=== PATIENT | male | born 1940 | race Caucasian/White ===

== ENCOUNTER 2017-04-07 06:16 | Day surgery (SDC) | payer MEDICARE, MEDICAID ==
[2017-04-07] MEDS ORDERED: Dexamethasone 4 MG/ML SDV IV ONE (06:17)
[2017-04-07] MEDS ORDERED: Midazolam 1 MG/ML 2 ML SDV IV ONE (06:17)
[2017-04-07] MEDS ORDERED: Dilation Soln 1 EA EACH EYELF ONE (06:30)
[2017-04-07] MEDS ORDERED: Sodium Chloride 0.9% 10 ML Syringe FLUSH PRN (06:30)
[2017-04-07] MEDS ORDERED: Timolol Maleate 0.5% Ophth Soln 5 ML Bottle EYELF ONE (06:30)
[2017-04-07] MEDS ORDERED: Moxifloxacin 0.5% Ophth Soln 3 ML Bottle EYELF ONE (06:30)
[2017-04-07] MEDS ORDERED: Proparacaine 0.5% Ophth Soln 15 ML Bottle EYELF SCH (06:30)
[2017-04-07] MEDS ORDERED: Phenylephrine 10% Ophth Soln 5 ML Bot EYELF ONE (06:30)
[2017-04-07] MEDS ORDERED: Povidone-Iodine 5% Sterile Ophth Soln 30 ML Bottle EYELF ONE ×2 (06:30→08:14)
[2017-04-07] MEDS ORDERED: Midazolam 1 MG/ML 2 ML SDV ONE (07:21)
[2017-04-07] MEDS ORDERED: Dexamethasone 4 MG/ML SDV ONE (07:22)
[2017-04-07] MEDS ORDERED: Balanced Salt Solution Plus Ophth Irrig 500 ML Bottle ONE (08:00)
[2017-04-07] MEDS ORDERED: Lidocaine 1% 30 ML SDV ONE (08:13)
[2017-04-07] MEDS ORDERED: Diclofenac Sodium 0.1% Ophth Soln 5 ML Bottle EYELF ONE (08:14)
[2017-04-07] MEDS ORDERED: Apraclonidine 0.5% Ophth Soln 5 ML Bot EYELF ONE (08:15)
[2017-04-07] MEDS ORDERED: Tetracaine HCl/PF 0.5% 4 ML Bottle EYELF ONE (08:15)
[2017-04-07] MEDS ORDERED: Dexamethasone/Neomycin/Polymyxin B Ophth Oint 3.5 GM Tube EYELF ONE (08:16)
[2017-04-07] MEDS ORDERED: Vancomycin 500 MG SDV EYELF ONE (08:16)
[2017-04-07] MEDS ORDERED: Balanced Salt Solution Ophth Irrig 500 ML Bottle IOCULAR ONE (08:16)
[2017-04-07] MEDS ORDERED: Chondroitin Sulfate/Hyaluronate Sodium Ophth Inj 0.75 ML Syringe EYELF ONE (08:16)
--- NOTE | 2017-04-07 09:15 | OR ---
DATE: 04/07/2017 PREOPERATIVE DIAGNOSIS: Cataract, left eye. POSTOPERATIVE DIAGNOSIS: Cataract, left eye. PROCEDURE: Extracapsular cataract extraction with intraocular lens implant, left eye. ANESTHESIA: Topical/local MAC. COMPLICATIONS: None. INDICATION: Mr. Coombs was seen in the clinic. He is unhappy with his vision. He has difficulty reading and difficulty seeing television. Examination revealed visually significant cataract. I explained options. I offered cataract surgery, and I explained risks including but not limited to, infection, retinal detachment, loss of vision, need for additional surgery, and risks associated with anesthesia. We discussed implant options. He requested a monofocal implant. He understands that he may need glasses following surgery. OPERATIVE DESCRIPTION: After informed consent was obtained and the risks, benefits, and alternatives were explained, the patient was brought to the operative suite and topical anesthesia was administered. The patient was then prepped and draped in the sterile fashion and attention was placed on the left eye. A sterile lid speculum was placed into the left eye to allow operative exposure. A full-thickness paracentesis was made in the temporal portion of the operative eye. Preservative-free lidocaine 0.1 mL was injected into the anterior chamber followed by viscoelastic. A full-thickness corneal incision was then made into the anterior chamber. A bent needle cystotome was used to create a small hernán in the anterior capsule. The capsulorrhexis forceps was then used to create a 360-degree curvilinear capsulorrhexis. The nucleus was then removed using a phacoemulsification handpiece and the remaining cortical material was then removed with irrigation and aspiration handpiece. Following removal of the cortical material, the capsular bag was then inspected and noted to be free of any holes or tears. Viscoelastic was then injected into the capsular bag and the intraocular lens was inserted into the capsular bag. No complications occurred. The viscoelastic material was then removed from both the anterior and posterior chambers and from behind the IOL. The lens and capsular bag were then reinspected. The IOL was well centered and the capsular bag intact. The wound and paracentesis sites were inspected and hydrated with balanced saline solution. Both were found to be self-sealing. The intraocular pressure was assessed digitally and found to be within normal range. A good red reflex was noted at the completion of the procedure. No complications occurred during the operation. At the completion of the procedure, Maxitrol, Voltaren, and Iopidine drops were placed into the operative eye. A sterile eye shield was placed over the operative eye and the patient was transported to the postoperative recovery area having tolerated the procedure well. Postoperative instructions were given along with a postoperative appointment. The patient was advised to call with any questions or concerns. [facility] /[id number]
[2017-04-07 10:01] VITALS: BP 136/81
== END 2017-04-07 09:15 | disposition home or self-care (01) ==
LOC: DL.SDS 06:16
PROVIDERS: ATTEND Ophthalmology
DX: H26.9 Unspecified cataract (principal); I25.10 Atherosclerotic heart disease of native coronary artery without angina pectoris; J44.9 Chronic obstructive pulmonary disease, unspecified; E78.5 Hyperlipidemia, unspecified; Z98.890 Other specified postprocedural states; Z88.0 Allergy status to penicillin; Z88.8 Allergy status to other drugs, medicaments and biological substances; Z87.891 Personal history of nicotine dependence; Z79.01 Long term (current) use of anticoagulants
CPT/HCPCS: 66984; A9270; C1780; J1100; J2250; J3370; J7050; 00142

== ENCOUNTER 2017-05-05 06:35 | Day surgery (SDC) | payer MEDICARE, MEDICAID ==
[~2017-05-05 06:35] MED LIST: Cataract Ophth Solution EYERT ONE; Moxifloxacin 0.5% Ophth Soln 3 ML Bottle EYERT ONE; Ondansetron 4 MG/2 ML SDV IVPUSH PRN; Phenylephrine 10% Ophth Soln 5 ML Bot EYERT ONE; Povidone-Iodine 5% Sterile Ophth Soln 30 ML Bottle EYERT ONE; Proparacaine 0.5% Ophth Soln 15 ML Bottle EYERT ONE; Sodium Chloride 0.9% 10 ML Syringe FLUSH PRN; Timolol Maleate 0.5% Ophth Soln 5 ML Bottle EYERT ONE
[2017-05-05] MEDS ORDERED: Midazolam 1 MG/ML 2 ML SDV IV ONE (06:36)
[2017-05-05] MEDS ORDERED: Dexamethasone 4 MG/ML SDV IV ONE (06:36)
[2017-05-05] MEDS ORDERED: Dexamethasone 4 MG/ML SDV ONE (07:29)
[2017-05-05] MEDS ORDERED: Midazolam 1 MG/ML 2 ML SDV ONE (07:29)
--- NOTE | 2017-05-05 07:36 | PCM.SN ---
- Free Text/Narrative Note: 05/05/17 1584 preop patients history and physical reviewed along with allergies and medications no history of complications with past anesthesia heart history of cad hypertension lungs history of copd o2 dependent asa 3 mallampati 2 npo 8 hrs plan topical with iv sedation this along with risks goals alternatives explained to patient and accepted
[2017-05-05] MEDS ORDERED: Lidocaine 1% 30 ML SDV ONE (08:00)
[2017-05-05] MEDS ORDERED: Povidone-Iodine 5% Sterile Ophth Soln 30 ML Bottle EYERT ONE (08:00)
[2017-05-05] MEDS ORDERED: Tetracaine HCl/PF 0.5% 4 ML Bottle EYERT ONE (08:00)
[2017-05-05] MEDS ORDERED: Dexamethasone/Neomycin/Polymyxin B Ophth Oint 3.5 GM Tube EYERT ONE (08:01)
[2017-05-05] MEDS ORDERED: Apraclonidine 0.5% Ophth Soln 5 ML Bot EYERT ONE (08:01)
[2017-05-05] MEDS ORDERED: Vancomycin 500 MG SDV EYERT ONE (08:01)
[2017-05-05] MEDS ORDERED: Diclofenac Sodium 0.1% Ophth Soln 5 ML Bottle EYERT ONE (08:01)
[2017-05-05] MEDS ORDERED: Balanced Salt Solution Ophth Irrig 500 ML Bottle IOCULAR ONE (08:01)
[2017-05-05] MEDS ORDERED: Chondroitin Sulfate/Hyaluronate Sodium Ophth Inj 0.75 ML Syringe EYERT ONE (08:02)
--- NOTE | 2017-05-05 08:29 | PCM.SN ---
- Free Text/Narrative Note: 05/05/17 4196 postop patient recovered well from iv sedation no apparent complications with anesthesia
--- NOTE | 2017-05-05 08:54 | OR ---
DATE: 05/05/2017 PREOPERATIVE DIAGNOSIS: Cataract, right eye. POSTOPERATIVE DIAGNOSIS: Cataract, right eye. PROCEDURE: Extracapsular cataract extraction with intraocular lens implant, right eye. ANESTHESIA: Topical/local MAC. COMPLICATIONS: None. INDICATION: Mr. Coombs was seen in the clinic with complaints of blurred vision. His examination revealed visually significant cataract. I explained options; I offered cataract surgery; and I explained risks preoperatively including the potential for infection, retinal detachment, loss of vision, need for additional surgery, and risks associated with anesthesia amongst others. We discussed implant options. He requested a monofocal implant. OPERATIVE DESCRIPTION: After informed consent was obtained and the risks, benefits, and alternatives were explained, the patient was brought to the operative suite and topical anesthesia was administered. The patient was then prepped and draped in the sterile fashion and attention was placed on the right eye. A sterile lid speculum was placed into the right eye to allow operative exposure. A full-thickness paracentesis was made in the temporal portion of the operative eye. Preservative-free lidocaine 0.1 mL was injected into the anterior chamber followed by viscoelastic. A full-thickness corneal incision was then made into the anterior chamber. A bent needle cystotome was used to create a small hernán in the anterior capsule. The capsulorrhexis forceps was then used to create a 360-degree curvilinear capsulorrhexis. The nucleus was then removed using a phacoemulsification handpiece and the remaining cortical material was then removed with irrigation and aspiration handpiece. Following removal of the cortical material, the capsular bag was then inspected and noted to be free of any holes or tears. Viscoelastic was then injected into the capsular bag and the intraocular lens was inserted into the capsular bag. The viscoelastic material was then removed from both the anterior and posterior chambers and from behind the IOL. The lens and capsular bag were then reinspected. The IOL was well centered and the capsular bag intact. The wound and paracentesis sites were inspected and hydrated with balanced saline solution. Both were found to be self-sealing. The intraocular pressure was assessed digitally and found to be within normal range. A good red reflex was noted at the completion of the procedure. No complications occurred during the operation. At the completion of the procedure, Maxitrol, Voltaren, and Iopidine drops were placed into the operative eye. A sterile eye shield was placed over the operative eye and the patient was transported to the postoperative recovery area having tolerated the procedure well. Postoperative instructions were given along with a postoperative appointment. The patient was advised to call with any questions or concerns. [facility] /[id number]
[2017-05-05 13:53] VITALS: BP 119/63
== END 2017-05-05 09:17 | disposition home or self-care (01) ==
LOC: DL.SDS 06:35
PROVIDERS: ATTEND Ophthalmology
DX: H26.9 Unspecified cataract (principal); J44.9 Chronic obstructive pulmonary disease, unspecified; I25.10 Atherosclerotic heart disease of native coronary artery without angina pectoris; E78.5 Hyperlipidemia, unspecified; Z88.0 Allergy status to penicillin; Z98.890 Other specified postprocedural states; Z87.891 Personal history of nicotine dependence; Z79.899 Other long term (current) drug therapy; Z79.01 Long term (current) use of anticoagulants; Z88.8 Allergy status to other drugs, medicaments and biological substances
CPT/HCPCS: 00142; 66984; A9270; J3370; J7050; C1780; J1100; J2250

== ENCOUNTER 2019-06-21 11:34 | Inpatient (IN) | payer OTHER, MEDICARE, MEDICAID ==
--- NOTE | 2019-06-21 13:06 | PCM.HP ---
H&P History of Present Illness - General Date of Service: 06/21/19 Admit Problem/Dx: sob Source of Information: Patient, Provider - History of Present Illness Initial Comments - Free Text/Narative: 78-year-old gentleman with a history of coronary artery disease, COPD, home oxygen use, dyslipidemia, rheumatoid arthritis. The patient was seen by rheumatology about a week ago and received IV steroids. The patient has been experiencing increasing shortness of breath. He had to use more nebulizers, increase his oxygen to 3 L per nasal cannula continuously. There is mild to moderate associated cough with it. Developed pain in the right chest with coughing. Minimal sputum production. The patient went to the local clinic. Was noted to have significant shortness of breath. He was given Solu-Medrol 125 mg and Rocephin. Chest x-ray was done, laboratory studies showed leukocytosis, Recommendation was for hospital treatment. - Related Data Allergies/Adverse Reactions: Allergies Allergy/AdvReac Type Severity Reaction Status Date / Time Penicillins Allergy Unknown SWELLING Verified 06/21/19 12:04 OF LEGS/FEET codeine Allergy nightmares Verified 06/21/19 12:04 hydrocodone Allergy bad dreams Verified 06/21/19 12:04 isosorbide Allergy Other Verified 06/21/19 12:04 Home Medications: Home Meds Acetaminophen [Acetaminophen Extra Strength] 500 mg PO Q8H PRN 12/16/15 [History ] Albuterol Sulfate [Proventil Hfa] 2 puff INH TID PRN 12/16/15 [History] Albuterol [Proventil Neb Soln] 1 vial INH Q6H PRN 12/16/15 [History] Budesonide/Formoterol [Symbicort 160-4.5 MCG] 2 puff INH BID 12/16/15 [History] Cyclobenzaprine [Flexeril] 10 mg PO TID PRN 12/16/15 [History] Doxazosin [Cardura] 4 mg PO BEDTIME 12/16/15 [History] Ezetimibe [Zetia] 5 mg PO DAILY 12/16/15 [History] Metoprolol Succinate [Toprol XL] 100 mg PO BEDTIME 12/16/15 [History] Nitroglycerin [Nitroglycerin Patch 0.2 MG/Hr] 1 patch TRDERM DAILY 05/02/16 [ History] Nitroglycerin [Nitrostat] 1 tab SL Q5M PRN 12/16/15 [History] Tiotropium [Spiriva HandiHaler] 1 puff INH BEDTIME 12/16/15 [History] Warfarin [Coumadin] 2 mg PO .TRSASU 12/16/15 [History] atorvaSTATin [Lipitor] 20 mg PO BEDTIME 12/16/15 [History] riTUXimab [Rituxan] 1 infusion IV .[id number] 12/16/15 [History] traMADol [Ultram] 100 mg PO TID PRN 12/16/15 [History] Gabapentin 300 mg PO TID PRN 04/07/17 [History] amLODIPine [Norvasc] 10 mg PO DAILY 04/07/17 [History] Esomeprazole [NexIUM] 40 mg PO DAILY 05/04/17 [History] Fluticasone Propionate [Flonase] 1 spray NASBOTH DAILY PRN 05/04/17 [History] Warfarin [Coumadin] 4 mg PO .MWF 06/17/18 [History] predniSONE [Prednisone] 2.5 mg PO DAILY #3 tablet 06/22/18 [Rx] predniSONE [Prednisone] 5 mg PO DAILY #3 tablet 06/22/18 [Rx] predniSONE [Prednisone] 20 mg PO DAILY #3 tablet 06/22/18 [Rx] Past Medical History HEENT History: Reports: Cataract, Hard of Hearing, Impaired Vision Other HEENT History: WEARS CORRECTIVE LENSES; UPPER AND LOWER DENTURE PLATE; BILAT HEARING AIDES Cardiovascular History: Reports: Blood Clots/VTE/DVT, CAD, Heart Murmur, High Cholesterol, Hypertension, Other (See Below) Other Cardiovascular History: THROMBOPHLEBITIS Respiratory History: Reports: Bronchitis, Recurrent, COPD, PE, Pneumonia, Recurrent, Sleep Apnea Gastrointestinal History: Reports: Chronic Constipation, Diverticulosis Genitourinary History: Reports: Prostate Disorder, Retention, Urinary, UTI, Recurrent Musculoskeletal History: Reports: Arthritis, RA, Other (See Below) Other Musculoskeletal History: SCIATICA. RHEUMATOID ARTHRITIS Neurological History: Reports: None Psychiatric History: Reports: Anxiety, Depression Endocrine/Metabolic History: Reports: Hypothyroidism Hematologic History: Reports: Blood Transfusion(s) Immunologic History: Reports: None Oncologic (Cancer) History: Reports: None Dermatologic History: Reports: Eczema Other Dermatologic History: laceration right lateral hand. - Infectious Disease History Infectious Disease History: Reports: Chicken Pox - Past Surgical History Head Surgeries/Procedures: Reports: None HEENT Surgical History: Reports: Cataract Surgery, Oral Surgery, Tonsillectomy, Other (See Below) Other HEENT Surgeries/Procedures: ADENOIDECTOMY Cardiovascular Surgical History: Reports: Coronary Artery Stent Respiratory Surgical History: Reports: Thoracotomy, Other (See Below) Other Respiratory Surgeries/Procedures: PLEURAL BIOPSY GI Surgical History: Reports: Cholecystectomy, Colonoscopy, EGD, Hernia, Inguinal Male Surgical History: Reports: None Endocrine Surgical History: Reports: None Neurological Surgical History: Reports: None Musculoskeletal Surgical History: Reports: Knee Replacement, Other (See Below) Other Musculoskeletal Surgeries/Procedures:: RESECTION OF OLECRANAL BURSA Oncologic Surgical History: Reports: None Social & Family History - Family History Family Medical History: Noncontributory - Tobacco Use Smoking Status *Q: Former Smoker Used Tobacco, but Quit: Yes Month/Year Tobacco Last Used: 1988 - Caffeine Use Caffeine Use: Reports: Coffee, Soda Caffeine Use Comment: 12-14 oz daily - Recreational Drug Use Recreational Drug Use: No - Living Situation & Occupation Living situation: Reports: , with Spouse Occupation: Retired H&P Review of Systems - Review of Systems: Review Of Systems: See Below General: Reports: Chills. Denies: Fever Pulmonary: Reports: Shortness of Breath, Wheezing, Pleuritic Chest Pain, Cough. Denies: Sputum, Hemoptysis Cardiovascular: Reports: Chest Pain. Denies: Edema (Right sided with cough) Gastrointestinal: Denies: Abdominal Pain Genitourinary: Denies: Dysuria Psychiatric: Denies: Confusion Neurological: Denies: Dizziness Exam - Exam Exam: See Below - Vital Signs Vital Signs: Last Vital Signs Temp 37.1 C 06/21/19 12:00 Pulse 95 06/21/19 12:00 Resp 20 06/21/19 12:00 BP 130/56 L 06/21/19 12:00 Pulse Ox 97 06/21/19 12:00 Weight: 71.74 kg - Exam General: Alert, Oriented Neck: Supple Lungs: Normal Respiratory Effort, Decreased Breath Sounds, Wheezing (Mild bilateral) Cardiovascular: Regular Rate, Regular Rhythm GI/Abdominal Exam: Normal Bowel Sounds, Soft, Non-Tender Extremities: No Pedal Edema Skin: Warm, Dry, Intact Neuro Extensive - Mental Status: Alert, Oriented x3 Psychiatric: Alert, Normal Affect, Normal Mood - Patient Data Lab Results Last 24 hrs: Laboratory studies from [facility] were reviewed White blood cell count 26.7, hemoglobin 14.7, platelet count 186 BUN 21, sodium 138, potassium 4.9, creatinine 1.9 Baseline creatinine around 1.4-1.8 DATE OF STUDY: 06/21/2019 10:11 AM STUDY: XR CHEST PA AND LATERAL HISTORY: COPD with decrease BS's and wheezing COMPARISONS: 12/31/2015 FINDINGS.No change in heart size and pulmonary vascularity. Linear strands of atelectasis or fibrosis in both lung bases are similar. Subtle nodular opacity projected over the lower LEFT hemithorax may represent a pulmonary nodule or nipple shadow. Follow-up PA radiograph with nipple markers or chest CT recommended. Probable nipple shadow on the RIGHT. Hyperinflation of both lungs. Surgical clips, RIGHT upper quadrant. No pneumothorax or pleural effusion. - Problem List (1) Acute exacerbation of chronic obstructive pulmonary disease (COPD) SNOMED Code(s): 821551336 ICD Code: J44.1 - CHRONIC OBSTRUCTIVE PULMONARY DISEASE W (ACUTE) EXACERBATION Status: Acute Current Visit: No Problem List Initiated/Reviewed/Updated: Yes Orders Last 24hrs: Active Orders 24 hr Category Date Time Status CULTURE BLOOD [BC] Stat Lab 06/21/19 12:37 Ordered CULTURE BLOOD [BC] Stat Lab 06/21/19 12:37 Ordered CULTURE SPUTUM + SMEAR [RM] Routine Lab 06/21/19 12:37 Ordered CULTURE URINE [RM] Routine Lab 06/21/19 12:38 Ordered LACTIC ACID [CHEM] Routine Lab 06/21/19 12:37 Ordered PROCALCITONIN [REF] Routine Lab 06/21/19 12:38 Ordered UA W/MICROSCOPIC [URIN] Routine Lab 06/21/19 12:38 Ordered Blood Culture x2 Reflex Set [OM.PC] Stat Oth 06/21/19 12:37 Ordered Assessment/Plan Comment:: Presented with increasing shortness of breath, cough, Noted to have significant wheezing. Leukocytosis. Acute COPD exacerbation Treat with Pulmicort, scheduled DuoNeb Use as needed duoneb nebulizers Acute on chronic hypoxemic respiratory failure has been using oxygen in the past but requiring higher levels The patient is requiring continuous oxygen now We'll supplement as needed Acute bronchitis, no apparent pneumonia We will obtain blood culture, sputum culture Obtain procalcitonin Treat empirically with Rocephin and azithromycin Hypertension Treat with Norvasc Dyslipidemia Treat with Lipitor RA received IV steroid - leukocytosis might relate to that 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
[2019-06-21] MEDS ORDERED: Cyclobenzaprine 10 MG Tab PO PRN (13:12)
[2019-06-21] MEDS ORDERED: Gabapentin 300 MG Cap PO PRN (13:12)
[2019-06-21] MEDS ORDERED: Albuterol/Ipratropium 3.0-0.5 MG/3 ML Neb Soln NEB PRN (13:31)
[2019-06-21] MEDS ORDERED: Temazepam 15 MG Cap PO PRN (13:54)
[2019-06-21] MEDS ORDERED: Ondansetron 4 MG Tab.DIS PO PRN (13:54)
[2019-06-21] MEDS ORDERED: Acetaminophen 325 MG Tab PO PRN (13:54)
[2019-06-21] MEDS: Sodium Chloride 0.9% 10 ML Syringe FLUSH PRN ×3 (14:23→21:24)
[2019-06-21] MEDS: methylPREDNISolone Sodium Succinate 40 MG/1 ML SDV IVPUSH SCH ×2 (14:23→21:19)
[2019-06-21] MEDS: Azithromycin 500 MG in Sodium Chloride 0.9% 250 ML IV SCH (15:01)
[2019-06-21] MEDS: cefTRIAXone 1 GM in Sodium Chloride 0.9% 50 ML IV SCH (16:06)
[2019-06-21] MEDS ORDERED: Warfarin 2 MG Tab PO ONE (16:15)
[2019-06-21] MEDS: traMADol 50 MG Tab PO PRN (16:46)
[2019-06-21] MEDS: Albuterol/Ipratropium 3.0-0.5 MG/3 ML Neb Soln NEB SCH (17:53)
[2019-06-21] MEDS: Budesonide 0.5 MG/2 ML Neb Susp NEB SCH (17:55)
[2019-06-21] MEDS: Metoprolol Succinate 50 MG Tab.ER PO SCH (21:06)
[2019-06-21] MEDS: Doxazosin 2 MG Tab PO SCH (21:07)
[2019-06-21] MEDS: atorvaSTATin 20 MG Tab PO SCH (21:07)
[2019-06-21] MEDS: Gabapentin 300 MG Cap PO SCH (21:08)
[2019-06-21] MEDS: Heparin Sodium 5,000 Units/ML Vial SUBCUT SCH (21:30)
[2019-06-22] MEDS: Albuterol/Ipratropium 3.0-0.5 MG/3 ML Neb Soln NEB SCH ×4 (01:21→18:09)
[2019-06-22] MEDS: Sodium Chloride 0.9% 10 ML Syringe FLUSH PRN ×3 (06:33→22:15)
[2019-06-22] MEDS: methylPREDNISolone Sodium Succinate 40 MG/1 ML SDV IVPUSH SCH ×3 (06:34→22:15)
[2019-06-22] MEDS: Heparin Sodium 5,000 Units/ML Vial SUBCUT SCH ×2 (06:38→14:21)
[2019-06-22 07:05] LABS: ANION GAP 13.7
[2019-06-22] MEDS: Budesonide 0.5 MG/2 ML Neb Susp NEB SCH ×2 (07:50→18:09)
[2019-06-22] MEDS: amLODIPine 5 MG Tab PO SCH (08:43)
[2019-06-22] MEDS: Ezetimibe 10 MG Tab PO SCH (08:43)
[2019-06-22] MEDS: Gabapentin 300 MG Cap PO SCH ×3 (08:44→21:18)
[2019-06-22] MEDS ORDERED: Nitroglycerin 0.2 MG/HR Transdermal Patch TRDERM SCH (09:00)
--- NOTE | 2019-06-22 10:40 | PCM.PN ---
- General Info Date of Service: 06/22/19 Admission Dx/Problem (Free Text): Shortness of breath Subjective Update: He is feeling well. Stable on 3 L nasal cannula oxygen. Shortness of breath is [id number], improved since admission. No associated chest pain. No sputum. No urinary burning. No abdominal pain. - Review of Systems General: Reports: Weakness. Denies: Fever Pulmonary: Reports: Shortness of Breath Cardiovascular: Denies: Chest Pain Gastrointestinal: Denies: Abdominal Pain Genitourinary: Denies: Dysuria Neurological: Denies: Confusion - Patient Data Vitals - Most Recent: Last Vital Signs Temp 36.4 C 06/22/19 08:00 Pulse 80 06/22/19 07:51 Resp 18 06/22/19 08:00 BP 137/64 06/22/19 08:43 Pulse Ox 99 06/22/19 08:00 Weight - Most Recent: 71.74 kg I&O - Last 24 Hours: Intake & Output 06/21/19 06/22/19 06/22/19 22:59 06:59 14:59 Intake Total 500 455 200 Output Total 400 Balance 500 55 200 Lab Results Last 24 Hours: Laboratory Results - last 24 hr 06/21/19 06/21/19 06/21/19 Range/Units 12:53 12:53 12:53 WBC (5.0-10.0) 10^3/uL RBC (4.6-6.2) 10^6/uL Hgb (14.0-18.0) g/dL Hct (40.0-54.0) % MCV (80-100) fL MCH (27.0-34.0) pg MCHC (33.0-35.0) g/dL Plt Count (150-450) 10^3/uL Neut % (Auto) (42.2-75.2) % Lymph % (Auto) (20.5-50.1) % [place] % (Auto) (2-8) % Eos % (Auto) (1.0-3.0) % Baso % (Auto) (0.0-1.0) % PT 17.7 H D (9.0-12.0) SEC INR 1.8 H (0.9-1.2) Sodium (135-145) mmol/L Potassium (3.6-5.0) mmol/L Chloride (101-111) mmol/L Carbon Dioxide (21.0-31.0) mmol/L Anion Gap BUN (7-18) mg/dL Creatinine (0.6-1.3) mg/dL Est Cr Clr Drug Dosing mL/min Estimated GFR (MDRD) Glucose (74-105) mg/dL Lactic Acid 2.3 H (0.5-2.2) mmol/L Calcium (8.4-10.2) mg/dl Procalcitonin 0.29 H (<0.10) ng/mL Urine Color (YELLOW) Urine Appearance (CLEAR) Urine pH (5.0-9.0) Ur Specific [place] (1.005-1.030) Urine Protein (NEGATIVE) Urine Glucose (UA) (NEGATIVE) Urine Ketones (NEGATIVE) Urine Occult Blood (NEGATIVE) Urine Nitrite (NEGATIVE) Urine Bilirubin (NEGATIVE) Urine Urobilinogen (0.2-1.0) mg/dL Ur Leukocyte Esterase (NEGATIVE) Urine RBC /HPF Urine WBC (0-5/HPF) /HPF Ur Epithelial Cells (NOT SEEN) /HPF Amorphous Sediment (NOT SEEN) /HPF Urine Bacteria (0-FEW/HPF) /HPF Urine Mucus (NOT SEEN) /LPF 06/21/19 06/21/19 06/22/19 Range/Units 13:30 16:50 06:25 WBC 26.8 H* (5.0-10.0) 10^3/uL RBC 4.58 L (4.6-6.2) 10^6/uL Hgb 13.3 L (14.0-18.0) g/dL Hct 40.6 (40.0-54.0) % MCV 88.6 D (80-100) fL MCH 29.0 (27.0-34.0) pg MCHC 32.8 L (33.0-35.0) g/dL Plt Count 174 (150-450) 10^3/uL Neut % (Auto) 91.1 H (42.2-75.2) % Lymph % (Auto) 4.7 L (20.5-50.1) % [place] % (Auto) 4.1 (2-8) % Eos % (Auto) 0.0 L (1.0-3.0) % Baso % (Auto) 0.1 (0.0-1.0) % PT (9.0-12.0) SEC INR (0.9-1.2) Sodium (135-145) mmol/L Potassium (3.6-5.0) mmol/L Chloride (101-111) mmol/L Carbon Dioxide (21.0-31.0) mmol/L Anion Gap BUN (7-18) mg/dL Creatinine (0.6-1.3) mg/dL Est Cr Clr Drug Dosing mL/min Estimated GFR (MDRD) Glucose (74-105) mg/dL Lactic Acid 3.1 H (0.5-2.2) mmol/L Calcium (8.4-10.2) mg/dl Procalcitonin (<0.10) ng/mL Urine Color Dark yellow (YELLOW) Urine Appearance Slightly cloudy (CLEAR) Urine pH 5.5 (5.0-9.0) Ur Specific [place] 1.025 (1.005-1.030) Urine Protein 100 H (NEGATIVE) Urine Glucose (UA) Negative (NEGATIVE) Urine Ketones 15 H (NEGATIVE) Urine Occult Blood Small H (NEGATIVE) Urine Nitrite Positive H (NEGATIVE) Urine Bilirubin Negative (NEGATIVE) Urine Urobilinogen 0.2 (0.2-1.0) mg/dL Ur Leukocyte Esterase Small H (NEGATIVE) Urine RBC 5-10 H /HPF Urine WBC 75-100 H (0-5/HPF) /HPF Ur Epithelial Cells Rare (NOT SEEN) /HPF Amorphous Sediment Few (NOT SEEN) /HPF Urine Bacteria Few (0-FEW/HPF) /HPF Urine Mucus Rare (NOT SEEN) /LPF 06/22/19 06/22/19 06/22/19 Range/Units 06:25 06:25 06:25 WBC (5.0-10.0) 10^3/uL RBC (4.6-6.2) 10^6/uL Hgb (14.0-18.0) g/dL Hct (40.0-54.0) % MCV (80-100) fL MCH (27.0-34.0) pg MCHC (33.0-35.0) g/dL Plt Count (150-450) 10^3/uL Neut % (Auto) (42.2-75.2) % Lymph % (Auto) (20.5-50.1) % [place] % (Auto) (2-8) % Eos % (Auto) (1.0-3.0) % Baso % (Auto) (0.0-1.0) % PT 21.4 H (9.0-12.0) SEC INR 2.2 H (0.9-1.2) Sodium 139 (135-145) mmol/L Potassium 4.7 (3.6-5.0) mmol/L Chloride 106 (101-111) mmol/L Carbon Dioxide 24.0 (21.0-31.0) mmol/L Anion Gap 13.7 BUN 32 H (7-18) mg/dL Creatinine 1.4 H (0.6-1.3) mg/dL Est Cr Clr Drug Dosing 44.84 mL/min Estimated GFR (MDRD) 49 Glucose 188 H (74-105) mg/dL Lactic Acid 1.9 (0.5-2.2) mmol/L Calcium 8.5 (8.4-10.2) mg/dl Procalcitonin (<0.10) ng/mL Urine Color (YELLOW) Urine Appearance (CLEAR) Urine pH (5.0-9.0) Ur Specific [place] (1.005-1.030) Urine Protein (NEGATIVE) Urine Glucose (UA) (NEGATIVE) Urine Ketones (NEGATIVE) Urine Occult Blood (NEGATIVE) Urine Nitrite (NEGATIVE) Urine Bilirubin (NEGATIVE) Urine Urobilinogen (0.2-1.0) mg/dL Ur Leukocyte Esterase (NEGATIVE) Urine RBC /HPF Urine WBC (0-5/HPF) /HPF Ur Epithelial Cells (NOT SEEN) /HPF Amorphous Sediment (NOT SEEN) /HPF Urine Bacteria (0-FEW/HPF) /HPF Urine Mucus (NOT SEEN) /LPF [facility] Results Last 24 Hours: Microbiology 06/21/19 13:30 Urine Culture - Preliminary Urine, Clean Catch Med Orders - Current: Current Medications Acetaminophen (Tylenol) 650 mg PO Q4H PRN PRN Reason: Pain (Mild 1-3)/fever Albuterol/Ipratropium (Duoneb 3.0-0.5 Mg/3 Ml) 3 ml NEB Q6HRRT [facility] Last Admin: 06/22/19 07:51 Dose: 3 ml Albuterol/Ipratropium (Duoneb 3.0-0.5 Mg/3 Ml) 3 ml NEB Q2H PRN PRN Reason: sob Amlodipine Besylate (Norvasc) 10 mg PO DAILY [facility] Last Admin: 06/22/19 08:43 Dose: 10 mg Atorvastatin Calcium (Lipitor) 20 mg PO BEDTIME [facility] Last Admin: 06/21/19 21:07 Dose: 20 mg Budesonide (Pulmicort) 0.5 mg NEB BIDRT [facility] Last Admin: 06/22/19 07:50 Dose: 0.5 mg Cyclobenzaprine HCl (Flexeril) 10 mg PO TID PRN PRN Reason: Pain Doxazosin Mesylate (Cardura) 4 mg PO BEDTIME [facility] Last Admin: 06/21/19 21:07 Dose: 4 mg Ezetimibe (Zetia) 5 mg PO DAILY [facility] Last Admin: 06/22/19 08:43 Dose: 5 mg Gabapentin (Neurontin) 300 mg PO TID [facility] Last Admin: 06/22/19 08:44 Dose: 300 mg Heparin Sodium (Porcine) (Heparin Sodium) 5,000 units SUBCUT Q8HR [facility] Last Admin: 06/22/19 06:38 Dose: 5,000 units Azithromycin 500 mg/ Sodium (Chloride) 250 mls @ 250 mls/hr IV Q24H [facility] Last Infusion: 06/21/19 16:14 Dose: Infused Ceftriaxone Sodium 1 gm/ (Sodium Chloride) 50 mls @ 50 mls/hr IV Q24H [facility] Last Admin: 06/21/19 16:06 Dose: 50 mls/hr Methylprednisolone Sodium Succinate (Solu-Medrol) 40 mg IVPUSH Q8HR [facility] Last Admin: 06/22/19 06:34 Dose: 40 mg Metoprolol Succinate (Toprol Xl) 100 mg PO BEDTIME [facility] Last Admin: 06/21/19 21:06 Dose: 100 mg Ondansetron HCl (Zofran Odt) 4 mg PO Q4H PRN PRN Reason: nausea, able to take PO Sodium Chloride (Saline Flush) 10 ml FLUSH ASDIRECTED PRN PRN Reason: Keep Vein Open Last Admin: 06/22/19 06:38 Dose: 10 ml Temazepam (Restoril) 15 mg PO BEDTIME PRN PRN Reason: Sleep Tramadol HCl (Ultram) 100 mg PO Q6H PRN PRN Reason: Pain Last Admin: 06/21/19 16:46 Dose: 100 mg Warfarin Sodium (Pharmacy To Dose - Warfarin) 1 dose .XX ASDIRECTED [facility] Warfarin Sodium (Coumadin) 2 mg PO ONETIME ONE Stop: 06/22/19 14:01 Discontinued Medications Gabapentin (Neurontin) 300 mg PO TID PRN PRN Reason: Pain Nitroglycerin (Nitro-Dur 0.2 Mg/Hr) mg TRDERM DAILY [facility] Warfarin Sodium (Coumadin) 4 mg PO ONETIME ONE Stop: 06/21/19 16:16 Last Admin: 06/21/19 16:13 Dose: 4 mg - Exam Quality Assessment: Supplemental Oxygen General: Alert, Oriented Neck: Supple Lungs: Decreased Breath Sounds. No: Wheezing Cardiovascular: Regular Rate, Regular Rhythm GI/Abdominal Exam: Normal Bowel Sounds, Soft, Non-Tender Extremities: No Pedal Edema Skin: Warm, Dry Neurological: No New Focal Deficit Psy/Mental Status: Alert, Normal Affect, Normal Mood - Problem List & Annotations (1) Acute exacerbation of chronic obstructive pulmonary disease (COPD) SNOMED Code(s): 494793094 Code(s): J44.1 - CHRONIC OBSTRUCTIVE PULMONARY DISEASE W (ACUTE) EXACERBATION Status: Acute Current Visit: No - Problem List Review Problem List Initiated/Reviewed/Updated: Yes - My Orders Last 24 Hours: My Active Orders 06/21/19 12:37 CULTURE SPUTUM + SMEAR [RM] Routine Blood Culture x2 Reflex Set [OM.PC] Stat 06/21/19 12:53 CULTURE BLOOD [BC] Stat 06/21/19 12:57 CULTURE BLOOD [BC] Stat 06/21/19 13:12 Cyclobenzaprine [Flexeril] 10 mg PO TID PRN traMADol [Ultram] 100 mg PO Q6H PRN 06/21/19 13:30 CULTURE URINE [RM] Routine 06/21/19 13:31 Albuterol/Ipratropium [DuoNeb 3.0-0.5 MG/3 ML] 3 ml NEB Q2H PRN 06/21/19 13:33 RT Aerosol Therapy [RC] ASDIRECTED 06/21/19 13:45 Pharmacy to Dose - Warfarin 1 dose .XX ASDIRECTED 06/21/19 13:54 Patient Status [ADT] Routine Oxygen Therapy [RC] PRN Up With Assistance [RC] ASDIRECTED VTE/DVT Education [RC] PER UNIT ROUTINE Vital Signs [RC] Q4HR Acetaminophen [Tylenol] 650 mg PO Q4H PRN Ondansetron [Zofran ODT] 4 mg PO Q4H PRN Sodium Chloride 0.9% [Saline Flush] 10 ml FLUSH ASDIRECTED PRN Temazepam [Restoril] 15 mg PO BEDTIME PRN Saline Lock Insert [OM.PC] Routine Resuscitation Status Routine 06/21/19 13:55 Antiembolic Hose [OM.PC] Per Unit Routine 06/21/19 13:57 Antiembolic Devices [RC] PER UNIT ROUTINE 06/21/19 14:15 methylPREDNISolone Sod Succ [Solu-MEDROL] 40 mg IVPUSH Q8HR 06/21/19 15:00 Azithromycin [Zithromax] 500 mg Sodium Chloride 0.9% [Normal Saline] 250 ml IV Q24H 06/21/19 16:00 cefTRIAXone [Rocephin] 1 gm Sodium Chloride 0.9% [Normal Saline] 50 ml IV Q24H 06/21/19 18:00 Albuterol/Ipratropium [DuoNeb 3.0-0.5 MG/3 ML] 3 ml NEB Q6HRRT Budesonide [Pulmicort] 0.5 mg NEB BIDRT 06/21/19 21:00 Doxazosin [Cardura] 4 mg PO BEDTIME Gabapentin [Neurontin] 300 mg PO TID Metoprolol Succinate [Toprol XL] 100 mg PO BEDTIME atorvaSTATin [Lipitor] 20 mg PO BEDTIME 06/21/19 22:00 Heparin Sodium 5,000 units SUBCUT Q8HR 06/21/19 Dinner Regular Diet [DIET] 06/22/19 09:00 Ezetimibe [Zetia] 5 mg PO DAILY amLODIPine [Norvasc] 10 mg PO DAILY 06/22/19 14:00 Warfarin [Coumadin] 2 mg PO ONETIME ONE 06/23/19 15:10 INR,PT,PROTHROMBIN TIME [COAG] DAILY 06/24/19 15:10 INR,PT,PROTHROMBIN TIME [COAG] DAILY 06/25/19 15:10 INR,PT,PROTHROMBIN TIME [COAG] DAILY 06/26/19 15:10 INR,PT,PROTHROMBIN TIME [COAG] DAILY 06/27/19 15:10 INR,PT,PROTHROMBIN TIME [COAG] DAILY - Plan Plan:: Presented with increasing shortness of breath, cough, Noted to have significant wheezing. Leukocytosis. Acute COPD exacerbation Treat with Pulmicort, scheduled DuoNeb Use as needed duoneb nebulizers Acute on chronic hypoxemic respiratory failure has been using oxygen in the past but requiring higher levels The patient is requiring continuous oxygen now We'll supplement as needed Acute bronchitis, no apparent pneumonia blood culture: pending sputum culture: pending procalcitonin: relatively low Treat empirically with Rocephin and azithromycin Urinary tract infection Abnormal UA Urine culture Preliminary result is Staphylococcus continue ceftriaxone Follow culture Leukocytosis [facility] The patient's prior white blood cell count was 14 an 11.6 in March, 14.8 in August, 10.4 in July 2018 will send peripheral smear This leukocytosis is out of proportion to prior steroids and presumed infection will likely need hepatology follow-up Hypertension Treat with Norvasc Dyslipidemia Treat with Lipitor RA received IV steroid - leukocytosis might relate to that, at least in part 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
[2019-06-22] MEDS: traMADol 50 MG Tab PO PRN ×2 (11:50→22:54)
[2019-06-22] MEDS: Carbamide Peroxide 6.5% Otic Soln 15 ML Bottle EARBOTH SCH ×2 (13:25→21:20)
[2019-06-22] MEDS ORDERED: Warfarin 2 MG Tab PO ONE (14:00)
[2019-06-22] MEDS: Azithromycin 500 MG in Sodium Chloride 0.9% 250 ML IV SCH (14:23)
[2019-06-22] MEDS: cefTRIAXone 1 GM in Sodium Chloride 0.9% 50 ML IV SCH (16:38)
[2019-06-22] MEDS: Doxazosin 2 MG Tab PO SCH (21:18)
[2019-06-22] MEDS: Metoprolol Succinate 50 MG Tab.ER PO SCH (21:18)
[2019-06-22] MEDS: atorvaSTATin 20 MG Tab PO SCH (21:19)
[2019-06-23] MEDS: Albuterol/Ipratropium 3.0-0.5 MG/3 ML Neb Soln NEB SCH ×2 (00:14→07:12)
[2019-06-23] MEDS: methylPREDNISolone Sodium Succinate 40 MG/1 ML SDV IVPUSH SCH (06:05)
[2019-06-23] MEDS: Sodium Chloride 0.9% 10 ML Syringe FLUSH PRN (06:05)
[2019-06-23] MEDS: Ezetimibe 10 MG Tab PO SCH (08:46)
[2019-06-23] MEDS: Gabapentin 300 MG Cap PO SCH (08:46)
[2019-06-23] MEDS: amLODIPine 5 MG Tab PO SCH (08:46)
[2019-06-23] MEDS: Carbamide Peroxide 6.5% Otic Soln 15 ML Bottle EARBOTH SCH (08:48)
[2019-06-23 11:28] VITALS: BP 130/65; PULSE 78
--- NOTE | 2019-06-23 11:37 | PCM.DCSUM1 ---
Discharge Summary - Hospital Course Free Text/Narrative:: Presented with increasing shortness of breath, cough, Noted to have significant wheezing. Leukocytosis. Acute COPD exacerbation Treated with Pulmicort, scheduled DuoNeb improved cont home nebs Acute on chronic hypoxemic respiratory failure has been using oxygen in the past but initially he was requiring higher levels improved return to 2 l/min [place] oxygen use would benefit from portable oxygen Acute bronchitis, no apparent pneumonia blood culture: pending sputum culture: pending procalcitonin: relatively low Treated empirically with Rocephin and azithromycin Urinary tract infection Abnormal UA with MRSA sens to cipro treat with levofloxacin Leukocytosis Obtained records from the [facility] The patient's prior white blood cell count was 14 an 11.6 in March, 14.8 in August, 10.4 in July 2018 peripheral smear: pendng This leukocytosis is out of proportion to prior steroids and presumed infection but improving might relate to UTI consider hematology follow-up Hypertension Treat with Norvasc Dyslipidemia Treat with Lipitor RA received IV steroid - leukocytosis might relate to that, at least in part 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 Diagnosis: Stroke: No - Discharge Data Discharge Date: 06/23/19 Discharge Disposition: Home, Self-Care 01 Condition: Good - Referral to Home Health Primary Care Physician: Cecil Alvares MD - Discharge Diagnosis/Problem(s) (1) Acute exacerbation of chronic obstructive pulmonary disease (COPD) SNOMED Code(s): 024603314 ICD Code: J44.1 - CHRONIC OBSTRUCTIVE PULMONARY DISEASE W (ACUTE) EXACERBATION Status: Acute Current Visit: No - Patient Instructions Diet: Heart Healthy Diet Activity: As Tolerated - Discharge Plan *PRESCRIPTION DRUG MONITORING PROGRAM REVIEWED*: Not Applicable *COPY OF PRESCRIPTION DRUG MONITORING REPORT IN PATIENT SUYAPA: Not Applicable Prescriptions/Med Rec: Levofloxacin 750 mg PO DAILY #5 tablet predniSONE [Prednisone] 10 mg PO DAILY #18 tablet Home Medications: Home Meds Acetaminophen [Acetaminophen Extra Strength] 500 mg PO Q8H PRN 12/16/15 [History ] Albuterol Sulfate [Proventil Hfa] 2 puff INH TID PRN 12/16/15 [History] Albuterol [Proventil Neb Soln] 1 vial INH Q6H PRN 12/16/15 [History] Budesonide/Formoterol [Symbicort 160-4.5 MCG] 2 puff INH BID 12/16/15 [History] Cyclobenzaprine [Flexeril] 10 mg PO TID PRN 12/16/15 [History] Doxazosin [Cardura] 4 mg PO BEDTIME 12/16/15 [History] Ezetimibe [Zetia] 5 mg PO DAILY 12/16/15 [History] Metoprolol Succinate [Toprol XL] 100 mg PO BEDTIME 12/16/15 [History] Nitroglycerin [Nitrostat] 1 tab SL Q5M PRN 12/16/15 [History] Tiotropium [Spiriva HandiHaler] 1 puff INH BEDTIME 12/16/15 [History] Warfarin [Coumadin] 2 mg PO .TRSASU 12/16/15 [History] atorvaSTATin [Lipitor] 20 mg PO BEDTIME 12/16/15 [History] riTUXimab [Rituxan] 1 infusion IV .[id number] 12/16/15 [History] traMADol [Ultram] 100 mg PO TID PRN 12/16/15 [History] Gabapentin 300 mg PO TID 04/07/17 [History] amLODIPine [Norvasc] 10 mg PO DAILY 04/07/17 [History] Esomeprazole [NexIUM] 40 mg PO DAILY 05/04/17 [History] Fluticasone Propionate [Flonase] 1 spray NASBOTH DAILY PRN 05/04/17 [History] Warfarin [Coumadin] 4 mg PO .MWF 06/17/18 [History] Levofloxacin 750 mg PO DAILY #5 tablet 06/23/19 [Rx] predniSONE [Prednisone] 10 mg PO DAILY #18 tablet 06/23/19 [Rx] Oxygen Therapy Mode: Nasal Cannula - Discharge Summary/Plan Comment DC Time >30 min.: No - General Info Date of Service: 06/23/19 Subjective Update: He is feeling well. Stable on 2 L nasal cannula oxygen. Shortness of breath is mild, improved since admission. No associated chest pain. No sputum. No urinary burning. No abdominal pain. Functional Status: Reports: Pain Controlled, Tolerating Diet, Ambulating - Review of Systems General: Denies: Fever, Weakness Pulmonary: Reports: Shortness of Breath (improved) Cardiovascular: Denies: Chest Pain Gastrointestinal: Denies: Abdominal Pain Neurological: Denies: Confusion - Patient Data Vitals - Most Recent: Last Vital Signs Temp 36.6 C 06/23/19 11:27 Pulse 78 06/23/19 11:27 Resp 22 H 06/23/19 11:27 BP 130/65 06/23/19 11:27 Pulse Ox 97 06/23/19 11:27 Weight - Most Recent: 71.74 kg I&O - Last 24 hours: Intake & Output 06/22/19 06/23/19 06/23/19 22:59 06:59 14:59 Intake Total 460 Output Total 200 300 Balance 260 -300 Lab Results - Last 24 hrs: Laboratory Results - last 24 hr 06/23/19 06/23/19 06/23/19 Range/Units 06:30 06:30 07:50 WBC 22.0 H (5.0-10.0) 10^3/uL RBC 4.28 L (4.6-6.2) 10^6/uL Hgb 12.7 L (14.0-18.0) g/dL Hct 38.6 L (40.0-54.0) % MCV 90.2 (80-100) fL MCH 29.7 (27.0-34.0) pg MCHC 32.9 L (33.0-35.0) g/dL Plt Count 192 (150-450) 10^3/uL Neut % (Auto) 91.2 H (42.2-75.2) % Lymph % (Auto) 4.8 L (20.5-50.1) % [place] % (Auto) 3.8 (2-8) % Eos % (Auto) 0.0 L (1.0-3.0) % Baso % (Auto) 0.2 (0.0-1.0) % PT 29.9 H D (9.0-12.0) SEC INR 3.1 H (0.9-1.2) Sodium 141 (135-145) mmol/L Potassium 5.0 (3.6-5.0) mmol/L Chloride 106 (101-111) mmol/L Carbon Dioxide 23.0 (21.0-31.0) mmol/L Anion Gap 17.0 BUN 37 H (7-18) mg/dL Creatinine 1.5 H (0.6-1.3) mg/dL Est Cr Clr Drug Dosing 41.85 mL/min Estimated GFR (MDRD) 45 Glucose 195 H (74-105) mg/dL Calcium 8.8 (8.4-10.2) mg/dl RUDDY Results - Last 24 hrs: Microbiology 06/21/19 13:30 Urine Culture - Final Urine, Clean Catch (Mrsa) Staphylococcus Aureus 06/21/19 12:57 Aerobic Blood Culture - Preliminary Blood - Venous NO GROWTH AFTER 1 DAY Anaerobic Blood Culture - Preliminary NO GROWTH AFTER 1 DAY 06/21/19 12:53 Aerobic Blood Culture - Preliminary Blood - Venous - Lab Draw NO GROWTH AFTER 1 DAY Anaerobic Blood Culture - Preliminary NO GROWTH AFTER 1 DAY Med Orders - Current: Current Medications Acetaminophen (Tylenol) 650 mg PO Q4H PRN PRN Reason: Pain (Mild 1-3)/fever Albuterol/Ipratropium (Duoneb 3.0-0.5 Mg/3 Ml) 3 ml NEB Q6HRRT [facility] Last Admin: 06/23/19 07:12 Dose: 3 ml Albuterol/Ipratropium (Duoneb 3.0-0.5 Mg/3 Ml) 3 ml NEB Q2H PRN PRN Reason: sob Amlodipine Besylate (Norvasc) 10 mg PO DAILY [facility] Last Admin: 06/23/19 08:46 Dose: 10 mg Atorvastatin Calcium (Lipitor) 20 mg PO BEDTIME [facility] Last Admin: 06/22/19 21:19 Dose: 20 mg Budesonide (Pulmicort) 0.5 mg NEB BIDRT [facility] Last Admin: 06/22/19 18:09 Dose: 0.5 mg Carbamide Perox/Anhydrous Glycerin (Debrox 6.5% Otic Soln) 1 ml EARBOTH BID [facility] Last Admin: 06/23/19 08:48 Dose: 1 drop Cyclobenzaprine HCl (Flexeril) 10 mg PO TID PRN PRN Reason: Pain Doxazosin Mesylate (Cardura) 4 mg PO BEDTIME [facility] Last Admin: 06/22/19 21:18 Dose: 4 mg Ezetimibe (Zetia) 5 mg PO DAILY [facility] Last Admin: 06/23/19 08:46 Dose: 5 mg Gabapentin (Neurontin) 300 mg PO TID [facility] Last Admin: 06/23/19 08:46 Dose: 300 mg Azithromycin 500 mg/ Sodium (Chloride) 250 mls @ 250 mls/hr IV Q24H [facility] Last Admin: 06/22/19 14:23 Dose: 250 mls/hr Ceftriaxone Sodium 1 gm/ (Sodium Chloride) 50 mls @ 50 mls/hr IV Q24H [facility] Last Admin: 06/22/19 16:38 Dose: 50 mls/hr Methylprednisolone Sodium Succinate (Solu-Medrol) 40 mg IVPUSH Q8HR [facility] Last Admin: 06/23/19 06:05 Dose: 40 mg Metoprolol Succinate (Toprol Xl) 100 mg PO BEDTIME [facility] Last Admin: 06/22/19 21:18 Dose: 100 mg Ondansetron HCl (Zofran Odt) 4 mg PO Q4H PRN PRN Reason: nausea, able to take PO Sodium Chloride (Saline Flush) 10 ml FLUSH ASDIRECTED PRN PRN Reason: Keep Vein Open Last Admin: 06/23/19 06:05 Dose: 10 ml Temazepam (Restoril) 15 mg PO BEDTIME PRN PRN Reason: Sleep Tramadol HCl (Ultram) 100 mg PO Q6H PRN PRN Reason: Pain Last Admin: 06/22/19 22:54 Dose: 100 mg Warfarin Sodium (Pharmacy To Dose - Warfarin) 1 dose .XX ASDIRECTED [facility] Warfarin Sodium (Coumadin) 2 mg PO ONETIME ONE Stop: 06/23/19 14:01 Discontinued Medications Gabapentin (Neurontin) 300 mg PO TID PRN PRN Reason: Pain Heparin Sodium (Porcine) (Heparin Sodium) 5,000 units SUBCUT Q8HR [facility] Last Admin: 06/22/19 14:21 Dose: 5,000 units Nitroglycerin (Nitro-Dur 0.2 Mg/Hr) mg TRDERM DAILY [facility] Warfarin Sodium (Coumadin) 4 mg PO ONETIME ONE Stop: 06/21/19 16:16 Last Admin: 06/21/19 16:13 Dose: 4 mg Warfarin Sodium (Coumadin) 2 mg PO ONETIME ONE Stop: 06/22/19 14:01 Last Admin: 06/22/19 13:25 Dose: 2 mg - Exam Quality Assessment: Reports: Supplemental Oxygen General: Reports: Alert Neck: Reports: Supple Lungs: Reports: Normal Respiratory Effort, Decreased Breath Sounds GI/Abdominal Exam: Normal Bowel Sounds, Soft, Non-Tender Extremities: No Pedal Edema Skin: Reports: Warm, Dry
[2019-06-23] MEDS ORDERED: Warfarin 2 MG Tab PO ONE (14:00)
== END 2019-06-23 12:55 | disposition home or self-care (01) | DRG 189 ==
LOC: UNDOADMIN 11:34 → DL.MS 11:34
PROVIDERS: ADMIT Internal Medicine; ATTEND Internal Medicine
DX: J96.21 Acute and chronic respiratory failure with hypoxia (principal); J44.1 Chronic obstructive pulmonary disease with (acute) exacerbation; N39.0 Urinary tract infection, site not specified; J44.0 Chronic obstructive pulmonary disease with (acute) lower respiratory infection; J20.9 Acute bronchitis, unspecified; B95.62 Methicillin resistant Staphylococcus aureus infection as the cause of diseases classified elsewhere; I10 Essential (primary) hypertension; E78.5 Hyperlipidemia, unspecified; M06.9 Rheumatoid arthritis, unspecified; I25.10 Atherosclerotic heart disease of native coronary artery without angina pectoris; H54.7 Unspecified visual loss; E78.00 Pure hypercholesterolemia, unspecified; G47.30 Sleep apnea, unspecified; K59.09 Other constipation; F41.9 Anxiety disorder, unspecified; F32.9 Major depressive disorder, single episode, unspecified; E03.9 Hypothyroidism, unspecified; Z79.899 Other long term (current) drug therapy; Z79.01 Long term (current) use of anticoagulants; Z99.81 Dependence on supplemental oxygen; Z88.0 Allergy status to penicillin; Z88.5 Allergy status to narcotic agent; Z88.8 Allergy status to other drugs, medicaments and biological substances; Z79.52 Long term (current) use of systemic steroids; Z86.718 Personal history of other venous thrombosis and embolism; Z87.01 Personal history of pneumonia (recurrent); Z87.440 Personal history of urinary (tract) infections; Z98.49 Cataract extraction status, unspecified eye; Z90.49 Acquired absence of other specified parts of digestive tract; Z87.891 Personal history of nicotine dependence
CPT/HCPCS: 36415; 80048; 81001; 83605; 84145; 85025; 85610; 87040; 87086; 87088; 87186; 94640; A9270-GY; J0456; J0696; J1644; J2920; J7050; J7620-GY

== ENCOUNTER 2020-04-25 11:15 | Inpatient (IN) | payer OTHER, MEDICARE, MEDICAID ==
[2020-04-25] MEDS ORDERED: methylPREDNISolone Sodium Succinate 125 MG/2 ML SDV IVPUSH ONE (11:16)
[2020-04-25] MEDS ORDERED: Albuterol/Ipratropium 3.0-0.5 MG/3 ML Neb Soln NEB ONE ×2 (11:16→13:26)
--- NOTE | 2020-04-25 11:16 | EDM.PDOC ---
"ED HPI GENERAL MEDICAL PROBLEM - General Chief Complaint: Respiratory Problem Stated Complaint: [facility] Time Seen by Provider: 04/25/20 11:15 Source of Information: Reports: Patient, EMS, Old Records, RN History Limitations: Reports: No Limitations - History of Present Illness INITIAL COMMENTS - FREE TEXT/NARRATIVE: Pt arrives to ER from home by ambulance with c/o progressively worsening shortness of breath, wheezing, chest pain, and generalized weakness over the past 3 days. Last week he felt well enough to mow the lawn, but doing so really wiped him out. The last few days he hasn't left his room, hasn't eaten much, and has no appetite. He used an Albuterol nebulizer this morning and it seemed to make his breathing worse. He has Hx of COPD and CAD. Denies fall or injury. He is unsure if he has had any fevers. Paramedics report pt's temperature was 99.9F. Pt denies any exposure to COVID. Pt uses continuous supplement oxygen at 3L/min but increased to 4L today. Pt was treated from clinic with Prednisone starting last week. Onset: Gradual Duration: Day(s): (3), Constant, Getting Worse Location: Reports: Chest, Generalized Quality: Reports: Ache, Burning Severity: Moderate Improves with: Reports: None Worsens with: Reports: Breathing (and Cough) Associated Symptoms: Reports: No Other Symptoms Treatments COMMUNICATIONS TECH: Reports: Breathing Treatments, Oxygen Chest Pain Score (Numeric/FACES): 6 - Related Data Allergies Allergy/AdvReac Type Severity Reaction Status Date / Time Penicillins Allergy Unknown SWELLING Verified 04/25/20 11:28 OF LEGS/FEET codeine Allergy nightmares Verified 04/25/20 11:28 hydrocodone Allergy bad dreams Verified 04/25/20 11:28 isosorbide Allergy Other Verified 04/25/20 11:28 Home Meds: Home Meds Acetaminophen [Acetaminophen Extra Strength] 500 mg PO Q8H PRN 12/16/15 [History] Albuterol Sulfate [Proventil Hfa] 2 puff INH TID PRN 12/16/15 [History] Albuterol [Proventil Neb Soln] 1 vial INH Q6H PRN 12/16/15 [History] Budesonide/Formoterol [Symbicort 160-4.5 MCG] 2 puff INH BID 12/16/15 [History] Cyclobenzaprine [Flexeril] 10 mg PO TID PRN 12/16/15 [History] Doxazosin [Cardura] 4 mg PO BEDTIME 12/16/15 [History] Ezetimibe [Zetia] 5 mg PO DAILY 12/16/15 [History] Metoprolol Succinate [Toprol XL] 100 mg PO BEDTIME 12/16/15 [History] Nitroglycerin [Nitrostat] 1 tab SL Q5M PRN 12/16/15 [History] Tiotropium [Spiriva HandiHaler] 1 puff INH BEDTIME 12/16/15 [History] Warfarin [Coumadin] 2 mg PO .[id number] 12/16/15 [History] atorvaSTATin [Lipitor] 20 mg PO BEDTIME 12/16/15 [History] riTUXimab [Rituxan] 1 infusion IV .[id number] 12/16/15 [History] traMADol [Ultram] 100 mg PO TID PRN 12/16/15 [History] Gabapentin 300 mg PO TID 04/07/17 [History] amLODIPine [Norvasc] 10 mg PO DAILY 04/07/17 [History] Esomeprazole [NexIUM] 40 mg PO DAILY 05/04/17 [History] Fluticasone Propionate [Flonase] 1 spray NASBOTH DAILY PRN 05/04/17 [History] Warfarin [Coumadin] 3 mg PO .MOFR 06/17/18 [History] Levofloxacin 750 mg PO DAILY #5 tablet 06/23/19 [Rx] predniSONE [Prednisone] 10 mg PO DAILY #18 tablet 06/23/19 [Rx] Past Medical History HEENT History: Reports: Cataract, Hard of Hearing, Impaired Vision Other HEENT History: WEARS CORRECTIVE LENSES; UPPER AND LOWER DENTURE PLATE; BILAT HEARING AIDES Cardiovascular History: Reports: Blood Clots/VTE/DVT, CAD, Heart Murmur, High Cholesterol, Hypertension, Other (See Below) Other Cardiovascular History: THROMBOPHLEBITIS Respiratory History: Reports: Bronchitis, Recurrent, COPD, PE, Pneumonia, Rec urrent, Sleep Apnea Gastrointestinal History: Reports: Chronic Constipation, Diverticulosis Genitourinary History: Reports: Prostate Disorder, Retention, Urinary, UTI, Recurrent Musculoskeletal History: Reports: Arthritis, RA, Other (See Below) Other Musculoskeletal History: SCIATICA. RHEUMATOID ARTHRITIS Neurological History: Reports: None Psychiatric History: Reports: Anxiety, Depression Endocrine/Metabolic History: Reports: Hypothyroidism Hematologic History: Reports: Blood Transfusion(s) Immunologic History: Reports: None Oncologic (Cancer) History: Reports: None Dermatologic History: Reports: Eczema Other Dermatologic History: laceration right lateral hand. - Infectious Disease History Infectious Disease History: Reports: Chicken Pox - Past Surgical History Head Surgeries/Procedures: Reports: None HEENT Surgical History: Reports: Cataract Surgery, Oral Surgery, Tonsillectomy, Other (See Below) Other HEENT Surgeries/Procedures: ADENOIDECTOMY Cardiovascular Surgical History: Reports: Coronary Artery Stent Respiratory Surgical History: Reports: Thoracotomy, Other (See Below) Other Respiratory Surgeries/Procedures: PLEURAL BIOPSY GI Surgical History: Reports: Cholecystectomy, Colonoscopy, EGD, Hernia, Inguinal Male Surgical History: Reports: None Endocrine Surgical History: Reports: None Neurological Surgical History: Reports: None Musculoskeletal Surgical History: Reports: Knee Replacement, Other (See Below) Other Musculoskeletal Surgeries/Procedures:: RESECTION OF OLECRANAL BURSA Oncologic Surgical History: Reports: None Social & Family History - Family History Family Medical History: Noncontributory - Tobacco Use Smoking Status *Q: Former Smoker Years of Tobacco use: 30 - Caffeine Use Caffeine Use: Reports: Coffee, Soda Caffeine Use Comment: 12-14 oz daily - Alcohol Use Alcohol Use History: No - Recreational Drug Use Recreational Drug Use: No - Living Situation & Occupation Living situation: Reports: , with Spouse Occupation: Retired ED ROS GENERAL - Review of Systems Review Of Systems: Comprehensive ROS is negative, except as noted in HPI. ED EXAM, GENERAL - Physical Exam Exam: See Below Exam Limited By: No Limitations General Appearance: Alert, No Apparent Distress, Thin, Other (Chronically ill but non-toxic appearing) Eye Exam: Bilateral Eye: Normal Inspection Nose: Normal Inspection Throat/Mouth: Normal Lips, Normal Voice, No Airway Compromise, Other (Dry oral mucosa) Head: Atraumatic, Normocephalic, Sinus Tenderness Respiratory/Chest: No Respiratory Distress, No Accessory Muscle Use, Chest Non- Tender, Decreased Breath Sounds, Crackles, Wheezing, Other (Tight breath sounds). No: Rales, Rhonchi, Stridor, Splinting Cardiovascular: Regular Rate, Rhythm, No Edema, Tachycardia GI/Abdominal: Normal Bowel Sounds, Soft, Non-Tender Extremities: Non-Tender, No Pedal Edema Neurological: Alert, Oriented, No Motor/Sensory Deficits, Other (Generalized weakness) Psychiatric: Normal Mood Skin Exam: Warm, Dry, Normal Color EKG INTERPRETATION EKG Date: 04/25/20 Time: 11:34 Rhythm: Other (Sinus Tach) Rate (Beats/Min): 100 [place]: Normal P-Wave: Present QRS: Normal ST-T: Normal QT: Normal Comparison: NA - No Prior EKG Course - Vital Signs Last Recorded V/S: Last Vital Signs Temp 99.3 F 04/25/20 11:18 Pulse 89 04/25/20 13:26 Resp 22 H 04/25/20 11:18 BP 143/82 H 04/25/20 11:18 Pulse Ox 98 04/25/20 13:26 - Orders/Labs/Meds Orders: Active Orders 24 hr Category Date Time Status EKG 12 Lead [EKG Documentation Completion] [RC] STAT Care 04/25/20 11:16 Active Peripheral IV Care [RC] . DIRECTED Care 04/25/20 11:17 Active RT Aerosol Therapy [RC] ASDIRECTED Care 04/25/20 11:17 Active RT Aerosol Therapy [RC] ASDIRECTED Care 04/25/20 13:26 Active CULTURE BLOOD [BC] Stat Lab 04/25/20 11:29 Received CULTURE BLOOD [BC] Stat Lab 04/25/20 12:01 Received CULTURE URINE [] Stat Lab 04/25/20 12:21 Received Sodium Chloride 0.9% [Normal Saline] 500 ml Med 04/25/20 12:30 Active IV .BOLUS Sodium Chloride 0.9% [Saline Flush] Med 04/25/20 11:16 Active 10 ml FLUSH ASDIRECTED PRN Blood Culture x2 Reflex Set [OM.PC] Stat Oth 04/25/20 11:16 Ordered Peripheral IV Insertion Adult [OM.PC] Stat Oth 04/25/20 11:16 Ordered Medication Orders Sodium Chloride (Normal Saline) 500 mls @ 500 mls/hr IV .BOLUS DUY Last Admin: 04/25/20 12:25 Dose: 500 mls/hr Documented by: [email or web address] Sodium Chloride (Saline Flush) 10 ml FLUSH ASDIRECTED PRN PRN Reason: Keep Vein Open Last Admin: 04/25/20 11:47 Dose: 10 ml Documented by: [email or web address] Admin: 04/25/20 11:45 Dose: 10 ml Documented by: [id number] Labs: Laboratory Tests 04/25/20 04/25/20 04/25/20 Range/Units 11:29 11:29 11:29 WBC 21.6 H (5.0-10.0) 10^3/uL RBC 5.76 (4.6-6.2) 10^6/uL Hgb 16.5 D (14.0-18.0) g/dL Hct 51.0 (40.0-54.0) % MCV 88.5 (80-100) fL MCH 28.6 (27.0-34.0) pg MCHC 32.4 L (33.0-35.0) g/dL Plt Count 204 (150-450) 10^3/uL Neut % (Auto) 76.4 H (42.2-75.2) % Lymph % (Auto) 11.4 L (20.5-50.1) % [place] % (Auto) 10.7 H (2-8) % Eos % (Auto) 1.2 (1.0-3.0) % Baso % (Auto) 0.3 (0.0-1.0) % Add Manual Diff Yes Neutrophils % (Manual) 81 H (42-75) % Lymphocytes % (Manual) 10 L (20-50) % Monocytes % (Manual) 8 (2-8) % Eosinophils % (Manual) 1 (1-3) % PT 45.8 H D (9.0-12.0) SEC INR 4.9 H (0.9-1.2) APTT 45.1 H (22.0-34.0) SEC ABG pH (7.35-7.45) ABG pCO2 (35-45) mmHg ABG pO2 (70-100) mmHg ABG HCO3 (22-26) mmol/L ABG O2 Saturation (95-100) % ABG Base Excess ((-2)-(+3)) mmol/L [place]aly Test O2 Delivery Device Oxygen Flow Rate Sodium 139 (136-145) mmol/L Potassium 5.4 H (3.5-5.1) mmol/L Chloride 103 (98-107) mmol/L Carbon Dioxide 24 (21-32) mmol/L Anion Gap 17.4 H (7-13) mEq/L BUN 34 H (7-18) mg/dL Creatinine 1.88 H (0.70-1.30) mg/dL Est Cr Clr Drug Dosing 31.75 mL/min Estimated GFR (MDRD) 35 BUN/Creatinine Ratio 18.1 (No establ ref range) Glucose 132 H (74-99) mg/dL Lactic Acid (0.4-2.0) mmol/L Calcium 9.3 (8.5-10.1) mg/dL Total Bilirubin 1.4 H (0.2-1.0) mg/dL AST 17 (15-37) U/L ALT 27 (16-63) U/L Alkaline Phosphatase 133 H (46-116) U/L Troponin I < 0.017 (0.000-0.056) ng/mL B-Natriuretic Peptide 60 (0-100) pg/ml Total Protein 7.3 (6.4-8.2) g/dL Albumin 3.2 L (3.4-5.0) g/dL Globulin 4.1 Albumin/Globulin Ratio 0.78 Urine Color (YELLOW) Urine Appearance (CLEAR) Urine pH (5.0-9.0) Ur Specific [place] (1.005-1.030) Urine Protein (NEGATIVE) Urine Glucose (UA) (NEGATIVE) Urine Ketones (NEGATIVE) Urine Occult Blood (NEGATIVE) Urine Nitrite (NEGATIVE) Urine Bilirubin (NEGATIVE) Urine Urobilinogen (0.2-1.0) mg/dL Ur Leukocyte Esterase (NEGATIVE) Urine RBC /HPF Urine WBC (0-5/HPF) /HPF Ur Epithelial Cells (NOT SEEN) /HPF Amorphous Sediment (NOT SEEN) /HPF Urine Bacteria (0-FEW/HPF) /HPF Urine Mucus (NOT SEEN) /LPF Urine Trichomonas (NOT SEEN) /HPF Urine Yeast (NOT SEEN) /HPF 04/25/20 04/25/20 04/25/20 Range/Units 11:29 11:33 12:21 WBC (5.0-10.0) 10^3/uL RBC (4.6-6.2) 10^6/uL Hgb (14.0-18.0) g/dL Hct (40.0-54.0) % MCV (80-100) fL MCH (27.0-34.0) pg MCHC (33.0-35.0) g/dL Plt Count (150-450) 10^3/uL Neut % (Auto) (42.2-75.2) % Lymph % (Auto) (20.5-50.1) % [place] % (Auto) (2-8) % Eos % (Auto) (1.0-3.0) % Baso % (Auto) (0.0-1.0) % Add Manual Diff Neutrophils % (Manual) (42-75) % Lymphocytes % (Manual) (20-50) % Monocytes % (Manual) (2-8) % Eosinophils % (Manual) (1-3) % PT (9.0-12.0) SEC INR (0.9-1.2) APTT (22.0-34.0) SEC ABG pH 7.41 (7.35-7.45) ABG pCO2 28 L (35-45) mmHg ABG pO2 50 L (70-100) mmHg ABG HCO3 17.1 L (22-26) mmol/L ABG O2 Saturation 85 L (95-100) % ABG Base Excess -6 L ((-2)-(+3)) mmol/L [place] Test Rb O2 Delivery Device Nasal cannula Oxygen Flow Rate 3 Sodium (136-145) mmol/L Potassium (3.5-5.1) mmol/L Chloride (98-107) mmol/L Carbon Dioxide (21-32) mmol/L Anion Gap (7-13) mEq/L BUN (7-18) mg/dL Creatinine (0.70-1.30) mg/dL Est Cr Clr Drug Dosing mL/min Estimated GFR (MDRD) BUN/Creatinine Ratio (No establ ref range) Glucose (74-99) mg/dL Lactic Acid 2.6 H* (0.4-2.0) mmol/L Calcium (8.5-10.1) mg/dL Total Bilirubin (0.2-1.0) mg/dL AST (15-37) U/L ALT (16-63) U/L Alkaline Phosphatase (46-116) U/L Troponin I (0.000-0.056) ng/mL B-Natriuretic Peptide (0-100) pg/ml Total Protein (6.4-8.2) g/dL Albumin (3.4-5.0) g/dL Globulin Albumin/Globulin Ratio Urine Color Dark yellow (YELLOW) Urine Appearance Slightly cloudy (CLEAR) Urine pH 5.5 (5.0-9.0) Ur Specific [place] 1.025 (1.005-1.030) Urine Protein 100 H (NEGATIVE) Urine Glucose (UA) Negative (NEGATIVE) Urine Ketones 15 H (NEGATIVE) Urine Occult Blood Moderate H (NEGATIVE) Urine Nitrite Positive H (NEGATIVE) Urine Bilirubin Negative (NEGATIVE) Urine Urobilinogen 0.2 (0.2-1.0) mg/dL Ur Leukocyte Esterase Small H (NEGATIVE) Urine RBC 0-5 /HPF Urine WBC 75-100 H (0-5/HPF) /HPF Ur Epithelial Cells Rare (NOT SEEN) /HPF Amorphous Sediment Not seen (NOT SEEN) /HPF Urine Bacteria Many H (0-FEW/HPF) /HPF Urine Mucus Not seen (NOT SEEN) /LPF Urine Trichomonas Not seen (NOT SEEN) /HPF Urine Yeast Not seen (NOT SEEN) /HPF Meds: Medications Generic Name Dose Route Start Last Admin Trade Name Frejean PRN Reason Stop Dose Admin Sodium Chloride 500 mls @ 500 mls/hr 04/25/20 12:30 04/25/20 12:25 Normal Saline IV 500 mls/hr .BOLUS DUY Administration Sodium Chloride 10 ml 04/25/20 11:16 04/25/20 11:47 Saline Flush FLUSH 10 ml ASDIRECTED PRN Administration Keep Vein Open Discontinued Medications Generic Name Dose Route Start Last Admin Trade Name Sanjuanita PRN Reason Stop Dose Admin Albuterol/Ipratropium 3 ml 04/25/20 11:16 04/25/20 11:32 Duoneb 3.0-0.5 Mg/3 Ml NEB 04/25/20 11:17 3 ml ONETIME ONE Administration Albuterol/Ipratropium 3 ml 04/25/20 13:26 04/25/20 13:30 Duoneb 3.0-0.5 Mg/3 Ml NEB 04/25/20 13:27 3 ml ONETIME ONE Administration Levofloxacin/Dextrose 500 mg/ 100 mls @ 100 mls/hr 04/25/20 12:18 04/25/20 12:35 Premix IV 04/25/20 13:17 100 mls/hr ONETIME ONE Administration Methylprednisolone Sodium Succinate 125 mg 04/25/20 11:16 04/25/20 11:43 Solu-Medrol IVPUSH 04/25/20 11:17 125 mg ONETIME ONE Administration - Radiology Interpretation Free [facility]Narrative:: [facility] Report Call: [phone] assistance Online chat: [email or web address] Name: CANDIDA YANEZ Age: 79Years M Date: 04/25/2020 SSN: -- : [id number] Study: CR CHEST 1V FRONTAL Requesting Physician: CARMELA MEDINA Images: 1 Addl Studies: Provided Clinical History: shortness of breath, tachycardia, Hx COPD Contrast: Contrast Medium: Contrast Amount: Contrast Method: Page 1 of 2 PROCEDURE INFORMATION: Exam: XR Chest, 1 View Exam date and time: 04/25/2020 11:45 AM Age: 79 years old Clinical indication: Shortness of breath; Additional info: Shortness of breath, tachycardia, HX copd TECHNIQUE: Imaging protocol: XR of the chest Views: 1 view. COMPARISON: CT Chest wo Cont 08/02/2019 1:48 PM FINDINGS: Lungs: Hyperinflated lung [place] which raises the possibility of COPD. Minimal ground-glass airspace disease at the lower lung mcke[place]. Pleural space: Unremarkable. No pleural effusion. No pneumothorax. Heart/Mediastinum: Unremarkable. No cardiomegaly. Diaphragm: There is an elevated right hemidiaphragm present on the current examination. Bones/joints: Superior migration of the humeral heads bilaterally consistent with bilateral rotator cuff atrophy. IMPRESSION: Minimal ground-glass airspace disease at the lower lung mcke[place]. Followup radiographs recommended after appropriate therapy. Thank you for allowing us to participate in the care of your patient. Dictated and Authenticated by: Sujit Clayton MD CANDIDA YANEZ | Final Radiology Report CONFIDENTIALITY STATEMENT This report is intended only for use by the referring physician, and only in accordance with law. If you received this in error, call [phone]. Page 2 of 2 04/25/2020 12:07 PM Central Time ([place] & [place]) Departure - Departure Time of Disposition: 14:02 (admitted to Dr. Rizzo) Disposition: Admitted As Inpatient 67 Condition: Fair Clinical Impression: Acute exacerbation of chronic obstructive pulmonary disease (COPD) Pneumonia Qualifiers: Pneumonia type: due to unspecified organism Laterality: unspecified laterality Lung location: unspecified part of lung Qualified Code(s): J18.9 - Pneumonia, unspecified organism UTI (urinary tract infection) Qualifiers: Urinary tract infection type: site unspecified Hematuria presence: without hematuria Qualified Code(s): N39.0 - Urinary tract infection, site not specified - Discharge Information *PRESCRIPTION DRUG MONITORING PROGRAM REVIEWED*: Not Applicable *COPY OF PRESCRIPTION DRUG MONITORING REPORT IN PATIENT SUYAPA: Not Applicable Forms: ED Department Discharge Sepsis Event Note (ED) - Focused Exam Vital Signs: Vital Signs Temp Pulse Resp BP Pulse Ox Pulse Ox 04/25/20 13:26 89 98 04/25/20 11:41 100 04/25/20 11:18 99.3 F 100 22 H 143/82 H 96 - My Orders Last 24 Hours: My Active Orders 04/25/20 11:16 EKG 12 Lead [EKG Documentation Completion] [RC] STAT Sodium Chloride 0.9% [Saline Flush] 10 ml FLUSH ASDIRECTED PRN Blood Culture x2 Reflex Set [OM.PC] Stat Peripheral IV Insertion Adult [OM.PC] Stat 04/25/20 11:17 Peripheral IV Care [RC] . DIRECTED RT Aerosol Therapy [RC] ASDIRECTED 04/25/20 11:29 CULTURE BLOOD [BC] Stat 04/25/20 12:01 CULTURE BLOOD [BC] Stat 04/25/20 12:21 CULTURE URINE [RM] Stat 04/25/20 12:30 Sodium Chloride 0.9% [Normal Saline] 500 ml IV .BOLUS 04/25/20 13:26 RT Aerosol Therapy [RC] ASDIRECTED - Assessment/Plan Last 24 Hours: My Active Orders 04/25/20 11:16 EKG 12 Lead [EKG Documentation Completion] [RC] STAT Sodium Chloride 0.9% [Saline Flush] 10 ml FLUSH ASDIRECTED PRN Blood Culture x2 Reflex Set [OM.PC] Stat Peripheral IV Insertion Adult [OM.PC] Stat 04/25/20 11:17 Peripheral IV Care [RC] . DIRECTED RT Aerosol Therapy [RC] ASDIRECTED 04/25/20 11:29 CULTURE BLOOD [BC] Stat 04/25/20 12:01 CULTURE BLOOD [BC] Stat 04/25/20 12:21 CULTURE URINE [RM] Stat 04/25/20 12:30 Sodium Chloride 0.9% [Normal Saline] 500 ml IV .BOLUS 04/25/20 13:26 RT Aerosol Therapy [RC] ASDIRECTED"
[2020-04-25] MEDS: Sodium Chloride 0.9% 10 ML Syringe FLUSH PRN ×2 (11:45→11:47)
[2020-04-25 11:56] LABS: BASE EXCESS ARTERIAL -6 mmol/L ((-2)-(+3)); BICARBONATE,ARTERIAL 17.1 mmol/L (22-26); O2 DELIVERY DEVICE NASAL CANNULA; O2 SATURATION ARTERIAL 85 % (95-100); PCO2 ARTERIAL 28 mmHg (35-45)
[2020-04-25 11:58] LABS: ANION GAP 17.4 mEq/L (7-13); CHLORIDE,CL 103 mmol/L (98-107); SODIUM,NA 139 mmol/L (136-145)
[2020-04-25 11:59] LABS: ALLEN TEST RB; O2 FLOW RATE 3; PO2 ARTERIAL 50 mmHg (70-100)
--- NOTE | 2020-04-25 12:07 | CR ---
PROCEDURE INFORMATION: Exam: XR Chest, 1 View Exam date and time: 04/25/2020 11:45 AM Age: 79 years old Clinical indication: Shortness of breath; Additional info: Shortness of breath, tachycardia, HX copd TECHNIQUE: Imaging protocol: XR of the chest Views: 1 view. COMPARISON: CT Chest wo Cont 08/02/2019 1:48 PM FINDINGS: Lungs: Hyperinflated lung [place] which raises the possibility of COPD. Minimal ground-glass airspace disease at the lower lung mcke[place]. Pleural space: Unremarkable. No pleural effusion. No pneumothorax. Heart/Mediastinum: Unremarkable. No cardiomegaly. Diaphragm: There is an elevated right hemidiaphragm present on the current examination. Bones/joints: Superior migration of the humeral heads bilaterally consistent with bilateral rotator cuff atrophy. IMPRESSION: Minimal ground-glass airspace disease at the lower lung mcke[place]. Followup radiographs recommended after appropriate therapy.
[2020-04-25] MEDS ORDERED: Levofloxacin/Dextrose 5%-Water 500 MG in Premix Bag 1 BAG IV ONE (12:18)
[2020-04-25 12:30] LABS: PTT,PARTIAL THROMBOPLSTIN TIME 45.1 SEC (22.0-34.0)
[2020-04-25] MEDS ORDERED: Sodium Chloride 0.9% 500 ML IV SCH (12:30)
[2020-04-25] MEDS ORDERED: Albuterol 0.083% 2.5 MG/3 ML Neb Soln NEB PRN (14:00)
--- NOTE | 2020-04-25 14:28 | PCM.HP ---
H&P History of Present Illness - General Date of Service: 04/25/20 Admit Problem/Dx: Admission Diagnosis/Problem Admission Diagnosis/Problem COPD, Severe chronic obstructive pulmonary disease Source of Information: Patient History Limitations: Reports: No Limitations - History of Present Illness Initial Comments - Free Text/Narative: The patient is a 79-year-old man with medical history of COPD, hypertension, dyslipidemia, chronic anticoagulation, benign prostatic hypertrophy. The patient presented to the emergency room with complaint of shortness of breath which has been going on for about 1 week. It was mild initially but has gradually worsened over time. It is present at rest but worse with activity. Exercise tolerance has been limited. He has associated cough which is sometimes productive. Has associated generalized body malaise and weakness. Does experience chest discomfort which he describes as tightness. No fever chills or rigors. Patient has been treated as outpatient with steroids and oral antibiotics levofloxacin. Those have not been helpful. Chest Pain Score (Numeric/FACES): 6 - Related Data Allergies/Adverse Reactions: Allergies Allergy/AdvReac Type Severity Reaction Status Date / Time Penicillins Allergy Unknown SWELLING Verified 04/25/20 11:28 OF LEGS/FEET codeine Allergy nightmares Verified 04/25/20 11:28 hydrocodone Allergy bad dreams Verified 04/25/20 11:28 isosorbide Allergy Other Verified 04/25/20 11:28 Home Medications: Home Meds Acetaminophen [Acetaminophen Extra Strength] 500 mg PO Q8H PRN 12/16/15 [History] Albuterol Sulfate [Proventil Hfa] 2 puff INH TID PRN 12/16/15 [History] Albuterol [Proventil Neb Soln] 1 vial INH Q6H PRN 12/16/15 [History] Budesonide/Formoterol [Symbicort 160-4.5 MCG] 2 puff INH BID 12/16/15 [History] Cyclobenzaprine [Flexeril] 10 mg PO TID PRN 12/16/15 [History] Doxazosin [Cardura] 4 mg PO BEDTIME 12/16/15 [History] Ezetimibe [Zetia] 5 mg PO DAILY 12/16/15 [History] Metoprolol Succinate [Toprol XL] 100 mg PO BEDTIME 12/16/15 [History] Nitroglycerin [Nitrostat] 1 tab SL Q5M PRN 12/16/15 [History] Tiotropium [Spiriva HandiHaler] 1 puff INH BEDTIME 12/16/15 [History] Warfarin [Coumadin] 2 mg PO .[id number] 12/16/15 [History] atorvaSTATin [Lipitor] 20 mg PO BEDTIME 12/16/15 [History] riTUXimab [Rituxan] 1 infusion IV .O1HAVIS 12/16/15 [History] traMADol [Ultram] 100 mg PO TID PRN 12/16/15 [History] Gabapentin 300 mg PO TID 04/07/17 [History] amLODIPine [Norvasc] 10 mg PO DAILY 04/07/17 [History] Esomeprazole [NexIUM] 40 mg PO DAILY 05/04/17 [History] Fluticasone Propionate [Flonase] 1 spray NASBOTH DAILY PRN 05/04/17 [History] Warfarin [Coumadin] 3 mg PO .MOFR 06/17/18 [History] Levofloxacin 750 mg PO DAILY #5 tablet 06/23/19 [Rx] predniSONE [Prednisone] 10 mg PO DAILY #18 tablet 06/23/19 [Rx] Past Medical History HEENT History: Reports: Cataract, Hard of Hearing, Impaired Vision Other HEENT History: WEARS CORRECTIVE LENSES; UPPER AND LOWER DENTURE PLATE; BILAT HEARING AIDES Cardiovascular History: Reports: Blood Clots/VTE/DVT, CAD, Heart Murmur, High Cholesterol, Hypertension, Other (See Below) Other Cardiovascular History: THROMBOPHLEBITIS Respiratory History: Reports: Bronchitis, Recurrent, COPD, PE, Pneumonia, Recurrent, Sleep Apnea Gastrointestinal History: Reports: Chronic Constipation, Diverticulosis Genitourinary History: Reports: Prostate Disorder, Retention, Urinary, UTI, Recurrent Musculoskeletal History: Reports: Arthritis, RA, Other (See Below) Other Musculoskeletal History: SCIATICA. RHEUMATOID ARTHRITIS Neurological History: Reports: None Psychiatric History: Reports: Anxiety, Depression Endocrine/Metabolic History: Reports: Hypothyroidism Hematologic History: Reports: Blood Transfusion(s) Immunologic History: Reports: None Oncologic (Cancer) History: Reports: None Dermatologic History: Reports: Eczema Other Dermatologic History: laceration right lateral hand. - Infectious Disease History Infectious Disease History: Reports: Chicken Pox - Past Surgical History Head Surgeries/Procedures: Reports: None HEENT Surgical History: Reports: Cataract Surgery, Oral Surgery, Tonsillectomy, Other (See Below) Other HEENT Surgeries/Procedures: ADENOIDECTOMY Cardiovascular Surgical History: Reports: Coronary Artery Stent Respiratory Surgical History: Reports: Thoracotomy, Other (See Below) Other Respiratory Surgeries/Procedures: PLEURAL BIOPSY GI Surgical History: Reports: Cholecystectomy, Colonoscopy, EGD, Hernia, Ing uinal Male Surgical History: Reports: None Endocrine Surgical History: Reports: None Neurological Surgical History: Reports: None Musculoskeletal Surgical History: Reports: Knee Replacement, Other (See Below) Other Musculoskeletal Surgeries/Procedures:: RESECTION OF OLECRANAL BURSA Oncologic Surgical History: Reports: None Social & Family History - Family History Family Medical History: Noncontributory - Tobacco Use Smoking Status *Q: Former Smoker Years of Tobacco use: 30 Packs/Tins Daily: 2 Used Tobacco, but Quit: Yes Month/Year Tobacco Last Used: august Hand Smoke Exposure: No - Caffeine Use Caffeine Use: Reports: Coffee, Soda Caffeine Use Comment: 12-14 oz daily - Recreational Drug Use Recreational Drug Use: No - Living Situation & Occupation Living situation: Reports: , with Spouse Occupation: Retired H&P Review of Systems - Review of Systems: Review Of Systems: See Below General: Reports: Weakness HEENT: Reports: No Symptoms Pulmonary: Reports: Shortness of Breath, Wheezing Cardiovascular: Reports: Chest Pain Gastrointestinal: Reports: No Symptoms Musculoskeletal: Reports: No Symptoms Skin: Reports: No Symptoms Psychiatric: Reports: No Symptoms Neurological: Reports: No Symptoms Exam - Exam Exam: See Below - Vital Signs Vital Signs: Last Vital Signs Temp 37.4 C 04/25/20 11:18 Pulse 89 04/25/20 13:26 Resp 22 H 04/25/20 11:18 BP 143/82 H 04/25/20 11:18 Pulse Ox 98 04/25/20 13:26 Weight: 69.309 kg - Exam Quality Assessment: Supplemental Oxygen General: Alert, Oriented Neck: Supple Lungs: Decreased Breath Sounds, Rhonchi Cardiovascular: Regular Rate, Regular Rhythm GI/Abdominal Exam: Normal Bowel Sounds, Soft, Non-Tender, No Organomegaly, No Distention, No Abnormal Bruit, No Mass, Pelvis Stable Extremities: Normal Inspection, Normal Range of Motion, Non-Tender, No Pedal Edema, Normal Capillary Refill Skin: Warm, Dry, Intact Psychiatric: Alert, Normal Affect, Normal Mood - Patient Data Lab Results Last 24 hrs: Laboratory Results - last 24 hr 04/25/20 04/25/20 04/25/20 Range/Units 11:29 11:29 11:29 WBC 21.6 H (5.0-10.0) 10^3/uL RBC 5.76 (4.6-6.2) 10^6/uL Hgb 16.5 D (14.0-18.0) g/dL Hct 51.0 (40.0-54.0) % MCV 88.5 (80-100) fL MCH 28.6 (27.0-34.0) pg MCHC 32.4 L (33.0-35.0) g/dL Plt Count 204 (150-450) 10^3/uL Neut % (Auto) 76.4 H (42.2-75.2) % Lymph % (Auto) 11.4 L (20.5-50.1) % [place] % (Auto) 10.7 H (2-8) % Eos % (Auto) 1.2 (1.0-3.0) % Baso % (Auto) 0.3 (0.0-1.0) % Add Manual Diff Yes Neutrophils % (Manual) 81 H (42-75) % Lymphocytes % (Manual) 10 L (20-50) % Monocytes % (Manual) 8 (2-8) % Eosinophils % (Manual) 1 (1-3) % PT 45.8 H D (9.0-12.0) SEC INR 4.9 H (0.9-1.2) APTT 45.1 H (22.0-34.0) SEC ABG pH (7.35-7.45) ABG pCO2 (35-45) mmHg ABG pO2 (70-100) mmHg ABG HCO3 (22-26) mmol/L ABG O2 Saturation (95-100) % ABG Base Excess ((-2)-(+3)) mmol/L Neftaly Test O2 Delivery Device Oxygen Flow Rate Sodium 139 (136-145) mmol/L Potassium 5.4 H (3.5-5.1) mmol/L Chloride 103 (98-107) mmol/L Carbon Dioxide 24 (21-32) mmol/L Anion Gap 17.4 H (7-13) mEq/L BUN 34 H (7-18) mg/dL Creatinine 1.88 H (0.70-1.30) mg/dL Est Cr Clr Drug Dosing 31.75 mL/min Estimated GFR (MDRD) 35 BUN/Creatinine Ratio 18.1 (No establ ref range) Glucose 132 H (74-99) mg/dL Lactic Acid (0.4-2.0) mmol/L Calcium 9.3 (8.5-10.1) mg/dL Total Bilirubin 1.4 H (0.2-1.0) mg/dL AST 17 (15-37) U/L ALT 27 (16-63) U/L Alkaline Phosphatase 133 H (46-116) U/L Troponin I < 0.017 (0.000-0.056) ng/mL B-Natriuretic Peptide 60 (0-100) pg/ml Total Protein 7.3 (6.4-8.2) g/dL Albumin 3.2 L (3.4-5.0) g/dL Globulin 4.1 Albumin/Globulin Ratio 0.78 Urine Color (YELLOW) Urine Appearance (CLEAR) Urine pH (5.0-9.0) Ur Specific [place] (1.005-1.030) Urine Protein (NEGATIVE) Urine Glucose (UA) (NEGATIVE) Urine Ketones (NEGATIVE) Urine Occult Blood (NEGATIVE) Urine Nitrite (NEGATIVE) Urine Bilirubin (NEGATIVE) Urine Urobilinogen (0.2-1.0) mg/dL Ur Leukocyte Esterase (NEGATIVE) Urine RBC /HPF Urine WBC (0-5/HPF) /HPF Ur Epithelial Cells (NOT SEEN) /HPF Amorphous Sediment (NOT SEEN) /HPF Urine Bacteria (0-FEW/HPF) /HPF Urine Mucus (NOT SEEN) /LPF Urine Trichomonas (NOT SEEN) /HPF Urine Yeast (NOT SEEN) /HPF 04/25/20 04/25/20 04/25/20 Range/Units 11:29 11:33 12:21 WBC (5.0-10.0) 10^3/uL RBC (4.6-6.2) 10^6/uL Hgb (14.0-18.0) g/dL Hct (40.0-54.0) % MCV (80-100) fL MCH (27.0-34.0) pg MCHC (33.0-35.0) g/dL Plt Count (150-450) 10^3/uL Neut % (Auto) (42.2-75.2) % Lymph % (Auto) (20.5-50.1) % [place] % (Auto) (2-8) % Eos % (Auto) (1.0-3.0) % Baso % (Auto) (0.0-1.0) % Add Manual Diff Neutrophils % (Manual) (42-75) % Lymphocytes % (Manual) (20-50) % Monocytes % (Manual) (2-8) % Eosinophils % (Manual) (1-3) % PT (9.0-12.0) SEC INR (0.9-1.2) APTT (22.0-34.0) SEC ABG pH 7.41 (7.35-7.45) ABG pCO2 28 L (35-45) mmHg ABG pO2 50 L (70-100) mmHg ABG HCO3 17.1 L (22-26) mmol/L ABG O2 Saturation 85 L (95-100) % ABG Base Excess -6 L ((-2)-(+3)) mmol/L [place]aly Test Rb O2 Delivery Device Nasal cannula Oxygen Flow Rate 3 Sodium (136-145) mmol/L Potassium (3.5-5.1) mmol/L Chloride (98-107) mmol/L Carbon Dioxide (21-32) mmol/L Anion Gap (7-13) mEq/L BUN (7-18) mg/dL Creatinine (0.70-1.30) mg/dL Est Cr Clr Drug Dosing mL/min Estimated GFR (MDRD) BUN/Creatinine Ratio (No establ ref range) Glucose (74-99) mg/dL Lactic Acid 2.6 H* (0.4-2.0) mmol/L Calcium (8.5-10.1) mg/dL Total Bilirubin (0.2-1.0) mg/dL AST (15-37) U/L ALT (16-63) U/L Alkaline Phosphatase (46-116) U/L Troponin I (0.000-0.056) ng/mL B-Natriuretic Peptide (0-100) pg/ml Total Protein (6.4-8.2) g/dL Albumin (3.4-5.0) g/dL Globulin Albumin/Globulin Ratio Urine Color Dark yellow (YELLOW) Urine Appearance Slightly cloudy (CLEAR) Urine pH 5.5 (5.0-9.0) Ur Specific [place] 1.025 (1.005-1.030) Urine Protein 100 H (NEGATIVE) Urine Glucose (UA) Negative (NEGATIVE) Urine Ketones 15 H (NEGATIVE) Urine Occult Blood Moderate H (NEGATIVE) Urine Nitrite Positive H (NEGATIVE) Urine Bilirubin Negative (NEGATIVE) Urine Urobilinogen 0.2 (0.2-1.0) mg/dL Ur Leukocyte Esterase Small H (NEGATIVE) Urine RBC 0-5 /HPF Urine WBC 75-100 H (0-5/HPF) /HPF Ur Epithelial Cells Rare (NOT SEEN) /HPF Amorphous Sediment Not seen (NOT SEEN) /HPF Urine Bacteria Many H (0-FEW/HPF) /HPF Urine Mucus Not seen (NOT SEEN) /LPF Urine Trichomonas Not seen (NOT SEEN) /HPF Urine Yeast Not seen (NOT SEEN) /HPF Result Diagrams: 04/25/20 11:29 04/25/20 11:29 Problem List Initiated/Reviewed/Updated: Yes Orders Last 24hrs: Active Orders 24 hr Category Date Time Status Admission Diagnosis [ADT] Routine ADT 04/25/20 14:12 Ordered Admission Status [Patient Status] [ADT] Routine ADT 04/25/20 14:12 Active Patient Status [ADT] Routine ADT 04/25/20 14:11 Ordered EKG 12 Lead [EKG Documentation Completion] [RC] STAT Care 04/25/20 11:16 Active Intake and Output [RC] QSHIFT Care 04/25/20 14:12 Ordered Oxygen Therapy [RC] PRN Care 04/25/20 14:11 Ordered Peripheral IV Care [RC] . DIRECTED Care 04/25/20 11:17 Active RT Aerosol Therapy [RC] ASDIRECTED Care 04/25/20 11:17 Active RT Aerosol Therapy [RC] ASDIRECTED Care 04/25/20 13:26 Active RT Aerosol Therapy [RC] ASDIRECTED Care 04/25/20 14:14 Ordered Up ad Zuly [RC] ASDIRECTED Care 04/25/20 14:11 Ordered VTE/DVT Education [RC] PER UNIT ROUTINE Care 04/25/20 14:11 Ordered Vital Signs [RC] Q4H Care 04/25/20 14:11 Ordered Regular Diet [DIET] Diet 04/25/20 Lunch Ordered CULTURE BLOOD [BC] Stat Lab 04/25/20 11:29 Received CULTURE BLOOD [BC] Stat Lab 04/25/20 12:01 Received CULTURE SPUTUM + SMEAR [RM] Stat Lab 04/25/20 14:11 Ordered CULTURE SPUTUM + SMEAR [RM] Stat Lab 04/25/20 14:20 Ordered CULTURE URINE [RM] Stat Lab 04/25/20 12:21 Received CULTURE URINE [RM] Stat Lab 04/25/20 14:20 Ordered LACTIC ACID [CHEM] Q4H Lab 04/25/20 16:00 Ordered LACTIC ACID [CHEM] Q4H Lab 04/25/20 20:00 Ordered TROPONIN I [CHEM] Q6H Lab 04/25/20 14:11 Ordered TROPONIN I [CHEM] Q6H Lab 04/25/20 20:11 Ordered Albuterol [Proventil Neb Soln] Med 04/25/20 14:11 Ordered 2.5 mg NEB Q2H PRN Albuterol/Ipratropium [DuoNeb 3.0-0.5 MG/3 ML] Med 04/25/20 14:15 Ordered 3 ml NEB Q4H Ondansetron [Zofran] Med 04/25/20 14:11 Ordered 4 mg IVPUSH Q6H PRN Sodium Chloride 0.9% @ 50 MLS/HR(1000ml) Med 04/25/20 14:30 Ordered Sodium Chloride 0.9% [Normal Saline] 1,000 ml IV ASDIRECTED Sodium Chloride 0.9% [Normal Saline] 500 ml Med 04/25/20 12:30 Active IV .BOLUS Sodium Chloride 0.9% [Saline Flush] Med 04/25/20 11:16 Active 10 ml FLUSH ASDIRECTED PRN methylPREDNISolone Sod Succ [Solu-MEDROL] Med 04/25/20 14:30 Ordered 40 mg IVPUSH Q8H Blood Culture x2 Reflex Set [OM.PC] Stat Oth 04/25/20 11:16 Ordered Peripheral IV Insertion Adult [OM.PC] Stat Oth 04/25/20 11:16 Ordered Resuscitation Status Routine Resus Stat 04/25/20 14:11 Ordered Medication Orders Albuterol (Proventil Neb Soln) 2.5 mg NEB Q2H PRN PRN Reason: shortness of breath/wheezing Albuterol/Ipratropium (Duoneb 3.0-0.5 Mg/3 Ml) 3 ml NEB Q4H DUY Sodium Chloride (Normal Saline) 500 mls @ 500 mls/hr IV .BOLUS DUY Last Admin: 04/25/20 12:25 Dose: 500 mls/hr Documented by: ERICROX Sodium Chloride (Normal Saline) 1,000 mls @ 50 mls/hr IV ASDIRECTED DUY Methylprednisolone Sodium Succinate (Solu-Medrol) 40 mg IVPUSH Q8H DUY Ondansetron HCl (Zofran) 4 mg IVPUSH Q6H PRN PRN Reason: Nausea/Vomiting Sodium Chloride (Saline Flush) 10 ml FLUSH ASDIRECTED PRN PRN Reason: Keep Vein Open Last Admin: 04/25/20 11:47 Dose: 10 ml Documented by: Admin: 04/25/20 11:45 Dose: 10 ml Documented by: KARINA Assessment/Plan Comment:: #. Acute on chronic hypoxemic respiratory failure #. Acute exacerbation of COPD #. Possible pneumonia versus bronchitis #. Acute kidney injury Serum creatinine is elevated up to 1.8 #. Hypokalemia Serum potassium is elevated up to 5.4 #. Chronic anticoagulation INR is supratherapeutic at 4.9 #. Chest pain Likely due to COPD exacerbation #. Possible sepsis Patient has elevated white cell count, elevated lactic acid. No fever #. Possible urinary tract infection Urinalysis is suggestive However patient does not have symptoms #. Hypertension Intermittently elevated Plan: Admit patient to medical floor Send sputum for Gram stain and cultures Urine cultures Blood cultures Empiric antibiotics with intravenous ceftriaxone and sent intravenous azithromycin Patient has been treated with levofloxacin as outpatient. We'll use a different antibiotics Check lactic acid level Obtain repeat basic metabolic panel because of hyperkalemia Start patient on intravenous fluid with normal saline going at 50 mL an hour Obtain repeat basic metabolic panel Obtain repeat complete blood count Obtain repeat PT/INR
[2020-04-25] MEDS ORDERED: cefTRIAXone 1 GM in Sodium Chloride 0.9% 50 ML IV SCH (15:00)
[2020-04-25] MEDS: Sodium Chloride 0.9% 1,000 ML IV SCH (15:51)
[2020-04-25] MEDS: Azithromycin 500 MG in Sodium Chloride 0.9% 250 ML IV SCH (15:51)
[2020-04-25] MEDS: Albuterol/Ipratropium 3.0-0.5 MG/3 ML Neb Soln NEB SCH ×2 (17:56→22:55)
[2020-04-25] MEDS ORDERED: Albuterol 0.021% 0.63 MG/3 ML Neb Soln INH PRN (19:59)
[2020-04-25] MEDS ORDERED: Albuterol 6.7 GM Inhaler INH PRN (19:59)
[2020-04-25 20:49] LABS: ANION GAP 14.7 mEq/L (7-13)
[2020-04-25] MEDS: Acetaminophen 325 MG Tab PO SCH (21:16)
[2020-04-25] MEDS: Gabapentin 300 MG Cap PO SCH (21:16)
[2020-04-25] MEDS: traMADol 50 MG Tab PO PRN (21:18)
[2020-04-25] MEDS: methylPREDNISolone Sodium Succinate 40 MG/1 ML SDV IVPUSH SCH (22:55)
[2020-04-26] MEDS: Albuterol/Ipratropium 3.0-0.5 MG/3 ML Neb Soln NEB SCH ×6 (02:12→22:41)
[2020-04-26] MEDS: methylPREDNISolone Sodium Succinate 40 MG/1 ML SDV IVPUSH SCH ×3 (05:31→22:41)
[2020-04-26] MEDS ORDERED: Omeprazole 20 MG Cap.CR PO SCH (06:00)
[2020-04-26 06:37] LABS: ANION GAP 15.9 mEq/L (7-13)
[2020-04-26] MEDS: Acetaminophen 325 MG Tab PO SCH ×3 (08:17→22:39)
[2020-04-26] MEDS: Gabapentin 300 MG Cap PO SCH ×3 (08:17→22:39)
[2020-04-26] MEDS: atorvaSTATin 20 MG Tab PO SCH (08:18)
[2020-04-26] MEDS: amLODIPine 5 MG Tab PO SCH (08:18)
[2020-04-26] MEDS: Metoprolol Succinate 50 MG Tab.ER PO SCH (08:19)
[2020-04-26] MEDS: Ezetimibe 10 MG Tab PO SCH (08:24)
[2020-04-26] MEDS: Tiotropium Inhaler 18 MCG Inhalation Powder Cap Kit of 5 INH SCH (08:26)
[2020-04-26] MEDS: Formoterol/Mometasone 200-5 MCG 8.8 GM Inhaler IH SCH ×2 (08:32→18:07)
[2020-04-26] MEDS ORDERED: Warfarin 2 MG Tab PO SCH (09:00)
--- NOTE | 2020-04-26 09:21 | PCM.PN ---
- General Info Date of Service: 04/26/20 Subjective Update: Today the patient offers no new complaint Indicates that he is feeling better. Still has some shortness of breath but has improved compared to yesterday Still needing supplemental oxygen. - Review of Systems General: Reports: Weakness HEENT: Reports: No Symptoms Pulmonary: Reports: Shortness of Breath, Cough Cardiovascular: Reports: No Symptoms Gastrointestinal: Reports: No Symptoms Musculoskeletal: Reports: No Symptoms Skin: Reports: No Symptoms - Patient Data Vitals - Most Recent: Last Vital Signs Temp 36.8 C 04/26/20 07:51 Pulse 93 04/26/20 08:19 Resp 18 04/26/20 07:51 BP 130/69 04/26/20 08:19 Pulse Ox 97 04/26/20 07:51 Weight - Most Recent: 67.188 kg I&O - Last 24 Hours: Intake & Output 04/25/20 04/26/20 04/26/20 22:59 06:59 14:59 Intake Total 350 Balance 350 Lab Results Last 24 Hours: Laboratory Results - last 24 hr 04/25/20 04/25/20 04/25/20 Range/Units 11:29 11:29 11:29 WBC 21.6 H (5.0-10.0) 10^3/uL RBC 5.76 (4.6-6.2) 10^6/uL Hgb 16.5 D (14.0-18.0) g/dL Hct 51.0 (40.0-54.0) % MCV 88.5 (80-100) fL MCH 28.6 (27.0-34.0) pg MCHC 32.4 L (33.0-35.0) g/dL Plt Count 204 (150-450) 10^3/uL Neut % (Auto) 76.4 H (42.2-75.2) % Lymph % (Auto) 11.4 L (20.5-50.1) % [place] % (Auto) 10.7 H (2-8) % Eos % (Auto) 1.2 (1.0-3.0) % Baso % (Auto) 0.3 (0.0-1.0) % Add Manual Diff Yes Neutrophils % (Manual) 81 H (42-75) % Lymphocytes % (Manual) 10 L (20-50) % Monocytes % (Manual) 8 (2-8) % Eosinophils % (Manual) 1 (1-3) % PT 45.8 H D (9.0-12.0) SEC INR 4.9 H (0.9-1.2) APTT 45.1 H (22.0-34.0) SEC ABG pH (7.35-7.45) ABG pCO2 (35-45) mmHg ABG pO2 (70-100) mmHg ABG HCO3 (22-26) mmol/L ABG O2 Saturation (95-100) % ABG Base Excess ((-2)-(+3)) mmol/L Neftaly Test O2 Delivery Device Oxygen Flow Rate Sodium 139 (136-145) mmol/L Potassium 5.4 H (3.5-5.1) mmol/L Chloride 103 (98-107) mmol/L Carbon Dioxide 24 (21-32) mmol/L Anion Gap 17.4 H (7-13) mEq/L BUN 34 H (7-18) mg/dL Creatinine 1.88 H (0.70-1.30) mg/dL Est Cr Clr Drug Dosing 31.75 mL/min Estimated GFR (MDRD) 35 BUN/Creatinine Ratio 18.1 (No establ ref range) Glucose 132 H (74-99) mg/dL Lactic Acid (0.4-2.0) mmol/L Calcium 9.3 (8.5-10.1) mg/dL Total Bilirubin 1.4 H (0.2-1.0) mg/dL AST 17 (15-37) U/L ALT 27 (16-63) U/L Alkaline Phosphatase 133 H (46-116) U/L Troponin I < 0.017 (0.000-0.056) ng/mL B-Natriuretic Peptide 60 (0-100) pg/ml Total Protein 7.3 (6.4-8.2) g/dL Albumin 3.2 L (3.4-5.0) g/dL Globulin 4.1 Albumin/Globulin Ratio 0.78 Urine Color (YELLOW) Urine Appearance (CLEAR) Urine pH (5.0-9.0) Ur Specific [place] (1.005-1.030) Urine Protein (NEGATIVE) Urine Glucose (UA) (NEGATIVE) Urine Ketones (NEGATIVE) Urine Occult Blood (NEGATIVE) Urine Nitrite (NEGATIVE) Urine Bilirubin (NEGATIVE) Urine Urobilinogen (0.2-1.0) mg/dL Ur Leukocyte Esterase (NEGATIVE) Urine RBC /HPF Urine WBC (0-5/HPF) /HPF Ur Epithelial Cells (NOT SEEN) /HPF Amorphous Sediment (NOT SEEN) /HPF Urine Bacteria (0-FEW/HPF) /HPF Urine Mucus (NOT SEEN) /LPF Urine Trichomonas (NOT SEEN) /HPF Urine Yeast (NOT SEEN) /HPF 04/25/20 04/25/20 04/25/20 Range/Units 11:29 11:33 12:21 WBC (5.0-10.0) 10^3/uL RBC (4.6-6.2) 10^6/uL Hgb (14.0-18.0) g/dL Hct (40.0-54.0) % MCV (80-100) fL MCH (27.0-34.0) pg MCHC (33.0-35.0) g/dL Plt Count (150-450) 10^3/uL Neut % (Auto) (42.2-75.2) % Lymph % (Auto) (20.5-50.1) % [place] % (Auto) (2-8) % Eos % (Auto) (1.0-3.0) % Baso % (Auto) (0.0-1.0) % Add Manual Diff Neutrophils % (Manual) (42-75) % Lymphocytes % (Manual) (20-50) % Monocytes % (Manual) (2-8) % Eosinophils % (Manual) (1-3) % PT (9.0-12.0) SEC INR (0.9-1.2) APTT (22.0-34.0) SEC ABG pH 7.41 (7.35-7.45) ABG pCO2 28 L (35-45) mmHg ABG pO2 50 L (70-100) mmHg ABG HCO3 17.1 L (22-26) mmol/L ABG O2 Saturation 85 L (95-100) % ABG Base Excess -6 L ((-2)-(+3)) mmol/L Neftaly Test Rb O2 Delivery Device Nasal cannula Oxygen Flow Rate 3 Sodium (136-145) mmol/L Potassium (3.5-5.1) mmol/L Chloride (98-107) mmol/L Carbon Dioxide (21-32) mmol/L Anion Gap (7-13) mEq/L BUN (7-18) mg/dL Creatinine (0.70-1.30) mg/dL Est Cr Clr Drug Dosing mL/min Estimated GFR (MDRD) BUN/Creatinine Ratio (No establ ref range) Glucose (74-99) mg/dL Lactic Acid 2.6 H* (0.4-2.0) mmol/L Calcium (8.5-10.1) mg/dL Total Bilirubin (0.2-1.0) mg/dL AST (15-37) U/L ALT (16-63) U/L Alkaline Phosphatase (46-116) U/L Troponin I (0.000-0.056) ng/mL B-Natriuretic Peptide (0-100) pg/ml Total Protein (6.4-8.2) g/dL Albumin (3.4-5.0) g/dL Globulin Albumin/Globulin Ratio Urine Color Dark yellow (YELLOW) Urine Appearance Slightly cloudy (CLEAR) Urine pH 5.5 (5.0-9.0) Ur Specific [place] 1.025 (1.005-1.030) Urine Protein 100 H (NEGATIVE) Urine Glucose (UA) Negative (NEGATIVE) Urine Ketones 15 H (NEGATIVE) Urine Occult Blood Moderate H (NEGATIVE) Urine Nitrite Positive H (NEGATIVE) Urine Bilirubin Negative (NEGATIVE) Urine Urobilinogen 0.2 (0.2-1.0) mg/dL Ur Leukocyte Esterase Small H (NEGATIVE) Urine RBC 0-5 /HPF Urine WBC 75-100 H (0-5/HPF) /HPF Ur Epithelial Cells Rare (NOT SEEN) /HPF Amorphous Sediment Not seen (NOT SEEN) /HPF Urine Bacteria Many H (0-FEW/HPF) /HPF Urine Mucus Not seen (NOT SEEN) /LPF Urine Trichomonas Not seen (NOT SEEN) /HPF Urine Yeast Not seen (NOT SEEN) /HPF 04/25/20 04/25/20 04/25/20 Range/Units 14:31 16:05 20:26 WBC (5.0-10.0) 10^3/uL RBC (4.6-6.2) 10^6/uL Hgb (14.0-18.0) g/dL Hct (40.0-54.0) % MCV (80-100) fL MCH (27.0-34.0) pg MCHC (33.0-35.0) g/dL Plt Count (150-450) 10^3/uL Neut % (Auto) (42.2-75.2) % Lymph % (Auto) (20.5-50.1) % [place] % (Auto) (2-8) % Eos % (Auto) (1.0-3.0) % Baso % (Auto) (0.0-1.0) % Add Manual Diff Neutrophils % (Manual) (42-75) % Lymphocytes % (Manual) (20-50) % Monocytes % (Manual) (2-8) % Eosinophils % (Manual) (1-3) % PT (9.0-12.0) SEC INR (0.9-1.2) APTT (22.0-34.0) SEC ABG pH (7.35-7.45) ABG pCO2 (35-45) mmHg ABG pO2 (70-100) mmHg ABG HCO3 (22-26) mmol/L ABG O2 Saturation (95-100) % ABG Base Excess ((-2)-(+3)) mmol/L Ne[place]aly Test O2 Delivery Device Oxygen Flow Rate Sodium (136-145) mmol/L Potassium (3.5-5.1) mmol/L Chloride (98-107) mmol/L Carbon Dioxide (21-32) mmol/L Anion Gap (7-13) mEq/L BUN (7-18) mg/dL Creatinine (0.70-1.30) mg/dL Est Cr Clr Drug Dosing mL/min Estimated GFR (MDRD) BUN/Creatinine Ratio (No establ ref range) Glucose (74-99) mg/dL Lactic Acid 3.1 H* (0.4-2.0) mmol/L Calcium (8.5-10.1) mg/dL Total Bilirubin (0.2-1.0) mg/dL AST (15-37) U/L ALT (16-63) U/L Alkaline Phosphatase (46-116) U/L Troponin I < 0.017 < 0.017 (0.000-0.056) ng/mL B-Natriuretic Peptide (0-100) pg/ml Total Protein (6.4-8.2) g/dL Albumin (3.4-5.0) g/dL Globulin Albumin/Globulin Ratio Urine Color (YELLOW) Urine Appearance (CLEAR) Urine pH (5.0-9.0) Ur Specific [place] (1.005-1.030) Urine Protein (NEGATIVE) Urine Glucose (UA) (NEGATIVE) Urine Ketones (NEGATIVE) Urine Occult Blood (NEGATIVE) Urine Nitrite (NEGATIVE) Urine Bilirubin (NEGATIVE) Urine Urobilinogen (0.2-1.0) mg/dL Ur Leukocyte Esterase (NEGATIVE) Urine RBC /HPF Urine WBC (0-5/HPF) /HPF Ur Epithelial Cells (NOT SEEN) /HPF Amorphous Sediment (NOT SEEN) /HPF Urine Bacteria (0-FEW/HPF) /HPF Urine Mucus (NOT SEEN) /LPF Urine Trichomonas (NOT SEEN) /HPF Urine Yeast (NOT SEEN) /HPF 04/25/20 04/25/20 04/25/20 Range/Units 20:26 20:26 20:26 WBC (5.0-10.0) 10^3/uL RBC (4.6-6.2) 10^6/uL Hgb (14.0-18.0) g/dL Hct (40.0-54.0) % MCV (80-100) fL MCH (27.0-34.0) pg MCHC (33.0-35.0) g/dL Plt Count (150-450) 10^3/uL Neut % (Auto) (42.2-75.2) % Lymph % (Auto) (20.5-50.1) % [place] % (Auto) (2-8) % Eos % (Auto) (1.0-3.0) % Baso % (Auto) (0.0-1.0) % Add Manual Diff Neutrophils % (Manual) (42-75) % Lymphocytes % (Manual) (20-50) % Monocytes % (Manual) (2-8) % Eosinophils % (Manual) (1-3) % PT 47.0 H (9.0-12.0) SEC INR 5.0 H (0.9-1.2) APTT (22.0-34.0) SEC ABG pH (7.35-7.45) ABG pCO2 (35-45) mmHg ABG pO2 (70-100) mmHg ABG HCO3 (22-26) mmol/L ABG O2 Saturation (95-100) % ABG Base Excess ((-2)-(+3)) mmol/L Ne[place]aly Test O2 Delivery Device Oxygen Flow Rate Sodium 135 L (136-145) mmol/L Potassium 4.7 (3.5-5.1) mmol/L Chloride 104 (98-107) mmol/L Carbon Dioxide 21 (21-32) mmol/L Anion Gap 14.7 H (7-13) mEq/L BUN 39 H (7-18) mg/dL Creatinine 1.74 H (0.70-1.30) mg/dL Est Cr Clr Drug Dosing 33.25 mL/min Estimated GFR (MDRD) 38 BUN/Creatinine Ratio (No establ ref range) Glucose 272 H (74-99) mg/dL Lactic Acid 2.1 H* (0.4-2.0) mmol/L Calcium 8.3 L (8.5-10.1) mg/dL Total Bilirubin (0.2-1.0) mg/dL AST (15-37) U/L ALT (16-63) U/L Alkaline Phosphatase (46-116) U/L Troponin I (0.000-0.056) ng/mL B-Natriuretic Peptide (0-100) pg/ml Total Protein (6.4-8.2) g/dL Albumin (3.4-5.0) g/dL Globulin Albumin/Globulin Ratio Urine Color (YELLOW) Urine Appearance (CLEAR) Urine pH (5.0-9.0) Ur Specific [place] (1.005-1.030) Urine Protein (NEGATIVE) Urine Glucose (UA) (NEGATIVE) Urine Ketones (NEGATIVE) Urine Occult Blood (NEGATIVE) Urine Nitrite (NEGATIVE) Urine Bilirubin (NEGATIVE) Urine Urobilinogen (0.2-1.0) mg/dL Ur Leukocyte Esterase (NEGATIVE) Urine RBC /HPF Urine WBC (0-5/HPF) /HPF Ur Epithelial Cells (NOT SEEN) /HPF Amorphous Sediment (NOT SEEN) /HPF Urine Bacteria (0-FEW/HPF) /HPF Urine Mucus (NOT SEEN) /LPF Urine Trichomonas (NOT SEEN) /HPF Urine Yeast (NOT SEEN) /HPF 04/26/20 04/26/20 04/26/20 Range/Units 06:00 06:00 06:00 WBC 16.0 H (5.0-10.0) 10^3/uL RBC 5.03 (4.6-6.2) 10^6/uL Hgb 14.4 D (14.0-18.0) g/dL Hct 44.2 (40.0-54.0) % MCV 87.9 (80-100) fL MCH 28.6 (27.0-34.0) pg MCHC 32.6 L (33.0-35.0) g/dL Plt Count 207 (150-450) 10^3/uL Neut % (Auto) (42.2-75.2) % Lymph % (Auto) (20.5-50.1) % [place] % (Auto) (2-8) % Eos % (Auto) (1.0-3.0) % Baso % (Auto) (0.0-1.0) % Add Manual Diff Neutrophils % (Manual) (42-75) % Lymphocytes % (Manual) (20-50) % Monocytes % (Manual) (2-8) % Eosinophils % (Manual) (1-3) % PT (9.0-12.0) SEC INR (0.9-1.2) APTT (22.0-34.0) SEC ABG pH (7.35-7.45) ABG pCO2 (35-45) mmHg ABG pO2 (70-100) mmHg ABG HCO3 (22-26) mmol/L ABG O2 Saturation (95-100) % ABG Base Excess ((-2)-(+3)) mmol/L [place]aly Test O2 Delivery Device Oxygen Flow Rate Sodium 136 (136-145) mmol/L Potassium 4.9 (3.5-5.1) mmol/L Chloride 103 (98-107) mmol/L Carbon Dioxide 22 (21-32) mmol/L Anion Gap 15.9 H (7-13) mEq/L BUN 39 H (7-18) mg/dL Creatinine 1.84 H (0.70-1.30) mg/dL Est Cr Clr Drug Dosing 31.44 mL/min Estimated GFR (MDRD) 36 BUN/Creatinine Ratio (No establ ref range) Glucose 243 H (74-99) mg/dL Lactic Acid 2.5 H* (0.4-2.0) mmol/L Calcium 8.4 L (8.5-10.1) mg/dL Total Bilirubin (0.2-1.0) mg/dL AST (15-37) U/L ALT (16-63) U/L Alkaline Phosphatase (46-116) U/L Troponin I (0.000-0.056) ng/mL B-Natriuretic Peptide (0-100) pg/ml Total Protein (6.4-8.2) g/dL Albumin (3.4-5.0) g/dL Globulin Albumin/Globulin Ratio Urine Color (YELLOW) Urine Appearance (CLEAR) Urine pH (5.0-9.0) Ur Specific [place] (1.005-1.030) Urine Protein (NEGATIVE) Urine Glucose (UA) (NEGATIVE) Urine Ketones (NEGATIVE) Urine Occult Blood (NEGATIVE) Urine Nitrite (NEGATIVE) Urine Bilirubin (NEGATIVE) Urine Urobilinogen (0.2-1.0) mg/dL Ur Leukocyte Esterase (NEGATIVE) Urine RBC /HPF Urine WBC (0-5/HPF) /HPF Ur Epithelial Cells (NOT SEEN) /HPF Amorphous Sediment (NOT SEEN) /HPF Urine Bacteria (0-FEW/HPF) /HPF Urine Mucus (NOT SEEN) /LPF Urine Trichomonas (NOT SEEN) /HPF Urine Yeast (NOT SEEN) /HPF 04/26/20 Range/Units 06:00 WBC (5.0-10.0) 10^3/uL RBC (4.6-6.2) 10^6/uL Hgb (14.0-18.0) g/dL Hct (40.0-54.0) % MCV (80-100) fL MCH (27.0-34.0) pg MCHC (33.0-35.0) g/dL Plt Count (150-450) 10^3/uL Neut % (Auto) (42.2-75.2) % Lymph % (Auto) (20.5-50.1) % [place] % (Auto) (2-8) % Eos % (Auto) (1.0-3.0) % Baso % (Auto) (0.0-1.0) % Add Manual Diff Neutrophils % (Manual) (42-75) % Lymphocytes % (Manual) (20-50) % Monocytes % (Manual) (2-8) % Eosinophils % (Manual) (1-3) % PT 35.7 H (9.0-12.0) SEC INR 3.8 H (0.9-1.2) APTT (22.0-34.0) SEC ABG pH (7.35-7.45) ABG pCO2 (35-45) mmHg ABG pO2 (70-100) mmHg ABG HCO3 (22-26) mmol/L ABG O2 Saturation (95-100) % ABG Base Excess ((-2)-(+3)) mmol/L Ne[place]aly Test O2 Delivery Device Oxygen Flow Rate Sodium (136-145) mmol/L Potassium (3.5-5.1) mmol/L Chloride (98-107) mmol/L Carbon Dioxide (21-32) mmol/L Anion Gap (7-13) mEq/L BUN (7-18) mg/dL Creatinine (0.70-1.30) mg/dL Est Cr Clr Drug Dosing mL/min Estimated GFR (MDRD) BUN/Creatinine Ratio (No establ ref range) Glucose (74-99) mg/dL Lactic Acid (0.4-2.0) mmol/L Calcium (8.5-10.1) mg/dL Total Bilirubin (0.2-1.0) mg/dL AST (15-37) U/L ALT (16-63) U/L Alkaline Phosphatase (46-116) U/L Troponin I (0.000-0.056) ng/mL B-Natriuretic Peptide (0-100) pg/ml Total Protein (6.4-8.2) g/dL Albumin (3.4-5.0) g/dL Globulin Albumin/Globulin Ratio Urine Color (YELLOW) Urine Appearance (CLEAR) Urine pH (5.0-9.0) Ur Specific [place] (1.005-1.030) Urine Protein (NEGATIVE) Urine Glucose (UA) (NEGATIVE) Urine Ketones (NEGATIVE) Urine Occult Blood (NEGATIVE) Urine Nitrite (NEGATIVE) Urine Bilirubin (NEGATIVE) Urine Urobilinogen (0.2-1.0) mg/dL Ur Leukocyte Esterase (NEGATIVE) Urine RBC /HPF Urine WBC (0-5/HPF) /HPF Ur Epithelial Cells (NOT SEEN) /HPF Amorphous Sediment (NOT SEEN) /HPF Urine Bacteria (0-FEW/HPF) /HPF Urine Mucus (NOT SEEN) /LPF Urine Trichomonas (NOT SEEN) /HPF Urine Yeast (NOT SEEN) /HPF Med Orders - Current: Current Medications Acetaminophen (Tylenol) 650 mg PO TID [facility] Last Admin: 04/26/20 08:17 Dose: 650 mg Documented by: Albuterol (Proventil Neb Soln) 2.5 mg NEB Q2HR PRN PRN Reason: shortness of breath/wheezing Albuterol (Proventil Neb Soln) 0.63 mg INH Q6H PRN PRN Reason: Shortness of Breath Albuterol (Proventil Hfa) 0 gm INH Q6HR PRN PRN Reason: Shortness of Breath Albuterol/Ipratropium (Duoneb 3.0-0.5 Mg/3 Ml) 3 ml NEB Q4HR [facility] Last Admin: 04/26/20 05:37 Dose: 3 ml Documented by: Amlodipine Besylate (Norvasc) 10 mg PO DAILY [facility] Last Admin: 04/26/20 08:18 Dose: 10 mg Documented by: Atorvastatin Calcium (Lipitor) 20 mg PO DAILY [facility] Last Admin: 04/26/20 08:18 Dose: 20 mg Documented by: Cyclobenzaprine HCl (Flexeril) 10 mg PO TID PRN PRN Reason: Spasms Doxazosin Mesylate (Cardura) 4 mg PO ACDINNER [facility] Ezetimibe (Zetia) 10 mg PO DAILY [facility] Last Admin: 04/26/20 08:24 Dose: 10 mg Documented by: Gabapentin (Neurontin) 300 mg PO TID [facility] Last Admin: 04/26/20 08:17 Dose: 300 mg Documented by: Sodium Chloride (Normal Saline) 500 mls @ 500 mls/hr IV .BOLUS [facility] Last Admin: 04/25/20 12:25 Dose: 500 mls/hr Documented by: Sodium Chloride (Normal Saline) 1,000 mls @ 50 mls/hr IV ASDIRECTED [facility] Last Admin: 04/25/20 15:51 Dose: 50 mls/hr Documented by: Ceftriaxone Sodium 1 gm/ (Sodium Chloride) 50 mls @ 100 mls/hr IV Q24H [facility] Last Infusion: 04/25/20 17:41 Dose: Infused Documented by: Azithromycin 500 mg/ Sodium (Chloride) 250 mls @ 250 mls/hr IV Q24H [facility] Last Infusion: 04/25/20 17:41 Dose: Infused Documented by: Magnesium Oxide (Magnesium Oxide) 250 mg PO BID [facility] Last Admin: 04/26/20 08:18 Dose: 250 mg Documented by: Methylprednisolone Sodium Succinate (Solu-Medrol) 40 mg IVPUSH Q8HR [facility] Last Admin: 04/26/20 05:31 Dose: 40 mg Documented by: Metoprolol Succinate (Toprol Xl) 100 mg PO DAILY [facility] Last Admin: 04/26/20 08:19 Dose: 100 mg Documented by: Mometasone Furoate/Formoterol Fumar (Dulera 200-5 Mcg) 2 puff IH BIDRT [facility] Last Admin: 04/26/20 08:32 Dose: 2 puff Documented by: Non-Formulary Medication (Esomeprazole [Nexium]) 40 mg PO DAILY [facility] Omeprazole (Omeprazole) 40 mg PO ACBREAKFAST [facility] Last Admin: 04/26/20 05:35 Dose: 40 mg Documented by: Ondansetron HCl (Zofran) 4 mg IVPUSH Q6HR PRN PRN Reason: Nausea/Vomiting Ropinirole HCl (Requip) 0.5 mg PO BEDTIME [facility] Sodium Chloride (Saline Flush) 10 ml FLUSH ASDIRECTED PRN PRN Reason: Keep Vein Open Last Admin: 04/25/20 11:47 Dose: 10 ml Documented by: Tiotropium [place] (Spiriva Handihaler) 18 mcg INH DAILY [facility] Last Admin: 04/26/20 08:26 Dose: 1 cap Documented by: Tramadol HCl (Ultram) 50 mg PO TID PRN PRN Reason: Pain Last Admin: 04/25/20 21:18 Dose: 50 mg Documented by: Warfarin Sodium (Pharmacy To Dose - Warfarin) 1 dose .XX ASDIRECTED [facility] Discontinued Medications Albuterol/Ipratropium (Duoneb 3.0-0.5 Mg/3 Ml) 3 ml NEB ONETIME ONE Stop: 04/25/20 11:17 Last Admin: 04/25/20 11:32 Dose: 3 ml Documented by: Albuterol/Ipratropium (Duoneb 3.0-0.5 Mg/3 Ml) 3 ml NEB ONETIME ONE Stop: 04/25/20 13:27 Last Admin: 04/25/20 13:30 Dose: 3 ml Documented by: Levofloxacin/Dextrose 500 mg/ (Premix) 100 mls @ 100 mls/hr IV ONETIME ONE Stop: 04/25/20 13:17 Last Admin: 04/25/20 12:35 Dose: 100 mls/hr Documented by: Methylprednisolone Sodium Succinate (Solu-Medrol) 125 mg IVPUSH ONETIME ONE Stop: 04/25/20 11:17 Last Admin: 04/25/20 11:43 Dose: 125 mg Documented by: Warfarin Sodium (Coumadin) 2 mg PO DAILY [facility] - Exam Quality Assessment: Supplemental Oxygen General: Alert, Oriented, Cooperative Neck: Supple Lungs: Decreased Breath Sounds, Rales Cardiovascular: Regular Rate, Regular Rhythm GI/Abdominal Exam: Normal Bowel Sounds, Soft, Non-Tender, No Organomegaly, No Distention, No Abnormal Bruit, No Mass, Pelvis Stable Extremities: Normal Inspection, Normal Range of Motion, Non-Tender, No Pedal Edema, Normal Capillary Refill Sepsis Event Note - Evaluation Sepsis Screening Result: No Definite Risk - Focused Exam Vital Signs: Vital Signs Temp Pulse Pulse Resp BP BP BP 04/26/20 08:19 93 130/69 04/26/20 08:18 130/69 04/26/20 07:51 36.8 C 93 18 130/69 04/26/20 05:37 80 04/26/20 04:16 36.4 C 86 20 158/80 H 04/26/20 02:12 87 04/26/20 00:12 36.4 C 105 H 20 121/68 04/25/20 22:55 86 Pulse Ox Pulse Ox 04/26/20 08:19 04/26/20 08:18 04/26/20 07:51 97 04/26/20 05:37 95 04/26/20 04:16 95 04/26/20 02:12 96 04/26/20 00:12 97 04/25/20 22:55 96 - Problem List Review Problem List Initiated/Reviewed/Updated: Yes - My Orders Last 24 Hours: My Active Orders 04/25/20 Lunch Regular Diet [DIET] 04/25/20 14:00 Albuterol [Proventil Neb Soln] 2.5 mg NEB Q2HR PRN Ondansetron [Zofran] 4 mg IVPUSH Q6HR PRN 04/25/20 14:11 Patient Status [ADT] Routine Oxygen Therapy [RC] .PRN Up ad Zuly [RC] ASDIRECTED VTE/DVT Education [RC] PER UNIT ROUTINE Vital Signs [RC] 00,04,08,12,,20 CULTURE SPUTUM + SMEAR [RM] Stat Resuscitation Status Routine 04/25/20 14:12 Intake and Output [RC] QSHIFT 04/25/20 15:00 Sodium Chloride 0.9% [Normal Saline] 1,000 ml IV ASDIRECTED cefTRIAXone [Rocephin] 1 gm Sodium Chloride 0.9% [Normal Saline] 50 ml IV Q24H 04/25/20 16:00 Azithromycin [Zithromax] 500 mg Sodium Chloride 0.9% [Normal Saline (AdvBag)] 250 ml IV Q24H 04/25/20 18:00 Albuterol/Ipratropium [DuoNeb 3.0-0.5 MG/3 ML] 3 ml NEB Q4HR 04/25/20 19:59 Albuterol [Proventil HFA] 0 gm INH Q6HR PRN Albuterol [Proventil Neb Soln] 0.63 mg INH Q6H PRN Cyclobenzaprine [Flexeril] 10 mg PO TID PRN traMADol [Ultram] 50 mg PO TID PRN 04/25/20 20:02 RT Aerosol Therapy [RC] ASDIRECTED RT Post Treatment Assessment [RC] Click to Edit RT Pre-Treatment Assessment [RC] Click to Edit 04/25/20 21:00 Acetaminophen [TylenoL] 650 mg PO TID Gabapentin [Neurontin] 300 mg PO TID 04/25/20 22:00 methylPREDNISolone Sod Succ [Solu-MEDROL] 40 mg IVPUSH Q8HR 04/26/20 06:00 Omeprazole 40 mg PO ACBREAKFAST 04/26/20 07:00 Mometasone/Formoterol [Dulera 200-5 MCG] 2 puff IH BIDRT 04/26/20 08:30 Pharmacy to Dose - Warfarin 1 dose .XX ASDIRECTED 04/26/20 09:00 Esomeprazole [NexIUM] 40 mg PO DAILY Ezetimibe [Zetia] 10 mg PO DAILY Magnesium Oxide 250 mg PO BID Metoprolol Succinate [Toprol XL] 100 mg PO DAILY Tiotropium [Spiriva HandiHaler] 18 mcg INH DAILY amLODIPine [Norvasc] 10 mg PO DAILY atorvaSTATin [Lipitor] 20 mg PO DAILY 04/26/20 17:00 Doxazosin [Cardura] 4 mg PO ACDINNER 04/26/20 21:00 rOPINIRole [Requip] 0.5 mg PO BEDTIME - Plan Plan:: #. Acute on chronic hypoxemic respiratory failure #. Acute exacerbation of COPD #. Possible pneumonia versus bronchitis #. Acute kidney injury Serum creatinine is 1.7 #. Hypokalemia Serum potassium waselevated up to 5.4 #. Chronic anticoagulation INR continues to be supratherapeutic #. Chest pain Likely due to COPD exacerbation #. Possible sepsis Patient has elevated white cell count, elevated lactic acid. No fever #. Possible urinary tract infection Urinalysis is suggestive However patient does not have symptoms #. Hypertension Intermittently elevated Plan: Patient continues to have some shortness of breath Recheck lactic acid level. I am not very concerned about it. I suspect that it is mostly from broncho-dilators Continue intravenous ceftriaxone Continue intravenous azithromycin Continue supplemental oxygen. Obtain repeat basic metabolic panel Obtain repeat complete blood count
[2020-04-26] MEDS: Sodium Chloride 0.9% 1,000 ML IV SCH (12:42)
[2020-04-26] MEDS: Ondansetron 4 MG/2 ML SDV IVPUSH PRN (12:45)
[2020-04-26] MEDS: Azithromycin 500 MG in Sodium Chloride 0.9% 250 ML IV SCH (16:17)
[2020-04-26] MEDS: cefTRIAXone 1 GM in Sodium Chloride 0.9% 50 ML IV SCH (16:17)
[2020-04-26] MEDS: Doxazosin 2 MG Tab PO SCH (18:07)
[2020-04-26] MEDS: Cyclobenzaprine 10 MG Tab PO PRN (22:38)
[2020-04-26] MEDS: rOPINIRole 0.25 MG Tab PO SCH (22:39)
[2020-04-27] MEDS: Albuterol/Ipratropium 3.0-0.5 MG/3 ML Neb Soln NEB SCH ×6 (02:53→22:48)
[2020-04-27] MEDS: methylPREDNISolone Sodium Succinate 40 MG/1 ML SDV IVPUSH SCH ×3 (06:09→21:57)
[2020-04-27 06:47] LABS: ANION GAP 15.7 mEq/L (7-13)
[2020-04-27] MEDS: Gabapentin 300 MG Cap PO SCH ×3 (08:23→21:46)
[2020-04-27] MEDS: Formoterol/Mometasone 200-5 MCG 8.8 GM Inhaler IH SCH ×2 (08:23→18:07)
[2020-04-27] MEDS: amLODIPine 5 MG Tab PO SCH (08:24)
[2020-04-27] MEDS: Omeprazole 20 MG Cap.CR PO SCH (08:24)
[2020-04-27] MEDS: atorvaSTATin 20 MG Tab PO SCH (08:24)
[2020-04-27] MEDS: Acetaminophen 325 MG Tab PO SCH ×3 (08:24→21:47)
[2020-04-27] MEDS: Ezetimibe 10 MG Tab PO SCH (08:25)
[2020-04-27] MEDS: Metoprolol Succinate 50 MG Tab.ER PO SCH (08:25)
[2020-04-27] MEDS: Tiotropium Inhaler 18 MCG Inhalation Powder Cap Kit of 5 INH SCH (08:26)
--- NOTE | 2020-04-27 10:11 | PCM.PN ---
- General Info Date of Service: 04/27/20 Subjective Update: No new complaint today Patient continues to have shortness of breath Coughs occasionally. No fever documented. White cell count has gone back up to 22,000. I was informed that the patient has positive blood culture with coagulase positive bacteria in cocci in clusters. - Review of Systems General: Reports: Malaise Pulmonary: Reports: Shortness of Breath, Cough Cardiovascular: Reports: No Symptoms Gastrointestinal: Reports: No Symptoms Musculoskeletal: Reports: No Symptoms Skin: Reports: No Symptoms - Patient Data Vitals - Most Recent: Last Vital Signs Temp 36.6 C 04/27/20 08:14 Pulse 86 04/27/20 08:25 Resp 20 04/27/20 08:14 BP 115/51 L 04/27/20 08:25 Pulse Ox 97 04/27/20 08:14 Weight - Most Recent: 70.477 kg I&O - Last 24 Hours: Intake & Output 04/26/20 04/27/20 04/27/20 22:59 06:59 14:59 Intake Total 250 550 Output Total 350 Balance 250 550 -350 Lab Results Last 24 Hours: Laboratory Results - last 24 hr 04/27/20 04/27/20 04/27/20 Range/Units 06:00 06:00 06:00 WBC 22.1 H (5.0-10.0) 10^3/uL RBC 4.23 L (4.6-6.2) 10^6/uL Hgb 12.1 L D (14.0-18.0) g/dL Hct 37.4 L (40.0-54.0) % MCV 88.4 (80-100) fL MCH 28.6 (27.0-34.0) pg MCHC 32.4 L (33.0-35.0) g/dL Plt Count 211 (150-450) 10^3/uL PT 21.6 H D (9.0-12.0) SEC INR 2.3 H (0.9-1.2) Sodium 140 (136-145) mmol/L Potassium 4.7 (3.5-5.1) mmol/L Chloride 108 H (98-107) mmol/L Carbon Dioxide 21 (21-32) mmol/L Anion Gap 15.7 H (7-13) mEq/L BUN 38 H (7-18) mg/dL Creatinine 1.52 H (0.70-1.30) mg/dL Est Cr Clr Drug Dosing 39.93 mL/min Estimated GFR (MDRD) 45 Glucose 217 H (74-99) mg/dL Calcium 7.8 L (8.5-10.1) mg/dL Aman Results Last 24 Hours: Microbiology 04/25/20 12:01 Aerobic Blood Culture - Preliminary Blood - Venous - Lab Draw NO GROWTH AFTER 1 DAY Anaerobic Blood Culture - Preliminary 04/25/20 12:21 Urine Culture - Preliminary Urine, Voided 04/25/20 11:29 Aerobic Blood Culture - Preliminary Blood - Venous NO GROWTH AFTER 1 DAY Anaerobic Blood Culture - Preliminary NO GROWTH AFTER 1 DAY Med Orders - Current: Current Medications Acetaminophen (Tylenol) 650 mg PO TID [facility] Last Admin: 04/27/20 08:24 Dose: 650 mg Documented by: Albuterol (Proventil Neb Soln) 2.5 mg NEB Q2HR PRN PRN Reason: shortness of breath/wheezing Albuterol (Proventil Hfa) 0 gm INH Q6HR PRN PRN Reason: Shortness of Breath Albuterol/Ipratropium (Duoneb 3.0-0.5 Mg/3 Ml) 3 ml NEB Q4HRRT [facility] Last Admin: 04/27/20 06:59 Dose: 3 ml Documented by: Amlodipine Besylate (Norvasc) 10 mg PO DAILY [facility] Last Admin: 04/27/20 08:24 Dose: 10 mg Documented by: Atorvastatin Calcium (Lipitor) 20 mg PO DAILY [facility] Last Admin: 04/27/20 08:24 Dose: 20 mg Documented by: Cyclobenzaprine HCl (Flexeril) 10 mg PO TID PRN PRN Reason: Spasms Last Admin: 04/26/20 22:38 Dose: 10 mg Documented by: Doxazosin Mesylate (Cardura) 4 mg PO ACDINNER [facility] Last Admin: 04/26/20 18:07 Dose: 4 mg Documented by: Ezetimibe (Zetia) 10 mg PO DAILY [facility] Last Admin: 04/27/20 08:25 Dose: 10 mg Documented by: Gabapentin (Neurontin) 300 mg PO TID [facility] Last Admin: 04/27/20 08:23 Dose: 300 mg Documented by: Sodium Chloride (Normal Saline) 500 mls @ 500 mls/hr IV .BOLUS [facility] Last Admin: 04/25/20 12:25 Dose: 500 mls/hr Documented by: Sodium Chloride (Normal Saline) 1,000 mls @ 50 mls/hr IV ASDIRECTED [facility] Last Infusion: 04/26/20 18:12 Dose: 50 mls/hr Documented by: Azithromycin 500 mg/ Sodium (Chloride) 250 mls @ 250 mls/hr IV Q24H [facility] Last Infusion: 04/26/20 18:12 Dose: Infused Documented by: Vancomycin HCl 1 gm/ Sodium (Chloride) 250 mls @ 166.667 mls/hr IV Q24H [facility] Last Admin: 04/26/20 14:16 Dose: 166.667 mls/hr Documented by: Ceftriaxone Sodium 1 gm/ (Sodium Chloride) 50 mls @ 100 mls/hr IV Q24H [facility] Last Infusion: 04/26/20 18:12 Dose: Infused Documented by: Magnesium Oxide (Magnesium Oxide) 250 mg PO BID [facility] Last Admin: 04/27/20 08:24 Dose: 250 mg Documented by: Methylprednisolone Sodium Succinate (Solu-Medrol) 20 mg IVPUSH Q8HR [facility] Metoprolol Succinate (Toprol Xl) 100 mg PO DAILY [facility] Last Admin: 04/27/20 08:25 Dose: 100 mg Documented by: Mometasone Furoate/Formoterol Fumar (Dulera 200-5 Mcg) 2 puff IH BIDRT [facility] Last Admin: 04/27/20 08:23 Dose: 2 puff Documented by: Omeprazole (Omeprazole) 20 mg PO DAILY [facility] Last Admin: 04/27/20 08:24 Dose: 20 mg Documented by: Ondansetron HCl (Zofran) 4 mg IVPUSH Q6HR PRN PRN Reason: Nausea/Vomiting Last Admin: 04/26/20 12:45 Dose: 4 mg Documented by: Ropinirole HCl (Requip) 0.5 mg PO BEDTIME [facility] Last Admin: 04/26/20 22:39 Dose: 0.5 mg Documented by: Sodium Chloride (Saline Flush) 10 ml FLUSH ASDIRECTED PRN PRN Reason: Keep Vein Open Last Admin: 04/25/20 11:47 Dose: 10 ml Documented by: Tiotropium [place] (Spiriva Handihaler) 18 mcg INH DAILY [facility] Last Admin: 04/27/20 08:26 Dose: 1 cap Documented by: Tramadol HCl (Ultram) 50 mg PO TID PRN PRN Reason: Pain Last Admin: 04/25/20 21:18 Dose: 50 mg Documented by: Vancomycin HCl (Pharmacy To Dose - Vancomycin) 0 dose .XX ASDIRECTED [facility] Warfarin Sodium (Pharmacy To Dose - Warfarin) 1 dose .XX ASDIRECTED [facility] Warfarin Sodium (Coumadin) 2 mg PO ONETIME ONE Stop: 04/27/20 14:01 Discontinued Medications Albuterol (Proventil Neb Soln) 0.63 mg INH Q6H PRN PRN Reason: Shortness of Breath Albuterol/Ipratropium (Duoneb 3.0-0.5 Mg/3 Ml) 3 ml NEB ONETIME ONE Stop: 04/25/20 11:17 Last Admin: 04/25/20 11:32 Dose: 3 ml Documented by: Albuterol/Ipratropium (Duoneb 3.0-0.5 Mg/3 Ml) 3 ml NEB ONETIME ONE Stop: 04/25/20 13:27 Last Admin: 04/25/20 13:30 Dose: 3 ml Documented by: Albuterol/Ipratropium (Duoneb 3.0-0.5 Mg/3 Ml) 3 ml NEB Q4HR [facility] Last Admin: 04/26/20 10:14 Dose: 3 ml Documented by: Levofloxacin/Dextrose 500 mg/ (Premix) 100 mls @ 100 mls/hr IV ONETIME ONE Stop: 04/25/20 13:17 Last Admin: 04/25/20 12:35 Dose: 100 mls/hr Documented by: Ceftriaxone Sodium 1 gm/ (Sodium Chloride) 50 mls @ 100 mls/hr IV Q24H [facility] Last Infusion: 04/25/20 17:41 Dose: Infused Documented by: Methylprednisolone Sodium Succinate (Solu-Medrol) 125 mg IVPUSH ONETIME ONE Stop: 04/25/20 11:17 Last Admin: 04/25/20 11:43 Dose: 125 mg Documented by: Methylprednisolone Sodium Succinate (Solu-Medrol) 40 mg IVPUSH Q8HR [facility] Last Admin: 04/27/20 06:09 Dose: 40 mg Documented by: No Warfarin (Today ) 0 each PO ONETIME ONE Stop: 04/26/20 14:01 Last Admin: 04/26/20 13:08 Dose: Not Given Documented by: Omeprazole (Omeprazole) 40 mg PO ACBREAKFAST [facility] Last Admin: 04/26/20 05:35 Dose: 40 mg Documented by: Warfarin Sodium (Coumadin) 2 mg PO DAILY [facility] - Exam Quality Assessment: Supplemental Oxygen General: Alert, Oriented, Cooperative HEENT: Pupils Equal, Pupils Reactive, EOMI, Mucous Membr. Moist/[place] Lungs: Decreased Breath Sounds Cardiovascular: Regular Rate, Regular Rhythm GI/Abdominal Exam: Normal Bowel Sounds, Soft, Non-Tender, No Organomegaly, No Distention, No Abnormal Bruit, No Mass, Pelvis Stable Extremities: Normal Inspection, Normal Range of Motion, Non-Tender, No Pedal Edema, Normal Capillary Refill Sepsis Event Note - Evaluation Sepsis Screening Result: No Definite Risk - Focused Exam Vital Signs: Vital Signs Temp Pulse Pulse Resp BP BP Pulse Ox 04/27/20 08:25 86 115/51 L 04/27/20 08:24 115/51 L 04/27/20 08:14 36.6 C 80 20 115/51 L 97 04/27/20 07:00 88 04/27/20 02:56 04/26/20 23:00 Pulse Ox 04/27/20 08:25 04/27/20 08:24 04/27/20 08:14 04/27/20 07:00 96 04/27/20 02:56 95 04/26/20 23:00 97 - Problem List Review Problem List Initiated/Reviewed/Updated: Yes - My Orders Last 24 Hours: My Active Orders 04/26/20 13:45 Pharmacy to Dose - Vancomycin 0 dose .XX ASDIRECTED 04/26/20 14:00 Vancomycin 1 gm Sodium Chloride 0.9% [Normal Saline] 250 ml IV Q24H 04/26/20 15:00 Albuterol/Ipratropium [DuoNeb 3.0-0.5 MG/3 ML] 3 ml NEB Q4HRRT 04/26/20 15:30 cefTRIAXone [Rocephin] 1 gm Sodium Chloride 0.9% [Normal Saline] 50 ml IV Q24H 04/26/20 17:00 Doxazosin [Cardura] 4 mg PO ACDINNER 04/26/20 21:00 rOPINIRole [Requip] 0.5 mg PO BEDTIME 04/27/20 09:00 Omeprazole 20 mg PO DAILY 04/27/20 09:16 Chest Abdomen Pelvis wo Cont [CT] Routine 04/27/20 09:17 LACTIC ACID [CHEM] Routine 04/27/20 14:00 Warfarin [Coumadin] 2 mg PO ONETIME ONE methylPREDNISolone Sod Succ [Solu-MEDROL] 20 mg IVPUSH Q8HR 04/28/20 06:00 INR,PT,PROTHROMBIN TIME [COAG] DAILY 04/29/20 06:00 INR,PT,PROTHROMBIN TIME [COAG] DAILY 04/30/20 06:00 INR,PT,PROTHROMBIN TIME [COAG] DAILY 04/30/20 13:30 VANCOMYCIN TROUGH [CHEM] Timed 05/01/20 06:00 INR,PT,PROTHROMBIN TIME [COAG] DAILY 05/02/20 06:00 INR,PT,PROTHROMBIN TIME [COAG] DAILY 05/03/20 06:00 INR,PT,PROTHROMBIN TIME [COAG] DAILY - Plan Plan:: #. Acute on chronic hypoxemic respiratory failure #. Acute exacerbation of COPD #. Possible pneumonia versus bronchitis #. Acute kidney injury Serum creatinine is 1.7 #. Hypokalemia Serum potassium was elevated up to 5.4 #. Chronic anticoagulation INR continues to be supratherapeutic #. Chest pain Likely due to COPD exacerbation #. Possible sepsis Patient has elevated white cell count, elevated lactic acid. No fever Blood culture is said to be growing gram-positive cocci in chains and clusters, coagulase positive #. Possible urinary tract infection Urine culture is also going gram-positive cocci in chains and clusters, coagulase positive #. Hypertension Intermittently elevated Plan: Recheck lactic acid level obtain repeat complete blood count Obtain repeat blood cultures Obtain CT scan of chest abdomen and pelvis Repeat basic metabolic panel
--- NOTE | 2020-04-27 11:09 | CT ---
PROCEDURE INFORMATION: Exam: CT Chest Without Contrast Exam date and time: 04/27/2020 10:12 AM Age: 79 years old Clinical indication: Other: Sepsis TECHNIQUE: Imaging protocol: Computed tomography of the chest without contrast. Radiation optimization: All CT scans at this facility use at least one of these dose optimization techniques: automated exposure control; mA and/or kV adjustment per patient size (includes targeted exams where dose is matched to clinical indication); or iterative reconstruction. COMPARISON: CT Abdomen Pelvis wo Cont 12/11/2015 2:51 PM FINDINGS: Lungs: There is bilateral pulmonary emphysema. There is a 2 cm right basilar bleb. Stable fibrocalcific changes lingular segment. Pleural space: . There is mild bibasilar pleural scarring. There is elevation and blunting of the right costophrenic angle. No pleural effusions. No pneumothorax. Heart: There is no cardiomegaly. There are coronary artery calcifications. Pulmonary arteries: The pulmonary vasculature is symmetrical. Aorta: There is atherosclerotic calcification of the thoracic aorta without evidence of aneurysm. Lymph nodes: There is no adenopathy. Bones/joints: There is mild scoliosis and degenerative disease of thoracic spine. There are no acute fractures. Soft tissues: Unremarkable. IMPRESSION: 1. No acute findings. 2. Pulmonary emphysema. 3. Pleural scarring bilateral bilateral lung bases PROCEDURE INFORMATION: Exam: CT Abdomen And Pelvis Without Contrast Exam date and time: 04/27/2020 10:12 AM Age: 79 years old Clinical indication: Other: Sepsis TECHNIQUE: Imaging protocol: Computed tomography of the abdomen and pelvis without contrast. Radiation optimization: All CT scans at this facility use at least one of these dose optimization techniques: automated exposure control; mA and/or kV adjustment per patient size (includes targeted exams where dose is matched to clinical indication); or iterative reconstruction. COMPARISON: CT Abdomen Pelvis wo Cont 12/11/2015 2:51 PM FINDINGS: Liver: The liver is normal. Gallbladder and bile ducts: There has been a cholecystectomy. Pancreas: The pancreas is normal. Spleen: There are multiple round splenic hypodensities that have developed since the comparison exam with the largest measuring 3.[address] numbers range from 2-13.5 Hounsfield units. Adrenals: The adrenal glands are normal. Kidneys and ureters: The kidneys demonstrate the stable mild renal atrophy. Stomach and bowel: The stomach is normal. There is no evidence of intestinal perforation or obstruction. Appendix: No evidence of appendicitis. Intraperitoneal space: Unremarkable. No free air. No significant fluid collection. Vasculature: There is aortoiliac atherosclerotic calcification. There is mild fusiform enlargement of the distal abdominal aorta with a transverse measurement of 2.9 cm. There is diffuse dilatation of bilateral common iliac arteries. right common iliac artery measures 1.9 cm. Left common iliac artery measures 2.0 cm. iliac arteries. Lymph nodes: No enlarged lymph nodes. Bladder: The bladder is moderately distended without any bladder wall thickening. There are no visualized filling defects. Reproductive: The prostate and seminal vesicles are normal. Bones/joints: There dextroscoliosis of the thoracolumbar spine with multilevel lumbar disc space narrowing and marginal spondylosis. There is multilevel facet arthropathy predominating within the lumbar spine. There are no acute fractures. Soft tissues: Unremarkable. IMPRESSION: 1. No acute intra-abdominal abnormality. 2. Moderate bladder distension. Correlate for neurogenic bladder or difficulty urinating. 3. Splenic well-demarcated hypo there densities have developed in comparison to the prior exam. There is no splenomegaly. Differential includes multiple benign splenic masses. Routine scheduled MRI abdomen recommended for further characterization. 4. 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 5. Chronic changes which include cholecystectomy, thoracolumbar degenerative disease and scoliosis, mild bilateral renal atrophy.
[2020-04-27] MEDS: Sodium Chloride 0.9% 1,000 ML IV SCH (13:17)
[2020-04-27] MEDS ORDERED: Warfarin 2 MG Tab PO ONE (14:00)
[2020-04-27] MEDS: cefTRIAXone 1 GM in Sodium Chloride 0.9% 50 ML IV SCH (16:03)
[2020-04-27] MEDS: Doxazosin 2 MG Tab PO SCH (17:00)
[2020-04-27] MEDS: Azithromycin 500 MG in Sodium Chloride 0.9% 250 ML IV SCH (17:01)
[2020-04-27] MEDS: Ondansetron 4 MG/2 ML SDV IVPUSH PRN (17:30)
[2020-04-27] MEDS: rOPINIRole 0.25 MG Tab PO SCH (21:47)
[2020-04-27] MEDS: Cyclobenzaprine 10 MG Tab PO PRN (22:06)
[2020-04-28] MEDS: Albuterol/Ipratropium 3.0-0.5 MG/3 ML Neb Soln NEB SCH ×7 (03:07→23:40)
[2020-04-28] MEDS: methylPREDNISolone Sodium Succinate 40 MG/1 ML SDV IVPUSH SCH (05:54)
[2020-04-28] MEDS: Formoterol/Mometasone 200-5 MCG 8.8 GM Inhaler IH SCH ×2 (09:08→17:54)
[2020-04-28] MEDS: Tiotropium Inhaler 18 MCG Inhalation Powder Cap Kit of 5 INH SCH (09:08)
[2020-04-28] MEDS: Metoprolol Succinate 50 MG Tab.ER PO SCH (09:09)
[2020-04-28] MEDS: amLODIPine 5 MG Tab PO SCH (09:10)
[2020-04-28] MEDS: Omeprazole 20 MG Cap.CR PO SCH (09:10)
[2020-04-28] MEDS: atorvaSTATin 20 MG Tab PO SCH (09:12)
[2020-04-28] MEDS: Ezetimibe 10 MG Tab PO SCH (09:12)
[2020-04-28] MEDS: Acetaminophen 325 MG Tab PO SCH ×3 (09:12→21:07)
[2020-04-28] MEDS: Gabapentin 300 MG Cap PO SCH ×3 (09:13→21:06)
--- NOTE | 2020-04-28 10:04 | PCM.PN ---
- General Info Date of Service: 04/28/20 Subjective Update: Today the patient has no new complaints. Has generalized weakness Still has some shortness of breath but it has improved a lot No fever documented. - Review of Systems General: Reports: Weakness Pulmonary: Reports: Shortness of Breath, Cough Cardiovascular: Reports: No Symptoms Gastrointestinal: Reports: No Symptoms Musculoskeletal: Reports: No Symptoms Neurological: Reports: No Symptoms - Patient Data Vitals - Most Recent: Last Vital Signs Temp 37.2 C 04/28/20 08:00 Pulse 79 04/28/20 09:09 Resp 22 H 04/28/20 08:00 BP 130/65 04/28/20 09:10 Pulse Ox 98 04/28/20 08:00 Weight - Most Recent: 73.21 kg I&O - Last 24 Hours: Intake & Output 04/27/20 04/28/20 04/28/20 22:59 06:59 14:59 Intake Total 735 708 Output Total 500 600 425 Balance 235 108 -425 Lab Results Last 24 Hours: Laboratory Results - last 24 hr 04/27/20 04/28/20 Range/Units 10:06 06:30 PT 23.1 H (9.0-12.0) SEC INR 2.5 H (0.9-1.2) Lactic Acid 3.2 H* (0.4-2.0) mmol/L Aman Results Last 24 Hours: Microbiology 04/25/20 12:21 Urine Culture - Final Urine, Voided (Mrsa) Staphylococcus Aureus 04/25/20 12:01 Aerobic Blood Culture - Final Blood - Venous - Lab Draw (Mrsa) Staphylococcus Aureus Anaerobic Blood Culture - Preliminary 04/25/20 11:29 Aerobic Blood Culture - Preliminary Blood - Venous NO GROWTH AFTER 2 DAYS Anaerobic Blood Culture - Preliminary NO GROWTH AFTER 2 DAYS 04/27/20 10:06 Anaerobic Blood Culture - Final Blood - Venous Med Orders - Current: Current Medications Acetaminophen (Tylenol) 650 mg PO TID [facility] Last Admin: 04/28/20 09:12 Dose: 650 mg Documented by: Albuterol (Proventil Neb Soln) 2.5 mg NEB Q2HR PRN PRN Reason: shortness of breath/wheezing Albuterol (Proventil Hfa) 0 gm INH Q6HR PRN PRN Reason: Shortness of Breath Albuterol/Ipratropium (Duoneb 3.0-0.5 Mg/3 Ml) 3 ml NEB Q4HRRT [facility] Last Admin: 04/28/20 07:04 Dose: 3 ml Documented by: Amlodipine Besylate (Norvasc) 10 mg PO DAILY [facility] Last Admin: 04/28/20 09:10 Dose: 10 mg Documented by: Atorvastatin Calcium (Lipitor) 20 mg PO DAILY [facility] Last Admin: 04/28/20 09:12 Dose: 20 mg Documented by: Cyclobenzaprine HCl (Flexeril) 10 mg PO TID PRN PRN Reason: Spasms Last Admin: 04/27/20 22:06 Dose: 10 mg Documented by: Doxazosin Mesylate (Cardura) 4 mg PO ACDINNER [facility] Last Admin: 04/27/20 17:00 Dose: 4 mg Documented by: Ezetimibe (Zetia) 10 mg PO DAILY [facility] Last Admin: 04/28/20 09:12 Dose: 10 mg Documented by: Gabapentin (Neurontin) 300 mg PO TID [facility] Last Admin: 04/28/20 09:13 Dose: 300 mg Documented by: Vancomycin HCl 1 gm/ Sodium (Chloride) 250 mls @ 166.667 mls/hr IV Q24H [facility] Last Admin: 04/27/20 13:18 Dose: 166.667 mls/hr Documented by: Magnesium Oxide (Magnesium Oxide) 250 mg PO BID [facility] Last Admin: 04/28/20 09:11 Dose: 250 mg Documented by: Metoprolol Succinate (Toprol Xl) 100 mg PO DAILY [facility] Last Admin: 04/28/20 09:09 Dose: 100 mg Documented by: Mometasone Furoate/Formoterol Fumar (Dulera 200-5 Mcg) 2 puff IH BIDRT [facility] Last Admin: 04/28/20 09:08 Dose: 2 puff Documented by: Omeprazole (Omeprazole) 20 mg PO DAILY [facility] Last Admin: 04/28/20 09:10 Dose: 20 mg Documented by: Ondansetron HCl (Zofran) 4 mg IVPUSH Q6HR PRN PRN Reason: Nausea/Vomiting Last Admin: 04/27/20 17:30 Dose: 4 mg Documented by: Ropinirole HCl (Requip) 0.5 mg PO BEDTIME [facility] Last Admin: 04/27/20 21:47 Dose: 0.5 mg Documented by: Sodium Chloride (Saline Flush) 10 ml FLUSH ASDIRECTED PRN PRN Reason: Keep Vein Open Last Admin: 04/25/20 11:47 Dose: 10 ml Documented by: Tiotropium [place] (Spiriva Handihaler) 18 mcg INH DAILY [facility] Last Admin: 04/28/20 09:08 Dose: 1 cap Documented by: Tramadol HCl (Ultram) 50 mg PO TID PRN PRN Reason: Pain Last Admin: 04/25/20 21:18 Dose: 50 mg Documented by: Vancomycin HCl (Pharmacy To Dose - Vancomycin) 0 dose .XX ASDIRECTED [facility] Warfarin Sodium (Pharmacy To Dose - Warfarin) 1 dose .XX ASDIRECTED [facility] Warfarin Sodium (Coumadin) 2 mg PO ONETIME ONE Stop: 04/28/20 14:01 Discontinued Medications Albuterol (Proventil Neb Soln) 0.63 mg INH Q6H PRN PRN Reason: Shortness of Breath Albuterol/Ipratropium (Duoneb 3.0-0.5 Mg/3 Ml) 3 ml NEB ONETIME ONE Stop: 04/25/20 11:17 Last Admin: 04/25/20 11:32 Dose: 3 ml Documented by: Albuterol/Ipratropium (Duoneb 3.0-0.5 Mg/3 Ml) 3 ml NEB ONETIME ONE Stop: 04/25/20 13:27 Last Admin: 04/25/20 13:30 Dose: 3 ml Documented by: Albuterol/Ipratropium (Duoneb 3.0-0.5 Mg/3 Ml) 3 ml NEB Q4HR [facility] Last Admin: 04/26/20 10:14 Dose: 3 ml Documented by: Sodium Chloride (Normal Saline) 500 mls @ 500 mls/hr IV .BOLUS [facility] Last Admin: 04/25/20 12:25 Dose: 500 mls/hr Documented by: Levofloxacin/Dextrose 500 mg/ (Premix) 100 mls @ 100 mls/hr IV ONETIME ONE Stop: 04/25/20 13:17 Last Admin: 04/25/20 12:35 Dose: 100 mls/hr Documented by: Sodium Chloride (Normal Saline) 1,000 mls @ 50 mls/hr IV ASDIRECTED [facility] Last Admin: 04/27/20 13:17 Dose: 50 mls/hr Documented by: Ceftriaxone Sodium 1 gm/ (Sodium Chloride) 50 mls @ 100 mls/hr IV Q24H [facility] Last Infusion: 04/25/20 17:41 Dose: Infused Documented by: Azithromycin 500 mg/ Sodium (Chloride) 250 mls @ 250 mls/hr IV Q24H [facility] Last Infusion: 04/27/20 18:21 Dose: Infused Documented by: Ceftriaxone Sodium 1 gm/ (Sodium Chloride) 50 mls @ 100 mls/hr IV Q24H [facility] Last Infusion: 04/27/20 16:47 Dose: Infused Documented by: Methylprednisolone Sodium Succinate (Solu-Medrol) 125 mg IVPUSH ONETIME ONE Stop: 04/25/20 11:17 Last Admin: 04/25/20 11:43 Dose: 125 mg Documented by: Methylprednisolone Sodium Succinate (Solu-Medrol) 40 mg IVPUSH Q8HR [facility] Last Admin: 04/27/20 06:09 Dose: 40 mg Documented by: Methylprednisolone Sodium Succinate (Solu-Medrol) 20 mg IVPUSH Q8HR [facility] Last Admin: 04/28/20 05:54 Dose: 20 mg Documented by: No Warfarin (Today ) 0 each PO ONETIME ONE Stop: 04/26/20 14:01 Last Admin: 04/26/20 13:08 Dose: Not Given Documented by: Omeprazole (Omeprazole) 40 mg PO ACBREAKFAST [facility] Last Admin: 04/26/20 05:35 Dose: 40 mg Documented by: Warfarin Sodium (Coumadin) 2 mg PO DAILY [facility] Warfarin Sodium (Coumadin) 2 mg PO ONETIME ONE Stop: 04/27/20 14:01 Last Admin: 04/27/20 13:15 Dose: 2 mg Documented by: - Exam Quality Assessment: Supplemental Oxygen General: Alert, Oriented, Cooperative Neck: Supple Lungs: Decreased Breath Sounds Cardiovascular: Regular Rate, Regular Rhythm GI/Abdominal Exam: Normal Bowel Sounds, Soft, Non-Tender, No Organomegaly, No Distention, No Abnormal Bruit, No Mass, Pelvis Stable Extremities: Normal Inspection, Normal Range of Motion, Non-Tender, No Pedal Edema, Normal Capillary Refill Sepsis Event Note - Evaluation Sepsis Screening Result: No Definite Risk - Focused Exam Vital Signs: Vital Signs Temp Pulse Pulse Resp BP BP Pulse Ox 04/28/20 09:10 130/65 04/28/20 09:09 79 130/65 04/28/20 08:00 37.2 C 79 22 H 130/65 98 04/28/20 07:00 75 04/28/20 03:29 36.6 C 73 24 H 114/56 L 98 04/28/20 03:10 04/27/20 23:00 36.6 C 71 20 117/60 99 04/27/20 22:51 Pulse Ox 04/28/20 09:10 04/28/20 09:09 04/28/20 08:00 04/28/20 07:00 98 04/28/20 03:29 04/28/20 03:10 98 04/27/20 23:00 04/27/20 22:51 98 - Problem List Review Problem List Initiated/Reviewed/Updated: Yes - My Orders Last 24 Hours: My Active Orders 04/27/20 10:06 CULTURE BLOOD [BC] Stat 04/27/20 10:11 Blood Culture x2 Reflex Set [OM.PC] Stat 04/27/20 10:20 CULTURE BLOOD [BC] Stat 04/28/20 14:00 Warfarin [Coumadin] 2 mg PO ONETIME ONE 04/29/20 05:11 BASIC METABOLIC PANEL,BMP [CHEM] AM CBC W/O DIFF,HEMOGRAM [HEME] AM 04/29/20 06:00 INR,PT,PROTHROMBIN TIME [COAG] DAILY 04/29/20 09:00 predniSONE 10 mg PO DAILY 04/29/20 09:23 Echo Comp wo Cont [US] Routine 04/29/20 09:27 LACTIC ACID [CHEM] Routine 04/30/20 06:00 INR,PT,PROTHROMBIN TIME [COAG] DAILY 04/30/20 13:30 VANCOMYCIN TROUGH [CHEM] Timed 05/01/20 06:00 INR,PT,PROTHROMBIN TIME [COAG] DAILY 05/02/20 06:00 INR,PT,PROTHROMBIN TIME [COAG] DAILY 05/03/20 06:00 INR,PT,PROTHROMBIN TIME [COAG] DAILY - Plan Plan:: #. Acute on chronic hypoxemic respiratory failure #. Acute exacerbation of COPD #. Possible pneumonia versus bronchitis #. Acute kidney injury Serum creatinine is 1.5 #. Hypokalemia Serum potassium was elevated up to 5.4 Resolved #. Chronic anticoagulation INR continues to be therapeutic #. Chest pain Likely due to COPD exacerbation #. Possible sepsis Patient has elevated white cell count, elevated lactic acid. No fever Blood culture is said to be growing MRSA #. Possible urinary tract infection Urine culture is also going MRSA #. Hypertension Intermittently elevated Plan: Patient is growing MRSA in blood and urine. Patient will need to have an echocardiogram to rule out endocarditis. Intravenous vancomycin. Will require intravenous vancomycin for 2 weeks. I was informed that echocardiogram may not be available here. May have to transfer the patient to [place] for that Discontinue azithromycin Discontinue ceftriaxone
[2020-04-28] MEDS: Nystatin Susp 100,000 Unit/ML 5 ML UD Cup PO SCH ×3 (13:48→21:07)
[2020-04-28] MEDS ORDERED: Warfarin 2 MG Tab PO ONE (14:00)
[2020-04-28] MEDS: Doxazosin 2 MG Tab PO SCH (16:56)
[2020-04-28] MEDS: rOPINIRole 0.25 MG Tab PO SCH (21:06)
[2020-04-28] MEDS: Docusate Sodium 100 MG Cap PO SCH (21:06)
[2020-04-28] MEDS: Cyclobenzaprine 10 MG Tab PO PRN (21:07)
[2020-04-29] MEDS: Albuterol/Ipratropium 3.0-0.5 MG/3 ML Neb Soln NEB SCH ×8 (00:24→22:59)
[2020-04-29 06:18] LABS: ANION GAP 10.3 mEq/L (7-13)
[2020-04-29] MEDS: Acetaminophen 325 MG Tab PO SCH ×3 (08:08→20:33)
[2020-04-29] MEDS: Metoprolol Succinate 50 MG Tab.ER PO SCH (08:09)
[2020-04-29] MEDS: Docusate Sodium 100 MG Cap PO SCH ×2 (08:09→20:38)
[2020-04-29] MEDS: Ezetimibe 10 MG Tab PO SCH (08:10)
[2020-04-29] MEDS: Gabapentin 300 MG Cap PO SCH ×3 (08:10→20:36)
[2020-04-29] MEDS: atorvaSTATin 20 MG Tab PO SCH (08:11)
[2020-04-29] MEDS: amLODIPine 5 MG Tab PO SCH (08:11)
[2020-04-29] MEDS: Omeprazole 20 MG Cap.CR PO SCH (08:13)
[2020-04-29] MEDS: Nystatin Susp 100,000 Unit/ML 5 ML UD Cup PO SCH ×4 (08:13→20:37)
[2020-04-29] MEDS: Tiotropium Inhaler 18 MCG Inhalation Powder Cap Kit of 5 INH SCH (08:14)
[2020-04-29] MEDS: Formoterol/Mometasone 200-5 MCG 8.8 GM Inhaler IH SCH ×2 (08:15→17:58)
[2020-04-29] MEDS ORDERED: predniSONE 10 MG Tab PO SCH (09:00)
--- NOTE | 2020-04-29 09:51 | PCM.DCSUM1 ---
Discharge Summary - Hospital Course Free Text/Narrative:: Intermittently elevated The patient is a 79-year-old man with medical history of COPD, chronic hypoxemic respiratory failure who presented with complaint of shortness of breath. The patient was found to have positive blood culture with MRSA and urine culture t hat was positive for MRSA. Was started on intravenous vancomycin. He will be transferred to higher level of care because of need for echocardiogram. #. Acute on chronic hypoxemic respiratory failure #. Acute exacerbation of COPD #. Possible pneumonia versus bronchitis #. Acute kidney injury Serum creatinine was 1.7 #. Hypokalemia Serum potassium was elevated up to 5.4 Has been intermittently elevated #. Chronic anticoagulation INR continues to be supratherapeutic #. Chest pain Likely due to COPD exacerbation #. Possible sepsis Patient has elevated white cell count, elevated lactic acid. No fever Blood cultures positive with MRSA #. Possible urinary tract infection Urine culture is positive with MRSA. #. Hypertension Diagnosis: Stroke: No - Discharge Data Discharge Date: 04/29/20 Discharge Disposition: DC/Tfer to Acute Hospital 02 Condition: Good - Referral to Home Health Primary Care Physician: PCP None - Discharge Plan *PRESCRIPTION DRUG MONITORING PROGRAM REVIEWED*: Not Applicable *COPY OF PRESCRIPTION DRUG MONITORING REPORT IN PATIENT SUYAPA: Not Applicable Home Medications: Home Meds traMADol [Ultram] 50 mg PO TID PRN 12/16/15 [History] Acetaminophen [Tylenol] 650 mg PO TID 04/25/20 [History] Albuterol [Ventolin HFA] 2 puff INH Q6HR PRN 04/25/20 [History] Budesonide/Formoterol [Symbicort 160-4.5 MCG] 2 puff INH BID 04/25/20 [History] Cyclobenzaprine [Flexeril] 10 mg PO TID PRN 04/25/20 [History] Doxazosin [Cardura] 4 mg PO ACDINNER 04/25/20 [History] Esomeprazole [NexIUM] 40 mg PO DAILY 04/25/20 [History] Gabapentin [Neurontin] 300 mg PO TID 04/25/20 [History] Magnesium 250 mg PO BID 04/25/20 [History] Metoprolol Succinate 100 mg PO DAILY 04/25/20 [History] Tiotropium [Spiriva HandiHaler] 18 mcg INH DAILY 04/25/20 [History] Warfarin [Coumadin] 2 mg PO DAILY 04/25/20 [History] amLODIPine [Norvasc] 10 mg PO DAILY 04/25/20 [History] atorvaSTATin [Lipitor] 20 mg PO DAILY 04/25/20 [History] rOPINIRole [Requip] 0.5 mg PO BEDTIME 04/25/20 [History] Albuterol [Proventil Neb Soln] 2.5 mg NEB Q6H PRN 04/26/20 [History] Ezetimibe [Zetia] 10 mg PO DAILY 04/26/20 [History] Oxygen Therapy Mode: Nasal Cannula Patient Handouts: MRSA Infection, Self-Care, Adult, MRSA Infection, Diagnosis, Adult Referrals: PCP,None [Primary Care Provider] - - Discharge Summary/Plan Comment DC Time >30 min.: No - Review of Systems General: Reports: Fatigue, Malaise HEENT: Reports: No Symptoms Pulmonary: Reports: Shortness of Breath Cardiovascular: Reports: No Symptoms Gastrointestinal: Reports: No Symptoms Genitourinary: Reports: No Symptoms Musculoskeletal: Reports: No Symptoms Skin: Reports: No Symptoms - Patient Data Vitals - Most Recent: Last Vital Signs Temp 37.0 C 04/29/20 08:00 Pulse 81 04/29/20 08:09 Resp 20 04/29/20 08:00 BP 135/67 04/29/20 08:11 Pulse Ox 99 04/29/20 08:00 Weight - Most Recent: 73.21 kg I&O - Last 24 hours: Intake & Output 04/28/20 04/29/20 04/29/20 22:59 06:59 14:59 Intake Total 350 Output Total 475 Balance -125 Lab Results - Last 24 hrs: Laboratory Results - last 24 hr 04/29/20 04/29/20 04/29/20 Range/Units 05:44 05:44 05:44 WBC 13.1 H (5.0-10.0) 10^3/uL RBC 4.12 L (4.6-6.2) 10^6/uL Hgb 11.8 L (14.0-18.0) g/dL Hct 37.6 L (40.0-54.0) % MCV 91.3 (80-100) fL MCH 28.6 (27.0-34.0) pg MCHC 31.4 L (33.0-35.0) g/dL Plt Count 168 (150-450) 10^3/uL PT 37.0 H D (9.0-12.0) SEC INR 3.9 H (0.9-1.2) Sodium 141 (136-145) mmol/L Potassium 5.3 H (3.5-5.1) mmol/L Chloride 109 H (98-107) mmol/L Carbon Dioxide 27 (21-32) mmol/L Anion Gap 10.3 (7-13) mEq/L BUN 32 H (7-18) mg/dL Creatinine 1.46 H (0.70-1.30) mg/dL Est Cr Clr Drug Dosing 43.18 mL/min Estimated GFR (MDRD) 47 Glucose 179 H (74-99) mg/dL Lactic Acid (0.4-2.0) mmol/L Calcium 8.0 L (8.5-10.1) mg/dL 04/29/20 04/29/20 Range/Units 05:44 09:10 WBC (5.0-10.0) 10^3/uL RBC (4.6-6.2) 10^6/uL Hgb (14.0-18.0) g/dL Hct (40.0-54.0) % MCV (80-100) fL MCH (27.0-34.0) pg MCHC (33.0-35.0) g/dL Plt Count (150-450) 10^3/uL PT (9.0-12.0) SEC INR (0.9-1.2) Sodium (136-145) mmol/L Potassium 5.1 (3.5-5.1) mmol/L Chloride (98-107) mmol/L Carbon Dioxide (21-32) mmol/L Anion Gap (7-13) mEq/L BUN (7-18) mg/dL Creatinine (0.70-1.30) mg/dL Est Cr Clr Drug Dosing mL/min Estimated GFR (MDRD) Glucose (74-99) mg/dL Lactic Acid 2.0 (0.4-2.0) mmol/L Calcium (8.5-10.1) mg/dL RUDDY Results - Last 24 hrs: Microbiology 04/25/20 11:29 Aerobic Blood Culture - Preliminary Blood - Venous NO GROWTH AFTER 3 DAYS Anaerobic Blood Culture - Preliminary NO GROWTH AFTER 3 DAYS 04/27/20 10:20 Aerobic Blood Culture - Preliminary Blood - Venous - Lab Draw NO GROWTH AFTER 1 DAY Anaerobic Blood Culture - Preliminary NO GROWTH AFTER 1 DAY 04/27/20 10:06 Aerobic Blood Culture - Preliminary Blood - Venous NO GROWTH AFTER 1 DAY Anaerobic Blood Culture - Final 04/25/20 12:21 Urine Culture - Final Urine, Voided (Mrsa) Staphylococcus Aureus 04/25/20 12:01 Aerobic Blood Culture - Final Blood - Venous - Lab Draw (Mrsa) Staphylococcus Aureus Anaerobic Blood Culture - Preliminary Med Orders - Current: Current Medications Acetaminophen (Tylenol) 650 mg PO TID COUNTS INCLUDE 234 BEDS AT THE [facility] Last Admin: 04/29/20 08:08 Dose: 650 mg Documented by: Albuterol (Proventil Neb Soln) 2.5 mg NEB Q2HR PRN PRN Reason: shortness of breath/wheezing Albuterol (Proventil Hfa) 0 gm INH Q6HR PRN PRN Reason: Shortness of Breath Albuterol/Ipratropium (Duoneb 3.0-0.5 Mg/3 Ml) 3 ml NEB Q4HRRT COUNTS INCLUDE 234 BEDS AT THE [facility] Last Admin: 04/29/20 07:26 Dose: 3 ml Documented by: Amlodipine Besylate (Norvasc) 10 mg PO DAILY COUNTS INCLUDE 234 BEDS AT THE [facility] Last Admin: 04/29/20 08:11 Dose: 10 mg Documented by: Atorvastatin Calcium (Lipitor) 20 mg PO DAILY COUNTS INCLUDE 234 BEDS AT THE [facility] Last Admin: 04/29/20 08:11 Dose: 20 mg Documented by: Cyclobenzaprine HCl (Flexeril) 10 mg PO TID PRN PRN Reason: Spasms Last Admin: 04/28/20 21:07 Dose: 10 mg Documented by: Docusate Sodium (Colace) 100 mg PO BID COUNTS INCLUDE 234 BEDS AT THE [facility] Last Admin: 04/29/20 08:09 Dose: 100 mg Documented by: Doxazosin Mesylate (Cardura) 4 mg PO ACDINNER COUNTS INCLUDE 234 BEDS AT THE [facility] Last Admin: 04/28/20 16:56 Dose: 4 mg Documented by: Ezetimibe (Zetia) 10 mg PO DAILY COUNTS INCLUDE 234 BEDS AT THE [facility] Last Admin: 04/29/20 08:10 Dose: 10 mg Documented by: Gabapentin (Neurontin) 300 mg PO TID COUNTS INCLUDE 234 BEDS AT THE [facility] Last Admin: 04/29/20 08:10 Dose: 300 mg Documented by: Vancomycin HCl 1 gm/ Sodium (Chloride) 250 mls @ 166.667 mls/hr IV Q24H COUNTS INCLUDE 234 BEDS AT THE [facility] Last Admin: 04/28/20 13:47 Dose: 166.667 mls/hr Documented by: Magnesium Oxide (Magnesium Oxide) 250 mg PO BID COUNTS INCLUDE 234 BEDS AT THE [facility] Last Admin: 04/29/20 08:11 Dose: 250 mg Documented by: Metoprolol Succinate (Toprol Xl) 100 mg PO DAILY COUNTS INCLUDE 234 BEDS AT THE [facility] Last Admin: 04/29/20 08:09 Dose: 100 mg Documented by: Mometasone Furoate/Formoterol Fumar (Dulera 200-5 Mcg) 2 puff IH BIDRT COUNTS INCLUDE 234 BEDS AT THE [facility] Last Admin: 04/29/20 08:15 Dose: 2 puff Documented by: No Warfarin Today () 0 each PO ONETIME ONE Stop: 04/29/20 14:01 Nystatin (Mycostatin) 5 ml PO QID COUNTS INCLUDE 234 BEDS AT THE [facility] Last Admin: 04/29/20 08:13 Dose: 5 ml Documented by: Omeprazole (Omeprazole) 20 mg PO DAILY COUNTS INCLUDE 234 BEDS AT [facility] Last Admin: 04/29/20 08:13 Dose: 20 mg Documented by: Ondansetron HCl (Zofran) 4 mg IVPUSH Q6HR PRN PRN Reason: Nausea/Vomiting Last Admin: 04/27/20 17:30 Dose: 4 mg Documented by: Prednisone (Prednisone) 10 mg PO DAILY COUNTS INCLUDE 234 BEDS AT [facility] Last Admin: 04/29/20 08:11 Dose: 10 mg Documented by: Ropinirole HCl (Requip) 0.5 mg PO BEDTIME COUNTS INCLUDE 234 BEDS AT THE [facility] Last Admin: 04/28/20 21:06 Dose: 0.5 mg Documented by: Sodium Chloride (Saline Flush) 10 ml FLUSH ASDIRECTED PRN PRN Reason: Keep Vein Open Last Admin: 04/25/20 11:47 Dose: 10 ml Documented by: Tiotropium [place] (Spiriva Handihaler) 18 mcg INH DAILY COUNTS INCLUDE 234 BEDS AT THE [facility] Last Admin: 04/29/20 08:14 Dose: 1 cap Documented by: Tramadol HCl (Ultram) 50 mg PO TID PRN PRN Reason: Pain Last Admin: 04/25/20 21:18 Dose: 50 mg Documented by: Vancomycin HCl (Pharmacy To Dose - Vancomycin) 0 dose .XX ASDIRECTED COUNTS INCLUDE 234 BEDS AT THE [facility] Warfarin Sodium (Pharmacy To Dose - Warfarin) 1 dose .XX ASDIRECTED COUNTS INCLUDE 234 BEDS AT THE [facility] Discontinued Medications Albuterol (Proventil Neb Soln) 0.63 mg INH Q6H PRN PRN Reason: Shortness of Breath Albuterol/Ipratropium (Duoneb 3.0-0.5 Mg/3 Ml) 3 ml NEB ONETIME ONE Stop: 04/25/20 11:17 Last Admin: 04/25/20 11:32 Dose: 3 ml Documented by: Albuterol/Ipratropium (Duoneb 3.0-0.5 Mg/3 Ml) 3 ml NEB ONETIME ONE Stop: 04/25/20 13:27 Last Admin: 04/25/20 13:30 Dose: 3 ml Documented by: Albuterol/Ipratropium (Duoneb 3.0-0.5 Mg/3 Ml) 3 ml NEB Q4HR COUNTS INCLUDE 234 BEDS AT THE [facility] Last Admin: 04/26/20 10:14 Dose: 3 ml Documented by: Sodium Chloride (Normal Saline) 500 mls @ 500 mls/hr IV .BOLUS COUNTS INCLUDE 234 BEDS AT THE [facility] Last Admin: 04/25/20 12:25 Dose: 500 mls/hr Documented by: Levofloxacin/Dextrose 500 mg/ (Premix) 100 mls @ 100 mls/hr IV ONETIME ONE Stop: 04/25/20 13:17 Last Admin: 04/25/20 12:35 Dose: 100 mls/hr Documented by: Sodium Chloride (Normal Saline) 1,000 mls @ 50 mls/hr IV ASDIRECTED COUNTS INCLUDE 234 BEDS AT THE [facility] Last Infusion: 04/28/20 10:57 Dose: Infused Documented by: Ceftriaxone Sodium 1 gm/ (Sodium Chloride) 50 mls @ 100 mls/hr IV Q24H COUNTS INCLUDE 234 BEDS AT THE [facility] Last Infusion: 04/25/20 17:41 Dose: Infused Documented by: Azithromycin 500 mg/ Sodium (Chloride) 250 mls @ 250 mls/hr IV Q24H COUNTS INCLUDE 234 BEDS AT THE [facility] Last Infusion: 04/27/20 18:21 Dose: Infused Documented by: Ceftriaxone Sodium 1 gm/ (Sodium Chloride) 50 mls @ 100 mls/hr IV Q24H COUNTS INCLUDE 234 BEDS AT THE [facility] Last Infusion: 04/27/20 16:47 Dose: Infused Documented by: Methylprednisolone Sodium Succinate (Solu-Medrol) 125 mg IVPUSH ONETIME ONE Stop: 04/25/20 11:17 Last Admin: 04/25/20 11:43 Dose: 125 mg Documented by: Methylprednisolone Sodium Succinate (Solu-Medrol) 40 mg IVPUSH Q8HR COUNTS INCLUDE 234 BEDS AT [facility] Last Admin: 04/27/20 06:09 Dose: 40 mg Documented by: Methylprednisolone Sodium Succinate (Solu-Medrol) 20 mg IVPUSH Q8HR COUNTS INCLUDE 234 BEDS AT [facility] Last Admin: 04/28/20 05:54 Dose: 20 mg Documented by: No Warfarin (Today ) 0 each PO ONETIME ONE Stop: 04/26/20 14:01 Last Admin: 04/26/20 13:08 Dose: Not Given Documented by: Omeprazole (Omeprazole) 40 mg PO ACBREAKFAST COUNTS INCLUDE 234 BEDS AT THE [facility] Last Admin: 04/26/20 05:35 Dose: 40 mg Documented by: Warfarin Sodium (Coumadin) 2 mg PO DAILY COUNTS INCLUDE 234 BEDS AT THE [facility] Warfarin Sodium (Coumadin) 2 mg PO ONETIME ONE Stop: 04/27/20 14:01 Last Admin: 04/27/20 13:15 Dose: 2 mg Documented by: Warfarin Sodium (Coumadin) 2 mg PO ONETIME ONE Stop: 04/28/20 14:01 Last Admin: 04/28/20 13:48 Dose: 2 mg Documented by: - Exam Quality Assessment: Reports: Supplemental Oxygen General: Reports: Alert, Oriented HEENT: Reports: Pupils Equal, Pupils Reactive, EOMI, Mucous Membr. Moist/[place] Lungs: Reports: Decreased Breath Sounds Cardiovascular: Reports: Regular Rate, Regular Rhythm GI/Abdominal Exam: Normal Bowel Sounds, Soft, Non-Tender, No Organomegaly, No Distention, No Abnormal Bruit, No Mass, Pelvis Stable Back Exam: Reports: Normal Inspection, Full Range of Motion Skin: Reports: Warm, Dry, Intact
[2020-04-29] MEDS: traMADol 50 MG Tab PO PRN (13:48)
[2020-04-29] MEDS: Cyclobenzaprine 10 MG Tab PO PRN ×2 (13:48→20:33)
[2020-04-29] MEDS: Doxazosin 2 MG Tab PO SCH (17:57)
[2020-04-29] MEDS: rOPINIRole 0.25 MG Tab PO SCH (20:35)
[2020-04-29 23:04] VITALS: PULSE 73
[2020-04-29 23:05] VITALS: BP 107/54
== END 2020-04-30 00:30 | DRG 871 ==
LOC: DL.ED 11:15 → DL.MS 14:11
PROVIDERS: ADMIT Hospitalist; ATTEND Hospitalist
DX: A41.51 Sepsis due to Escherichia coli [E. coli] (principal); J96.21 Acute and chronic respiratory failure with hypoxia; R06.02 Shortness of breath; J18.9 Pneumonia, unspecified organism; J44.0 Chronic obstructive pulmonary disease with (acute) lower respiratory infection; N17.9 Acute kidney failure, unspecified; J44.1 Chronic obstructive pulmonary disease with (acute) exacerbation; N39.0 Urinary tract infection, site not specified; J40 Bronchitis, not specified as acute or chronic; E87.6 Hypokalemia; R07.9 Chest pain, unspecified; E78.5 Hyperlipidemia, unspecified; N40.0 Benign prostatic hyperplasia without lower urinary tract symptoms; H54.7 Unspecified visual loss; H91.90 Unspecified hearing loss, unspecified ear; H91.93 Unspecified hearing loss, bilateral; I25.10 Atherosclerotic heart disease of native coronary artery without angina pectoris; I10 Essential (primary) hypertension; E78.00 Pure hypercholesterolemia, unspecified; Z86.718 Personal history of other venous thrombosis and embolism; Z86.711 Personal history of pulmonary embolism; Z87.01 Personal history of pneumonia (recurrent); Z87.440 Personal history of urinary (tract) infections; G47.30 Sleep apnea, unspecified; K59.09 Other constipation; K57.90 Diverticulosis of intestine, part unspecified, without perforation or abscess without bleeding; M19.90 Unspecified osteoarthritis, unspecified site; Z90.89 Acquired absence of other organs; M06.9 Rheumatoid arthritis, unspecified; F32.9 Major depressive disorder, single episode, unspecified; F41.9 Anxiety disorder, unspecified; E03.9 Hypothyroidism, unspecified; L30.9 Dermatitis, unspecified; Z98.49 Cataract extraction status, unspecified eye; Z95.5 Presence of coronary angioplasty implant and graft; Z90.49 Acquired absence of other specified parts of digestive tract; Z96.659 Presence of unspecified artificial knee joint; Z98.890 Other specified postprocedural states; Z87.891 Personal history of nicotine dependence; Z88.0 Allergy status to penicillin; Z88.5 Allergy status to narcotic agent; Z88.8 Allergy status to other drugs, medicaments and biological substances; Z79.01 Long term (current) use of anticoagulants; Z79.51 Long term (current) use of inhaled steroids; Z79.52 Long term (current) use of systemic steroids; Z79.899 Other long term (current) drug therapy; Z20.828 Contact with and (suspected) exposure to other viral communicable diseases
CPT/HCPCS: 36415; 36600; 71045; 80053; 81001; 82803; 83605; 83880; 84484; 85025; 85610; 85730; 87040 ×2; 87077; 87086; 87088; 87186 ×2; 93005; 94640; 96365; 96375; 99285; J1956; J2930; J7040; 71250; 74176; 80048; 84132; 85027; 99222; 99232; 99238; 99284; A9270-GY; J0456; J0696; J2405; J2920; J3370; J7030; J7050; J7512; J7620-GY; U0002

== ENCOUNTER 2020-05-09 09:58 | Inpatient (IN) | payer MEDICARE, MEDICAID ==
[2020-05-15] MEDS ORDERED: oxyCODONE 5 MG Tab PO ONE (13:57)
[2020-05-15] MEDS ORDERED: Magnesium Hydroxide 400 MG/5 ML Susp 30 ML Cup PO PRN (14:45)
[2020-05-15] MEDS ORDERED: oxyCODONE 5 MG Tab PO PRN (14:45)
[2020-05-15] MEDS ORDERED: Ondansetron 4 MG/2 ML SDV IVPUSH PRN (14:45)
[2020-05-15] MEDS ORDERED: Bisacodyl 5 MG Tab PO PRN (14:45)
[2020-05-15] MEDS ORDERED: Polyethylene Glycol 3350 Powder 17 GM Packet PO PRN (14:45)
--- NOTE | 2020-05-15 15:09 | PCM.HP ---
H&P History of Present Illness - General Date of Service: 05/15/20 Admit Problem/Dx: Admission Diagnosis/Problem Admission Diagnosis/Problem Prosthetic joint infection Source of Information: Patient History Limitations: Reports: No Limitations - History of Present Illness Initial Comments - Free Text/Narative: Sixto Rivas a79 y.o.male with a medical history of dyslipidemia, COPD, chronic home oxygen at 2.5L/min, CAD, DVT on chronic anticoagulation, hypertension who is discharged to our swing bed to complete antibiotics for Septic left knee arthritis. 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 He had I&D of the left total knee with synovectomy on 05/03/2020. Cultures was positive for Elaine albicans. ID consulted and recommended micafungin to complete least 6 weeks followed by suppression for a long time may be for life as the hardware has not been removed. Patient was transferred to us to completed antifungal. Bedside evaluation patient was seen lying in bed. Patient was complaining of pain to the left knee when he arrived. He was given oxycodone 5 mg with improvement. He denies any other symptoms. No chest pain, shortness of breath. No fever or chills. No discharge from the left knee. Onset of Symptoms: Reports: Gradual Duration of Symptoms: Reports: Day(s): Location: Reports: Lower Extremity, Left, Other (left knee) Quality: Reports: Sharp Severity: Severe Improves with: Reports: None Worsens with: Reports: None Associated Symptoms: Reports: No Other Symptoms Left Knee Pain Score (Numeric/FACES): 8 - Related Data Allergies/Adverse Reactions: Allergies Allergy/AdvReac Type Severity Reaction Status Date / Time Penicillins Allergy Unknown SWELLING Verified 04/25/20 14:56 OF LEGS/FEET hydrocodone Allergy bad dreams Verified 04/25/20 14:56 isosorbide Allergy Other Verified 04/25/20 14:56 Home Medications: Home Meds traMADol [Ultram] 100 mg PO BID 12/16/15 [History] Albuterol [Ventolin HFA] 2 puff INH Q6HR PRN 04/25/20 [History] Budesonide/Formoterol [Symbicort 160-4.5 MCG] 2 puff INH BID 04/25/20 [History] Cyclobenzaprine [Flexeril] 10 mg PO TID PRN 04/25/20 [History] Doxazosin [Cardura] 4 mg PO DAILY 04/25/20 [History] Gabapentin [Neurontin] 300 mg PO TID 04/25/20 [History] Metoprolol Succinate 100 mg PO DAILY 04/25/20 [History] Tiotropium [Spiriva HandiHaler] 18 mcg INH DAILY 04/25/20 [History] Warfarin [Coumadin] 2 mg PO SUTUWETHSA 04/25/20 [History] amLODIPine [Norvasc] 10 mg PO DAILY 04/25/20 [History] atorvaSTATin [Lipitor] 20 mg PO DAILY 04/25/20 [History] rOPINIRole [Requip] 0.5 mg PO BEDTIME 04/25/20 [History] Albuterol [Proventil Neb Soln] 2.5 mg NEB Q6H PRN 04/26/20 [History] Ezetimibe [Zetia] 10 mg PO DAILY 04/26/20 [History] Acetaminophen [Tylenol Extra Strength] 1,000 PO Q8H 05/15/20 [History] Esomeprazole Magnesium [Nexium] 40 mg PO BIDAC 05/15/20 [History] Fluticasone Propionate [Flonase] 2 sprays NASBOTH BID PRN 05/15/20 [History] Hydrocortisone [Hydrocortisone 2.5% Crm] 1 applic TOP BID PRN 05/15/20 [History] Nitroglycerin [Nitrostat] 0.4 mg SL Q5M PRN 05/15/20 [History] Tiotropium [Spiriva HandiHaler] 18 mcg INH DAILY 05/15/20 [History] Warfarin [Coumadin] 3 mg PO MOFR 05/15/20 [History] riTUXimab [Rituxan] 375 mg IV ASDIRECTED 05/15/20 [History] Past Medical History HEENT History: Reports: Cataract, Hard of Hearing, Impaired Vision Other HEENT History: WEARS CORRECTIVE LENSES; UPPER AND LOWER DENTURE PLATE; BILAT HEARING AIDES Cardiovascular History: Reports: Blood Clots/VTE/DVT, CAD, Heart Murmur, High Cholesterol, Hypertension, Other (See Below) Other Cardiovascular History: THROMBOPHLEBITIS Respiratory History: Reports: Bronchitis, Recurrent, COPD, PE, Pneumonia, Recurrent, Sleep Apnea, SOB Gastrointestinal History: Reports: Chronic Constipation, Diverticulosis, Hemorrhoids Genitourinary History: Reports: Prostate Disorder, Retention, Urinary, UTI, Recurrent Musculoskeletal History: Reports: Arthritis, RA, Other (See Below) Other Musculoskeletal History: SCIATICA. RHEUMATOID ARTHRITIS Neurological History: Reports: None Psychiatric History: Reports: Anxiety, Depression Endocrine/Metabolic History: Reports: Hypothyroidism Insulin Pump Model and Tracer Powder Blender: [id number] Type of Insulin Used in Pump: [id number] Hematologic History: Reports: Blood Transfusion(s) Immunologic History: Reports: None Oncologic (Cancer) History: Reports: None Dermatologic History: Reports: Eczema Other Dermatologic History: laceration right lateral hand. - Infectious Disease History Infectious Disease History: Reports: Chicken Pox, Measles, Mumps - Past Surgical History Head Surgeries/Procedures: Reports: None HEENT Surgical History: Reports: Adenoidectomy, Cataract Surgery, Oral Surgery, Tonsillectomy Cardiovascular Surgical History: Reports: Coronary Artery Stent Respiratory Surgical History: Reports: Thoracotomy, Other (See Below) Other Respiratory Surgeries/Procedures: PLEURAL BIOPSY GI Surgical History: Reports: Cholecystectomy, Colonoscopy, EGD, Hernia, Inguinal Male Surgical History: Reports: None Endocrine Surgical History: Reports: None Neurological Surgical History: Reports: None Musculoskeletal Surgical History: Reports: Knee Replacement, Other (See Below) Other Musculoskeletal Surgeries/Procedures:: BILATERAL KNEE REPLACMENTS. RESECTION OF OLECRANAL BURSA Oncologic Surgical History: Reports: None Social & Family History - Family History Family Medical History: Noncontributory - Tobacco Use Smoking Status *Q: Former Smoker Used Tobacco, but Quit: Yes Month/Year Tobacco Last Used: 12 - Caffeine Use Caffeine Use: Reports: Coffee Caffeine Use Comment: 12-14 oz daily - Recreational Drug Use Recreational Drug Use: No - Living Situation & Occupation Living situation: Reports: , with Spouse Occupation: Retired H&P Review of Systems - Review of Systems: Review Of Systems: See Below General: Reports: No Symptoms HEENT: Reports: No Symptoms Pulmonary: Reports: No Symptoms Cardiovascular: Reports: No Symptoms Gastrointestinal: Reports: No Symptoms Genitourinary: Reports: No Symptoms Musculoskeletal: Reports: No Symptoms Skin: Reports: No Symptoms Psychiatric: Reports: No Symptoms Neurological: Reports: No Symptoms Hematologic/Lymphatic: Reports: No Symptoms Immunologic: Reports: No Symptoms Exam - Exam Exam: See Below - Vital Signs Vital Signs: Last Vital Signs Temp 98.3 F 05/15/20 14:10 Pulse 83 05/15/20 14:10 Resp 20 05/15/20 14:10 BP 114/52 L 05/15/20 14:10 Pulse Ox 91 L 05/15/20 14:10 Weight: 162 lb 12.8 oz - Exam General: Alert, Oriented, 4 HEENT: PERRLA, Hearing Intact, Mucosa Moist & [place], Nares Patent, Normal Nasal Septum, Posterior Pharynx Clear, Conjunctiva Clear, EOMI, EACs Clear, TMs Clear Neck: Supple, Trachea Midline, 2 Lungs: Clear to Auscultation, Normal Respiratory Effort Cardiovascular: Regular Rate, Regular Rhythm GI/Abdominal Exam: Normal Bowel Sounds, Soft, Non-Tender, No Organomegaly, No Distention, No Abnormal Bruit, No Mass, Pelvis Stable (Male) Exam: No Hernia, Normal Inspection, Normal Prostate, Circumcised Rectal (Males) Exam: Normal Exam, Normal Rectal Tone, Prostate Normal Back Exam: Normal Inspection, Full Range of Motion, NT Extremities: Normal Inspection, Normal Range of Motion, Non-Tender, No Pedal Edema, Normal Capillary Refill Skin: Warm, Dry, Intact Neurological: Cranial Nerves Intact, Reflexes Equal Bilateral Neuro Extensive - Mental Status: Alert, Oriented x3, Normal Mood/Affect, Normal Cognition Neuro Extensive - Motor, Sensory, Reflexes: CN II-XII Intact, Normal Gait, Normal Reflexes Psychiatric: Alert, Normal Affect, Normal Mood - Problem List (1) Septic arthritis of knee, left SNOMED Code(s): 749757298, 283434048 ICD Code: M00.9 - PYOGENIC ARTHRITIS, UNSPECIFIED Status: Acute Current Visit: Yes (2) History of COPD SNOMED Code(s): 455004269 ICD Code: Z87.09 - PERSONAL HISTORY OF OTHER DISEASES OF THE RESPIRATORY SYSTEM Status: Acute Current Visit: No Onset Date: 12/15/14 Problem List Initiated/Reviewed/Updated: Yes Orders Last 24hrs: Active Orders 24 hr Category Date Time Status Patient Status [ADT] Routine ADT 05/15/20 14:45 Ordered Ambulate [RC] ASDIRECTED Care 05/15/20 14:45 Ordered Ambulate [RC] PER UNIT ROUTINE Care 05/15/20 14:53 Ordered Influenza Vaccine Charge [RC] .DISCHARGE Care 05/15/20 14:05 Active Notify Provider Vital Signs [RC] ASDIRECTED Care 05/15/20 14:53 Ordered Oxygen Therapy [RC] PRN Care 05/15/20 14:45 Ordered VTE/DVT Education [RC] PER UNIT ROUTINE Care 05/15/20 14:45 Ordered Vital Signs [RC] Q4H Care 05/15/20 14:45 Ordered OT Evaluation and Treatment [CONS] Routine Cons 05/15/20 14:45 Ordered PT Evaluation and Treatment [CONS] Routine Cons 05/15/20 14:45 Ordered Heart Healthy Diet [DIET] Diet 05/15/20 Dinner Ordered Acetaminophen [TylenoL] Med 05/15/20 14:45 Ordered 650 mg PO Q4H PRN Docusate Sodium [Colace] Med 05/15/20 14:45 Ordered 100 mg PO BID PRN Heparin Sodium Med 05/15/20 21:00 Ordered 5,000 units SUBCUT Q12HR Magnesium Hydroxide [Milk of Magnesia] Med 05/15/20 14:45 Ordered 30 ml PO Q12H PRN Ondansetron [Zofran] Med 05/15/20 14:45 Ordered 4 mg IVPUSH Q6H PRN Pharmacy to Dose - InFluenza V [Pharmacy to Dose - Med 05/15/20 14:05 Once InFluenza Vaccine] 1 each IM ONETIME ONE bisacodyL [Dulcolax] Med 05/15/20 14:45 Ordered 5 mg PO DAILY PRN oxyCODONE Med 05/15/20 14:45 Ordered 5 mg PO Q8H PRN polyethylene glycoL 3350 [MiraLAX] Med 05/15/20 14:45 Ordered 17 gm PO DAILY PRN Resuscitation Status Routine Resus Stat 05/15/20 14:45 Ordered Medication Orders Influenza Virus Vaccine (Pharmacy To Dose - Influenza Vaccine) 1 each IM ONETIME ONE Stop: 05/15/20 14:06 Assessment/Plan Comment:: #Septic arthritis/left knee pain. Cultures positive for Elaine albicans. -Continue micafungin -Monitor LFTs -Oxycodone for pain control -Patient will need suppression for a long time yearly for life due to hardware not been removed. #Acute lower urinary retention -Meza in place -Follow-up with urology as outpatient. #Dysphagia due to erosive esophagitis -S/p EGD on 05/01/2020; showed grade C erosive esophagitis, upper esophageal strictures, completely obstructed Schatzki's ring -Continue PPI #Acute on chronic hypoxic respiratory failure, resolved -Continue supplemental. Patient at baseline oxygen requirement #MRSA bacteremia, source unkown -Probable MRSA UTI -Completedtreatment. #History of DVT -On chronic anticoagulation with warfarin -Continue. Pharmacy to dose #Dyslipidemia Continue statin #COPD -Chronic home oxygen Resumed home inhalers/nebs #Hypertension -Resumed home meds #Physical debility -PT/OT #Full code
[2020-05-15] MEDS ORDERED: Albuterol 6.7 GM Inhaler INH PRN (15:29)
[2020-05-15] MEDS ORDERED: Hydrocortisone 2.5% Crm 30 GM Tube TOP PRN (15:29)
[2020-05-15] MEDS ORDERED: Nitroglycerin 0.4 MG Tab.SL SL PRN (15:29)
[2020-05-15] MEDS ORDERED: Acetaminophen 500 MG Tab PO PRN (15:29)
[2020-05-15] MEDS ORDERED: Albuterol 0.083% 2.5 MG/3 ML Neb Soln NEB PRN (15:29)
[2020-05-15] MEDS ORDERED: Fluticasone Propionate Nasal Spray 16 GM Bottle NASBOTH PRN (15:29)
[2020-05-15] MEDS ORDERED: Warfarin 2 MG Tab PO SCH (15:30)
[2020-05-15] MEDS: Acetaminophen 325 MG Tab PO PRN (15:45)
[2020-05-15] MEDS: Docusate Sodium 100 MG Cap PO PRN (15:46)
[2020-05-15] MEDS: Micafungin 100 MG in Sodium Chloride 0.9% 100 ML IV SCH (16:42)
[2020-05-15] MEDS: fentaNYL 100 MCG/2 ML SDV IVPUSH PRN (17:01)
[2020-05-15] MEDS: rOPINIRole 0.25 MG Tab PO SCH (21:50)
[2020-05-15] MEDS: Gabapentin 300 MG Cap PO SCH (21:50)
[2020-05-15] MEDS: traMADol 50 MG Tab PO SCH (21:51)
[2020-05-15] MEDS: Heparin Sodium 5,000 Units/ML Vial SUBCUT SCH (21:56)
[2020-05-15] MEDS: Sodium Chloride 0.9% 10 ML Syringe FLUSH PRN (22:10)
[2020-05-16] MEDS: Sodium Chloride 0.9% 10 ML Syringe FLUSH PRN (07:38)
[2020-05-16] MEDS: Cyclobenzaprine 10 MG Tab PO PRN (07:38)
[2020-05-16] MEDS: fentaNYL 100 MCG/2 ML SDV IVPUSH PRN (07:40)
[2020-05-16] MEDS ORDERED: Tiotropium Inhaler 18 MCG Inhalation Powder Cap Kit of 5 INH SCH (09:00)
[2020-05-16] MEDS: Doxazosin 2 MG Tab PO SCH (09:39)
[2020-05-16] MEDS: Ezetimibe 10 MG Tab PO SCH (09:39)
[2020-05-16] MEDS: Metoprolol Succinate 50 MG Tab.ER PO SCH (09:39)
[2020-05-16] MEDS: atorvaSTATin 20 MG Tab PO SCH (09:40)
[2020-05-16] MEDS: traMADol 50 MG Tab PO SCH ×2 (09:40→20:34)
[2020-05-16] MEDS: amLODIPine 5 MG Tab PO SCH (09:40)
[2020-05-16] MEDS: Gabapentin 300 MG Cap PO SCH ×3 (09:40→20:32)
[2020-05-16] MEDS: Heparin Sodium 5,000 Units/ML Vial SUBCUT SCH ×2 (09:41→20:30)
[2020-05-16] MEDS: Formoterol/Mometasone 200-5 MCG 8.8 GM Inhaler IH SCH ×2 (09:57→20:35)
[2020-05-16] MEDS: Tiotropium Inhaler 18 MCG Inhalation Powder Cap Kit of 5 INH SCH (09:57)
[2020-05-16] MEDS: Docusate Sodium 100 MG Cap PO PRN (12:27)
[2020-05-16] MEDS: Acetaminophen 325 MG Tab PO PRN (13:31)
[2020-05-16] MEDS ORDERED: Warfarin 2 MG Tab PO ONE (14:00)
[2020-05-16] MEDS: Micafungin 100 MG in Sodium Chloride 0.9% 100 ML IV SCH (16:10)
[2020-05-16] MEDS ORDERED: Sodium Chloride 0.9% 1,000 ML IV SCH (16:15)
--- NOTE | 2020-05-16 16:44 | CT ---
EXAMINATION: Head wo Cont SEX: Male AGE: 79 years CLINICAL HISTORY: 79-year-old male injured in a fall. No previous CT or MRI exams of the head immediately available at this institution. Scan technique: Volume acquisition of data emergency unenhanced CT of the head and brain obtained with patient lying supine on the Siemens multi slice scanner [place], [place]. All data archived in the PACS system for storage, reformatting axial/sagittal/coronal planes and study (bone/brain windows). Interpretation: No sign of skull fracture or acute close head injury. Usual signs of senescence. 1. Uniformly thick bony calvarium. Symmetric clear pneumatization of the mastoid and paranasal sinuses. 2. No fractures bony calvarium, underlying brain contusion, or abnormal extracerebral/intracranial epidural or subdural hematoma. 3. Generalized severe but symmetric cerebral cortical atrophy particularly frontal lobes. Underlying mirror-image normal ventricular system. No sign of hydrocephalus. Physiologic pineal/choroid plexus calcifications. 4. No supratentorial or posterior fossa mass lesion. 5. Minimal microvascular ischemic change (probable tiny lacunar infarct posterior limb internal capsule deep in the right cerebral hemisphere). No evidence of other infarct or encephalomalacia. 6. No sign of acute intracerebral, intraventricular or subarachnoid bleed. 7. Cerebellum and brainstem unremarkable for age.
--- NOTE | 2020-05-16 16:51 | CR ---
EXAMINATION: Pelvis 1V or 2V SEX: Male AGE: 79 years CLINICAL HISTORY: 79-year-old male injured in Hospital fall. Interpretation: Single AP film of the lumbar spine, pelvis and hips unremarkable. 1. 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 2. Good bone mineral density for age and gender. Symmetric spacing normal-appearing SI and hip joints. 3. No sign of pelvic or either hip fracture/dislocation. 4. No arthritic degenerative changes.
[2020-05-16 17:34] LABS: ANION GAP 11.5 mEq/L (7-13)
[2020-05-16] MEDS: rOPINIRole 0.25 MG Tab PO SCH (20:31)
[2020-05-17] MEDS: Omeprazole 20 MG Cap.CR PO SCH ×2 (05:28→16:13)
[2020-05-17] MEDS: Acetaminophen 325 MG Tab PO PRN ×2 (05:29→19:45)
[2020-05-17] MEDS: Doxazosin 2 MG Tab PO SCH (09:35)
[2020-05-17] MEDS: amLODIPine 5 MG Tab PO SCH (09:35)
[2020-05-17] MEDS: Gabapentin 300 MG Cap PO SCH ×4 (09:36→19:45)
[2020-05-17] MEDS: Metoprolol Succinate 50 MG Tab.ER PO SCH (09:36)
[2020-05-17] MEDS: traMADol 50 MG Tab PO SCH ×2 (09:37→19:45)
[2020-05-17] MEDS: atorvaSTATin 20 MG Tab PO SCH (09:38)
[2020-05-17] MEDS: Heparin Sodium 5,000 Units/ML Vial SUBCUT SCH ×2 (09:38→21:39)
[2020-05-17] MEDS: Ezetimibe 10 MG Tab PO SCH (09:38)
[2020-05-17] MEDS: Formoterol/Mometasone 200-5 MCG 8.8 GM Inhaler IH SCH ×2 (09:41→21:39)
[2020-05-17] MEDS: Tiotropium Inhaler 18 MCG Inhalation Powder Cap Kit of 5 INH SCH (09:41)
[2020-05-17] MEDS: Warfarin 2 MG Tab PO ONE ×2 (14:12→14:15)
[2020-05-17] MEDS ORDERED: Non-Formulary Medication 1 Each (Warfarin 3 MG) PO SCH (15:29)
[2020-05-17] MEDS: Sodium Chloride 0.9% 10 ML Syringe FLUSH PRN (16:11)
[2020-05-17] MEDS: Micafungin 100 MG in Sodium Chloride 0.9% 100 ML IV SCH (16:12)
[2020-05-17] MEDS: rOPINIRole 0.25 MG Tab PO SCH (19:45)
[2020-05-17] MEDS ORDERED: Flumazenil 0.1 MG/ML 5 ML MDV IVPUSH PRN (20:36)
[2020-05-17] MEDS: LORazepam 2 MG/ML SDV IVPUSH PRN (20:46)
[2020-05-18] MEDS: Omeprazole 20 MG Cap.CR PO SCH ×2 (05:03→15:31)
[2020-05-18] MEDS: fentaNYL 100 MCG/2 ML SDV IVPUSH PRN ×4 (07:02→21:49)
[2020-05-18] MEDS: LORazepam 2 MG/ML SDV IVPUSH PRN ×3 (07:02→15:11)
[2020-05-18] MEDS: amLODIPine 5 MG Tab PO SCH (09:51)
[2020-05-18] MEDS: traMADol 50 MG Tab PO SCH (09:51)
[2020-05-18] MEDS: Formoterol/Mometasone 200-5 MCG 8.8 GM Inhaler IH SCH ×2 (09:51→21:16)
[2020-05-18] MEDS: Tiotropium Inhaler 18 MCG Inhalation Powder Cap Kit of 5 INH SCH (09:51)
[2020-05-18] MEDS: Doxazosin 2 MG Tab PO SCH (09:51)
[2020-05-18] MEDS: Gabapentin 300 MG Cap PO SCH ×3 (09:51→21:11)
[2020-05-18] MEDS: atorvaSTATin 20 MG Tab PO SCH (09:51)
[2020-05-18] MEDS: Metoprolol Succinate 50 MG Tab.ER PO SCH (09:51)
[2020-05-18] MEDS: Heparin Sodium 5,000 Units/ML Vial SUBCUT SCH (09:51)
[2020-05-18] MEDS: Ezetimibe 10 MG Tab PO SCH (09:52)
[2020-05-18] MEDS: Micafungin 100 MG in Sodium Chloride 0.9% 100 ML IV SCH (15:48)
[2020-05-18] MEDS: Sodium Chloride 0.9% 10 ML Syringe FLUSH PRN (15:49)
[2020-05-18] MEDS: Dextrose 5%-0.9% NaCl 1,000 ML IV SCH (17:26)
[2020-05-18 18:38] LABS: ANION GAP 17.5 mEq/L (7-13)
[2020-05-18] MEDS ORDERED: fentaNYL 100 MCG/2 ML SDV IVPUSH ONE (19:30)
[2020-05-18] MEDS ORDERED: cefTRIAXone 1 GM in Sodium Chloride 0.9% 50 ML IV SCH (19:45)
[2020-05-18] MEDS ORDERED: Haloperidol Lactate 5 MG/ML SDV IM PRN (19:47)
[2020-05-18] MEDS: cefTRIAXone 1 GM in Sodium Chloride 0.9% 50 ML IV SCH (20:40)
[2020-05-18] MEDS: Albuterol 0.083% 2.5 MG/3 ML Neb Soln NEB SCH (20:43)
[2020-05-18] MEDS ORDERED: QUEtiapine 25 MG Tab PO SCH (21:00)
[2020-05-18] MEDS: rOPINIRole 0.25 MG Tab PO SCH (21:11)
[2020-05-18] MEDS: Cyclobenzaprine 10 MG Tab PO PRN (21:12)
[2020-05-18] MEDS: Acetaminophen 325 MG Tab PO PRN (21:12)
[2020-05-18] MEDS: Sodium Polystyrene Sulfonate 15 GM/60 ML Susp 60 ML Bot PO SCH (21:16)
[2020-05-19] MEDS: Albuterol 0.083% 2.5 MG/3 ML Neb Soln NEB SCH ×4 (01:02→17:42)
[2020-05-19] MEDS: Sodium Polystyrene Sulfonate 15 GM/60 ML Susp 60 ML Bot PO SCH (04:42)
[2020-05-19] MEDS: fentaNYL 100 MCG/2 ML SDV IVPUSH PRN ×2 (04:43→09:24)
[2020-05-19] MEDS: Omeprazole 20 MG Cap.CR PO SCH ×2 (07:00→16:00)
[2020-05-19 08:12] LABS: ANION GAP 14.1 mEq/L (7-13); CHLORIDE,CL 108 mmol/L (98-107); SODIUM,NA 144 mmol/L (136-145)
[2020-05-19] MEDS: amLODIPine 5 MG Tab PO SCH (09:28)
[2020-05-19] MEDS: Gabapentin 300 MG Cap PO SCH ×3 (09:28→20:00)
[2020-05-19] MEDS: Metoprolol Succinate 50 MG Tab.ER PO SCH (09:29)
[2020-05-19] MEDS: Doxazosin 2 MG Tab PO SCH (09:30)
[2020-05-19] MEDS: Ezetimibe 10 MG Tab PO SCH (09:30)
[2020-05-19] MEDS: atorvaSTATin 20 MG Tab PO SCH (09:30)
[2020-05-19] MEDS: Formoterol/Mometasone 200-5 MCG 8.8 GM Inhaler IH SCH ×2 (09:34→20:00)
[2020-05-19] MEDS: Tiotropium Inhaler 18 MCG Inhalation Powder Cap Kit of 5 INH SCH (09:34)
[2020-05-19] MEDS: Lidocaine 5% 700 MG Patch TOP SCH (10:31)
[2020-05-19] MEDS: fentaNYL 100 MCG/2 ML SDV IVPUSH SCH ×3 (13:27→21:38)
[2020-05-19] MEDS: Acetaminophen 325 MG Tab PO PRN ×2 (13:28→20:00)
[2020-05-19] MEDS: Dextrose 5%-0.9% NaCl 1,000 ML IV SCH (13:30)
[2020-05-19] MEDS: Micafungin 100 MG in Sodium Chloride 0.9% 100 ML IV SCH (16:01)
[2020-05-19] MEDS: cefTRIAXone 1 GM in Sodium Chloride 0.9% 50 ML IV SCH (19:35)
[2020-05-19] MEDS: rOPINIRole 0.25 MG Tab PO SCH (20:00)
[2020-05-19] MEDS ORDERED: QUEtiapine 25 MG Tab PO SCH (21:00)
[2020-05-20] MEDS: Albuterol 0.083% 2.5 MG/3 ML Neb Soln NEB SCH ×3 (00:08→14:46)
[2020-05-20] MEDS: fentaNYL 100 MCG/2 ML SDV IVPUSH SCH ×4 (01:55→16:34)
[2020-05-20] MEDS: Omeprazole 20 MG Cap.CR PO SCH (05:43)
[2020-05-20] MEDS: Doxazosin 2 MG Tab PO SCH (09:42)
[2020-05-20] MEDS: atorvaSTATin 20 MG Tab PO SCH (09:42)
[2020-05-20] MEDS: Metoprolol Succinate 50 MG Tab.ER PO SCH (09:42)
[2020-05-20] MEDS: amLODIPine 5 MG Tab PO SCH (09:42)
[2020-05-20] MEDS: Gabapentin 300 MG Cap PO SCH ×2 (09:42→14:55)
[2020-05-20] MEDS: Tiotropium Inhaler 18 MCG Inhalation Powder Cap Kit of 5 INH SCH (09:43)
[2020-05-20] MEDS: Ezetimibe 10 MG Tab PO SCH (09:43)
[2020-05-20] MEDS: Lidocaine 5% 700 MG Patch TOP SCH (09:43)
[2020-05-20] MEDS: Formoterol/Mometasone 200-5 MCG 8.8 GM Inhaler IH SCH (09:43)
[2020-05-20 09:48] VITALS: BP 111/76
[2020-05-20] MEDS: Acetaminophen 325 MG Tab PO PRN (09:48)
[2020-05-20] MEDS: Dextrose 5%-0.9% NaCl 1,000 ML IV SCH (10:54)
--- NOTE | 2020-05-20 12:30 | CR ---
EXAMINATION: Chest 1V Frontal SEX: Male AGE: 79 years CLINICAL HISTORY: 79-year-old male with "pulmonary emphysema and bibasilar fibrosis" complaining of shortness of breath (SOB). Comparison CXR 25 April 2020. INTERPRETATION: 1. No new signs of heart failure, lung mass, or hilar lymphadenopathy. Normal cardiac silhouette. 2. Patchy new lingular atelectasis or infiltrate when compared to 25 April 2020 film. 3. Chronic blunting of the costophrenic sulci on the right. 4. No sign of other infiltrate, atelectasis or collapse. 5. No pneumothorax or pneumomediastinum. Midline tracheal bronchial airway unremarkable. 6. chronic severe arthritic degenerative changes glenohumeral joints both shoulders. CONCLUSION: Patchy new lingular consolidation.
[2020-05-20 12:56] VITALS: PULSE 84
--- NOTE | 2020-05-20 12:57 | PCM.DCSUM1 ---
Discharge Summary - Hospital Course Free Text/Narrative:: Sixto Coombs Sris a79 y.o.male with a medical history of dyslipidemia, COPD, chronic home oxygen at 2.5L/min, CAD, DVT on chronic anticoagulation, hypertension who is discharged to our swing bed to complete antibiotics for Septic left knee arthritis. He had prosthetic joint infection. He is s/p I&D of the left total knee with synovectomy on 05/03/2020. Cultures was positive for Elaine albicans. ID consulted and recommended micafungin to complete least 6 weeks followed by suppression for a long time may be for life as the hardware has not been removed. Patient was transferred to us to completed antifungal. His stay has been completed with increasing confusion thought to be due to UTI versus benzodiazepine and opioid medication. Over the weekend patient was more confused requiring discontinuation of Ativan and opioid medication. UA was pos itive for UTI. He has not been eating for the past few days. He was started on IV ceftriaxone. Patient was switched to inpatient status today to receive more acute care. Diagnosis: Stroke: No - Discharge Data Discharge Date: 05/20/20 Discharge Disposition: DC/Tfer to Acute Hospital 02 Condition: Good - Referral to Home Health Primary Care Physician: Dionicio Snyder MD - Discharge Diagnosis/Problem(s) (1) Septic arthritis of knee, left SNOMED Code(s): 248972702, 047319882 ICD Code: M00.9 - PYOGENIC ARTHRITIS, UNSPECIFIED Status: Acute Current Visit: Yes (2) History of COPD SNOMED Code(s): 131765302 ICD Code: Z87.09 - PERSONAL HISTORY OF OTHER DISEASES OF THE RESPIRATORY SYSTEM Status: Acute Current Visit: No Onset Date: 12/15/14 (3) Acute UTI SNOMED Code(s): 124067907 ICD Code: N39.0 - URINARY TRACT INFECTION, SITE NOT SPECIFIED Status: Acute Current Visit: Yes (4) Acute encephalopathy SNOMED Code(s): 99930791, 635694294 ICD Code: G93.40 - ENCEPHALOPATHY, UNSPECIFIED Status: Acute Current Visit: Yes - Patient Summary/Data Consults: Consultations 05/15/20 14:45 OT Evaluation and Treatment [CONS] Routine PT Evaluation and Treatment [CONS] Routine - Discharge Plan *PRESCRIPTION DRUG MONITORING PROGRAM REVIEWED*: Not Applicable *COPY OF PRESCRIPTION DRUG MONITORING REPORT IN PATIENT SUYAPA: Not Applicable Home Medications: Home Meds traMADol [Ultram] 100 mg PO BID 12/16/15 [History] Albuterol [Ventolin HFA] 2 puff INH Q6HR PRN 04/25/20 [History] Budesonide/Formoterol [Symbicort 160-4.5 MCG] 2 puff INH BID 04/25/20 [History] Cyclobenzaprine [Flexeril] 10 mg PO TID PRN 04/25/20 [History] Doxazosin [Cardura] 4 mg PO DAILY 04/25/20 [History] Gabapentin [Neurontin] 300 mg PO TID 04/25/20 [History] Metoprolol Succinate 100 mg PO DAILY 04/25/20 [History] Warfarin [Coumadin] 2 mg PO SUTUWETHSA 04/25/20 [History] amLODIPine [Norvasc] 10 mg PO DAILY 04/25/20 [History] atorvaSTATin [Lipitor] 20 mg PO DAILY 04/25/20 [History] rOPINIRole [Requip] 0.5 mg PO BEDTIME 04/25/20 [History] Albuterol [Proventil Neb Soln] 2.5 mg NEB Q6H PRN 04/26/20 [History] Ezetimibe [Zetia] 10 mg PO DAILY 04/26/20 [History] Acetaminophen [Tylenol Extra Strength] 1,000 mg PO Q8H PRN 05/15/20 [History] Esomeprazole Magnesium [Nexium] 40 mg PO BIDAC 05/15/20 [History] Fluticasone Propionate [Flonase] 2 sprays NASBOTH BID PRN 05/15/20 [History] Hydrocortisone [Hydrocortisone 2.5% Crm] 1 applic TOP BID PRN 05/15/20 [History] Nitroglycerin [Nitrostat] 0.4 mg SL Q5M PRN 05/15/20 [History] Tiotropium [Spiriva HandiHaler] 18 mcg INH DAILY 05/15/20 [History] Warfarin [Coumadin] 3 mg PO MOFR 05/15/20 [History] riTUXimab [Rituxan] 375 mg IV ASDIRECTED 05/15/20 [History] Oxygen Therapy Mode: Nasal Cannula Referrals: Dionicio Snyder MD [Primary Care Provider] - - Discharge Summary/Plan Comment DC Time >30 min.: Yes - General Info Date of Service: 05/20/20 Admission Dx/Problem (Free Text: Admission Diagnosis/Problem Admission Diagnosis/Problem Prosthetic joint infection Functional Status: Reports: Pain Controlled - Review of Systems General: Reports: No Symptoms HEENT: Reports: No Symptoms Pulmonary: Reports: No Symptoms Cardiovascular: Reports: No Symptoms Gastrointestinal: Reports: No Symptoms Genitourinary: Reports: No Symptoms Musculoskeletal: Reports: No Symptoms Skin: Reports: No Symptoms Neurological: Reports: No Symptoms Psychiatric: Reports: No Symptoms - Patient Data Vitals - Most Recent: Last Vital Signs Temp 98.2 F 05/20/20 03:20 Pulse 83 05/20/20 09:42 Resp 24 H 05/19/20 23:29 BP 111/76 05/20/20 09:42 Pulse Ox 98 05/20/20 00:11 Weight - Most Recent: 162 lb 12.8 oz I&O - Last 24 hours: Intake & Output 05/19/20 05/20/20 05/20/20 22:59 06:59 14:59 Intake Total 582 408 Output Total 850 450 Balance -268 -42 Lab Results - Last 24 hrs: Laboratory Results - last 24 hr 05/20/20 Range/Units 05:40 PT 16.6 H (9.0-12.0) SEC INR 1.8 H (0.9-1.2) RUDDY Results - Last 24 hrs: Microbiology 05/18/20 18:35 Urine Culture - Preliminary Urine, Meza Cath (Indwelling) Med Orders - Current: Current Medications Acetaminophen (Tylenol) 650 mg PO Q4H PRN PRN Reason: Pain (Mild 1-3)/fever Last Admin: 05/20/20 09:48 Dose: 650 mg Documented by: Albuterol (Proventil Hfa) 0 gm INH Q6HR PRN PRN Reason: Wheezing Albuterol (Proventil Neb Soln) 2.5 mg NEB Q6HRRT [facility] Last Admin: 05/20/20 07:31 Dose: 2.5 mg Documented by: Amlodipine Besylate (Norvasc) 10 mg PO DAILY [facility] Last Admin: 05/20/20 09:42 Dose: 10 mg Documented by: Atorvastatin Calcium (Lipitor) 20 mg PO DAILY [facility] Last Admin: 05/20/20 09:42 Dose: 20 mg Documented by: Bisacodyl (Dulcolax) 5 mg PO DAILY PRN PRN Reason: Constipation Docusate Sodium (Colace) 100 mg PO BID PRN PRN Reason: Constipation Last Admin: 05/16/20 12:27 Dose: 100 mg Documented by: Doxazosin Mesylate (Cardura) 4 mg PO DAILY [facility] Last Admin: 05/20/20 09:42 Dose: 4 mg Documented by: Ezetimibe (Zetia) 10 mg PO DAILY [facility] Last Admin: 05/20/20 09:43 Dose: 10 mg Documented by: Fentanyl (Sublimaze) 25 mcg IVPUSH Q4HR [facility] Last Admin: 05/20/20 05:47 Dose: 25 mcg Documented by: Flumazenil (Romazicon) 0.2 mg IVPUSH ASDIRECTED PRN PRN Reason: Respiratory Depression Fluticasone Propionate (Flonase) 0 gm NASBOTH BID PRN PRN Reason: allergy relief Gabapentin (Neurontin) 300 mg PO TID [facility] Last Admin: 05/20/20 09:42 Dose: 300 mg Documented by: Hydrocortisone (Hydrocortisone 2.5% Crm) 0 gm TOP BID PRN PRN Reason: itchy Micafungin Sodium 100 mg/ (Sodium Chloride) 100 mls @ 100 mls/hr IV Q24H [facility] Last Infusion: 05/19/20 17:02 Dose: Infused Documented by: Dextrose/Sodium Chloride (Dextrose 5%-Normal Saline) 1,000 mls @ 50 mls/hr IV ASDIRECTED [facility] Last Admin: 05/20/20 10:54 Dose: 50 mls/hr Documented by: Ceftriaxone Sodium 1 gm/ (Sodium Chloride) 50 mls @ 100 mls/hr IV Q24H [facility] Last Infusion: 05/19/20 21:37 Dose: Infused Documented by: Lidocaine (Lidoderm 5%) 700 mg TOP DAILY [facility] Last Admin: 05/20/20 09:43 Dose: 700 mg Documented by: Magnesium Hydroxide (Milk Of Magnesia) 30 ml PO Q12H PRN PRN Reason: Constipation Last Admin: 05/16/20 12:27 Dose: 30 ml Documented by: Metoprolol Succinate (Toprol Xl) 100 mg PO DAILY [facility] Last Admin: 05/20/20 09:42 Dose: 100 mg Documented by: Miscellaneous Information (Remove Patch) 1 ea TRDERM BEDTIME [facility] Last Admin: 05/19/20 21:36 Dose: Not Given Documented by: Mometasone Furoate/Formoterol Fumar (Dulera 200-5 Mcg) 2 puff IH BID [facility] Last Admin: 05/20/20 09:43 Dose: 2 puff Documented by: Nitroglycerin (Nitrostat) 0.4 mg SL Q5M PRN PRN Reason: Chest Pain Omeprazole (Omeprazole) 40 mg PO BIDAC [facility] Last Admin: 05/20/20 05:43 Dose: 40 mg Documented by: Ondansetron HCl (Zofran) 4 mg IVPUSH Q6H PRN PRN Reason: Nausea/Vomiting Last Admin: 05/17/20 20:30 Dose: 4 mg Documented by: Polyethylene Glycol (Miralax) 17 gm PO DAILY PRN PRN Reason: Constipation Last Admin: 05/16/20 12:27 Dose: 17 gm Documented by: Quetiapine Fumarate (Seroquel) 25 mg PO BEDTIME [facility] Last Admin: 05/19/20 20:03 Dose: 25 mg Documented by: Ropinirole HCl (Requip) 0.5 mg PO BEDTIME [facility] Last Admin: 05/19/20 20:00 Dose: 0.5 mg Documented by: Sodium Chloride (Saline Flush) 10 ml FLUSH ASDIRECTED PRN PRN Reason: IV Use Last Admin: 05/18/20 15:49 Dose: 10 ml Documented by: Tiotropium [place] (Spiriva Handihaler) 18 mcg INH DAILY [facility] Last Admin: 05/20/20 09:43 Dose: 18 mcg Documented by: Warfarin Sodium (Pharmacy To Dose - Warfarin) 1 dose .XX ASDIRECTED [facility] Warfarin Sodium (Coumadin) 3 mg PO ONETIME ONE Stop: 05/20/20 14:01 Discontinued Medications Acetaminophen (Tylenol Extra Strength) 1,000 mg PO Q8H PRN PRN Reason: Pain (moderate 4-6) Albuterol (Proventil Neb Soln) 2.5 mg NEB Q6H PRN PRN Reason: Wheezing Cyclobenzaprine HCl (Flexeril) 10 mg PO TID PRN PRN Reason: Spasms Last Admin: 05/18/20 21:12 Dose: 10 mg Documented by: Fentanyl (Sublimaze) 25 mcg IVPUSH Q4H PRN PRN Reason: Pain (severe 7-10) Last Admin: 05/18/20 15:11 Dose: 25 mcg Documented by: Fentanyl (Sublimaze) 25 mcg IVPUSH ONETIME ONE Stop: 05/18/20 19:31 Last Admin: 05/18/20 19:47 Dose: 25 mcg Documented by: Fentanyl (Sublimaze) 25 mcg IVPUSH Q2H PRN PRN Reason: Pain (severe 7-10) Last Admin: 05/19/20 09:24 Dose: 25 mcg Documented by: Haloperidol Lactate (Haldol) 5 mg IM Q8H PRN PRN Reason: Agitation Heparin Sodium (Porcine) (Heparin Sodium) 5,000 units SUBCUT Q12HR [facility] Last Admin: 05/18/20 09:51 Dose: Not Given Documented by: Sodium Chloride (Normal Saline) 1,000 mls @ 999 mls/hr IV ASDIRECTED [facility] Last Infusion: 05/16/20 18:00 Dose: Infused Documented by: Ceftriaxone Sodium 1 gm/ (Sodium Chloride) 50 mls @ 100 mls/hr IV Q24H [facility] Last Admin: 05/18/20 21:13 Dose: Not Given Documented by: Influenza Virus Vaccine (Fluad Quad [id number] Syringe) 60 mcg IM .ONCE ONE Stop: 05/15/20 15:16 Last Admin: 05/15/20 15:46 Dose: 60 mcg Documented by: Lorazepam (Ativan) 2 mg IVPUSH Q4H PRN PRN Reason: Anxiety Last Admin: 05/18/20 15:11 Dose: 2 mg Documented by: Oxycodone HCl (Oxycodone) 5 mg PO ONETIME ONE Stop: 05/15/20 13:58 Last Admin: 05/15/20 14:10 Dose: 5 mg Documented by: Oxycodone HCl (Oxycodone) 5 mg PO Q8H PRN PRN Reason: Pain Quetiapine Fumarate (Seroquel) 12.5 mg PO BEDTIME [facility] Last Admin: 05/18/20 21:11 Dose: 12.5 mg Documented by: Sodium Polystyrene Sulfonate (Kayexalate) 15 gm PO Q8H [facility] Stop: 05/19/20 04:01 Last Admin: 05/19/20 04:42 Dose: Not Given Documented by: Tramadol HCl (Ultram) 100 mg PO BID [facility] Last Admin: 05/18/20 09:51 Dose: Not Given Documented by: Warfarin Sodium (Coumadin) 2 mg PO ONETIME ONE Stop: 05/16/20 14:01 Last Admin: 05/16/20 13:31 Dose: 2 mg Documented by: Warfarin Sodium (Coumadin) 2 mg PO ONETIME ONE Stop: 05/17/20 14:01 Last Admin: 05/17/20 14:15 Dose: Not Given Documented by: Warfarin Sodium (Coumadin) 3 mg PO ONETIME ONE Stop: 05/18/20 14:01 Last Admin: 05/18/20 15:31 Dose: Not Given Documented by: Warfarin Sodium (Coumadin) 3 mg PO ONETIME ONE Stop: 05/19/20 14:01 Last Admin: 05/19/20 13:34 Dose: 3 mg Documented by: - Exam General: Reports: Alert, Other (Pleasantly confused) HEENT: Reports: Pupils Equal, Pupils Reactive, EOMI, Mucous Membr. Moist/[place] Neck: Reports: Supple Lungs: Reports: Clear to Auscultation, Normal Respiratory Effort Cardiovascular: Reports: Regular Rate, Regular Rhythm GI/Abdominal Exam: Normal Bowel Sounds, Soft, Non-Tender, No Organomegaly, No Distention, No Abnormal Bruit, No Mass, Pelvis Stable (Male) Exam: No Hernia, Normal Inspection, Normal Prostate, Circumcised Rectal (Males) Exam: Normal Exam, Normal Rectal Tone, Prostate Normal Back Exam: Reports: Normal Inspection, Full Range of Motion Extremities: Normal Inspection, Normal Range of Motion, Non-Tender, No Pedal Edema, Normal Capillary Refill Skin: Reports: Warm, Dry, Intact Wound/Incisions: Reports: Healing Well Neurological: Reports: No New Focal Deficit Psy/Mental Status: Reports: Alert, Normal Affect, Normal Mood
== END 2020-05-20 15:01 | DRG 560 ==
LOC: UNDOADMIN 05-15 13:50 → DL.MS 05-15 13:50 → UNDOADMIN 05-15 14:45
PROVIDERS: ADMIT Student in an Organized Health Care Education/Training Program; ATTEND Student in an Organized Health Care Education/Training Program
DX: T84.54XA Infection and inflammatory reaction due to internal left knee prosthesis, initial encounter (principal); M00.9 Pyogenic arthritis, unspecified; B37.89 Other sites of candidiasis; N39.0 Urinary tract infection, site not specified; G93.40 Encephalopathy, unspecified; K22.10 Ulcer of esophagus without bleeding; G93.49 Other encephalopathy; E78.5 Hyperlipidemia, unspecified; J44.9 Chronic obstructive pulmonary disease, unspecified; I25.10 Atherosclerotic heart disease of native coronary artery without angina pectoris; I10 Essential (primary) hypertension; H91.90 Unspecified hearing loss, unspecified ear; H54.7 Unspecified visual loss; K59.09 Other constipation; Z96.653 Presence of artificial knee joint, bilateral; R33.9 Retention of urine, unspecified; M06.9 Rheumatoid arthritis, unspecified; F41.9 Anxiety disorder, unspecified; F32.9 Major depressive disorder, single episode, unspecified; E03.9 Hypothyroidism, unspecified; Z86.718 Personal history of other venous thrombosis and embolism; Z98.49 Cataract extraction status, unspecified eye; Z90.89 Acquired absence of other organs; Z79.01 Long term (current) use of anticoagulants; Z86.711 Personal history of pulmonary embolism; Z99.81 Dependence on supplemental oxygen; Z87.09 Personal history of other diseases of the respiratory system; Z79.899 Other long term (current) drug therapy; Z90.49 Acquired absence of other specified parts of digestive tract; Z87.891 Personal history of nicotine dependence; Z23 Encounter for immunization
CPT/HCPCS: 36415; 36430; 70450; 71045; 72170; 80048; 81001; 82962; 83735; 84100; 85014; 85018; 85025; 85027; 85610; 86850; 86900; 86901; 86920; 86922; 87086; 87088; 87186; 90653; 94010; 94640; 99306; 99316; A9270-GY; G0008; J0696; J1644; J2060; J2248; J2405; J3010; J7030; J7042; J7050; J7613-GY; P9016

== ENCOUNTER 2020-05-20 13:12 | Inpatient (IN) | payer MEDICARE, MEDICAID ==
[2020-05-20] MEDS ORDERED: Magnesium Hydroxide 400 MG/5 ML Susp 30 ML Cup PO PRN (14:58)
[2020-05-20] MEDS ORDERED: Ondansetron 4 MG/2 ML SDV IVPUSH PRN (14:58)
[2020-05-20] MEDS ORDERED: Docusate Sodium 100 MG Cap PO PRN (14:58)
[2020-05-20] MEDS ORDERED: Bisacodyl 5 MG Tab PO PRN (14:58)
--- NOTE | 2020-05-20 15:10 | PCM.HP ---
H&P History of Present Illness - General Date of Service: 05/20/20 Admit Problem/Dx: Admission Diagnosis/Problem Admission Diagnosis/Problem Acute encephalopathy Source of Information: EMS Notes Reviewed History Limitations: Reports: Altered Mental Status - History of Present Illness Initial Comments - Free Text/Narative: Sixto Rivas a79 y.o.male with a medical history of dyslipidemia, COPD, chronic home oxygen at 2.5L/min, CAD, DVT on chronic anticoagulation, hypertension who is discharged to our swing bed to complete antibiotics for Septic left knee arthritis. He had prosthetic joint infection. He is s/p I&D of the left total knee with synovectomy on 05/03/2020. Cultures was positive for Elaine albicans. ID consulted and recommended micafungin to complete least 6 weeks followed by suppression for a long time may be for life as the hardware has not been removed. Patient was transferred to us to complete antifungal. His stay has been completed by increasing confusion thought to be due to UTI versus benzodiazepine and opioid medication. Over the weekend patient was more confused requiring discontinuation of Ativan and opioid medication. UA was positive for UTI. He has not been eating for the past few days. He was started on IV ceftriaxone and IVF. Patient was switched to acute care status today to receive more acute care. At bedside evaluation patient is awake and alert today. He is answering questions but only oriented to self. He is disoriented to place and time. He was able to eat a little bit of his breakfast today. He denies any pain at this time. He is unable to provide adequate history. Urine culture positive for gram-negative rods. Onset of Symptoms: Reports: Gradual Duration of Symptoms: Reports: Day(s): Quality: Reports: Ache Severity: Moderate Improves with: Reports: None Worsens with: Reports: None Associated Symptoms: Reports: Confusion - Related Data Allergies/Adverse Reactions: Allergies Allergy/AdvReac Type Severity Reaction Status Date / Time Penicillins Allergy Unknown SWELLING Verified 04/25/20 14:56 OF LEGS/FEET hydrocodone Allergy bad dreams Verified 04/25/20 14:56 isosorbide Allergy Other Verified 04/25/20 14:56 Home Medications: Home Meds traMADol [Ultram] 100 mg PO BID 12/16/15 [History] Albuterol [Ventolin HFA] 2 puff INH Q6HR PRN 04/25/20 [History] Budesonide/Formoterol [Symbicort 160-4.5 MCG] 2 puff INH BID 04/25/20 [History] Cyclobenzaprine [Flexeril] 10 mg PO TID PRN 04/25/20 [History] Doxazosin [Cardura] 4 mg PO DAILY 04/25/20 [History] Gabapentin [Neurontin] 300 mg PO TID 04/25/20 [History] Metoprolol Succinate 100 mg PO DAILY 04/25/20 [History] Warfarin [Coumadin] 2 mg PO SUTUWETHSA 04/25/20 [History] amLODIPine [Norvasc] 10 mg PO DAILY 04/25/20 [History] atorvaSTATin [Lipitor] 20 mg PO DAILY 04/25/20 [History] rOPINIRole [Requip] 0.5 mg PO BEDTIME 04/25/20 [History] Albuterol [Proventil Neb Soln] 2.5 mg NEB Q6H PRN 04/26/20 [History] Ezetimibe [Zetia] 10 mg PO DAILY 04/26/20 [History] Acetaminophen [Tylenol Extra Strength] 1,000 mg PO Q8H PRN 05/15/20 [History] Esomeprazole Magnesium [Nexium] 40 mg PO BIDAC 05/15/20 [History] Fluticasone Propionate [Flonase] 2 sprays NASBOTH BID PRN 05/15/20 [History] Hydrocortisone [Hydrocortisone 2.5% Crm] 1 applic TOP BID PRN 05/15/20 [History] Nitroglycerin [Nitrostat] 0.4 mg SL Q5M PRN 05/15/20 [History] Tiotropium [Spiriva HandiHaler] 18 mcg INH DAILY 05/15/20 [History] Warfarin [Coumadin] 3 mg PO MOFR 05/15/20 [History] riTUXimab [Rituxan] 375 mg IV ASDIRECTED 05/15/20 [History] Past Medical History HEENT History: Reports: Cataract, Hard of Hearing, Impaired Vision Other HEENT History: WEARS CORRECTIVE LENSES; UPPER AND LOWER DENTURE PLATE; BILAT HEARING AIDES Cardiovascular History: Reports: Blood Clots/VTE/DVT, CAD, Heart Murmur, High Cholesterol, Hypertension, Other (See Below) Other Cardiovascular History: THROMBOPHLEBITIS Respiratory History: Reports: Bronchitis, Recurrent, COPD, PE, Pneumonia, Recurrent, Sleep Apnea, SOB Gastrointestinal History: Reports: Chronic Constipation, Diverticulosis, Hemorrhoids Genitourinary History: Reports: Prostate Disorder, Retention, Urinary, UTI, Recurrent Musculoskeletal History: Reports: Arthritis, RA, Other (See Below) Other Musculoskeletal History: SCIATICA. RHEUMATOID ARTHRITIS Neurological History: Reports: None Psychiatric History: Reports: Anxiety, Depression Endocrine/Metabolic History: Reports: Hypothyroidism [employer]: [id number] Hematologic History: Reports: Blood Transfusion(s) Immunologic History: Reports: None Oncologic (Cancer) History: Reports: None Dermatologic History: Reports: Eczema Other Dermatologic History: laceration right lateral hand. - Infectious Disease History Infectious Disease History: Reports: Chicken Pox, Measles, Mumps - Past Surgical History Head Surgeries/Procedures: Reports: None HEENT Surgical History: Reports: Adenoidectomy, Cataract Surgery, Oral Surgery, Tonsillectomy Cardiovascular Surgical History: Reports: Coronary Artery Stent Respiratory Surgical History: Reports: Thoracotomy, Other (See Below) Other Respiratory Surgeries/Procedures: PLEURAL BIOPSY GI Surgical History: Reports: Cholecystectomy, Colonoscopy, EGD, Hernia, Inguinal Male Surgical History: Reports: None Endocrine Surgical History: Reports: None Neurological Surgical History: Reports: None Musculoskeletal Surgical History: Reports: Knee Replacement, Other (See Below) Other Musculoskeletal Surgeries/Procedures:: BILATERAL KNEE REPLACMENTS. RESECTION OF OLECRANAL BURSA Oncologic Surgical History: Reports: None Social & Family History - Family History Family Medical History: Noncontributory - Caffeine Use Caffeine Use: Reports: Coffee Caffeine Use Comment: 12-14 oz daily - Living Situation & Occupation Living situation: Reports: , with Spouse Occupation: Retired H&P Review of Systems - Review of Systems: Review Of Systems: Unable To Obtain Reason Not Obtained: t General: Reports: Other (Unable to obtain) HEENT: Reports: No Symptoms Pulmonary: Reports: Other (Unable to obtain) Cardiovascular: Reports: Other Gastrointestinal: Reports: Other Genitourinary: Reports: Other Musculoskeletal: Reports: Other Skin: Reports: Other Psychiatric: Reports: Other Neurological: Reports: Other Hematologic/Lymphatic: Reports: Other Exam - Exam Exam: See Below - Exam Quality Assessment: Supplemental Oxygen, DVT Prophylaxis General: Other (Patient awake and alert appears minimally lethargic. Only oriented to self. Disoriented to time and place.) HEENT: PERRLA, Hearing Intact, Mucosa Moist & [place], Nares Patent, Normal Nasal Septum, Posterior Pharynx Clear, Conjunctiva Clear, EOMI, EACs Clear, TMs Clear Neck: Supple, Trachea Midline, 2 Lungs: Clear to Auscultation, Normal Respiratory Effort Cardiovascular: Regular Rate, Regular Rhythm GI/Abdominal Exam: Normal Bowel Sounds, Soft, Non-Tender, No Organomegaly, No Distention, No Abnormal Bruit, No Mass, Pelvis Stable (Male) Exam: No Hernia, Normal Inspection, Normal Prostate, Circumcised Rectal (Males) Exam: Deferred Back Exam: Normal Inspection, Full Range of Motion, NT Extremities: Normal Inspection, Normal Range of Motion, Non-Tender, No Pedal Edema, Normal Capillary Refill, Other (Surgical wound dry and clean) Skin: Warm, Dry, Intact Neurological: Other (Confused) Neuro Extensive - Mental Status: Alert, Disorientation to Place, Disorientation to Time Neuro Extensive - Motor, Sensory, Reflexes: CN II-XII Intact, Normal Gait, Normal Reflexes Psychiatric: Alert *Q Meaningful Use (ADM) - VTE *Q VTE Anticoagulation Contraindications: Alternative TX Request PT - Problem List (1) Acute UTI SNOMED Code(s): 837611517 ICD Code: N39.0 - URINARY TRACT INFECTION, SITE NOT SPECIFIED Status: Acute Current Visit: No (2) Acute encephalopathy SNOMED Code(s): 86398621, 980763657 ICD Code: G93.40 - ENCEPHALOPATHY, UNSPECIFIED Status: Acute Current Visit: No (3) Acute exacerbation of chronic obstructive pulmonary disease (COPD) SNOMED Code(s): 290073798 ICD Code: J44.1 - CHRONIC OBSTRUCTIVE PULMONARY DISEASE W (ACUTE) EXACERBATION Status: Acute Current Visit: No (4) Anxiety SNOMED Code(s): 28931146 ICD Code: F41.9 - ANXIETY DISORDER, UNSPECIFIED Status: Acute Current Visit: No Onset Date: 12/15/14 (5) COPD exacerbation SNOMED Code(s): 026988370, 498509028 ICD Code: J44.1 - CHRONIC OBSTRUCTIVE PULMONARY DISEASE W (ACUTE) EXACERBATION Status: Acute Current Visit: No Onset Date: 12/15/14 (6) Septic arthritis of knee, left SNOMED Code(s): 757910399, 863840961 ICD Code: M00.9 - PYOGENIC ARTHRITIS, UNSPECIFIED Status: Acute Current Visit: No (7) UTI (urinary tract infection) SNOMED Code(s): 84364412 ICD Code: N39.0 - URINARY TRACT INFECTION, SITE NOT SPECIFIED Status: Acute Current Visit: No Qualifiers: Urinary tract infection type: site unspecified Hematuria presence: without hematuria Qualified Code(s): N39.0 - Urinary tract infection, site not specified Problem List Initiated/Reviewed/Updated: Yes Orders Last 24hrs: Active Orders 24 hr Category Date Time Status Patient Status [ADT] Routine ADT 05/20/20 14:59 Ordered Ambulate [RC] ASDIRECTED Care 05/20/20 14:58 Ordered Height and Weight [RC] DAILY Care 05/20/20 14:58 Ordered Intake and Output [RC] QSHIFT Care 05/20/20 15:01 Ordered Notify Provider Vital Signs [RC] ASDIRECTED Care 05/20/20 15:01 Ordered Oxygen Therapy [RC] PRN Care 05/20/20 14:59 Ordered Pulse Oximetry [RC] PRN Care 05/20/20 15:01 Ordered Urinary Catheter Assessment [RC] ASDIRECTED Care 05/20/20 14:58 Ordered VTE/DVT Education [RC] PER UNIT ROUTINE Care 05/20/20 14:59 Ordered Vital Signs [RC] Q4H Care 05/20/20 14:59 Ordered OT Evaluation and Treatment [CONS] Routine Cons 05/20/20 14:58 Ordered PT Evaluation and Treatment [CONS] Routine Cons 05/20/20 14:58 Ordered Regular Diet [DIET] Diet 05/20/20 Dinner Ordered Acetaminophen [TylenoL] Med 05/20/20 14:58 Ordered 650 mg PO Q4H PRN Docusate Sodium [Colace] Med 05/20/20 14:58 Ordered 100 mg PO BID PRN Magnesium Hydroxide [Milk of Magnesia] Med 05/20/20 14:58 Ordered 30 ml PO Q12H PRN Ondansetron [Zofran] Med 05/20/20 14:58 Ordered 4 mg IVPUSH Q6H PRN bisacodyL [Dulcolax] Med 05/20/20 14:58 Ordered 5 mg PO DAILY PRN Anticoagulation Contraindications VTE [AST] Per Unit Oth 05/20/20 14:58 Ordered Routine Resuscitation Status Routine Resus Stat 05/20/20 14:58 Ordered Assessment/Plan Comment:: #Acute encephalopathy likely due to combination of UTI and metabolic process -Appears to be improving -Continue to avoid all benzodiazepines -Use fentanyl judiciously -Seroquel 25 mg nightly #UTI -Culture positive for gram-negative rods -Continue ceftriaxone IV #Poor oral intake -Provide 100% assist in feeding -Continue Remeron -D5 in NS at 50 mL/h #Septic arthritis/left knee pain. Cultures positive for Elaine albicans. -Continue micafungin -Patient will need suppression for a long time yearly for life due to hardware not been removed. #Acute lower urinary retention -Meza in place -Follow-up with urology as outpatient. #Dysphagia due to erosive esophagitis -S/p EGD on 05/01/2020; showed grade C erosive esophagitis, upper esophageal strictures, completely obstructed Schatzki's ring -Continue PPI #Acute on chronic hypoxic respiratory failure, resolved -Continue supplemental. Patient at baseline oxygen requirement #MRSA bacteremia, source unkown -Probable MRSA UTI -Completedtreatment. #History of DVT -On chronic anticoagulation with warfarin -Continue. Pharmacy to dose #Dyslipidemia Continue statin #COPD -Chronic home oxygen Resumed home inhalers/nebs #Hypertension -Resumed home meds #Physical debility -PT/OT #DNI/DNR #Social work consult for placement
[2020-05-20] MEDS ORDERED: Hydrocortisone 2.5% Crm 30 GM Tube TOP PRN (15:17)
[2020-05-20] MEDS ORDERED: Albuterol 0.083% 2.5 MG/3 ML Neb Soln NEB PRN (15:17)
[2020-05-20] MEDS ORDERED: Albuterol 6.7 GM Inhaler INH PRN (15:17)
[2020-05-20] MEDS ORDERED: Nitroglycerin 0.4 MG Tab.SL SL PRN (15:17)
[2020-05-20] MEDS ORDERED: Acetaminophen 500 MG Tab PO PRN (15:17)
[2020-05-20] MEDS ORDERED: Fluticasone Propionate Nasal Spray 16 GM Bottle NASBOTH PRN (15:17)
[2020-05-20] MEDS ORDERED: Dextrose 5%-0.9% NaCl 1,000 ML IV SCH (15:30)
[2020-05-20] MEDS: Omeprazole 20 MG Cap.CR PO SCH (17:20)
[2020-05-20] MEDS: Micafungin 100 MG in Sodium Chloride 0.9% 100 ML IV SCH (17:48)
[2020-05-20] MEDS: Albuterol 0.083% 2.5 MG/3 ML Neb Soln INH SCH (18:40)
[2020-05-20] MEDS ORDERED: cefTRIAXone 1 GM in Sodium Chloride 0.9% 50 ML IV SCH (21:00)
[2020-05-20] MEDS: rOPINIRole 0.25 MG Tab PO SCH (21:02)
[2020-05-20] MEDS: Formoterol/Mometasone 200-5 MCG 8.8 GM Inhaler IH SCH (21:02)
[2020-05-20] MEDS: QUEtiapine 25 MG Tab PO SCH (21:02)
[2020-05-21] MEDS: Albuterol 0.083% 2.5 MG/3 ML Neb Soln INH SCH ×4 (00:19→17:24)
[2020-05-21] MEDS: Acetaminophen 325 MG Tab PO PRN ×2 (02:09→16:08)
[2020-05-21] MEDS: Omeprazole 20 MG Cap.CR PO SCH ×3 (05:39→17:15)
[2020-05-21 06:47] LABS: ANION GAP 10.6 mEq/L (7-13); CHLORIDE,CL 110 mmol/L (98-107); SODIUM,NA 143 mmol/L (136-145)
[2020-05-21] MEDS: Lidocaine 5% 700 MG Patch TOP SCH (09:07)
[2020-05-21] MEDS: atorvaSTATin 20 MG Tab PO SCH (09:11)
[2020-05-21] MEDS: Ezetimibe 10 MG Tab PO SCH (09:11)
[2020-05-21] MEDS: Doxazosin 2 MG Tab PO SCH (09:11)
[2020-05-21] MEDS: Metoprolol Succinate 50 MG Tab.ER PO SCH (09:12)
[2020-05-21] MEDS: amLODIPine 5 MG Tab PO SCH (09:12)
[2020-05-21] MEDS: Formoterol/Mometasone 200-5 MCG 8.8 GM Inhaler IH SCH ×2 (09:17→20:40)
[2020-05-21] MEDS: Tiotropium Inhaler 18 MCG Inhalation Powder Cap Kit of 5 INH SCH (09:17)
--- NOTE | 2020-05-21 11:18 | PCM.PN ---
- General Info Date of Service: 05/21/20 Admission Dx/Problem (Free Text): Sixto Coombs Sris a79 y.o.male with a medical history of dyslipidemia, COPD, chronic home oxygen at 2.5L/min, CAD, DVT on chronic anticoagulation, hypertension who is discharged to our swing bed to complete antibiotics for Sept ic left knee arthritis. He had prosthetic joint infection. He is s/p I&D of the left total knee with synovectomy on 05/03/2020. Cultures was positive for Elaine albicans. ID consulted and recommended micafungin to complete least 6 weeks followed by suppression for a long time may be for life as the hardware has not been removed. Patient was transferred to us to complete antifungal. His stay has been completed by increasing confusion thought to be due to UTI versus benzodiazepine and opioid medication. Patient was switched to acute care status today to receive more acute care. Patient was seen and examined. He is doing well today. His confusion has significantly improved. Patient is wake, alert oriented to self and time. Answering questions very well and following commands. He was able to eat breakfast this morning. There were no reported fever, chills. Patient denies pain. Functional Status: Reports: Pain Controlled - Review of Systems General: Reports: No Symptoms HEENT: Reports: No Symptoms Pulmonary: Reports: No Symptoms Cardiovascular: Reports: No Symptoms Gastrointestinal: Reports: No Symptoms Genitourinary: Reports: No Symptoms Musculoskeletal: Reports: No Symptoms Skin: Reports: No Symptoms Neurological: Reports: No Symptoms Psychiatric: Reports: No Symptoms - Patient Data Vitals - Most Recent: Last Vital Signs Temp 98.8 F 05/21/20 08:00 Pulse 76 05/21/20 09:12 Resp 20 05/21/20 08:00 BP 125/50 L 05/21/20 09:12 Pulse Ox 95 05/21/20 08:00 Weight - Most Recent: 156 lb 6.4 oz I&O - Last 24 Hours: Intake & Output 05/20/20 05/21/20 05/21/20 22:59 06:59 14:59 Intake Total 120 50 Output Total 350 700 Balance -230 -650 Lab Results Last 24 Hours: Laboratory Results - last 24 hr 05/21/20 05/21/20 05/21/20 Range/Units 05:37 05:37 05:37 WBC 7.5 (5.0-10.0) 10^3/uL RBC 3.26 L (4.6-6.2) 10^6/uL Hgb 8.6 L D (14.0-18.0) g/dL Hct 28.2 L (40.0-54.0) % MCV 86.5 (80-100) fL MCH 26.4 L (27.0-34.0) pg MCHC 30.5 L (33.0-35.0) g/dL Plt Count 315 (150-450) 10^3/uL Neut % (Auto) 58.2 (42.2-75.2) % Lymph % (Auto) 25.1 (20.5-50.1) % [place] % (Auto) 12.2 H (2-8) % Eos % (Auto) 4.4 H (1.0-3.0) % Baso % (Auto) 0.1 (0.0-1.0) % Add Manual Diff Yes Neutrophils % (Manual) 65 (42-75) % Band Neutrophils % 5 % Lymphocytes % (Manual) 22 (20-50) % Monocytes % (Manual) 6 (2-8) % Eosinophils % (Manual) 2 (1-3) % PT 29.3 H D (9.0-12.0) SEC INR 3.1 H (0.9-1.2) Sodium 143 (136-145) mmol/L Potassium 3.6 (3.5-5.1) mmol/L Chloride 110 H (98-107) mmol/L Carbon Dioxide 26 (21-32) mmol/L Anion Gap 10.6 (7-13) mEq/L BUN 12 (7-18) mg/dL Creatinine 1.05 (0.70-1.30) mg/dL Est Cr Clr Drug Dosing 58.18 mL/min Estimated GFR (MDRD) > 60 Glucose 131 H (74-99) mg/dL Calcium 7.6 L (8.5-10.1) mg/dL Med Orders - Current: Current Medications Acetaminophen (Tylenol) 650 mg PO Q4H PRN PRN Reason: Pain (Mild 1-3)/fever Last Admin: 05/21/20 02:09 Dose: 650 mg Documented by: Acetaminophen (Tylenol Extra Strength) 1,000 mg PO ASDIRECTED PRN PRN Reason: 1/2 hour prior to PT Albuterol (Proventil Neb Soln) 2.5 mg NEB Q6HRRT PRN PRN Reason: Wheezing Albuterol (Proventil Neb Soln) 2.5 mg INH Q6HRRT [facility] Last Admin: 05/21/20 07:33 Dose: 2.5 mg Documented by: Amlodipine Besylate (Norvasc) 10 mg PO DAILY [facility] Last Admin: 05/21/20 09:12 Dose: Not Given Documented by: Atorvastatin Calcium (Lipitor) 20 mg PO DAILY [facility] Last Admin: 05/21/20 09:11 Dose: 20 mg Documented by: Bisacodyl (Dulcolax) 5 mg PO DAILY PRN PRN Reason: Constipation, use last Docusate Sodium (Colace) 100 mg PO BID PRN PRN Reason: Constipation, use first Doxazosin Mesylate (Cardura) 4 mg PO DAILY [facility] Last Admin: 05/21/20 09:11 Dose: Not Given Documented by: Ezetimibe (Zetia) 10 mg PO DAILY [facility] Last Admin: 05/21/20 09:11 Dose: 10 mg Documented by: Fentanyl (Sublimaze) 25 mcg IVPUSH Q4H PRN PRN Reason: Pain (severe 7-10) Fluticasone Propionate (Flonase) 0 gm NASBOTH BID PRN PRN Reason: allergy relief Hydrocortisone (Hydrocortisone 2.5% Crm) 0 gm TOP BID PRN PRN Reason: itchiness Dextrose/Sodium Chloride (Dextrose 5%-Normal Saline) 1,000 mls @ 50 mls/hr IV ASDIRECTED [facility] Last Admin: 05/21/20 08:23 Dose: 50 mls/hr Documented by: Micafungin Sodium 100 mg/ (Sodium Chloride) 100 mls @ 100 mls/hr IV Q24H [facility] Last Admin: 05/20/20 17:48 Dose: 100 mls/hr Documented by: Ceftriaxone Sodium 1 gm/ (Sodium Chloride) 50 mls @ 100 mls/hr IV Q24H [facility] Lidocaine (Lidoderm 5%) 700 mg TOP Q24H [facility] Last Admin: 05/21/20 09:07 Dose: 700 mg Documented by: Magnesium Hydroxide (Milk Of Magnesia) 30 ml PO Q12H PRN PRN Reason: Constipation, use second Metoprolol Succinate (Toprol Xl) 100 mg PO DAILY [facility] Last Admin: 05/21/20 09:12 Dose: Not Given Documented by: Miscellaneous Information (Remove Patch) 1 ea TRDERM BEDTIME [facility] Last Admin: 05/20/20 21:22 Dose: 1 ea Documented by: Mometasone Furoate/Formoterol Fumar (Dulera 200-5 Mcg) 2 puff IH BID [facility] Last Admin: 05/21/20 09:17 Dose: 2 puff Documented by: Nitroglycerin (Nitrostat) 0.4 mg SL Q5M PRN PRN Reason: Chest Pain Omeprazole (Omeprazole) 40 mg PO BIDAC [facility] Last Admin: 05/21/20 05:39 Dose: 40 mg Documented by: Ondansetron HCl (Zofran) 4 mg IVPUSH Q6H PRN PRN Reason: Nausea/Vomiting Quetiapine Fumarate (Seroquel) 25 mg PO BEDTIME [facility] Last Admin: 05/20/20 21:02 Dose: 25 mg Documented by: Ropinirole HCl (Requip) 0.5 mg PO BEDTIME [facility] Last Admin: 05/20/20 21:02 Dose: 0.5 mg Documented by: Tiotropium [place] (Spiriva Handihaler) 18 mcg INH DAILY [facility] Last Admin: 05/21/20 09:17 Dose: 18 mcg Documented by: Warfarin Sodium (Pharmacy To Dose - Warfarin) 1 dose .XX ASDIRECTED [facility] Warfarin Sodium (Coumadin) 0.5 mg PO ONETIME ONE Stop: 05/21/20 14:01 Discontinued Medications Ceftriaxone Sodium 1 gm/ (Sodium Chloride) 50 mls @ 100 mls/hr IV Q24H [facility] Last Infusion: 05/20/20 22:30 Dose: Infused Documented by: - Exam Quality Assessment: Supplemental Oxygen, DVT Prophylaxis General: Alert, Oriented HEENT: Pupils Equal, Pupils Reactive, EOMI, Mucous Membr. Moist/Smock Neck: Supple Lungs: Clear to Auscultation, Normal Respiratory Effort Cardiovascular: Regular Rate, Regular Rhythm GI/Abdominal Exam: Normal Bowel Sounds, Soft, Non-Tender, No Organomegaly, No Distention, No Abnormal Bruit, No Mass, Pelvis Stable (Male) Exam: No Hernia, Normal Inspection, Normal Prostate, Circumcised Back Exam: Normal Inspection, Full Range of Motion Extremities: Normal Inspection, Normal Range of Motion, Non-Tender, No Pedal Edema, Normal Capillary Refill Skin: Warm, Dry, Intact Wound/Incisions: Healing Well Neurological: No New Focal Deficit Psy/Mental Status: Alert, Normal Affect, Normal Mood Sepsis Event Note - Evaluation Sepsis Screening Result: No Definite Risk - Focused Exam Vital Signs: Vital Signs Temp Pulse Pulse Resp BP BP Pulse Ox 05/21/20 09:12 76 125/50 L 05/21/20 09:11 125/50 L 05/21/20 08:00 98.8 F 76 20 125/50 L 95 05/21/20 07:35 76 05/21/20 00:19 76 05/21/20 00:15 98 F 71 24 H 119/50 L 100 Pulse Ox 05/21/20 09:12 05/21/20 09:11 05/21/20 08:00 05/21/20 07:35 96 05/21/20 00:19 05/21/20 00:15 - Problem List & Annotations (1) Acute UTI SNOMED Code(s): 442733876 Code(s): N39.0 - URINARY TRACT INFECTION, SITE NOT SPECIFIED Status: Acute Current Visit: No (2) Acute encephalopathy SNOMED Code(s): 61414765, 006548246 Code(s): G93.40 - ENCEPHALOPATHY, UNSPECIFIED Status: Acute Current Visit: No (3) Acute exacerbation of chronic obstructive pulmonary disease (COPD) SNOMED Code(s): 635619684 Code(s): J44.1 - CHRONIC OBSTRUCTIVE PULMONARY DISEASE W (ACUTE) EXACERBATION Status: Acute Current Visit: No (4) Anxiety SNOMED Code(s): 99295259 Code(s): F41.9 - ANXIETY DISORDER, UNSPECIFIED Status: Acute Current Visit: No Onset Date: 12/15/14 (5) COPD exacerbation SNOMED Code(s): 075923433, 731171355 Code(s): J44.1 - CHRONIC OBSTRUCTIVE PULMONARY DISEASE W (ACUTE) EXACERBATION Status: Acute Current Visit: No Onset Date: 12/15/14 (6) Septic arthritis of knee, left SNOMED Code(s): 840859448, 278005107 Code(s): M00.9 - PYOGENIC ARTHRITIS, UNSPECIFIED Status: Acute Current Visit: No (7) UTI (urinary tract infection) SNOMED Code(s): 03126338 Code(s): N39.0 - URINARY TRACT INFECTION, SITE NOT SPECIFIED Status: Acute Current Visit: No Qualifiers: Urinary tract infection type: site unspecified Hematuria presence: without hematuria Qualified Code(s): N39.0 - Urinary tract infection, site not specified - Problem List Review Problem List Initiated/Reviewed/Updated: Yes - My Orders Last 24 Hours: My Active Orders 05/20/20 14:58 Ambulate [RC] ASDIRECTED Height and Weight [RC] DAILY Urinary Catheter Assessment [RC] OT Evaluation and Treatment [CONS] Routine PT Evaluation and Treatment [CONS] Routine Acetaminophen [TylenoL] 650 mg PO Q4H PRN Docusate Sodium [Colace] 100 mg PO BID PRN Magnesium Hydroxide [Milk of Magnesia] 30 ml PO Q12H PRN Ondansetron [Zofran] 4 mg IVPUSH Q6H PRN bisacodyL [Dulcolax] 5 mg PO DAILY PRN Anticoagulation Contraindications VTE [AST] Per Unit Routine Resuscitation Status Routine 05/20/20 14:59 Admission Diagnosis [ADT] Routine Patient Status [ADT] Routine Oxygen Therapy [RC] PRN Vital Signs [RC] Q4H 05/20/20 15:01 Intake and Output [RC] QSHIFT Notify Provider Vital Signs [RC] ASDIRECTED Pulse Oximetry [RC] PRN 05/20/20 15:17 Albuterol [Proventil Neb Soln] 2.5 mg NEB Q6HRRT PRN Fluticasone Propionate [Flonase] 0 gm NASBOTH BID PRN Hydrocortisone [Hydrocortisone 2.5% Crm] 0 gm TOP BID PRN Nitroglycerin [Nitrostat] 0.4 mg SL Q5M PRN 05/20/20 15:19 RT Aerosol Therapy [RC] 01,07,,18 RT Post Treatment Assessment [RC] ,,,18 RT Pre-Treatment Assessment [RC] ,07,,18 05/20/20 15:20 fentaNYL [Sublimaze] 25 mcg IVPUSH Q4H PRN 05/20/20 15:30 Dextrose 5%-0.9% NaCl [Dextrose 5%-Normal Saline] 1,000 ml IV ASDIRECTED Pharmacy to Dose - Warfarin 1 dose .XX ASDIRECTED 05/20/20 16:00 Omeprazole 40 mg PO BIDAC 05/20/20 16:32 Central Line Assessment [RC] 05/20/20 16:34 Influenza Vaccine Charge [RC] .DISCHARGE 05/20/20 17:00 Micafungin [Mycamine] 100 mg Sodium Chloride 0.9% [Normal Saline] 100 ml IV Q24H 05/20/20 Dinner Regular Diet [DIET] 05/20/20 18:00 Albuterol [Proventil Neb Soln] 2.5 mg INH Q6HRRT 05/20/20 21:00 Mometasone/Formoterol [Dulera 200-5 MCG] 2 puff IH BID QUEtiapine [SEROqueL] 25 mg PO BEDTIME Remove Patch 1 ea TRDERM BEDTIME rOPINIRole [Requip] 0.5 mg PO BEDTIME 05/21/20 08:38 Acetaminophen [Tylenol Extra Strength] 1,000 mg PO ASDIRECTED PRN 05/21/20 09:00 Doxazosin [Cardura] 4 mg PO DAILY Ezetimibe [Zetia] 10 mg PO DAILY Lidocaine 5% [Lidoderm 5%] 700 mg TOP Q24H Metoprolol Succinate [Toprol XL] 100 mg PO DAILY Tiotropium [Spiriva HandiHaler] 18 mcg INH DAILY amLODIPine [Norvasc] 10 mg PO DAILY atorvaSTATin [Lipitor] 20 mg PO DAILY 05/21/20 14:00 Warfarin [Coumadin] 0.5 mg PO ONETIME ONE 05/21/20 21:00 cefTRIAXone [Rocephin] 1 gm Sodium Chloride 0.9% [Normal Saline] 50 ml IV Q24H 05/22/20 06:00 INR,PT,PROTHROMBIN TIME [COAG] DAILY 05/23/20 06:00 INR,PT,PROTHROMBIN TIME [COAG] DAILY 05/24/20 06:00 INR,PT,PROTHROMBIN TIME [COAG] DAILY 05/25/20 06:00 INR,PT,PROTHROMBIN TIME [COAG] DAILY 05/26/20 06:00 INR,PT,PROTHROMBIN TIME [COAG] DAILY 05/27/20 06:00 INR,PT,PROTHROMBIN TIME [COAG] DAILY - Plan Plan:: #Acute encephalopathy likely due to combination of UTI and metabolic process -Significantly improved today -Continue to avoid all benzodiazepines -Use fentanyl judiciously -Seroquel 25 mg nightly #UTI -Culture positive for gram-negative rods -Continue ceftriaxone IV #Poor oral intake -Improving. Patient was able to eat breakfast today. -Provide 100% assist in feeding -Continue Remeron -D5 in NS at 50 mL/h #Septic arthritis/left knee pain. Cultures positive for Elaine albicans. -Continue micafungin -Patient will need suppression for a long time yearly for life due to hardware not been removed. #Acute lower urinary retention -Meza in place -Follow-up with urology as outpatient. #Dysphagia due to erosive esophagitis -S/p EGD on 05/01/2020; showed grade C erosive esophagitis, upper esophageal strictures, completely obstructed Schatzki's ring -Continue PPI #Acute on chronic hypoxic respiratory failure, resolved -Continue supplemental. Patient at baseline oxygen requirement #MRSA bacteremia, source unkown -Probable MRSA UTI -Completedtreatment. #History of DVT -On chronic anticoagulation with warfarin -Continue. Pharmacy to dose #Dyslipidemia Continue statin #COPD -Chronic home oxygen Resumed home inhalers/nebs #Hypertension -Resumed home meds #Physical debility -PT/OT #DNI/DNR #Social work consult for placement
[2020-05-21] MEDS: Acetaminophen 500 MG Tab PO PRN (12:44)
[2020-05-21] MEDS: fentaNYL 100 MCG/2 ML SDV IVPUSH PRN ×2 (14:42→22:13)
[2020-05-21] MEDS: Micafungin 100 MG in Sodium Chloride 0.9% 100 ML IV SCH (17:16)
[2020-05-21] MEDS: oxyCODONE 5 MG Tab PO PRN (18:21)
[2020-05-21] MEDS: QUEtiapine 25 MG Tab PO SCH (20:43)
[2020-05-21] MEDS: rOPINIRole 0.25 MG Tab PO SCH (20:43)
[2020-05-21] MEDS: cefTRIAXone 1 GM in Sodium Chloride 0.9% 50 ML IV SCH (20:47)
[2020-05-22] MEDS: oxyCODONE 5 MG Tab PO PRN ×4 (00:11→23:04)
[2020-05-22] MEDS: Albuterol 0.083% 2.5 MG/3 ML Neb Soln INH SCH ×4 (01:34→17:59)
[2020-05-22] MEDS: Omeprazole 20 MG Cap.CR PO SCH ×2 (05:45→16:27)
[2020-05-22] MEDS: Doxazosin 2 MG Tab PO SCH (08:38)
[2020-05-22] MEDS: amLODIPine 5 MG Tab PO SCH (08:38)
[2020-05-22] MEDS: Metoprolol Succinate 50 MG Tab.ER PO SCH (08:39)
[2020-05-22] MEDS: Ezetimibe 10 MG Tab PO SCH (08:39)
[2020-05-22] MEDS: atorvaSTATin 20 MG Tab PO SCH (08:39)
[2020-05-22] MEDS: Acetaminophen 500 MG Tab PO PRN (08:40)
[2020-05-22] MEDS: Lidocaine 5% 700 MG Patch TOP SCH (08:47)
[2020-05-22] MEDS: Formoterol/Mometasone 200-5 MCG 8.8 GM Inhaler IH SCH ×2 (08:49→20:52)
[2020-05-22] MEDS: Tiotropium Inhaler 18 MCG Inhalation Powder Cap Kit of 5 INH SCH (08:49)
[2020-05-22 10:13] LABS: ANION GAP 13.2 mEq/L (7-13); CHLORIDE,CL 110 mmol/L (98-107); SODIUM,NA 144 mmol/L (136-145)
[2020-05-22] MEDS: Acetaminophen 325 MG Tab PO PRN (14:53)
--- NOTE | 2020-05-22 15:46 | PCM.PN ---
- General Info Date of Service: 05/22/20 Admission Dx/Problem (Free Text): Sixto Coombs Sris a79 y.o.male with a medical history of dyslipidemia, COPD, chronic home oxygen at 2.5L/min, CAD, DVT on chronic anticoagulation, hypertension who is discharged to our swing bed to complete antibiotics for Sept ic left knee arthritis. He had prosthetic joint infection. He is s/p I&D of the left total knee with synovectomy on 05/03/2020. Cultures was positive for Elaine albicans. ID consulted and recommended micafungin to complete least 6 weeks followed by suppression for a long time may be for life as the hardware has not been removed. Patient was transferred to us to complete antifungal. His stay has been completed by increasing confusion thought to be due to UTI versus benzodiazepine and opioid medication. Patient was switched to acute care status today to receive more acute care. Patient was seen and examined. Remains encephalopathic. Has fevers this morning. Temp 101.9. Pull PICC line overnight. Denies chest pain, shortness of breath, n/v/d/c, dysuria, or any acute symptoms. - Patient Data Vitals - Most Recent: Last Vital Signs Temp 99.3 F 05/22/20 12:00 Pulse 74 05/22/20 13:57 Resp 18 05/22/20 12:00 BP 96/52 L 05/22/20 12:00 Pulse Ox 98 05/22/20 15:00 Weight - Most Recent: 156 lb 6.4 oz I&O - Last 24 Hours: Intake & Output 05/22/20 05/22/20 05/22/20 06:59 14:59 22:59 Intake Total 510 300 Output Total 950 Balance 510 -650 Lab Results Last 24 Hours: Laboratory Results - last 24 hr 05/22/20 05/22/20 05/22/20 Range/Units 06:34 06:34 06:34 WBC 9.5 (5.0-10.0) 10^3/uL RBC 3.40 L (4.6-6.2) 10^6/uL Hgb 9.1 L (14.0-18.0) g/dL Hct 29.4 L (40.0-54.0) % MCV 86.5 (80-100) fL MCH 26.8 L (27.0-34.0) pg MCHC 31.0 L (33.0-35.0) g/dL Plt Count 386 (150-450) 10^3/uL Neut % (Auto) 50.4 (42.2-75.2) % Lymph % (Auto) 31.7 (20.5-50.1) % [place] % (Auto) 12.1 H (2-8) % Eos % (Auto) 5.5 H (1.0-3.0) % Baso % (Auto) 0.3 (0.0-1.0) % ESR 61 H (0-15) mm/hr PT 40.4 H D (9.0-12.0) SEC INR 4.3 H (0.9-1.2) Sodium 144 (136-145) mmol/L Potassium 4.2 (3.5-5.1) mmol/L Chloride 110 H (98-107) mmol/L Carbon Dioxide 25 (21-32) mmol/L Anion Gap 13.2 H (7-13) mEq/L BUN 12 (7-18) mg/dL Creatinine 1.14 (0.70-1.30) mg/dL Est Cr Clr Drug Dosing 53.59 mL/min Estimated GFR (MDRD) > 60 BUN/Creatinine Ratio 10.5 (No establ ref range) Glucose 122 H (74-99) mg/dL Calcium 7.7 L (8.5-10.1) mg/dL Total Bilirubin 0.5 (0.2-1.0) mg/dL AST 48 H (15-37) U/L ALT 40 (16-63) U/L Alkaline Phosphatase 180 H (46-116) U/L C-Reactive Protein 17.6 H (0.0-0.9) mg/dL Total Protein 4.3 L (6.4-8.2) g/dL Albumin 1.2 L (3.4-5.0) g/dL Globulin 3.1 Albumin/Globulin Ratio 0.39 Med Orders - Current: Current Medications Acetaminophen (Tylenol) 650 mg PO Q4H PRN PRN Reason: Pain (Mild 1-3)/fever Last Admin: 05/22/20 14:53 Dose: 650 mg Documented by: Acetaminophen (Tylenol Extra Strength) 1,000 mg PO ASDIRECTED PRN PRN Reason: 1/2 hour prior to PT Last Admin: 05/22/20 08:40 Dose: 1,000 mg Documented by: Albuterol (Proventil Neb Soln) 2.5 mg NEB Q6HRRT PRN PRN Reason: Wheezing Albuterol (Proventil Neb Soln) 2.5 mg INH Q6HRRT [facility] Last Admin: 05/22/20 13:57 Dose: 2.5 mg Documented by: Amlodipine Besylate (Norvasc) 10 mg PO DAILY [facility] Last Admin: 05/22/20 08:38 Dose: 10 mg Documented by: Atorvastatin Calcium (Lipitor) 20 mg PO DAILY [facility] Last Admin: 05/22/20 08:39 Dose: 20 mg Documented by: Bisacodyl (Dulcolax) 5 mg PO DAILY PRN PRN Reason: Constipation, use last Docusate Sodium (Colace) 100 mg PO BID PRN PRN Reason: Constipation, use first Doxazosin Mesylate (Cardura) 4 mg PO DAILY [facility] Last Admin: 05/22/20 08:38 Dose: 4 mg Documented by: Ezetimibe (Zetia) 10 mg PO DAILY [facility] Last Admin: 05/22/20 08:39 Dose: 10 mg Documented by: Fentanyl (Sublimaze) 25 mcg IVPUSH Q4H PRN PRN Reason: Pain (severe 7-10) Last Admin: 05/21/20 22:13 Dose: 25 mcg Documented by: Fluticasone Propionate (Flonase) 0 gm NASBOTH BID PRN PRN Reason: allergy relief Hydrocortisone (Hydrocortisone 2.5% Crm) 0 gm TOP BID PRN PRN Reason: itchiness Dextrose/Sodium Chloride (Dextrose 5%-Normal Saline) 1,000 mls @ 50 mls/hr IV ASDIRECTED [facility] Last Admin: 05/21/20 08:23 Dose: 50 mls/hr Documented by: Micafungin Sodium 100 mg/ (Sodium Chloride) 100 mls @ 100 mls/hr IV Q24H [facility] Last Admin: 05/21/20 17:16 Dose: 100 mls/hr Documented by: Ceftriaxone Sodium 1 gm/ (Sodium Chloride) 50 mls @ 100 mls/hr IV Q24H [facility] Last Infusion: 05/21/20 21:25 Dose: Infused Documented by: Lidocaine (Lidoderm 5%) 700 mg TOP Q24H [facility] Last Admin: 05/22/20 08:47 Dose: 700 mg Documented by: Magnesium Hydroxide (Milk Of Magnesia) 30 ml PO Q12H PRN PRN Reason: Constipation, use second Metoprolol Succinate (Toprol Xl) 100 mg PO DAILY [facility] Last Admin: 05/22/20 08:39 Dose: 100 mg Documented by: Mirtazapine (Remeron) 15 mg PO BEDTIME [facility] Miscellaneous Information (Remove Patch) 1 ea TRDERM BEDTIME [facility] Last Admin: 05/21/20 20:42 Dose: Not Given Documented by: Mometasone Furoate/Formoterol Fumar (Dulera 200-5 Mcg) 2 puff IH BID [facility] Last Admin: 05/22/20 08:49 Dose: 2 puff Documented by: Nitroglycerin (Nitrostat) 0.4 mg SL Q5M PRN PRN Reason: Chest Pain Omeprazole (Omeprazole) 40 mg PO BIDAC [facility] Last Admin: 05/22/20 05:45 Dose: 40 mg Documented by: Ondansetron HCl (Zofran) 4 mg IVPUSH Q6H PRN PRN Reason: Nausea/Vomiting Oxycodone HCl (Oxycodone) 5 mg PO Q6H PRN PRN Reason: Pain (moderate 4-6) Last Admin: 05/22/20 11:12 Dose: 5 mg Documented by: Quetiapine Fumarate (Seroquel) 25 mg PO BEDTIME [facility] Last Admin: 05/21/20 20:43 Dose: 25 mg Documented by: Ropinirole HCl (Requip) 0.5 mg PO BEDTIME [facility] Last Admin: 05/21/20 20:43 Dose: 0.5 mg Documented by: Tiotropium [place] (Spiriva Handihaler) 18 mcg INH DAILY [facility] Last Admin: 05/22/20 08:49 Dose: 18 mcg Documented by: Warfarin Sodium (Pharmacy To Dose - Warfarin) 1 dose .XX ASDIRECTED [facility] Discontinued Medications Ceftriaxone Sodium 1 gm/ (Sodium Chloride) 50 mls @ 100 mls/hr IV Q24H [facility] Last Infusion: 05/20/20 22:30 Dose: Infused Documented by: No Warfarin Today () 0 each PO ONETIME ONE Stop: 05/22/20 14:01 Last Admin: 05/22/20 13:54 Dose: Not Given Documented by: Warfarin Sodium (Coumadin) 0.5 mg PO ONETIME ONE Stop: 05/21/20 14:01 Last Admin: 05/21/20 14:40 Dose: 0.5 mg Documented by: - Exam General: Alert, Oriented (x2. States he is in [place]. Does not recall pulling out PICC line. ), Cooperative, No Acute Distress HEENT: Pupils Equal, Pupils Reactive Neck: Supple Lungs: Clear to Auscultation, Normal Respiratory Effort Cardiovascular: Regular Rate, Regular Rhythm GI/Abdominal Exam: Normal Bowel Sounds, Soft, Non-Tender Extremities: Non-Tender, Other (Surgical site is c/d/i. ) Skin: Warm, Dry, Intact Wound/Incisions: Healing Well Neurological: No New Focal Deficit Psy/Mental Status: Alert, Normal Affect, Normal Mood Sepsis Event Note - Evaluation Sepsis Screening Result: No Definite Risk - Focused Exam Vital Signs: Vital Signs Temp Temp Pulse Pulse Resp BP BP 05/22/20 15:00 05/22/20 13:57 74 05/22/20 12:00 99.3 F 84 18 96/52 L 05/22/20 10:45 100.0 F 05/22/20 09:10 100.0 F 05/22/20 09:00 101.9 F H 05/22/20 08:40 100.9 F H 05/22/20 08:39 93 110/54 L 05/22/20 08:38 110/54 L 05/22/20 08:00 100.9 F H 93 20 110/54 L 05/22/20 07:22 95 Pulse Ox 05/22/20 15:00 98 05/22/20 13:57 05/22/20 12:00 99 05/22/20 10:45 05/22/20 09:10 05/22/20 09:00 05/22/20 08:40 05/22/20 08:39 05/22/20 08:38 05/22/20 08:00 98 05/22/20 07:22 - Problem List & Annotations (1) Acute encephalopathy SNOMED Code(s): 55494772, 599100845 Code(s): G93.40 - ENCEPHALOPATHY, UNSPECIFIED Status: Acute Current Visit: Yes (2) Acute UTI SNOMED Code(s): 201424844 Code(s): N39.0 - URINARY TRACT INFECTION, SITE NOT SPECIFIED Status: Acute Current Visit: No (3) Acute encephalopathy SNOMED Code(s): 68403877, 961879570 Code(s): G93.40 - ENCEPHALOPATHY, UNSPECIFIED Status: Acute Current Visit: No (4) Ear bleeding SNOMED Code(s): 585235744, 517383352 Code(s): H92.20 - OTORRHAGIA, UNSPECIFIED EAR Status: Acute Current Visit: No (5) Septic arthritis of knee, left SNOMED Code(s): 525624401, 991284846 Code(s): M00.9 - PYOGENIC ARTHRITIS, UNSPECIFIED Status: Acute Current Visit: No - Problem List Review Problem List Initiated/Reviewed/Updated: Yes - My Orders Last 24 Hours: My Active Orders 05/22/20 08:24 PAULETTE Hose [Antiembolic Hose] [OM.PC] Routine 05/22/20 08:25 Antiembolic Devices [RC] 05/22/20 21:00 Mirtazapine [Remeron] 15 mg PO BEDTIME - Plan Plan:: #Probable sepsis: Patient with fevers overnight in patient with history of MRSA bacteremia, UTI, and elaine septic arthritis. - Obtain 2 sets of blood cultures. - Start vancomycin. - Monitor frequently; may need to transfer to higher level of care; pending bed availability. #Acute encephalopathy likely due to combination of UTI and metabolic process -Significantly improved today -Continue to avoid all benzodiazepines -Use fentanyl judiciously -Seroquel 25 mg nightly #UTI -Culture positive for gram-negative rods -Continue ceftriaxone IV #Poor oral intake -Improving. Patient was able to eat breakfast today. -Provide 100% assist in feeding -Continue Remeron -D5 in NS at 50 mL/h #Septic arthritis/left knee pain. Cultures positive for Elaine albicans. -Continue micafungin -Patient will need suppression for a long time yearly for life due to hardware not been removed. #Acute lower urinary retention -Meza in place -Follow-up with urology as outpatient. #Dysphagia due to erosive esophagitis -S/p EGD on 05/01/2020; showed grade C erosive esophagitis, upper esophageal strictures, completely obstructed Schatzki's ring -Continue PPI #Acute on chronic hypoxic respiratory failure, resolved -Continue supplemental. Patient at baseline oxygen requirement #MRSA bacteremia, source unkown -Probable MRSA UTI -Completedtreatment. #History of DVT -On chronic anticoagulation with warfarin -Continue. Pharmacy to dose #Dyslipidemia Continue statin #COPD -Chronic home oxygen Resumed home inhalers/nebs #Hypertension -Resumed home meds #Physical debility -PT/OT #DNI/DNR #Social work consult for placement
[2020-05-22] MEDS: Micafungin 100 MG in Sodium Chloride 0.9% 100 ML IV SCH (18:15)
[2020-05-22] MEDS ORDERED: Vancomycin 750 MG SDV ONE (19:36)
[2020-05-22] MEDS: traMADol 50 MG Tab PO PRN (20:43)
[2020-05-22] MEDS: rOPINIRole 0.25 MG Tab PO SCH (20:43)
[2020-05-22] MEDS: QUEtiapine 25 MG Tab PO SCH (20:43)
[2020-05-22] MEDS ORDERED: Mirtazapine 15 MG Tab PO SCH (21:00)
[2020-05-22] MEDS: cefTRIAXone 1 GM in Sodium Chloride 0.9% 50 ML IV SCH (21:21)
[2020-05-23] MEDS: Albuterol 0.083% 2.5 MG/3 ML Neb Soln INH SCH ×2 (02:20→07:14)
[2020-05-23] MEDS: Acetaminophen 325 MG Tab PO PRN (04:57)
[2020-05-23] MEDS: Omeprazole 20 MG Cap.CR PO SCH (05:04)
[2020-05-23] MEDS: traMADol 50 MG Tab PO PRN (05:04)
[2020-05-23] MEDS: oxyCODONE 5 MG Tab PO PRN (07:45)
[2020-05-23 08:07] LABS: ANION GAP 12.8 mEq/L (7-13); CHLORIDE,CL 110 mmol/L (98-107); SODIUM,NA 144 mmol/L (136-145)
[2020-05-23] MEDS: atorvaSTATin 20 MG Tab PO SCH (09:02)
[2020-05-23] MEDS: Ezetimibe 10 MG Tab PO SCH (09:02)
[2020-05-23] MEDS: Lidocaine 5% 700 MG Patch TOP SCH (09:03)
[2020-05-23] MEDS: Tiotropium Inhaler 18 MCG Inhalation Powder Cap Kit of 5 INH SCH (09:03)
[2020-05-23] MEDS: Formoterol/Mometasone 200-5 MCG 8.8 GM Inhaler IH SCH (09:04)
[2020-05-23] MEDS: amLODIPine 5 MG Tab PO SCH (09:04)
[2020-05-23] MEDS: Metoprolol Succinate 50 MG Tab.ER PO SCH (09:05)
[2020-05-23 09:06] VITALS: BP 103/39
[2020-05-23] MEDS: Doxazosin 2 MG Tab PO SCH (09:11)
--- NOTE | 2020-05-23 09:16 | PCM.DCSUM1 ---
Discharge Summary - Hospital Course Free Text/Narrative:: Sixto Rivas a79 y.o.male with a medical history of dyslipidemia, COPD, chronic home oxygen at 2.5L/min, CAD, DVT on chronic anticoagulation, hypertension who is discharged to our swing bed to complete antibiotics for Septic left knee arthritis. He had prosthetic joint infection. He is s/p I&D of the left total knee with synovectomy on 05/03/2020. Cultures was positive for Elaine albicans. ID consulted and recommended micafungin to complete least 6 weeks followed by suppression for a long time may be for life as the hardware has not been removed. Patient was transferred to us to complete antifungal. His stay has been completed by increasing confusion thought to be due to UTI versus benzodiazepine and opioid medication. Patient was switched to acute care status today to receive more acute care. Patient had intermittent episodes of hallucinations. He accidentally pulled out his PICC line. He also had intermittent episodes of fevers. Temperatures went up to 101.9 on 05/22/2020 and to 101.3 today. Blood cultures obtained and pend ing. He is being transferred [place] further management. HPI Initial Comments: Sixto Rivas a79 y.o.male with a medical history of dyslipidemia, COPD, chronic home oxygen at 2.5L/min, CAD, DVT on chronic anticoagulation, hypertension who is discharged to our swing bed to complete antibiotics for Septic left knee arthritis. He had prosthetic joint infection. He is s/p I&D of the left total knee with synovectomy on 05/03/2020. Cultures was positive for Elaine albicans. ID consulted and recommended micafungin to complete least 6 weeks followed by suppression for a long time may be for life as the hardware has not been removed. Patient was transferred to us to complete antifungal. His stay has been completed by increasing confusion thought to be due to UTI versus benzodiazepine and opioid medication. Over the weekend patient was more confused requiring discontinuation of Ativan and opioid medication. UA was positive for UTI. He has not been eating for the past few days. He was started on IV ceftriaxone and IVF. Patient was switched to acute care status today to receive more acute care. At bedside evaluation patient is awake and alert today. He is answering questions but only oriented to self. He is disoriented to place and time. He was able to eat a little bit of his breakfast today. He denies any pain at this time. He is unable to provide adequate history. Urine culture positive for gram-negative rods. Diagnosis: Stroke: No - Discharge Data Discharge Date: 05/23/20 Discharge Disposition: DC/Tfer to Acute Hospital 02 Condition: Good - Referral to Home Health Primary Care Physician: Dionicio Snyder MD - Discharge Diagnosis/Problem(s) (1) Acute encephalopathy SNOMED Code(s): 23885368, 009291333 ICD Code: G93.40 - ENCEPHALOPATHY, UNSPECIFIED Status: Acute Current Visit: Yes (2) Acute UTI SNOMED Code(s): 092169806 ICD Code: N39.0 - URINARY TRACT INFECTION, SITE NOT SPECIFIED Status: Acute Current Visit: No (3) Acute encephalopathy SNOMED Code(s): 83691700, 970181420 ICD Code: G93.40 - ENCEPHALOPATHY, UNSPECIFIED Status: Acute Current Visit: No (4) Ear bleeding SNOMED Code(s): 901837081, 344571016 ICD Code: H92.20 - OTORRHAGIA, UNSPECIFIED EAR Status: Acute Current Visit: No (5) Septic arthritis of knee, left SNOMED Code(s): 075594648, 141183972 ICD Code: M00.9 - PYOGENIC ARTHRITIS, UNSPECIFIED Status: Acute Current Visit: No - Patient Summary/Data Consults: Consultations 05/20/20 14:58 OT Evaluation and Treatment [CONS] Routine PT Evaluation and Treatment [CONS] Routine - Discharge Plan *PRESCRIPTION DRUG MONITORING PROGRAM REVIEWED*: No *COPY OF PRESCRIPTION DRUG MONITORING REPORT IN PATIENT SUYAPA: No Home Medications: Home Meds traMADol [Ultram] 100 mg PO TID 12/16/15 [History] Albuterol [Ventolin HFA] 2 puff INH Q6HR PRN 04/25/20 [History] Budesonide/Formoterol [Symbicort 160-4.5 MCG] 2 puff INH BID 04/25/20 [History] Cyclobenzaprine [Flexeril] 10 mg PO TID PRN 04/25/20 [History] Doxazosin [Cardura] 4 mg PO DAILY 04/25/20 [History] Gabapentin [Neurontin] 300 mg PO TID 04/25/20 [History] Metoprolol Succinate 100 mg PO DAILY 04/25/20 [History] Warfarin [Coumadin] 2 mg PO DAILY 04/25/20 [History] amLODIPine [Norvasc] 10 mg PO DAILY 04/25/20 [History] atorvaSTATin [Lipitor] 20 mg PO DAILY 04/25/20 [History] rOPINIRole [Requip] 0.5 mg PO BEDTIME 04/25/20 [History] Albuterol [Proventil Neb Soln] 2.5 mg NEB Q6H PRN 04/26/20 [History] Ezetimibe [Zetia] 10 mg PO DAILY 04/26/20 [History] Acetaminophen [Tylenol Extra Strength] 1,000 mg PO Q8H PRN 05/15/20 [History] Esomeprazole Magnesium [Nexium] 40 mg PO BIDAC 05/15/20 [History] Fluticasone Propionate [Flonase] 2 sprays NASBOTH BID PRN 05/15/20 [History] Hydrocortisone [Hydrocortisone 2.5% Crm] 1 applic TOP BID PRN 05/15/20 [History] Nitroglycerin [Nitrostat] 0.4 mg SL Q5M PRN 05/15/20 [History] Tiotropium [Spiriva HandiHaler] 18 mcg INH DAILY 05/15/20 [History] riTUXimab [Rituxan] 100 mg IV ASDIRECTED 05/15/20 [History] Docusate Sodium [Colace] 100 mg PO ASDIRECTED 05/21/20 [History] Micafungin [Mycamine] 100 mg IV Q24H vial 05/23/20 [Rx] Pharmacy to Dose - Vancomycin 1 dose .XX ASDIRECTED each 05/23/20 [Rx] QUEtiapine [SEROquel] 25 mg PO BEDTIME tablet 05/23/20 [Rx] Vancomycin 1.25 gm IV Q12H sdv 05/23/20 [Rx] cefTRIAXone [Rocephin] 1 gm IV Q24H vial 05/23/20 [Rx] Referrals: Dionicio Snyder MD [Primary Care Provider] - - Discharge Summary/Plan Comment DC Time >30 min.: Yes - General Info Date of Service: 05/23/20 Admission Dx/Problem (Free Text: Sixto Collinsmonse Sris a79 y.o.male with a medical history of dyslipidemia, COPD, chronic home oxygen at 2.5L/min, CAD, DVT on chronic anticoagulation, hypertension who is discharged to our swing bed to complete antibiotics for Septic left knee arthritis. He had prosthetic joint infection. He is s/p I&D of the left total knee with synovectomy on 05/03/2020. Cultures was positive for Elaine albicans. ID consulted and recommended micafungin to complete least 6 weeks followed by suppression for a long time may be for life as the hardware has not been removed. Patient was transferred to us to complete antifungal. His stay has been completed by increasing confusion thought to be due to UTI versus benzodiazepine and opioid medication. Patient was switched to acute care status today to receive more acute care. Patient was seen and examined. Remains encephalopathic. Has fevers this morning. Temp 101.9. Pull PICC line overnight. Denies chest pain, shortness of breath, n/v/d/c, dysuria, or any acute symptoms. Subjective Update: Patient with temperature of 101.3 overnight. Reports 7/10 left knee pain. Denies any chest pain, shortness of breath, fevers, chills, nausea, vomiting, diarrhea, constipation, dysuria, hematuria, or any new symptoms. - Patient Data Vitals - Most Recent: Last Vital Signs Temp 98.8 F 05/23/20 08:00 Pulse 86 05/23/20 09:05 Resp 18 05/23/20 08:00 BP 103/39 L 05/23/20 09:05 Pulse Ox 96 05/23/20 08:00 Weight - Most Recent: 156 lb 6.4 oz I&O - Last 24 hours: Intake & Output 05/22/20 05/23/20 05/23/20 22:59 06:59 14:59 Intake Total 932 250 Output Total 400 650 Balance 532 -400 Lab Results - Last 24 hrs: Laboratory Results - last 24 hr 05/22/20 05/22/20 05/23/20 Range/Units 06:34 06:34 06:45 WBC 9.5 (5.0-10.0) 10^3/uL RBC 3.40 L (4.6-6.2) 10^6/uL Hgb 9.1 L (14.0-18.0) g/dL Hct 29.4 L (40.0-54.0) % MCV 86.5 (80-100) fL MCH 26.8 L (27.0-34.0) pg MCHC 31.0 L (33.0-35.0) g/dL Plt Count 386 (150-450) 10^3/uL Neut % (Auto) 50.4 (42.2-75.2) % Lymph % (Auto) 31.7 (20.5-50.1) % [place] % (Auto) 12.1 H (2-8) % Eos % (Auto) 5.5 H (1.0-3.0) % Baso % (Auto) 0.3 (0.0-1.0) % ESR 61 H (0-15) mm/hr PT 37.0 H (9.0-12.0) SEC INR 3.9 H (0.9-1.2) Sodium 144 (136-145) mmol/L Potassium 4.2 (3.5-5.1) mmol/L Chloride 110 H (98-107) mmol/L Carbon Dioxide 25 (21-32) mmol/L Anion Gap 13.2 H (7-13) mEq/L BUN 12 (7-18) mg/dL Creatinine 1.14 (0.70-1.30) mg/dL Est Cr Clr Drug Dosing 53.59 mL/min Estimated GFR (MDRD) > 60 BUN/Creatinine Ratio 10.5 (No establ ref range) Glucose 122 H (74-99) mg/dL Calcium 7.7 L (8.5-10.1) mg/dL Phosphorus (2.6-4.7) mg/dL Magnesium (1.8-2.4) mg/dL Total Bilirubin 0.5 (0.2-1.0) mg/dL AST 48 H (15-37) U/L ALT 40 (16-63) U/L Alkaline Phosphatase 180 H (46-116) U/L C-Reactive Protein 17.6 H (0.0-0.9) mg/dL Total Protein 4.3 L (6.4-8.2) g/dL Albumin 1.2 L (3.4-5.0) g/dL Globulin 3.1 Albumin/Globulin Ratio 0.39 05/23/20 05/23/20 Range/Units 06:45 06:45 WBC 9.1 (5.0-10.0) 10^3/uL RBC 3.01 L (4.6-6.2) 10^6/uL Hgb 8.0 L (14.0-18.0) g/dL Hct 26.0 L (40.0-54.0) % MCV 86.4 (80-100) fL MCH 26.6 L (27.0-34.0) pg MCHC 30.8 L (33.0-35.0) g/dL Plt Count 467 H D (150-450) 10^3/uL Neut % (Auto) (42.2-75.2) % Lymph % (Auto) (20.5-50.1) % [place] % (Auto) (2-8) % Eos % (Auto) (1.0-3.0) % Baso % (Auto) (0.0-1.0) % ESR (0-15) mm/hr PT (9.0-12.0) SEC INR (0.9-1.2) Sodium 144 (136-145) mmol/L Potassium 3.8 (3.5-5.1) mmol/L Chloride 110 H (98-107) mmol/L Carbon Dioxide 25 (21-32) mmol/L Anion Gap 12.8 (7-13) mEq/L BUN 13 (7-18) mg/dL Creatinine 1.14 (0.70-1.30) mg/dL Est Cr Clr Drug Dosing 53.59 mL/min Estimated GFR (MDRD) > 60 BUN/Creatinine Ratio (No establ ref range) Glucose 108 H (74-99) mg/dL Calcium 7.6 L (8.5-10.1) mg/dL Phosphorus 2.5 L (2.6-4.7) mg/dL Magnesium 1.5 L (1.8-2.4) mg/dL Total Bilirubin (0.2-1.0) mg/dL AST (15-37) U/L ALT (16-63) U/L Alkaline Phosphatase (46-116) U/L C-Reactive Protein (0.0-0.9) mg/dL Total Protein (6.4-8.2) g/dL Albumin (3.4-5.0) g/dL Globulin Albumin/Globulin Ratio Med Orders - Current: Current Medications Acetaminophen (Tylenol) 650 mg PO Q4H PRN PRN Reason: Pain (Mild 1-3)/fever Last Admin: 05/23/20 04:57 Dose: 650 mg Documented by: Acetaminophen (Tylenol Extra Strength) 1,000 mg PO ASDIRECTED PRN PRN Reason: 1/2 hour prior to PT Last Admin: 05/22/20 08:40 Dose: 1,000 mg Documented by: Albuterol (Proventil Neb Soln) 2.5 mg NEB Q6HRRT PRN PRN Reason: Wheezing Albuterol (Proventil Neb Soln) 2.5 mg INH Q6HRRT [facility] Last Admin: 05/23/20 07:14 Dose: 2.5 mg Documented by: Amlodipine Besylate (Norvasc) 10 mg PO DAILY [facility] Last Admin: 05/23/20 09:04 Dose: Not Given Documented by: Atorvastatin Calcium (Lipitor) 20 mg PO DAILY [facility] Last Admin: 05/23/20 09:02 Dose: 20 mg Documented by: Bisacodyl (Dulcolax) 5 mg PO DAILY PRN PRN Reason: Constipation, use last Docusate Sodium (Colace) 100 mg PO BID PRN PRN Reason: Constipation, use first Doxazosin Mesylate (Cardura) 4 mg PO DAILY [facility] Last Admin: 05/22/20 08:38 Dose: 4 mg Documented by: Ezetimibe (Zetia) 10 mg PO DAILY [facility] Last Admin: 05/23/20 09:02 Dose: 10 mg Documented by: Fluticasone Propionate (Flonase) 0 gm NASBOTH BID PRN PRN Reason: allergy relief Hydrocortisone (Hydrocortisone 2.5% Crm) 0 gm TOP BID PRN PRN Reason: itchiness Dextrose/Sodium Chloride (Dextrose 5%-Normal Saline) 1,000 mls @ 50 mls/hr IV ASDIRECTED [facility] Last Admin: 05/21/20 08:23 Dose: 50 mls/hr Documented by: Micafungin Sodium 100 mg/ (Sodium Chloride) 100 mls @ 100 mls/hr IV Q24H [facility] Last Admin: 05/22/20 18:15 Dose: 100 mls/hr Documented by: Ceftriaxone Sodium 1 gm/ (Sodium Chloride) 50 mls @ 100 mls/hr IV Q24H [facility] Last Admin: 05/22/20 21:21 Dose: 100 mls/hr Documented by: Vancomycin HCl 1.25 gm/ Sodium (Chloride) 250 mls @ 166.667 mls/hr IV Q12H [facility] Last Admin: 05/23/20 06:43 Dose: 166.667 mls/hr Documented by: Lidocaine (Lidoderm 5%) 700 mg TOP Q24H [facility] Last Admin: 05/23/20 09:03 Dose: 700 mg Documented by: Magnesium Hydroxide (Milk Of Magnesia) 30 ml PO Q12H PRN PRN Reason: Constipation, use second Metoprolol Succinate (Toprol Xl) 100 mg PO DAILY [facility] Last Admin: 05/23/20 09:05 Dose: Not Given Documented by: Mirtazapine (Remeron) 15 mg PO BEDTIME [facility] Last Admin: 05/22/20 20:43 Dose: 15 mg Documented by: Miscellaneous Information (Remove Patch) 1 ea TRDERM BEDTIME [facility] Last Admin: 05/22/20 20:44 Dose: Not Given Documented by: Mometasone Furoate/Formoterol Fumar (Dulera 200-5 Mcg) 2 puff IH BID [facility] Last Admin: 05/23/20 09:04 Dose: 2 puff Documented by: Nitroglycerin (Nitrostat) 0.4 mg SL Q5M PRN PRN Reason: Chest Pain No Warfarin Today () 0 each PO ONETIME ONE Stop: 05/23/20 14:01 Omeprazole (Omeprazole) 40 mg PO BIDAC [facility] Last Admin: 05/23/20 05:04 Dose: 40 mg Documented by: Ondansetron HCl (Zofran) 4 mg IVPUSH Q6H PRN PRN Reason: Nausea/Vomiting Oxycodone HCl (Oxycodone) 5 mg PO Q6H PRN PRN Reason: Pain (moderate 4-6) Last Admin: 05/23/20 07:45 Dose: 5 mg Documented by: Quetiapine Fumarate (Seroquel) 25 mg PO BEDTIME [facility] Last Admin: 05/22/20 20:43 Dose: 25 mg Documented by: Ropinirole HCl (Requip) 0.5 mg PO BEDTIME [facility] Last Admin: 05/22/20 20:43 Dose: 0.5 mg Documented by: Tiotropium [place] (Spiriva Handihaler) 18 mcg INH DAILY [facility] Last Admin: 05/23/20 09:03 Dose: 18 mcg Documented by: Tramadol HCl (Ultram) 50 mg PO Q6H PRN PRN Reason: Pain Last Admin: 05/23/20 05:04 Dose: 50 mg Documented by: Vancomycin HCl (Pharmacy To Dose - Vancomycin) 1 dose .XX ASDIRECTED [facility] Warfarin Sodium (Pharmacy To Dose - Warfarin) 1 dose .XX ASDIRECTED [facility] Discontinued Medications Fentanyl (Sublimaze) 25 mcg IVPUSH Q4H PRN PRN Reason: Pain (severe 7-10) Last Admin: 05/21/20 22:13 Dose: 25 mcg Documented by: Ceftriaxone Sodium 1 gm/ (Sodium Chloride) 50 mls @ 100 mls/hr IV Q24H [facility] Last Infusion: 05/20/20 22:30 Dose: Infused Documented by: Vancomycin HCl 1,500 mg/ (Sodium Chloride) 500 mls @ 333.333 mls/hr IV ONETIME ONE Stop: 05/22/20 18:44 Last Admin: 05/22/20 19:44 Dose: 333.333 mls/hr Documented by: No Warfarin Today () 0 each PO ONETIME ONE Stop: 05/22/20 14:01 Last Admin: 05/22/20 13:54 Dose: Not Given Documented by: Vancomycin HCl (Vancomycin) Confirm Administered Dose 1,500 mg .ROUTE .STK-MED ONE Stop: 05/22/20 19:37 Last Admin: 05/22/20 19:44 Dose: Not Given Documented by: Warfarin Sodium (Coumadin) 0.5 mg PO ONETIME ONE Stop: 05/21/20 14:01 Last Admin: 05/21/20 14:40 Dose: 0.5 mg Documented by: - Exam Quality Assessment: Reports: Supplemental Oxygen General: Reports: Alert, Oriented (To self) HEENT: Reports: Pupils Equal, Pupils Reactive, Mucous Membr. Moist/[place] Neck: Reports: Supple Lungs: Reports: Clear to Auscultation, Normal Respiratory Effort Cardiovascular: Reports: Regular Rate, Regular Rhythm Extremities: Other (Left knee with surgical incision. c/d/i. Swollen and tender. No erythema noted. ) Skin: Reports: Warm, Dry Wound/Incisions: Reports: Healing Well Neurological: Reports: Other (Encephalopathic) *Q Meaningful Use (DIS) - VTE *Q VTE Anticoagulation Contraindications: Alternative [place] Request PT
[2020-05-23 10:38] VITALS: PULSE 83
== END 2020-05-23 10:15 | DRG 689 ==
LOC: DL.MS 16:08
PROVIDERS: ADMIT Student in an Organized Health Care Education/Training Program; ATTEND Internal Medicine
DX: N39.0 Urinary tract infection, site not specified (principal); G93.41 Metabolic encephalopathy; J96.21 Acute and chronic respiratory failure with hypoxia; A41.02 Sepsis due to Methicillin resistant Staphylococcus aureus; M00.9 Pyogenic arthritis, unspecified; J44.1 Chronic obstructive pulmonary disease with (acute) exacerbation; K22.10 Ulcer of esophagus without bleeding; F41.9 Anxiety disorder, unspecified; R33.9 Retention of urine, unspecified; B95.62 Methicillin resistant Staphylococcus aureus infection as the cause of diseases classified elsewhere; I10 Essential (primary) hypertension; Z66 Do not resuscitate; R53.81 Other malaise; H92.20 Otorrhagia, unspecified ear; E78.00 Pure hypercholesterolemia, unspecified; I25.10 Atherosclerotic heart disease of native coronary artery without angina pectoris; G47.30 Sleep apnea, unspecified; K59.09 Other constipation; F32.9 Major depressive disorder, single episode, unspecified; Z96.653 Presence of artificial knee joint, bilateral; Z86.718 Personal history of other venous thrombosis and embolism; Z79.01 Long term (current) use of anticoagulants; Z88.0 Allergy status to penicillin; Z88.5 Allergy status to narcotic agent; Z88.8 Allergy status to other drugs, medicaments and biological substances; Z79.899 Other long term (current) drug therapy; Z87.01 Personal history of pneumonia (recurrent); Z98.49 Cataract extraction status, unspecified eye; Z90.49 Acquired absence of other specified parts of digestive tract; Z23 Encounter for immunization
CPT/HCPCS: 36415; 80048; 80053; 83735; 84100; 85025; 85027; 85610; 85651; 86140; 87040; 94640; 97162-GP; 97166-GO; 99211; 99222; 99232; 99239; A9270-GY; J0696; J2248; J3010; J3370; J7040; J7042; J7050; J7613-GY

== ENCOUNTER 2020-06-02 13:19 | Observation (INO) | payer MEDICARE, MEDICAID, OTHER ==
[2020-06-02] MEDS ORDERED: Morphine 2 MG/ML SYRINGE IVPUSH ONE (14:35)
--- NOTE | 2020-06-02 14:41 | EDM.PDOC ---
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 The patient's family is not able to assist him as much as they predicted upon his recent discharge (05/31/20) from [facility]. The patient reports he continues to have generalized pain, but increased in his left knee. The patient has been getting Tramadol for pain, but it has not been helping too much. The patient reports his pain was controlled while in [facility] with IV Morphine. Onset: Unknown/Unsure Duration: Week(s):, Constant Location: Reports: Lower Extremity, Left, Generalized Quality: Reports: Other Severity: Moderate Improves with: Reports: None Worsens with: Reports: None Context: Reports: Activity Associated Symptoms: Reports: No Other Symptoms - Related Data Allergies Allergy/AdvReac Type Severity Reaction Status Date / Time Penicillins Allergy Unknown SWELLING Verified 06/02/20 13:39 OF LEGS/FEET fentanyl Allergy Hallucinati Verified 06/02/20 14:58 ons hydrocodone Allergy bad dreams Verified 06/02/20 13:39 isosorbide Allergy Other Verified 06/02/20 13:39 lorazepam [From Ativan] Allergy Hallucinati Verified 06/02/20 14:58 ons Home Meds: Home Meds traMADol [Ultram] 100 mg PO TID 12/16/15 [History] Albuterol [Ventolin HFA] 2 puff INH Q6HR PRN 04/25/20 [History] Budesonide/Formoterol [Symbicort 160-4.5 MCG] 2 puff INH BID 04/25/20 [History] Cyclobenzaprine [Flexeril] 10 mg PO TID PRN 04/25/20 [History] Doxazosin [Cardura] 4 mg PO DAILY 04/25/20 [History] Gabapentin [Neurontin] 300 mg PO TID 04/25/20 [History] Metoprolol Succinate 100 mg PO DAILY 04/25/20 [History] Warfarin [Coumadin] 2 mg PO DAILY 04/25/20 [History] atorvaSTATin [Lipitor] 20 mg PO DAILY 04/25/20 [History] rOPINIRole [Requip] 0.5 mg PO BEDTIME 04/25/20 [History] Albuterol [Proventil Neb Soln] 2.5 mg NEB Q6H PRN 04/26/20 [History] Ezetimibe [Zetia] 10 mg PO DAILY 04/26/20 [History] Acetaminophen [Tylenol Extra Strength] 1,000 mg PO Q8H PRN 05/15/20 [History] Esomeprazole Magnesium [Nexium] 40 mg PO BIDAC 05/15/20 [History] Fluticasone Propionate [Flonase] 2 sprays NASBOTH BID PRN 05/15/20 [History] Hydrocortisone [Hydrocortisone 2.5% Crm] 1 applic TOP BID PRN 05/15/20 [History] Nitroglycerin [Nitrostat] 0.4 mg SL Q5M PRN 05/15/20 [History] Tiotropium [Spiriva HandiHaler] 18 mcg INH DAILY 05/15/20 [History] riTUXimab [Rituxan] 100 mg IV ASDIRECTED 05/15/20 [History] Micafungin [Mycamine] 100 mg IV Q24H vial 05/23/20 [Rx] Past Medical History HEENT History: Reports: Cataract, Hard of Hearing, Impaired Vision Other HEENT History: WEARS CORRECTIVE LENSES; UPPER AND LOWER DENTURE PLATE; BILAT HEARING AIDES Cardiovascular History: Reports: Blood Clots/VTE/DVT, CAD, Heart Murmur, High Cholesterol, Hypertension, Other (See Below) Other Cardiovascular History: THROMBOPHLEBITIS Respiratory History: Reports: Bronchitis, Recurrent, COPD, PE, Pneumonia, Recurrent, Sleep Apnea, SOB Gastrointestinal History: Reports: Chronic Constipation, Diverticulosis, Hemorrhoids Genitourinary History: Reports: Prostate Disorder, Retention, Urinary, UTI, Recurrent Musculoskeletal History: Reports: Arthritis, RA, Other (See Below) Other Musculoskeletal History: SCIATICA. 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 - Infectious Disease History Infectious Disease History: Reports: Chicken Pox, Mumps - Past Surgical History Head Surgeries/Procedures: Reports: None HEENT Surgical History: Reports: Adenoidectomy, Cataract Surgery, Oral Surgery, Tonsillectomy Cardiovascular Surgical History: Reports: Coronary Artery Stent Respiratory Surgical History: Reports: Thoracotomy, Other (See Below) Other Respiratory Surgeries/Procedures: PLEURAL BIOPSY GI Surgical History: Reports: Cholecystectomy, Colonoscopy, EGD, Hernia, Inguinal Male Surgical History: Reports: None Endocrine Surgical History: Reports: None Neurological Surgical History: Reports: None Musculoskeletal Surgical History: Reports: Knee Replacement, Other (See Below) Other Musculoskeletal Surgeries/Procedures:: BILATERAL KNEE REPLACMENTS. RESECTION OF OLECRANAL BURSA Oncologic Surgical History: Reports: None Social & Family History - Family History Family Medical History: Noncontributory - Tobacco Use Tobacco Use Status *Q: Never Tobacco User Second Hand Smoke Exposure: No - Caffeine Use Caffeine Use: Reports: None Caffeine Use Comment: 12-14 oz daily - Recreational Drug Use Recreational Drug Use: No - Living Situation & Occupation Living situation: Reports: , with Spouse Occupation: Retired ED ROS GENERAL - Review of Systems Review Of Systems: Comprehensive ROS is negative, except as noted in HPI. ED EXAM, GENERAL - Physical Exam Exam: See Below Exam Limited By: No Limitations General Appearance: Alert, WD/WN, Moderate Distress Eye Exam: Bilateral Eye: EOMI, Normal Inspection, PERRL Ears: Normal External Exam, Normal Canal, Hearing Grossly Normal, Normal TMs Nose: Normal Inspection, Normal Mucosa, No Blood Throat/Mouth: Normal Inspection, Normal Lips, Normal Teeth, Normal Gums, Normal Oropharynx, Normal Voice, No Airway Compromise Head: Atraumatic, Normocephalic Neck: Normal Inspection, Supple, Non-Tender, Full Range of Motion Respiratory/Chest: Lungs Clear, No Accessory Muscle Use, Chest Non-Tender, Decreased Breath Sounds Cardiovascular: Normal Peripheral Pulses, Regular Rate, Rhythm, No Edema, No Gallop, No JVD, No Murmur, No Rub GI/Abdominal: Normal Bowel Sounds, Soft, Non-Tender, No Organomegaly, No Distention, No Abnormal Bruit, No Mass, Pelvis Stable (Male) Exam: Deferred Rectal (Males) Exam: Deferred Back Exam: Normal Inspection, Full Range of Motion, NT Extremities: Leg Pain (left knee pain) Neurological: Alert, Oriented, CN II-XII Intact, Normal Cognition, Normal Gait, Normal Reflexes, No Motor/Sensory Deficits Psychiatric: Normal Affect, Normal Mood Skin Exam: Warm, Dry, Intact, Normal Color, No Rash Lymphatic: No Adenopathy Course - Vital Signs Last Recorded V/S: Last Vital Signs Temp 36.6 C 06/02/20 13:38 Pulse 88 06/02/20 13:38 Resp 15 06/02/20 13:38 BP 133/62 06/02/20 13:38 Pulse Ox 97 06/02/20 13:38 - Orders/Labs/Meds Orders: Active Orders 24 hr Category Date Time Status Admission Diagnosis [ADT] Stat ADT 06/02/20 15:40 Ordered Admission Status [Patient Status] [ADT] Routine ADT 06/02/20 15:40 Ordered CULTURE BLOOD [BC] Stat Lab 06/02/20 14:07 Received UA W/MICROSCOPIC [URIN] Urgent Lab 06/02/20 15:16 Results Labs: Laboratory Tests 06/02/20 06/02/20 06/02/20 Range/Units 14:02 14:07 14:07 WBC 14.9 H (5.0-10.0) 10^3/uL RBC 3.44 L (4.6-6.2) 10^6/uL Hgb 9.4 L (14.0-18.0) g/dL Hct 29.9 L (40.0-54.0) % MCV 86.9 (80-100) fL MCH 27.3 (27.0-34.0) pg MCHC 31.4 L (33.0-35.0) g/dL Plt Count 433 (150-450) 10^3/uL Neut % (Auto) 59.6 (42.2-75.2) % Lymph % (Auto) 20.8 (20.5-50.1) % [place] % (Auto) 16.1 H (2-8) % Eos % (Auto) 3.0 (1.0-3.0) % Baso % (Auto) 0.5 (0.0-1.0) % Add Manual Diff Yes Neutrophils % (Manual) 63 (42-75) % Lymphocytes % (Manual) 22 (20-50) % Monocytes % (Manual) 10 H (2-8) % Eosinophils % (Manual) 3 (1-3) % Basophils % (Manual) 2 Nucleated RBCs 1 /100WBC PT (9.0-12.0) SEC INR (0.9-1.2) Sodium 138 (136-145) mmol/L Potassium 4.0 (3.5-5.1) mmol/L Chloride 101 (98-107) mmol/L Carbon Dioxide 26 (21-32) mmol/L Anion Gap 15.0 H (7-13) mEq/L BUN 11 (7-18) mg/dL Creatinine 0.99 (0.70-1.30) mg/dL Est Cr Clr Drug Dosing 62.53 mL/min Estimated GFR (MDRD) > 60 BUN/Creatinine Ratio 11.1 (No establ ref range) Glucose 81 (74-99) mg/dL Lactic Acid (0.4-2.0) mmol/L Calcium 7.9 L (8.5-10.1) mg/dL Total Bilirubin 1.0 (0.2-1.0) mg/dL AST 54 H (15-37) U/L ALT 35 (16-63) U/L Alkaline Phosphatase 779 H (46-116) U/L Total Protein 4.6 L (6.4-8.2) g/dL Albumin 1.5 L (3.4-5.0) g/dL Globulin 3.1 Albumin/Globulin Ratio 0.48 Urine Color (YELLOW) Urine Appearance (CLEAR) Urine pH (5.0-9.0) Ur Specific [place] (1.005-1.030) Urine Protein (NEGATIVE) Urine Glucose (UA) (NEGATIVE) Urine Ketones (NEGATIVE) Urine Occult Blood (NEGATIVE) Urine Nitrite (NEGATIVE) Urine Bilirubin (NEGATIVE) Urine Urobilinogen (0.2-1.0) mg/dL Ur Leukocyte Esterase (NEGATIVE) SARS CoV-2 RNA Rapid MARTÍNEZ Negative (NEGATIVE) 06/02/20 06/02/20 06/02/20 Range/Units 14:07 14:07 15:16 WBC (5.0-10.0) 10^3/uL RBC (4.6-6.2) 10^6/uL Hgb (14.0-18.0) g/dL Hct (40.0-54.0) % MCV (80-100) fL MCH (27.0-34.0) pg MCHC (33.0-35.0) g/dL Plt Count (150-450) 10^3/uL Neut % (Auto) (42.2-75.2) % Lymph % (Auto) (20.5-50.1) % [place] % (Auto) (2-8) % Eos % (Auto) (1.0-3.0) % Baso % (Auto) (0.0-1.0) % Add Manual Diff Neutrophils % (Manual) (42-75) % Lymphocytes % (Manual) (20-50) % Monocytes % (Manual) (2-8) % Eosinophils % (Manual) (1-3) % Basophils % (Manual) Nucleated RBCs /100WBC PT 19.9 H D (9.0-12.0) SEC INR 2.1 H (0.9-1.2) Sodium (136-145) mmol/L Potassium (3.5-5.1) mmol/L Chloride (98-107) mmol/L Carbon Dioxide (21-32) mmol/L Anion Gap (7-13) mEq/L BUN (7-18) mg/dL Creatinine (0.70-1.30) mg/dL Est Cr Clr Drug Dosing mL/min Estimated GFR (MDRD) BUN/Creatinine Ratio (No establ ref range) Glucose (74-99) mg/dL Lactic Acid 1.4 (0.4-2.0) mmol/L Calcium (8.5-10.1) mg/dL Total Bilirubin (0.2-1.0) mg/dL AST (15-37) U/L ALT (16-63) U/L Alkaline Phosphatase (46-116) U/L Total Protein (6.4-8.2) g/dL Albumin (3.4-5.0) g/dL Globulin Albumin/Globulin Ratio Urine Color Yellow (YELLOW) Urine Appearance Clear (CLEAR) Urine pH 6.0 (5.0-9.0) Ur Specific [place] >= 1.030 (1.005-1.030) Urine Protein 30 H (NEGATIVE) Urine Glucose (UA) Negative (NEGATIVE) Urine Ketones 80 H (NEGATIVE) Urine Occult Blood Trace-intact H (NEGATIVE) Urine Nitrite Negative (NEGATIVE) Urine Bilirubin Moderate H (NEGATIVE) Urine Urobilinogen 1.0 (0.2-1.0) mg/dL Ur Leukocyte Esterase Negative (NEGATIVE) SARS CoV-2 RNA Rapid MARTÍNEZ (NEGATIVE) Meds: Medications Discontinued Medications Generic Name Dose Route Start Last Admin Trade Name Sajnuanita PRN Reason Stop Dose Admin Morphine Sulfate 2 mg 06/02/20 14:35 06/02/20 14:44 Morphine IVPUSH 06/02/20 14:36 2 mg ONETIME ONE Administration Departure - Departure Time of Disposition: 15:42 Disposition: Refer to Observation Condition: Fair Clinical Impression: Pain, Decreased activities of daily living (ADL) - Discharge Information *PRESCRIPTION DRUG MONITORING PROGRAM REVIEWED*: Not Applicable *COPY OF PRESCRIPTION DRUG MONITORING REPORT IN PATIENT SUYAPA: Not Applicable Forms: ED Department Discharge Care Plan Goals: Discussed the patient's history, examination, lab results and treatments with Dr. Alvares. The patient will be admitted to observation at [facility] in [place]. Sepsis Event Note (ED) - Evaluation Sepsis Screening Result: No Definite Risk - Focused Exam Vital Signs: Vital Signs Temp Pulse Resp BP Pulse Ox 06/02/20 13:38 36.6 C 88 15 133/62 97 - My Orders Last 24 Hours: My Active Orders 06/02/20 14:07 CULTURE BLOOD [BC] Stat 06/02/20 15:16 UA W/MICROSCOPIC [URIN] Urgent 06/02/20 15:40 Admission Diagnosis [ADT] Stat Admission Status [Patient Status] [ADT] Routine - Assessment/Plan Last 24 Hours: My Active Orders 06/02/20 14:07 CULTURE BLOOD [BC] Stat 06/02/20 15:16 UA W/MICROSCOPIC [URIN] Urgent 06/02/20 15:40 Admission Diagnosis [ADT] Stat Admission Status [Patient Status] [ADT] Routine
[2020-06-02 14:44] LABS: CHLORIDE,CL 101 mmol/L (98-107); SODIUM,NA 138 mmol/L (136-145)
[2020-06-02] MEDS ORDERED: Albuterol 0.083% 2.5 MG/3 ML Neb Soln NEB PRN (16:24)
[2020-06-02] MEDS ORDERED: Hydrocortisone 2.5% Crm 30 GM Tube TOP PRN (16:24)
[2020-06-02] MEDS ORDERED: Nitroglycerin 0.4 MG Tab.SL SL PRN (16:24)
[2020-06-02] MEDS ORDERED: Albuterol 6.7 GM Inhaler INH PRN (16:24)
[2020-06-02] MEDS ORDERED: Acetaminophen 500 MG Tab PO PRN (16:24)
[2020-06-02] MEDS ORDERED: Fluticasone Propionate Nasal Spray 16 GM Bottle NASBOTH PRN (16:24)
[2020-06-02] MEDS ORDERED: Cyclobenzaprine 10 MG Tab PO PRN (16:24)
--- NOTE | 2020-06-02 17:17 | HP ---
HISTORY OF PRESENT ILLNESS: The patient is a 79-year-old male who was admitted through the emergency room because the patient's family has difficulty with taking care of the patient, and the patient also has difficulty doing his ADLs. The patient was recently discharged from [facility] on 05/31/2020 because of encephalopathy secondary to the pain medication and also for a septic arthritis of the left knee secondary to fungal infection. The patient still is undergoing IV antifungal daily as an outpatient. The patient mentioned that he still has his left knee pain, but he denies any chest pain, shortness of breath, fever, chills, abdominal pain, nausea, vomiting, nor any other complaints. PAST MEDICAL HISTORY: Remarkable for recent urinary tract infection, and the patient has urinary retention, on Meza catheter, and also septic arthritis of the left knee secondary to fungal infection. The patient has history of DVT, coronary artery disease, dyslipidemia, COPD, rheumatoid arthritis. FAMILY HISTORY: Noncontributory. REVIEW OF SYSTEMS: As in HPI. The rest of the review of systems is negative. HOME MEDICATIONS: Ultram, albuterol, Symbicort, Flexeril, doxazosin, gabapentin, metoprolol, Coumadin, Lipitor, Requip, Zetia, Tylenol, Nexium, fluticasone/Flonase, sublingual nitro, Spiriva, and micafungin. ALLERGIES: Penicillin, fentanyl, hydrocodone, isosorbide, and lorazepam. SOCIAL HISTORY: The patient lives with his . Nonsmoker and no alcohol abuse. PHYSICAL EXAMINATION: General: The patient is alert and oriented, not in any acute distress. Vital Signs: Blood pressure is 133/62, pulse 88, respirations of 15, pulse oximetry is 97% on room air, and temperature is 36.6 centigrade. SHEENT: Normocephalic. There are pink palpebral conjunctivae. Sclerae anicteric. No JVD. No lymphadenopathy. Heart: Regular rate and rhythm. Normal S1 and S2. No gallops. No rubs. Lungs: Equal bilaterally. No crackles. No wheezing. Abdomen: Soft, nontender. Bowel sounds positive. Extremities: Negative for any calf tenderness. No signs of cellulitis. Meza catheter in place. LAB WORKUP: CBC: WBC is 14.9, hemoglobin is 9.4, hematocrit is 29.9, platelets are 433. Comp panel: Anion gap is 15, calcium 7.9, AST of 54, alkaline phosphatase is 779, albumin is 1.5, total protein is 4.6. The rest of the panel unremarkable. ADMITTING DIAGNOSES: 1. General debility. 2. Septic arthritis of the left knee secondary to fungal infection. 3. Urinary retention. 4. History of deep venous thrombosis, on anticoagulation with Coumadin. 5. Coronary artery disease. 6. Rheumatoid arthritis. PLAN: The patient is going to be admitted to observation. We will continue with his home medications, and we will consult Olive Grader, i.e., admission to swing bed or senior care placement for continued PT and OT. The patient is a full code. [facility] /[id number]
[2020-06-02] MEDS: Sodium Chloride 0.9% 10 ML Syringe FLUSH PRN (17:59)
[2020-06-02] MEDS: Micafungin 100 MG in Sodium Chloride 0.9% 100 ML IV SCH (17:59)
[2020-06-02] MEDS: Formoterol/Mometasone 200-5 MCG 8.8 GM Inhaler IH SCH (20:21)
[2020-06-02] MEDS: Gabapentin 300 MG Cap PO SCH (20:22)
[2020-06-02] MEDS: traMADol 50 MG Tab PO SCH (20:24)
[2020-06-02] MEDS: atorvaSTATin 20 MG Tab PO SCH (20:24)
[2020-06-02] MEDS: rOPINIRole 0.25 MG Tab PO SCH (20:24)
[2020-06-02] MEDS: Doxazosin 2 MG Tab PO SCH (20:26)
[2020-06-03] MEDS: Omeprazole 20 MG Cap.CR PO SCH ×2 (05:29→16:32)
[2020-06-03] MEDS: Ezetimibe 10 MG Tab PO SCH (08:48)
[2020-06-03] MEDS: Formoterol/Mometasone 200-5 MCG 8.8 GM Inhaler IH SCH ×2 (08:48→20:57)
[2020-06-03] MEDS: Gabapentin 300 MG Cap PO SCH ×3 (08:49→20:49)
[2020-06-03] MEDS: Metoprolol Succinate 50 MG Tab.ER PO SCH (08:49)
[2020-06-03] MEDS: traMADol 50 MG Tab PO SCH ×2 (08:50→20:49)
[2020-06-03] MEDS: Tiotropium Inhaler 18 MCG Inhalation Powder Cap Kit of 5 INH SCH (08:52)
[2020-06-03] MEDS ORDERED: Polyvinyl Alcohol 1.4% Ophth Soln 15 ML Bottle EYEBOTH PRN (09:00)
--- NOTE | 2020-06-03 09:00 | PN ---
DATE: 06/03/2020 SUBJECTIVE: The patient had a good night's sleep. The patient still complains of some left knee pain but denies any other significant complaints. No chest pain, worsening of shortness of breath, abdominal pain, fever, or chills. LABORATORY WORKUP THIS MORNING: Pro time/INR is 2.5. OBJECTIVE: Vital Signs: Blood pressure is 113/61, pulse of 66, respirations 18, temperature of 98, and saturation is 100% on 3 L per nasal cannula. Heart: Regular rate and rhythm. Normal S1 and S2. No gallops. No rubs. Lungs: Diminished breath sounds on both bases but no significant crackles and no wheezing. Abdomen: Soft and nontender. Bowel sounds are positive. Extremities: Remarkable for just trace bilateral pedal edema. No calf tenderness. MEDICATIONS: Reviewed. PLAN: We will continue with his present management, and we will await input from Machine Operations Supervisor regarding discharge planning. [facility] /[id number]
[2020-06-03] MEDS ORDERED: Warfarin 2 MG Tab PO SCH (14:00)
[2020-06-03] MEDS: Micafungin 100 MG in Sodium Chloride 0.9% 100 ML IV SCH (16:30)
[2020-06-03] MEDS: Sodium Chloride 0.9% 10 ML Syringe FLUSH PRN (16:31)
[2020-06-03] MEDS: atorvaSTATin 20 MG Tab PO SCH (20:49)
[2020-06-03] MEDS: rOPINIRole 0.25 MG Tab PO SCH (20:49)
[2020-06-03] MEDS: Doxazosin 2 MG Tab PO SCH (20:52)
[2020-06-04] MEDS: Omeprazole 20 MG Cap.CR PO SCH ×2 (06:09→15:49)
[2020-06-04] MEDS: Formoterol/Mometasone 200-5 MCG 8.8 GM Inhaler IH SCH ×2 (08:12→21:48)
[2020-06-04] MEDS: Tiotropium Inhaler 18 MCG Inhalation Powder Cap Kit of 5 INH SCH (08:12)
[2020-06-04] MEDS: Gabapentin 300 MG Cap PO SCH ×3 (08:13→21:42)
[2020-06-04] MEDS: Metoprolol Succinate 50 MG Tab.ER PO SCH (08:14)
[2020-06-04] MEDS: traMADol 50 MG Tab PO SCH ×2 (08:15→21:42)
[2020-06-04] MEDS: Ezetimibe 10 MG Tab PO SCH (08:16)
--- NOTE | 2020-06-04 08:52 | PN ---
DATE: 06/04/2020 SUBJECTIVE: The patient is doing fairly well. The patient denies any significant ongoing complaint and still has some pain on the left knee, but he did participate with PT and OT yesterday. He denies any chest pain, worsening shortness of breath, abdominal pain, nor any other complaints. OBJECTIVE: Vital Signs: Blood pressure is 107/59, pulse of 63, respirations of 20, temperature of 97.4, saturation is 98% on 2 L. Heart: Regular rate and rhythm. Normal S1 and S2. No gallops. No rubs. Lungs: With diminished breath sounds on both bases, but no crackles, no wheezing. Abdomen: Soft, nontender. Bowel sounds positive. Extremities: Negative for any significant pedal edema. No calf tenderness. MEDICATIONS: Reviewed. PLAN: We will continue with present management and we are still awaiting input where he is going to be discharged, i.e., swing bed versus snf. [facility] /[id number]
[2020-06-04] MEDS: Micafungin 100 MG in Sodium Chloride 0.9% 100 ML IV SCH (18:19)
[2020-06-04] MEDS: Doxazosin 2 MG Tab PO SCH (21:42)
[2020-06-04] MEDS: atorvaSTATin 20 MG Tab PO SCH (21:42)
[2020-06-04] MEDS: rOPINIRole 0.25 MG Tab PO SCH (21:42)
[2020-06-05] MEDS: Omeprazole 20 MG Cap.CR PO SCH (05:12)
[2020-06-05] MEDS: Formoterol/Mometasone 200-5 MCG 8.8 GM Inhaler IH SCH (09:05)
[2020-06-05] MEDS: Tiotropium Inhaler 18 MCG Inhalation Powder Cap Kit of 5 INH SCH (09:05)
[2020-06-05] MEDS: Metoprolol Succinate 50 MG Tab.ER PO SCH (11:20)
[2020-06-05] MEDS: Ezetimibe 10 MG Tab PO SCH (11:20)
[2020-06-05] MEDS: Gabapentin 300 MG Cap PO SCH ×2 (11:20→13:53)
[2020-06-05] MEDS: traMADol 50 MG Tab PO SCH (11:20)
[2020-06-05 13:52] VITALS: BP 123/58; PULSE 66
--- NOTE | 2020-06-05 15:21 | PCM.DCSUM1 ---
Discharge Summary - Hospital Course Free Text/Narrative:: Patient is a 79-year-old male with a medical history of urinary retention on chronic Meza catheter, rheumatoid arthritis, COPD, dyslipidemia, CAD, DVT on Coumadin, recent urinary tract infection and recent septic arthritis of the left knee secondary to fungal infection who was admitted due to failure to thrive at home and difficulty with ADLs. Patient had his antifungal was continued. He noticed improvement in his left lower extremity pain and swelling. Hospitalization course was unremarkable. He was discharged to swing bed. Diagnosis: Stroke: No - Discharge Data Discharge Date: 06/05/20 Discharge Disposition: DC/Tfer W/I Hosp To [place] [id number] Condition: Good - Referral to Home Health Primary Care Physician: PCP None - Patient Summary/Data Consults: Consultations 06/02/20 16:19 OT Evaluation and Treatment [CONS] Routine PT Evaluation and Treatment [CONS] Routine - Discharge Plan *PRESCRIPTION DRUG MONITORING PROGRAM REVIEWED*: Not Applicable *COPY OF PRESCRIPTION DRUG MONITORING REPORT IN PATIENT SUYAPA: Not Applicable Home Medications: Home Meds traMADol [Ultram] 100 mg PO BID 12/16/15 [History] Albuterol [Ventolin HFA] 2 puff INH Q6HR PRN 04/25/20 [History] Budesonide/Formoterol [Symbicort 160-4.5 MCG] 2 puff INH BID 04/25/20 [History] Cyclobenzaprine [Flexeril] 10 mg PO TID PRN 04/25/20 [History] Doxazosin [Cardura] 4 mg PO BEDTIME 04/25/20 [History] Gabapentin [Neurontin] 300 mg PO TID 04/25/20 [History] Metoprolol Succinate 100 mg PO DAILY 04/25/20 [History] Warfarin [Coumadin] 2 mg PO .TUWETHSASU 04/25/20 [History] atorvaSTATin [Lipitor] 20 mg PO BEDTIME 04/25/20 [History] rOPINIRole [Requip] 0.5 mg PO BEDTIME 04/25/20 [History] Albuterol [Proventil Neb Soln] 2.5 mg NEB Q6H PRN 04/26/20 [History] Ezetimibe [Zetia] 10 mg PO DAILY 04/26/20 [History] Acetaminophen [Tylenol Extra Strength] 1,000 mg PO Q8H PRN 05/15/20 [History] Esomeprazole Magnesium [Nexium] 40 mg PO BIDAC 05/15/20 [History] Fluticasone Propionate [Flonase] 2 sprays NASBOTH BID PRN 05/15/20 [History] Hydrocortisone [Hydrocortisone 2.5% Crm] 1 applic TOP BID PRN 05/15/20 [History] Nitroglycerin [Nitrostat] 0.4 mg SL Q5M PRN 05/15/20 [History] Tiotropium [Spiriva HandiHaler] 18 mcg INH DAILY 05/15/20 [History] riTUXimab [Rituxan] 100 mg IV ASDIRECTED 05/15/20 [History] Polyvinyl Alcohol [Liquitears] 2 drop EYEBOTH ASDIRECTED 06/02/20 [History] Warfarin [Coumadin] 3 mg PO .MONFRI 06/03/20 [History] Referrals: PCP,None [Primary Care Provider] - - Discharge Summary/Plan Comment DC Time >30 min.: Yes - General Info Date of Service: 06/05/20 Admission Dx/Problem (Free Text: Septic arthritis Subjective Update: Patient seen and examined today. Reports that his leg swelling and pain is improving. Functional Status: Reports: Pain Controlled - Review of Systems General: Reports: No Symptoms HEENT: Reports: No Symptoms Pulmonary: Reports: Shortness of Breath Cardiovascular: Reports: No Symptoms Gastrointestinal: Reports: No Symptoms Genitourinary: Reports: No Symptoms Musculoskeletal: Reports: Leg Pain, Joint Swelling Skin: Reports: No Symptoms (Heart failure) Neurological: Reports: No Symptoms Psychiatric: Reports: No Symptoms - Patient Data Vitals - Most Recent: Last Vital Signs Temp 98.6 F 06/05/20 12:00 Pulse 66 06/05/20 12:00 Resp 16 06/05/20 12:00 BP 123/58 L 06/05/20 12:00 Pulse Ox 100 06/05/20 12:00 Weight - Most Recent: 160 lb 9.6 oz I&O - Last 24 hours: Intake & Output 06/05/20 06/05/20 06/05/20 06:59 14:59 22:59 Intake Total 225 120 Output Total 325 175 Balance -100 -55 Lab Results - Last 24 hrs: Laboratory Results - last 24 hr 06/05/20 Range/Units 05:50 PT 29.9 H (9.0-12.0) SEC INR 3.2 H (0.9-1.2) RUDDY Results - Last 24 hrs: Microbiology 06/02/20 14:07 Aerobic Blood Culture - Preliminary Blood - Picc Line NO GROWTH AFTER 3 DAYS Anaerobic Blood Culture - Preliminary NO GROWTH AFTER 3 DAYS Med Orders - Current: Current Medications Acetaminophen (Tylenol Extra Strength) 1,000 mg PO Q8H PRN PRN Reason: Pain (moderate 4-6) Albuterol (Proventil Neb Soln) 2.5 mg NEB Q6H PRN PRN Reason: Wheezing Albuterol (Proventil Hfa) 0 gm INH Q6HR PRN PRN Reason: Wheezing Artificial Tears (Liquitears 1.4% Ophth Soln) 0 ml EYEBOTH QID PRN PRN Reason: dry eyes Atorvastatin Calcium (Lipitor) 20 mg PO BEDTIME [facility] Last Admin: 06/04/20 21:42 Dose: 20 mg Documented by: Cyclobenzaprine HCl (Flexeril) 10 mg PO TID PRN PRN Reason: Spasms Doxazosin Mesylate (Cardura) 4 mg PO BEDTIME [facility] Last Admin: 06/04/20 21:42 Dose: 4 mg Documented by: Ezetimibe (Zetia) 10 mg PO DAILY [facility] Last Admin: 06/05/20 11:20 Dose: Not Given Documented by: Fluticasone Propionate (Flonase) 0 gm NASBOTH BID PRN PRN Reason: allergy relief Gabapentin (Neurontin) 300 mg PO TID [facility] Last Admin: 06/05/20 13:53 Dose: Not Given Documented by: Hydrocortisone (Hydrocortisone 2.5% Crm) 0 gm TOP BID PRN PRN Reason: itchy Micafungin Sodium 100 mg/ (Sodium Chloride) 100 mls @ 100 mls/hr IV Q24H [facility] Stop: 06/16/20 17:59 Last Admin: 06/04/20 18:19 Dose: 100 mls/hr Documented by: Metoprolol Succinate (Toprol Xl) 100 mg PO DAILY [facility] Last Admin: 06/05/20 11:20 Dose: Not Given Documented by: Mometasone Furoate/Formoterol Fumar (Dulera 200-5 Mcg) 2 puff IH BID [facility] Last Admin: 06/05/20 09:05 Dose: 2 puff Documented by: Nitroglycerin (Nitrostat) 0.4 mg SL Q5M PRN PRN Reason: Chest Pain Omeprazole (Omeprazole) 40 mg PO BIDAC [facility] Last Admin: 06/05/20 05:12 Dose: 40 mg Documented by: Ropinirole HCl (Requip) 0.5 mg PO BEDTIME [facility] Last Admin: 06/04/20 21:42 Dose: 0.5 mg Documented by: Sodium Chloride (Saline Flush) 10 ml FLUSH ASDIRECTED PRN PRN Reason: Keep Vein Open Last Admin: 06/03/20 16:31 Dose: 10 ml Documented by: Tiotropium [place] (Spiriva Handihaler) 18 mcg INH DAILY [facility] Last Admin: 06/05/20 09:05 Dose: 18 mcg Documented by: Tramadol HCl (Ultram) 100 mg PO BID [facility] Last Admin: 06/05/20 11:20 Dose: Not Given Documented by: Warfarin Sodium (Pharmacy To Dose - Warfarin) 0 dose PO ASDIRECTED [facility] Discontinued Medications Micafungin Sodium (Mycamine) 100 mg IV Q24H [facility] Morphine Sulfate (Morphine) 2 mg IVPUSH ONETIME ONE Stop: 06/02/20 14:36 Last Admin: 06/02/20 14:44 Dose: 2 mg Documented by: No Warfarin Today () 0 each PO ONETIME ONE Stop: 06/04/20 14:01 Last Admin: 06/04/20 15:41 Dose: Not Given Documented by: No Warfarin Today () 0 each PO ONETIME ONE Stop: 06/05/20 14:01 Last Admin: 06/05/20 13:54 Dose: Not Given Documented by: Warfarin Sodium (Coumadin) 2 mg PO DAILY@1400 [facility] Warfarin Sodium (Coumadin) 3 mg PO ONETIME ONE Stop: 06/03/20 14:01 Last Admin: 06/03/20 14:57 Dose: 3 mg Documented by: - Exam Quality Assessment: Reports: Supplemental Oxygen General: Reports: Alert, Oriented HEENT: Reports: Pupils Equal, Pupils Reactive, EOMI, Mucous Membr. Moist/[place] Neck: Reports: Supple Lungs: Reports: Clear to Auscultation, Normal Respiratory Effort Cardiovascular: Reports: Regular Rate, Regular Rhythm GI/Abdominal Exam: Normal Bowel Sounds, Soft, Non-Tender, No Organomegaly, No Distention, No Abnormal Bruit, No Mass, Pelvis Stable Back Exam: Reports: Normal Inspection, Full Range of Motion Extremities: Pedal Edema, Leg Pain Skin: Reports: Warm, Dry, Intact Neurological: Reports: No New Focal Deficit Psy/Mental Status: Reports: Alert, Normal Affect, Normal Mood
== END 2020-06-05 15:35 | disposition swing bed (61) ==
LOC: DL.ED 13:19 → DL.MS 15:45
PROVIDERS: ADMIT Internal Medicine; ATTEND Internal Medicine
DX: B99.8 Other infectious disease (principal); M01.X62 Direct infection of left knee in infectious and parasitic diseases classified elsewhere; R33.9 Retention of urine, unspecified; I25.10 Atherosclerotic heart disease of native coronary artery without angina pectoris; M06.9 Rheumatoid arthritis, unspecified; R62.7 Adult failure to thrive; Z20.828 Contact with and (suspected) exposure to other viral communicable diseases; Z86.718 Personal history of other venous thrombosis and embolism; Z79.01 Long term (current) use of anticoagulants; Z68.22 Body mass index [BMI] 22.0-22.9, adult
CPT/HCPCS: 36415; 80053; 81001; 83605; 85025; 85610; 87040; 96365; 96366; 96374; 97116; 97162; 97166; 97530; 99211; 99217; 99219; 99224; 99284; A9270; G0378; J2248; J2270; U0002

== ENCOUNTER 2020-06-05 12:29 | Inpatient (IN) | payer MEDICARE, MEDICAID ==
[2020-06-05] MEDS ORDERED: Polyvinyl Alcohol 1.4% Ophth Soln 15 ML Bottle EYEBOTH PRN (15:22)
[2020-06-05] MEDS ORDERED: Albuterol 6.7 GM Inhaler INH PRN (15:22)
[2020-06-05] MEDS ORDERED: Albuterol 0.083% 2.5 MG/3 ML Neb Soln NEB PRN (15:22)
[2020-06-05] MEDS ORDERED: Fluticasone Propionate Nasal Spray 16 GM Bottle NASBOTH PRN (15:22)
[2020-06-05] MEDS ORDERED: Cyclobenzaprine 10 MG Tab PO PRN (15:22)
[2020-06-05] MEDS ORDERED: Sodium Chloride 0.9% 10 ML Syringe FLUSH PRN (15:22)
[2020-06-05] MEDS ORDERED: Nitroglycerin 0.4 MG Tab.SL SL PRN (15:22)
--- NOTE | 2020-06-05 15:27 | PCM.HP ---
H&P History of Present Illness - General Date of Service: 06/05/20 Admit Problem/Dx: Admission Diagnosis/Problem Admission Diagnosis/Problem Left knee Pain Source of Information: Patient, EMS History Limitations: Reports: No Limitations - History of Present Illness Initial Comments - Free Text/Narative: Patient is a 79-year-old male with a medical history of urinary retention on chronic Meza catheter, rheumatoid arthritis, COPD, dyslipidemia, CAD, DVT on Coumadin, recent urinary tract infection and recent septic arthritis of the left knee secondary to fungal infection who was initially admitted due to failure to thrive at home and difficulty with ADLs. Hospitalization course was unremarkable. He was discharged to swing bed today to continue his IV antifungal. Patient currently complains of mild pain in his left knee associated with swelling of the left lower leg. He denies fever, nausea, vomiting, dysuria, abdominal pain. - Related Data Allergies/Adverse Reactions: Allergies Allergy/AdvReac Type Severity Reaction Status Date / Time Penicillins Allergy Unknown SWELLING Verified 06/05/20 13:46 OF LEGS/FEET fentanyl Allergy Hallucinati Verified 06/05/20 13:46 ons hydrocodone Allergy bad dreams Verified 06/05/20 13:46 isosorbide Allergy Other Verified 06/05/20 13:46 lorazepam [From Ativan] Allergy Hallucinati Verified 06/05/20 13:46 ons Home Medications: Home Meds traMADol [Ultram] 100 mg PO BID 12/16/15 [History] Albuterol [Ventolin HFA] 2 puff INH Q6HR PRN 04/25/20 [History] Budesonide/Formoterol [Symbicort 160-4.5 MCG] 2 puff INH BID 04/25/20 [History] Cyclobenzaprine [Flexeril] 10 mg PO TID PRN 04/25/20 [History] Doxazosin [Cardura] 4 mg PO BEDTIME 04/25/20 [History] Gabapentin [Neurontin] 300 mg PO TID 04/25/20 [History] Metoprolol Succinate 100 mg PO DAILY 04/25/20 [History] Warfarin [Coumadin] 2 mg PO .TUWETHSASU 04/25/20 [History] atorvaSTATin [Lipitor] 20 mg PO BEDTIME 04/25/20 [History] rOPINIRole [Requip] 0.5 mg PO BEDTIME 04/25/20 [History] Albuterol [Proventil Neb Soln] 2.5 mg NEB Q6H PRN 04/26/20 [History] Ezetimibe [Zetia] 10 mg PO DAILY 04/26/20 [History] Acetaminophen [Tylenol Extra Strength] 1,000 mg PO Q8H PRN 05/15/20 [History] Esomeprazole Magnesium [Nexium] 40 mg PO BIDAC 05/15/20 [History] Fluticasone Propionate [Flonase] 2 sprays NASBOTH BID PRN 05/15/20 [History] Hydrocortisone [Hydrocortisone 2.5% Crm] 1 applic TOP BID PRN 05/15/20 [History] Nitroglycerin [Nitrostat] 0.4 mg SL Q5M PRN 05/15/20 [History] Tiotropium [Spiriva HandiHaler] 18 mcg INH DAILY 05/15/20 [History] riTUXimab [Rituxan] 100 mg IV ASDIRECTED 05/15/20 [History] Polyvinyl Alcohol [Liquitears] 2 drop EYEBOTH ASDIRECTED 06/02/20 [History] Warfarin [Coumadin] 3 mg PO .MONFRI 06/03/20 [History] Past Medical History HEENT History: Reports: Cataract, Hard of Hearing, Impaired Vision Other HEENT History: WEARS CORRECTIVE LENSES; UPPER AND LOWER DENTURE PLATE; BILAT HEARING AIDES Cardiovascular History: Reports: Blood Clots/VTE/DVT, CAD, Heart Murmur, High Cholesterol, Hypertension, Other (See Below) Other Cardiovascular History: THROMBOPHLEBITIS Respiratory History: Reports: Bronchitis, Recurrent, COPD, PE, Pneumonia, Recurrent, Sleep Apnea, SOB Gastrointestinal History: Reports: Chronic Constipation, Diverticulosis, Hemorrhoids Genitourinary History: Reports: Prostate Disorder, Retention, Urinary, UTI, Recurrent Musculoskeletal History: Reports: Arthritis, RA, Other (See Below) Other Musculoskeletal History: SCIATICA. 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 - Infectious Disease History Infectious Disease History: Reports: Chicken Pox, Mumps - Past Surgical History Head Surgeries/Procedures: Reports: None HEENT Surgical History: Reports: Adenoidectomy, Cataract Surgery, Oral Surgery, Tonsillectomy Cardiovascular Surgical History: Reports: Coronary Artery Stent Respiratory Surgical History: Reports: Thoracotomy, Other (See Below) Other Respiratory Surgeries/Procedures: PLEURAL BIOPSY GI Surgical History: Reports: Cholecystectomy, Colonoscopy, EGD, Hernia, Inguinal Male Surgical History: Reports: None Endocrine Surgical History: Reports: None Neurological Surgical History: Reports: None Musculoskeletal Surgical History: Reports: Knee Replacement, Other (See Below) Other Musculoskeletal Surgeries/Procedures:: BILATERAL KNEE REPLACMENTS. RESECTION OF OLECRANAL BURSA Oncologic Surgical History: Reports: None Social & Family History - Family History Family Medical History: Noncontributory - Tobacco Use Tobacco Use Status *Q: Former Tobacco User Used Tobacco, but Quit: Yes Month/Year Tobacco Last Used: August 2009 Second Hand Smoke Exposure: No - Caffeine Use Caffeine Use: Reports: None Caffeine Use Comment: 12-14 oz daily - Recreational Drug Use Recreational Drug Use: No - Living Situation & Occupation Living situation: Reports: , with Spouse Occupation: Retired H&P Review of Systems - Review of Systems: Review Of Systems: See Below General: Reports: No Symptoms HEENT: Reports: No Symptoms Pulmonary: Reports: No Symptoms Cardiovascular: Reports: No Symptoms Gastrointestinal: Reports: No Symptoms Genitourinary: Reports: No Symptoms Musculoskeletal: Reports: Joint Pain, Joint Swelling Skin: Reports: No Symptoms Psychiatric: Reports: No Symptoms Neurological: Reports: No Symptoms Hematologic/Lymphatic: Reports: No Symptoms Immunologic: Reports: No Symptoms Exam - Exam Exam: See Below - Vital Signs Weight: 160 lb 9.6 oz - Exam Quality Assessment: Supplemental Oxygen General: Alert, Oriented, 4 HEENT: PERRLA, Hearing Intact, Mucosa Moist & [place], Nares Patent, Normal Nasal Septum, Posterior Pharynx Clear, Conjunctiva Clear, EOMI, EACs Clear, TMs Clear Neck: Supple, Trachea Midline, 2 Lungs: Clear to Auscultation, Normal Respiratory Effort Cardiovascular: Regular Rate, Regular Rhythm GI/Abdominal Exam: Normal Bowel Sounds, Soft, Non-Tender, No Organomegaly, No Distention, No Abnormal Bruit, No Mass, Pelvis Stable Back Exam: Normal Inspection, Full Range of Motion, NT Extremities: Other (Left lower extremity edema which differential warmth. Mild tenderness to left knee.) Skin: Warm, Dry, Intact Neurological: Cranial Nerves Intact, Reflexes Equal Bilateral Neuro Extensive - Mental Status: Alert, Oriented x3, Normal Mood/Affect, Normal Cognition Neuro Extensive - Motor, Sensory, Reflexes: CN II-XII Intact, Normal Gait, Normal Reflexes Psychiatric: Alert, Normal Affect, Normal Mood - Patient Data Result Diagrams: 06/05/20 05:50 06/05/20 05:50 Problem List Initiated/Reviewed/Updated: Yes Orders Last 24hrs: Active Orders 24 hr Category Date Time Status Patient Status [ADT] Routine ADT 06/05/20 15:25 Ordered Communication Order [RC] ROUTINE Care 06/05/20 15:22 Ordered Intake and Output [RC] QSHIFT Care 06/05/20 15:22 Ordered Oxygen Therapy [RC] PRN Care 06/05/20 15:22 Ordered RT Aerosol Therapy [RC] ASDIRECTED Care 06/05/20 15:22 Ordered RT Aerosol Therapy [RC] ASDIRECTED Care 06/05/20 15:22 Ordered RT Post Treatment Assessment [RC] Click to Edit Care 06/05/20 15:22 Ordered RT Post Treatment Assessment [RC] Click to Edit Care 06/05/20 15:22 Ordered RT Pre-Treatment Assessment [RC] Click to Edit Care 06/05/20 15:22 Ordered RT Pre-Treatment Assessment [RC] Click to Edit Care 06/05/20 15:22 Ordered Supplement (Dietary) [Dietary Supplements] [RC] BIDAC Care 06/05/20 15:22 Ordered Up ad Zuly [RC] ASDIRECTED Care 06/05/20 15:22 Ordered Urinary Catheter Assessment [RC] ASDIRECTED Care 06/05/20 15:22 Ordered VTE/DVT Education [RC] PER UNIT ROUTINE Care 06/05/20 15:22 Ordered Vital Signs [RC] QSHIFT Care 06/05/20 15:26 Ordered OT Evaluation and Treatment [CONS] Routine Cons 06/05/20 15:22 Ordered PT Evaluation and Treatment [CONS] Routine Cons 06/05/20 15:22 Ordered Pureed Diet [DIET] Diet 06/05/20 Dinner Ordered BASIC METABOLIC PANEL,BMP [CHEM] Routine Lab 06/05/20 15:22 Ordered CBC W/O DIFF,HEMOGRAM [HEME] Routine Lab 06/05/20 15:22 Ordered INR,PT,PROTHROMBIN TIME [COAG] DAILY Lab 06/06/20 06:00 Ordered INR,PT,PROTHROMBIN TIME [COAG] DAILY Lab 06/07/20 06:00 Ordered INR,PT,PROTHROMBIN TIME [COAG] DAILY Lab 06/08/20 06:00 Ordered INR,PT,PROTHROMBIN TIME [COAG] DAILY Lab 06/09/20 06:00 Ordered INR,PT,PROTHROMBIN TIME [COAG] DAILY Lab 06/10/20 06:00 Ordered Acetaminophen [Tylenol Extra Strength] Med 06/05/20 15:22 Ordered 1,000 mg PO Q8H PRN Albuterol [Proventil HFA] Med 06/05/20 15:22 Ordered 1 gm INH Q6HR PRN Albuterol [Proventil Neb Soln] Med 06/05/20 15:22 Ordered 2.5 mg NEB Q6H PRN Cyclobenzaprine [Flexeril] Med 06/05/20 15:22 Ordered 10 mg PO TID PRN Doxazosin [Cardura] Med 06/05/20 21:00 Ordered 4 mg PO BEDTIME Ezetimibe [Zetia] Med 06/06/20 09:00 Ordered 10 mg PO DAILY Fluticasone Propionate [Flonase] Med 06/05/20 15:22 Ordered 1 gm NASBOTH BID PRN Gabapentin [Neurontin] Med 06/05/20 21:00 Ordered 300 mg PO TID Hydrocortisone [Hydrocortisone 2.5% Crm] Med 06/05/20 15:22 Ordered 1 gm TOP BID PRN Metoprolol Succinate [Toprol XL] Med 06/06/20 09:00 Ordered 100 mg PO DAILY Micafungin [Mycamine] 100 mg Med 06/05/20 17:00 Ordered Sodium Chloride 0.9% [Normal Saline] 100 ml IV Q24H Mometasone/Formoterol [Dulera 200-5 MCG] Med 06/05/20 21:00 Ordered 2 puff IH BID Nitroglycerin [Nitrostat] Med 06/05/20 15:22 Ordered 0.4 mg SL Q5M PRN Omeprazole Med 06/05/20 16:00 Ordered 40 mg PO BIDAC Pharmacy to Dose - Warfarin Med 06/05/20 15:22 Pending See Dose Instructions PO ASDIRECTED Polyvinyl Alcohol [LiquiTears 1.4% Ophth Soln] Med 06/05/20 15:22 Ordered 1 ml EYEBOTH QID PRN Sodium Chloride 0.9% [Saline Flush] Med 06/05/20 15:22 Ordered 10 ml FLUSH ASDIRECTED PRN Sodium Chloride 0.9% [Saline Flush] Med 06/05/20 15:22 Ordered 10 ml FLUSH ASDIRECTED PRN Tiotropium [Spiriva HandiHaler] Med 06/06/20 09:00 Ordered 18 mcg INH DAILY atorvaSTATin [Lipitor] Med 06/05/20 21:00 Ordered 20 mg PO BEDTIME rOPINIRole [Requip] Med 06/05/20 21:00 Ordered 0.5 mg PO BEDTIME traMADol [Ultram] Med 06/05/20 21:00 Ordered 100 mg PO BID Saline Lock Insert [OM.PC] Routine Oth 06/05/20 15:22 Ordered Resuscitation Status Routine Resus Stat 06/05/20 15:25 Ordered Medication Orders Acetaminophen (Tylenol Extra Strength) 1,000 mg PO Q8H PRN PRN Reason: Pain (moderate 4-6) Albuterol (Proventil Neb Soln) 2.5 mg NEB Q6H PRN PRN Reason: Wheezing Albuterol (Proventil Hfa) 1 gm INH Q6HR PRN PRN Reason: Wheezing Artificial Tears (Liquitears 1.4% Ophth Soln) 1 ml EYEBOTH QID PRN PRN Reason: dry eyes Atorvastatin Calcium (Lipitor) 20 mg PO BEDTIME [facility] Cyclobenzaprine HCl (Flexeril) 10 mg PO TID PRN PRN Reason: Spasms Doxazosin Mesylate (Cardura) 4 mg PO BEDTIME [facility] Ezetimibe (Zetia) 10 mg PO DAILY [facility] Fluticasone Propionate (Flonase) 1 gm NASBOTH BID PRN PRN Reason: allergy relief Gabapentin (Neurontin) 300 mg PO TID [facility] Hydrocortisone (Hydrocortisone 2.5% Crm) 1 gm TOP BID PRN PRN Reason: itchy Micafungin Sodium 100 mg/ (Sodium Chloride) 100 mls @ 100 mls/hr IV Q24H [facility] Stop: 06/16/20 17:59 Metoprolol Succinate (Toprol Xl) 100 mg PO DAILY [facility] Mometasone Furoate/Formoterol Fumar (Dulera 200-5 Mcg) 2 puff IH BID [facility] Nitroglycerin (Nitrostat) 0.4 mg SL Q5M PRN PRN Reason: Chest Pain Omeprazole (Omeprazole) 40 mg PO BIDAC [facility] Ropinirole HCl (Requip) 0.5 mg PO BEDTIME [facility] Sodium Chloride (Saline Flush) 10 ml FLUSH ASDIRECTED PRN PRN Reason: Keep Vein Open Sodium Chloride (Saline Flush) 10 ml FLUSH ASDIRECTED PRN PRN Reason: Keep Vein Open Tiotropium [place] (Spiriva Handihaler) 18 mcg INH DAILY [facility] Tramadol HCl (Ultram) 100 mg PO BID [facility] Warfarin Sodium (Pharmacy To Dose - Warfarin) 0 dose PO ASDIRECTED [facility] Assessment/Plan Comment:: Left knee septic arthritis Continue antifungal medication Follow-up with infectious disease outpatient Monitor CBC COPD Continue inhalers/nebs Hypertension Continue antihypertensives Hyperlipidemia Continue home medication History of DVT Continue Coumadin
[2020-06-05] MEDS: Omeprazole 20 MG Cap.CR PO SCH (16:48)
[2020-06-05 17:06] LABS: ANION GAP 8.5 mEq/L (7-13); CHLORIDE,CL 102 mmol/L (98-107); SODIUM,NA 139 mmol/L (136-145)
[2020-06-05] MEDS: Micafungin 100 MG in Sodium Chloride 0.9% 100 ML IV SCH (17:25)
[2020-06-05] MEDS: Doxazosin 2 MG Tab PO SCH ×2 (21:52→22:14)
[2020-06-05] MEDS: rOPINIRole 0.25 MG Tab PO SCH ×2 (21:53→22:15)
[2020-06-05] MEDS: traMADol 50 MG Tab PO SCH ×2 (21:53→22:13)
[2020-06-05] MEDS: atorvaSTATin 20 MG Tab PO SCH ×2 (21:53→22:15)
[2020-06-05] MEDS: Gabapentin 300 MG Cap PO SCH ×2 (21:53→22:14)
[2020-06-05] MEDS: Sodium Chloride 0.9% 10 ML Syringe FLUSH PRN (22:02)
[2020-06-05] MEDS: Formoterol/Mometasone 200-5 MCG 8.8 GM Inhaler IH SCH (22:03)
[2020-06-06] MEDS: Omeprazole 20 MG Cap.CR PO SCH (06:50)
[2020-06-06 07:04] LABS: ANION GAP 8.7 mEq/L (7-13); CHLORIDE,CL 102 mmol/L (98-107); SODIUM,NA 138 mmol/L (136-145)
[2020-06-06] MEDS ORDERED: Magnesium Sulfate/Water 2 GM in Premix Bag 1 BAG IV ONE (10:00)
[2020-06-06] MEDS: Formoterol/Mometasone 200-5 MCG 8.8 GM Inhaler IH SCH ×2 (10:24→21:46)
[2020-06-06] MEDS: Metoprolol Succinate 50 MG Tab.ER PO SCH (10:25)
[2020-06-06] MEDS: Tiotropium Inhaler 18 MCG Inhalation Powder Cap Kit of 5 INH SCH (10:25)
[2020-06-06] MEDS: Ezetimibe 10 MG Tab PO SCH (10:25)
[2020-06-06] MEDS: traMADol 50 MG Tab PO SCH ×2 (10:26→21:46)
[2020-06-06] MEDS: Gabapentin 300 MG Cap PO SCH ×3 (10:26→21:46)
[2020-06-06] MEDS: Glucagon,Human Recombinant 1 MG Vial IVPUSH PRN ×2 (11:31→11:51)
[2020-06-06] MEDS ORDERED: Pantoprazole 40 MG in Sodium Chloride 0.9% 100 ML IV ONE (12:25)
[2020-06-06] MEDS: Pantoprazole 40 MG Vial IV SCH (12:50)
[2020-06-06] MEDS: Morphine 2 MG/ML SYRINGE IVPUSH PRN ×3 (13:20→21:44)
[2020-06-06] MEDS: Sucralfate Suspension 1 GM/10 ML Cup PO SCH (16:04)
[2020-06-06] MEDS: Sodium Chloride 0.9% 1,000 ML IV SCH (16:15)
[2020-06-06] MEDS: Micafungin 100 MG in Sodium Chloride 0.9% 100 ML IV SCH (17:12)
[2020-06-06] MEDS ORDERED: Enoxaparin 80 MG/0.8 ML Syringe SUBCUT SCH (21:00)
[2020-06-06] MEDS: Enoxaparin 60 MG/0.6 ML Syringe SUBCUT SCH (21:45)
[2020-06-06] MEDS: rOPINIRole 0.25 MG Tab PO SCH (21:46)
[2020-06-06] MEDS: atorvaSTATin 20 MG Tab PO SCH (21:46)
[2020-06-06] MEDS: Doxazosin 2 MG Tab PO SCH (21:46)
[2020-06-07] MEDS: Morphine 2 MG/ML SYRINGE IVPUSH PRN ×6 (01:42→21:31)
[2020-06-07] MEDS: Hydrocortisone 2.5% Crm 30 GM Tube TOP PRN (02:59)
[2020-06-07] MEDS: Sodium Chloride 0.9% 1,000 ML IV SCH ×2 (05:50→20:28)
[2020-06-07] MEDS: Sucralfate Suspension 1 GM/10 ML Cup PO SCH ×3 (06:31→15:56)
[2020-06-07] MEDS: Formoterol/Mometasone 200-5 MCG 8.8 GM Inhaler IH SCH ×2 (09:21→21:31)
[2020-06-07] MEDS: Pantoprazole 40 MG Vial IV SCH (09:26)
[2020-06-07] MEDS: Enoxaparin 60 MG/0.6 ML Syringe SUBCUT SCH ×2 (09:26→21:31)
[2020-06-07] MEDS: traMADol 50 MG Tab PO SCH ×2 (09:34→20:34)
[2020-06-07] MEDS: Ezetimibe 10 MG Tab PO SCH (09:34)
[2020-06-07] MEDS: Metoprolol Succinate 50 MG Tab.ER PO SCH (09:34)
[2020-06-07] MEDS: Gabapentin 300 MG Cap PO SCH ×3 (09:34→20:34)
[2020-06-07] MEDS: Tiotropium Inhaler 18 MCG Inhalation Powder Cap Kit of 5 INH SCH (09:36)
[2020-06-07] MEDS ORDERED: Acetaminophen 650 MG Supp RECTAL PRN (10:26)
[2020-06-07] MEDS: Micafungin 100 MG in Sodium Chloride 0.9% 100 ML IV SCH ×2 (17:36→18:53)
[2020-06-07] MEDS: Doxazosin 2 MG Tab PO SCH (20:33)
[2020-06-07] MEDS: rOPINIRole 0.25 MG Tab PO SCH (20:34)
[2020-06-07] MEDS: atorvaSTATin 20 MG Tab PO SCH (20:34)
[2020-06-08] MEDS: Morphine 2 MG/ML SYRINGE IVPUSH PRN ×6 (01:02→22:02)
[2020-06-08] MEDS: Sucralfate Suspension 1 GM/10 ML Cup PO SCH ×3 (05:15→15:50)
[2020-06-08 07:30] LABS: ANION GAP 13.1 mEq/L (7-13); CHLORIDE,CL 100 mmol/L (98-107); SODIUM,NA 135 mmol/L (136-145)
[2020-06-08] MEDS: Enoxaparin 60 MG/0.6 ML Syringe SUBCUT SCH ×2 (08:48→21:10)
[2020-06-08] MEDS: Pantoprazole 40 MG Vial IV SCH (08:48)
[2020-06-08] MEDS: Formoterol/Mometasone 200-5 MCG 8.8 GM Inhaler IH SCH ×2 (08:49→21:09)
[2020-06-08] MEDS: Metoprolol Succinate 50 MG Tab.ER PO SCH (09:33)
[2020-06-08] MEDS: traMADol 50 MG Tab PO SCH ×2 (09:33→21:24)
[2020-06-08] MEDS: Ezetimibe 10 MG Tab PO SCH (09:33)
[2020-06-08] MEDS: Gabapentin 300 MG Cap PO SCH ×3 (09:34→21:24)
[2020-06-08] MEDS: Tiotropium Inhaler 18 MCG Inhalation Powder Cap Kit of 5 INH SCH (09:35)
[2020-06-08] MEDS: Sodium Chloride 0.9% 1,000 ML IV SCH (09:50)
[2020-06-08] MEDS: Micafungin 100 MG in Sodium Chloride 0.9% 100 ML IV SCH (17:28)
[2020-06-08] MEDS: Doxazosin 2 MG Tab PO SCH (21:23)
[2020-06-08] MEDS: atorvaSTATin 20 MG Tab PO SCH (21:24)
[2020-06-08] MEDS: rOPINIRole 0.25 MG Tab PO SCH (21:24)
[2020-06-09] MEDS: Sodium Chloride 0.9% 1,000 ML IV SCH ×2 (00:28→13:57)
[2020-06-09] MEDS: Morphine 2 MG/ML SYRINGE IVPUSH PRN ×5 (02:42→20:50)
[2020-06-09] MEDS: Sucralfate Suspension 1 GM/10 ML Cup PO SCH ×3 (06:10→16:56)
[2020-06-09] MEDS: Pantoprazole 40 MG Vial IV SCH (09:08)
[2020-06-09] MEDS: Enoxaparin 60 MG/0.6 ML Syringe SUBCUT SCH ×2 (09:10→20:58)
[2020-06-09] MEDS: Tiotropium Inhaler 18 MCG Inhalation Powder Cap Kit of 5 INH SCH (09:30)
[2020-06-09] MEDS: Formoterol/Mometasone 200-5 MCG 8.8 GM Inhaler IH SCH ×2 (09:31→21:04)
[2020-06-09] MEDS: Gabapentin 300 MG Cap PO SCH ×3 (09:32→21:01)
[2020-06-09] MEDS: Metoprolol Succinate 50 MG Tab.ER PO SCH (09:32)
[2020-06-09] MEDS: traMADol 50 MG Tab PO SCH ×2 (09:32→21:01)
[2020-06-09] MEDS: Ezetimibe 10 MG Tab PO SCH (09:33)
[2020-06-09] MEDS: Micafungin 100 MG in Sodium Chloride 0.9% 100 ML IV SCH (16:58)
[2020-06-09] MEDS: Sodium Chloride 0.9% 10 ML Syringe FLUSH PRN ×2 (20:49→21:02)
[2020-06-09] MEDS: Doxazosin 2 MG Tab PO SCH (21:00)
[2020-06-09] MEDS: atorvaSTATin 20 MG Tab PO SCH (21:00)
[2020-06-09] MEDS: rOPINIRole 0.25 MG Tab PO SCH (21:01)
[2020-06-10] MEDS: Morphine 2 MG/ML SYRINGE IVPUSH PRN ×5 (01:11→22:16)
[2020-06-10] MEDS: Sodium Chloride 0.9% 1,000 ML IV SCH ×2 (04:31→23:19)
[2020-06-10] MEDS: Sucralfate Suspension 1 GM/10 ML Cup PO SCH ×3 (05:57→17:39)
[2020-06-10] MEDS: Enoxaparin 60 MG/0.6 ML Syringe SUBCUT SCH ×2 (08:12→20:32)
[2020-06-10] MEDS: Pantoprazole 40 MG Vial IV SCH (08:12)
[2020-06-10] MEDS: traMADol 50 MG Tab PO SCH ×2 (08:13→20:33)
[2020-06-10] MEDS: Tiotropium Inhaler 18 MCG Inhalation Powder Cap Kit of 5 INH SCH (08:14)
[2020-06-10] MEDS: Formoterol/Mometasone 200-5 MCG 8.8 GM Inhaler IH SCH ×2 (08:14→20:32)
[2020-06-10] MEDS: Gabapentin 300 MG Cap PO SCH ×3 (08:31→22:03)
[2020-06-10] MEDS: Metoprolol Succinate 50 MG Tab.ER PO SCH (08:32)
[2020-06-10] MEDS: Ezetimibe 10 MG Tab PO SCH (08:32)
[2020-06-10] MEDS: Micafungin 100 MG in Sodium Chloride 0.9% 100 ML IV SCH (17:28)
[2020-06-10] MEDS: rOPINIRole 0.25 MG Tab PO SCH (20:33)
[2020-06-10] MEDS: Doxazosin 2 MG Tab PO SCH (20:33)
[2020-06-10] MEDS: atorvaSTATin 20 MG Tab PO SCH (20:33)
[2020-06-11] MEDS: Ondansetron 4 MG Tab.DIS PO PRN (02:27)
[2020-06-11] MEDS: Morphine 2 MG/ML SYRINGE IVPUSH PRN ×5 (02:27→22:34)
[2020-06-11] MEDS: Sucralfate Suspension 1 GM/10 ML Cup PO SCH ×3 (05:50→16:13)
[2020-06-11 07:01] LABS: ANION GAP 12.2 mEq/L (7-13); CHLORIDE,CL 105 mmol/L (98-107); SODIUM,NA 141 mmol/L (136-145)
[2020-06-11] MEDS: Ezetimibe 10 MG Tab PO SCH (09:27)
[2020-06-11] MEDS: traMADol 50 MG Tab PO SCH ×2 (09:27→22:43)
[2020-06-11] MEDS: Metoprolol Succinate 50 MG Tab.ER PO SCH (09:27)
[2020-06-11] MEDS: Gabapentin 300 MG Cap PO SCH ×3 (09:27→22:42)
[2020-06-11] MEDS: Tamsulosin 0.4 MG Cap.ER PO SCH (09:28)
[2020-06-11] MEDS: Enoxaparin 60 MG/0.6 ML Syringe SUBCUT SCH (09:29)
[2020-06-11] MEDS: Formoterol/Mometasone 200-5 MCG 8.8 GM Inhaler IH SCH ×2 (09:29→22:42)
[2020-06-11] MEDS: Pantoprazole 40 MG Vial IV SCH (09:29)
[2020-06-11] MEDS: Tiotropium Inhaler 18 MCG Inhalation Powder Cap Kit of 5 INH SCH (09:30)
[2020-06-11] MEDS ORDERED: Phytonadione 1 MG in Sodium Chloride 0.9% 50 ML IV ONE (10:00)
[2020-06-11] MEDS ORDERED: diphenhydrAMINE 50 MG/ML SDV IVPUSH PRN (12:01)
[2020-06-11] MEDS: Sodium Chloride 0.9% 1,000 ML IV SCH (13:29)
[2020-06-11] MEDS: Micafungin 100 MG in Sodium Chloride 0.9% 100 ML IV SCH (16:40)
[2020-06-11] MEDS ORDERED: Phytonadione 5 MG in Sodium Chloride 0.9% 50 ML IV ONE (17:40)
[2020-06-11] MEDS: Sodium Chloride 0.9% 10 ML Syringe FLUSH PRN (22:32)
[2020-06-11] MEDS: atorvaSTATin 20 MG Tab PO SCH (22:41)
[2020-06-11] MEDS: Doxazosin 2 MG Tab PO SCH (22:41)
[2020-06-11] MEDS: rOPINIRole 0.25 MG Tab PO SCH (22:42)
[2020-06-11] MEDS: Hydrocortisone 2.5% Crm 30 GM Tube TOP PRN (23:09)
[2020-06-12] MEDS: Sodium Chloride 0.9% 10 ML Syringe FLUSH PRN ×4 (05:50→15:32)
[2020-06-12] MEDS: Morphine 2 MG/ML SYRINGE IVPUSH PRN ×3 (05:51→19:31)
[2020-06-12] MEDS: Sucralfate Suspension 1 GM/10 ML Cup PO SCH ×3 (05:58→15:16)
[2020-06-12] MEDS: Metoprolol Succinate 50 MG Tab.ER PO SCH (15:13)
[2020-06-12] MEDS: Gabapentin 300 MG Cap PO SCH ×3 (15:13→21:55)
[2020-06-12] MEDS: Formoterol/Mometasone 200-5 MCG 8.8 GM Inhaler IH SCH ×2 (15:13→21:55)
[2020-06-12] MEDS: Tamsulosin 0.4 MG Cap.ER PO SCH (15:13)
[2020-06-12] MEDS: Tiotropium Inhaler 18 MCG Inhalation Powder Cap Kit of 5 INH SCH (15:13)
[2020-06-12] MEDS: Pantoprazole 40 MG Vial IV SCH (15:13)
[2020-06-12] MEDS: traMADol 50 MG Tab PO SCH ×2 (15:13→21:55)
[2020-06-12] MEDS: Ezetimibe 10 MG Tab PO SCH (15:14)
[2020-06-12] MEDS: Sodium Chloride 0.9% 1,000 ML IV SCH (15:30)
[2020-06-12] MEDS: Micafungin 100 MG in Sodium Chloride 0.9% 100 ML IV SCH (16:41)
--- NOTE | 2020-06-12 19:03 | PCM.PN ---
- General Info Date of Service: 06/12/20 Admission Dx/Problem (Free Text): Admission Diagnosis/Problem Admission Diagnosis/Problem Left knee Pain Subjective Update: Patient seen and examined today. He is back from EGD and esophageal dilation. Leg swelling and pain is improving. Afebrile overnight. Functional Status: Reports: Pain Controlled - Review of Systems General: Reports: No Symptoms HEENT: Reports: No Symptoms Cardiovascular: Reports: Edema Gastrointestinal: Reports: No Symptoms Genitourinary: Reports: No Symptoms Musculoskeletal: Reports: Joint Pain Skin: Reports: No Symptoms Neurological: Reports: No Symptoms Psychiatric: Reports: No Symptoms - Patient Data Vitals - Most Recent: Last Vital Signs Temp 98.3 F 06/12/20 14:45 Pulse 116 H 06/12/20 14:45 Resp 16 06/12/20 14:45 BP 146/82 H 06/12/20 14:45 Pulse Ox 100 06/12/20 14:45 Weight - Most Recent: 142 lb 9.6 oz I&O - Last 24 Hours: Intake & Output 06/12/20 06/12/20 06/12/20 06:59 14:59 22:59 Intake Total 1010 186 Output Total 650 Balance 360 186 Lab Results Last 24 Hours: Laboratory Results - last 24 hr 06/12/20 Range/Units 04:53 PT 13.3 H (9.0-12.0) SEC INR 1.4 H (0.9-1.2) Med Orders - Current: Current Medications Acetaminophen (Tylenol Extra Strength) 1,000 mg PO Q8H PRN PRN Reason: Pain (moderate 4-6) Acetaminophen (Tylenol) 650 mg RECTAL Q6H PRN PRN Reason: Pain/Fever Albuterol (Proventil Neb Soln) 2.5 mg NEB Q6H PRN PRN Reason: Wheezing Albuterol (Proventil Hfa) 0 gm INH Q6HR PRN PRN Reason: Wheezing Artificial Tears (Liquitears 1.4% Ophth Soln) 0 ml EYEBOTH QID PRN PRN Reason: dry eyes Atorvastatin Calcium (Lipitor) 20 mg PO BEDTIME [facility] Last Admin: 06/11/20 22:41 Dose: Not Given Documented by: Cyclobenzaprine HCl (Flexeril) 10 mg PO TID PRN PRN Reason: Spasms Diphenhydramine HCl (Benadryl) 25 mg IVPUSH Q6H PRN PRN Reason: Allergies Doxazosin Mesylate (Cardura) 4 mg PO BEDTIME [facility] Last Admin: 06/11/20 22:41 Dose: Not Given Documented by: Ezetimibe (Zetia) 10 mg PO DAILY [facility] Last Admin: 06/12/20 15:14 Dose: Not Given Documented by: Enoxaparin Sodium (Lovenox) 60 mg SUBCUT BID [facility] Fluticasone Propionate (Flonase) 0 gm NASBOTH BID PRN PRN Reason: allergy relief Gabapentin (Neurontin) 300 mg PO TID [facility] Last Admin: 06/12/20 15:14 Dose: Not Given Documented by: Hydrocortisone (Hydrocortisone 2.5% Crm) 0 gm TOP BID PRN PRN Reason: itchy Last Admin: 06/11/20 23:09 Dose: 1 applic Documented by: Micafungin Sodium 100 mg/ (Sodium Chloride) 100 mls @ 100 mls/hr IV Q24H [facility] Stop: 06/16/20 17:59 Last Infusion: 06/12/20 17:48 Dose: Infused Documented by: Metoprolol Succinate (Toprol Xl) 100 mg PO DAILY [facility] Last Admin: 06/12/20 15:13 Dose: Not Given Documented by: Mometasone Furoate/Formoterol Fumar (Dulera 200-5 Mcg) 2 puff IH BID [facility] Last Admin: 06/12/20 15:13 Dose: Not Given Documented by: Morphine Sulfate (Morphine) 2 mg IVPUSH Q4H PRN PRN Reason: Pain (severe 7-10) Last Admin: 06/12/20 14:47 Dose: 2 mg Documented by: Nitroglycerin (Nitrostat) 0.4 mg SL Q5M PRN PRN Reason: Chest Pain Ondansetron HCl (Zofran Odt) 4 mg PO Q6H PRN PRN Reason: Nausea Last Admin: 06/11/20 02:27 Dose: 4 mg Documented by: Pantoprazole Sodium (Protonix Iv) 40 mg IV DAILY@0900 [facility] Last Admin: 06/12/20 15:13 Dose: Not Given Documented by: Ropinirole HCl (Requip) 0.5 mg PO BEDTIME [facility] Last Admin: 06/11/20 22:42 Dose: Not Given Documented by: Sodium Chloride (Saline Flush) 10 ml FLUSH ASDIRECTED PRN PRN Reason: Keep Vein Open Last Admin: 06/12/20 15:32 Dose: 10 ml Documented by: Sucralfate (Carafate) 1 gm PO TIDAC [facility] Last Admin: 06/12/20 15:16 Dose: Not Given Documented by: Tamsulosin HCl (Flomax) 0.4 mg PO PCBREAKFAST [facility] Last Admin: 06/12/20 15:13 Dose: Not Given Documented by: Tiotropium [place] (Spiriva Handihaler) 18 mcg INH DAILY [facility] Last Admin: 06/12/20 15:13 Dose: Not Given Documented by: Tramadol HCl (Ultram) 100 mg PO BID [facility] Last Admin: 06/12/20 15:13 Dose: Not Given Documented by: Warfarin Sodium (Pharmacy To Dose - Warfarin) 0 dose PO ASDIRECTED [facility] Discontinued Medications Enoxaparin Sodium (Lovenox) 60 mg 1 mg/kg (70 mg) SUBCUT BID [facility] Stop: 06/11/20 09:01 Last Admin: 06/11/20 09:29 Dose: 60 mg Documented by: Glucagon (Glucagen) 1 mg IVPUSH ONETIME PRN PRN Reason: swallowing Last Admin: 06/06/20 11:51 Dose: 1 mg Documented by: Magnesium Sulfate 2 gm/ Premix 50 mls @ 25 mls/hr IV ONETIME ONE Stop: 06/06/20 11:59 Last Admin: 06/06/20 10:37 Dose: 25 mls/hr Documented by: Sodium Chloride (Normal Saline) 1,000 mls @ 75 mls/hr IV ASDIRECTED [facility] Last Infusion: 06/12/20 16:45 Dose: 75 mls/hr Documented by: Phytonadione 1 mg/ Sodium (Chloride) 50.1 mls @ 100 mls/hr IV NOW ONE Stop: 06/11/20 10:30 Last Admin: 06/11/20 09:51 Dose: 100 mls/hr Documented by: Phytonadione 5 mg/ Sodium (Chloride) 50.5 mls @ 100 mls/hr IV NOW ONE Stop: 06/11/20 18:10 Last Admin: 06/11/20 18:28 Dose: Not Given Documented by: Phytonadione 4 mg/ Sodium (Chloride) 50.4 mls @ 100 mls/hr IV NOW ONE Stop: 06/11/20 18:10 Last Admin: 06/11/20 18:54 Dose: 100 mls/hr Documented by: Omeprazole (Omeprazole) 40 mg PO BIDAC [facility] Last Admin: 06/06/20 06:50 Dose: Not Given Documented by: Warfarin Sodium (Coumadin) 1 mg PO ONETIME ONE Stop: 06/06/20 14:01 - Exam General: Alert, Oriented HEENT: Pupils Equal, Pupils Reactive, EOMI, Mucous Membr. Moist/[place] Neck: Supple Lungs: Clear to Auscultation, Normal Respiratory Effort Cardiovascular: Regular Rate, Regular Rhythm GI/Abdominal Exam: Normal Bowel Sounds, Soft, Non-Tender, No Organomegaly, No Distention, No Abnormal Bruit, No Mass, Pelvis Stable Back Exam: Normal Inspection, Full Range of Motion Extremities: Pedal Edema, Leg Pain Skin: Warm, Dry, Intact Neurological: No New Focal Deficit Psy/Mental Status: Alert, Normal Affect, Normal Mood Sepsis Event Note - Evaluation Sepsis Screening Result: No Definite Risk - Focused Exam Vital Signs: Vital Signs Temp Pulse Resp BP Pulse Ox 06/12/20 14:45 98.3 F 116 H 16 146/82 H 100 - Problem List Review Problem List Initiated/Reviewed/Updated: Yes - My Orders Last 24 Hours: My Active Orders 06/12/20 Dinner Clear Liquid Diet [DIET] 06/12/20 21:00 Enoxaparin [Lovenox] 60 mg SUBCUT BID - Plan Plan:: Left knee septic arthritis Continue antifungal medication Follow-up with infectious disease outpatient as scheduled Monitor CBC Esophageal stricture - Had EGD and dilation today - Clear liquid diet today, resume regular diet as tolerated tomorrow COPD Continue inhalers/nebs Hypertension Continue antihypertensives Hyperlipidemia Continue home medication History of DVT - Resume Coumadin - Lovenox 60 mg BID for bridging
[2020-06-12] MEDS: Doxazosin 2 MG Tab PO SCH (21:54)
[2020-06-12] MEDS: atorvaSTATin 20 MG Tab PO SCH (21:55)
[2020-06-12] MEDS: rOPINIRole 0.25 MG Tab PO SCH (21:55)
[2020-06-12] MEDS: Enoxaparin 60 MG/0.6 ML Syringe SUBCUT SCH (22:00)
[2020-06-13] MEDS: Morphine 2 MG/ML SYRINGE IVPUSH PRN ×3 (00:09→08:54)
[2020-06-13] MEDS: Sucralfate Suspension 1 GM/10 ML Cup PO SCH ×3 (05:09→16:54)
[2020-06-13 07:16] LABS: ANION GAP 13.7 mEq/L (7-13); CHLORIDE,CL 104 mmol/L (98-107); SODIUM,NA 142 mmol/L (136-145)
[2020-06-13] MEDS: Enoxaparin 60 MG/0.6 ML Syringe SUBCUT SCH ×2 (08:54→20:48)
[2020-06-13] MEDS: Sodium Chloride 0.9% 10 ML Syringe FLUSH PRN (08:54)
[2020-06-13] MEDS: Pantoprazole 40 MG Vial IV SCH (08:55)
[2020-06-13] MEDS: Tiotropium Inhaler 18 MCG Inhalation Powder Cap Kit of 5 INH SCH (09:05)
[2020-06-13] MEDS: Formoterol/Mometasone 200-5 MCG 8.8 GM Inhaler IH SCH ×2 (09:05→20:47)
[2020-06-13] MEDS: Hydrocortisone 2.5% Crm 30 GM Tube TOP PRN (09:07)
[2020-06-13] MEDS: Tamsulosin 0.4 MG Cap.ER PO SCH (12:39)
[2020-06-13] MEDS: Gabapentin 300 MG Cap PO SCH ×3 (12:40→20:53)
[2020-06-13] MEDS: Ezetimibe 10 MG Tab PO SCH (12:40)
[2020-06-13] MEDS: traMADol 50 MG Tab PO SCH ×2 (12:40→20:50)
[2020-06-13] MEDS: Metoprolol Succinate 50 MG Tab.ER PO SCH (12:40)
[2020-06-13] MEDS ORDERED: Warfarin 2 MG Tab PO ONE (14:00)
[2020-06-13] MEDS: Fluconazole 100 MG Tab PO SCH (14:05)
[2020-06-13] MEDS: rOPINIRole 0.25 MG Tab PO SCH (20:52)
[2020-06-13] MEDS: Doxazosin 2 MG Tab PO SCH (20:55)
[2020-06-13] MEDS: atorvaSTATin 20 MG Tab PO SCH (20:56)
[2020-06-14] MEDS: Sucralfate Suspension 1 GM/10 ML Cup PO SCH ×3 (05:34→16:40)
[2020-06-14] MEDS ORDERED: Barium Sulfate w/v 2.1% Oral Susp 450 ML Bottle PO ONE ×2 (07:00→08:00)
[2020-06-14] MEDS ORDERED: Iopamidol 612 MG/ML 100 ML Bottle IVPUSH ONE (08:30)
[2020-06-14] MEDS: Acetaminophen 500 MG Tab PO PRN ×2 (09:03→21:19)
--- NOTE | 2020-06-14 09:34 | CT ---
PROCEDURE INFORMATION: Exam: CT Chest With Contrast Exam date and time: 06/14/2020 8:39 AM Age: 79 years old Clinical indication: Other: CA, adenopathy TECHNIQUE: Imaging protocol: Computed tomography of the chest with intravenous contrast. Radiation optimization: All CT scans at this facility use at least one of these dose optimization techniques: automated exposure control; mA and/or kV adjustment per patient size (includes targeted exams where dose is matched to clinical indication); or iterative reconstruction. Contrast material: ISOVUE 300; Contrast volume: 100 ml; Contrast route: INTRAVENOUS (IV); Other contrast: Oral, Readi-cat barium, 900; COMPARISON: CT Chest Abdomen Pelvis wo Cont 04/27/2020 10:12 AM FINDINGS: Lungs: Marked changes of emphysema. New subpleural masslike opacity in the left lung base best seen on axial series 5, image 55. This measures approximately 2.3 x 2.3 by 1.5 centimetres in AP, transverse, and craniocaudad dimension. This is associated with spiculations and parenchymal retraction and could be an area of subpleural scarring or developing mass. Recommend follow-up chest CT in 3 months. Progression of areas of subpleural scarring in both posterior lungs, most prominent in the left upper lung posteriorly. Stable atelectasis in the lingula. Pleural space: New small left pleural effusion Heart: See "Aorta" finding. Aorta: Aortic calcifications. Coronary artery calcifications. Tiny pericardial effusion new since prior exam. Lymph nodes: Unremarkable. No enlarged lymph nodes. Bones/joints: Old right lower lateral rib fractures. Anterior endplate osteophyte formation in the lower thoracic spine. Degenerative arthritis in the shoulders and clavicular manubrial joints. Right PICC line with tip SVC. Soft tissues: Unremarkable. IMPRESSION: 1. New indeterminate subpleural spiculated density left lung base. This could be subpleural scarring. Recommend follow-up CT in 3 months. 2. New focal scarring left upper lobe posteriorly. 3. New small left pleural effusion. 4. Marked changes of emphysema. PROCEDURE INFORMATION: Exam: CT Abdomen And Pelvis With Contrast Exam date and time: 06/14/2020 8:39 AM Age: 79 years old Clinical indication: Other: CA, adenopathy TECHNIQUE: Imaging protocol: Computed tomography of the abdomen and pelvis with intravenous contrast. Radiation optimization: All CT scans at this facility use at least one of these dose optimization techniques: automated exposure control; mA and/or kV adjustment per patient size (includes targeted exams where dose is matched to clinical indication); or iterative reconstruction. Contrast material: ISOVUE 300; Contrast volume: 100 ml; Contrast route: INTRAVENOUS (IV); Other contrast: Oral, Readi-cat barium, 900; COMPARISON: CT Chest Abdomen Pelvis wo Cont 04/27/2020 10:12 AM FINDINGS: Liver: Diffuse fatty infiltration liver. Gallbladder and bile ducts: Cholecystectomy. Pancreas: Normal. No ductal dilation. Spleen: Three low-density lesions in the spleen have increased in size since 04/27/2020. Largest is in the anterior spleen and measures approximately 3.9 cm in diameter, slightly increased since 04/27/2020 when it measured 3 5 cm in transverse diameter. The 2nd largest is in the posterior spleen near the hilum and measures approximately 1.9 cm in diameter. The 3rd is in the posterior spleen and measures approximately 11 mm in diameter. The 2 largest are of fluid density. The smallest is of low density. These could represent benign acquired cysts but are indeterminate. Mucinous metastases could also have this appearance. Adrenal glands: Normal. No mass. Kidneys and ureters: Kidneys are atrophic. No hydronephrosis. Stomach and bowel: Unremarkable. No obstruction. No mucosal thickening. Appendix: No evidence of appendicitis. Intraperitoneal space: Unremarkable. No free air. No significant fluid collection. Vasculature: Diffuse atheromatous calcification with infrarenal abdominal aortic aneurysm measuring approximately 3 x 3 cm in AP and transverse dimension. 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 Lymph nodes: Unremarkable. No enlarged lymph nodes. Urinary bladder: The urinary bladder is distended but otherwise appear normal. Reproductive: Prostatic enlargement. Bones/joints: Degenerative arthritis in lumbar spine and pelvis. No worrisome bone lesions are identified. Soft tissues: Unremarkable. IMPRESSION: 1. Three low-density lesions in the spleen have increased slightly in size since 04/27/2020. These are indeterminate. Recommend evaluation with PET vs. MRI vs. biopsy. 2. Stable infrarenal abdominal aortic aneurysm and left common iliac artery aneurysm. 3. Diffuse fatty infiltration of the liver.
[2020-06-14] MEDS: Fluconazole 100 MG Tab PO SCH (10:02)
[2020-06-14] MEDS: traMADol 50 MG Tab PO SCH ×2 (10:02→21:20)
[2020-06-14] MEDS: Metoprolol Succinate 50 MG Tab.ER PO SCH (10:02)
[2020-06-14] MEDS: Gabapentin 300 MG Cap PO SCH ×3 (10:04→21:20)
[2020-06-14] MEDS: Ezetimibe 10 MG Tab PO SCH (10:04)
[2020-06-14] MEDS: Pantoprazole 40 MG Vial IV SCH (10:04)
[2020-06-14] MEDS: Tamsulosin 0.4 MG Cap.ER PO SCH (10:04)
[2020-06-14] MEDS: Formoterol/Mometasone 200-5 MCG 8.8 GM Inhaler IH SCH ×2 (10:06→21:18)
[2020-06-14] MEDS: Tiotropium Inhaler 18 MCG Inhalation Powder Cap Kit of 5 INH SCH (10:25)
[2020-06-14] MEDS: Enoxaparin 60 MG/0.6 ML Syringe SUBCUT SCH ×2 (10:25→21:19)
[2020-06-14] MEDS: Ondansetron 4 MG Tab.DIS PO PRN (12:16)
[2020-06-14] MEDS ORDERED: Metoclopramide 10 MG/2 ML SDV IVPUSH ONE (13:35)
[2020-06-14] MEDS: Doxazosin 2 MG Tab PO SCH (21:17)
[2020-06-14] MEDS: atorvaSTATin 20 MG Tab PO SCH (21:18)
[2020-06-14] MEDS: rOPINIRole 0.25 MG Tab PO SCH (21:20)
[2020-06-15] MEDS: Sucralfate Suspension 1 GM/10 ML Cup PO SCH ×3 (06:04→16:01)
[2020-06-15] MEDS: Pantoprazole 40 MG Vial IV SCH (08:34)
[2020-06-15] MEDS: Sodium Chloride 0.9% 10 ML Syringe FLUSH PRN (08:34)
[2020-06-15] MEDS: Enoxaparin 60 MG/0.6 ML Syringe SUBCUT SCH ×2 (09:30→21:54)
[2020-06-15] MEDS: traMADol 50 MG Tab PO SCH ×2 (09:32→21:52)
[2020-06-15] MEDS: Gabapentin 300 MG Cap PO SCH ×3 (09:34→21:53)
[2020-06-15] MEDS: Tamsulosin 0.4 MG Cap.ER PO SCH (09:34)
[2020-06-15] MEDS: Metoprolol Succinate 50 MG Tab.ER PO SCH (09:36)
[2020-06-15] MEDS: Fluconazole 100 MG Tab PO SCH (09:38)
[2020-06-15] MEDS: Ezetimibe 10 MG Tab PO SCH (09:39)
[2020-06-15] MEDS: Tiotropium Inhaler 18 MCG Inhalation Powder Cap Kit of 5 INH SCH (09:42)
[2020-06-15] MEDS: Hydrocortisone 2.5% Crm 30 GM Tube TOP PRN ×2 (09:43→22:19)
[2020-06-15] MEDS: Formoterol/Mometasone 200-5 MCG 8.8 GM Inhaler IH SCH ×2 (09:43→22:18)
[2020-06-15] MEDS ORDERED: Docusate Sodium 100 MG Cap PO PRN (12:26)
[2020-06-15] MEDS: rOPINIRole 0.25 MG Tab PO SCH (21:52)
[2020-06-15] MEDS: Doxazosin 2 MG Tab PO SCH (21:53)
[2020-06-15] MEDS: atorvaSTATin 20 MG Tab PO SCH (21:53)
[2020-06-16] MEDS: Sucralfate Suspension 1 GM/10 ML Cup PO SCH ×3 (06:11→16:36)
[2020-06-16] MEDS: Formoterol/Mometasone 200-5 MCG 8.8 GM Inhaler IH SCH ×2 (09:16→21:09)
[2020-06-16] MEDS: Tiotropium Inhaler 18 MCG Inhalation Powder Cap Kit of 5 INH SCH (09:16)
[2020-06-16] MEDS: Enoxaparin 60 MG/0.6 ML Syringe SUBCUT SCH ×2 (09:17→21:10)
[2020-06-16] MEDS: Fluconazole 100 MG Tab PO SCH (09:18)
[2020-06-16] MEDS: Metoprolol Succinate 50 MG Tab.ER PO SCH (09:21)
[2020-06-16] MEDS: traMADol 50 MG Tab PO SCH ×2 (09:22→21:08)
[2020-06-16] MEDS: Gabapentin 300 MG Cap PO SCH ×3 (09:25→21:07)
[2020-06-16] MEDS: Tamsulosin 0.4 MG Cap.ER PO SCH (09:25)
[2020-06-16] MEDS: Ezetimibe 10 MG Tab PO SCH (09:25)
[2020-06-16] MEDS: Pantoprazole 40 MG Vial IV SCH (09:28)
[2020-06-16] MEDS: Sodium Chloride 0.9% 10 ML Syringe FLUSH PRN (09:30)
[2020-06-16] MEDS ORDERED: Warfarin 2 MG Tab PO ONE (14:00)
[2020-06-16] MEDS: Doxazosin 2 MG Tab PO SCH (21:05)
[2020-06-16] MEDS: rOPINIRole 0.25 MG Tab PO SCH (21:06)
[2020-06-16] MEDS: atorvaSTATin 20 MG Tab PO SCH (21:08)
[2020-06-17] MEDS: Sucralfate Suspension 1 GM/10 ML Cup PO SCH ×3 (06:08→16:45)
[2020-06-17 07:06] LABS: ANION GAP 8.3 mEq/L (7-13); CHLORIDE,CL 103 mmol/L (98-107); SODIUM,NA 141 mmol/L (136-145)
[2020-06-17] MEDS: Pantoprazole 40 MG Vial IV SCH (08:27)
[2020-06-17] MEDS: Enoxaparin 60 MG/0.6 ML Syringe SUBCUT SCH (08:28)
[2020-06-17] MEDS: Metoprolol Succinate 50 MG Tab.ER PO SCH (08:28)
[2020-06-17] MEDS: traMADol 50 MG Tab PO SCH ×2 (08:30→20:59)
[2020-06-17] MEDS: Ezetimibe 10 MG Tab PO SCH (08:31)
[2020-06-17] MEDS: Fluconazole 100 MG Tab PO SCH (08:31)
[2020-06-17] MEDS: Tamsulosin 0.4 MG Cap.ER PO SCH (08:31)
[2020-06-17] MEDS: Gabapentin 300 MG Cap PO SCH ×3 (08:31→21:01)
[2020-06-17] MEDS: Tiotropium Inhaler 18 MCG Inhalation Powder Cap Kit of 5 INH SCH (08:38)
[2020-06-17] MEDS: Formoterol/Mometasone 200-5 MCG 8.8 GM Inhaler IH SCH ×2 (08:38→21:00)
[2020-06-17] MEDS: Sodium Chloride 0.9% 10 ML Syringe FLUSH PRN (08:40)
--- NOTE | 2020-06-17 11:00 | PCM.PN ---
- General Info Date of Service: 06/17/20 Admission Dx/Problem (Free Text): Admission Diagnosis/Problem Admission Diagnosis/Problem Left knee Pain Subjective Update: Patient seen and examined today. He is eating and drinking well since EGD and esophageal dilation. Left leg swelling much improved and no pain. Afebrile overnight. Functional Status: Reports: Pain Controlled - Review of Systems General: Reports: No Symptoms HEENT: Reports: No Symptoms Pulmonary: Reports: No Symptoms Cardiovascular: Reports: Edema Gastrointestinal: Reports: No Symptoms Genitourinary: Reports: No Symptoms Musculoskeletal: Reports: No Symptoms Skin: Reports: No Symptoms Neurological: Reports: No Symptoms Psychiatric: Reports: No Symptoms - Patient Data Vitals - Most Recent: Last Vital Signs Temp 97.2 F 06/17/20 08:23 Pulse 61 06/17/20 08:28 Resp 18 06/17/20 08:23 BP 119/64 06/17/20 08:28 Pulse Ox 99 06/17/20 08:23 Weight - Most Recent: 137 lb 6.4 oz I&O - Last 24 Hours: Intake & Output 06/16/20 06/17/20 06/17/20 22:59 06:59 14:59 Intake Total 100 Output Total 200 Balance -100 Lab Results Last 24 Hours: Laboratory Results - last 24 hr 06/17/20 06/17/20 06/17/20 Range/Units 06:13 06:13 06:13 WBC 16.7 H (5.0-10.0) 10^3/uL RBC 3.55 L (4.6-6.2) 10^6/uL Hgb 9.6 L (14.0-18.0) g/dL Hct 32.2 L (40.0-54.0) % MCV 90.7 (80-100) fL MCH 27.0 (27.0-34.0) pg MCHC 29.8 L (33.0-35.0) g/dL Plt Count 341 (150-450) 10^3/uL PT 28.5 H D (9.0-12.0) SEC INR 3.0 H (0.9-1.2) Sodium 141 (136-145) mmol/L Potassium 4.3 (3.5-5.1) mmol/L Chloride 103 (98-107) mmol/L Carbon Dioxide 34 H (21-32) mmol/L Anion Gap 8.3 (7-13) mEq/L BUN 8 (7-18) mg/dL Creatinine 1.02 (0.70-1.30) mg/dL Est Cr Clr Drug Dosing 52.62 mL/min Estimated GFR (MDRD) > 60 BUN/Creatinine Ratio 7.8 (No establ ref range) Glucose 96 (74-99) mg/dL Calcium 8.1 L (8.5-10.1) mg/dL Total Bilirubin 0.5 (0.2-1.0) mg/dL AST 52 H (15-37) U/L ALT 31 (16-63) U/L Alkaline Phosphatase 305 H (46-116) U/L Total Protein 4.6 L (6.4-8.2) g/dL Albumin 1.8 L (3.4-5.0) g/dL Globulin 2.8 Albumin/Globulin Ratio 0.64 Med Orders - Current: Current Medications Acetaminophen (Tylenol Extra Strength) 1,000 mg PO Q8H PRN PRN Reason: Pain (moderate 4-6) Last Admin: 06/14/20 21:19 Dose: 1,000 mg Documented by: Acetaminophen (Tylenol) 650 mg RECTAL Q6H PRN PRN Reason: Pain/Fever Albuterol (Proventil Neb Soln) 2.5 mg NEB Q6H PRN PRN Reason: Wheezing Albuterol (Proventil Hfa) 0 gm INH Q6HR PRN PRN Reason: Wheezing Artificial Tears (Liquitears 1.4% Ophth Soln) 0 ml EYEBOTH QID PRN PRN Reason: dry eyes Atorvastatin Calcium (Lipitor) 20 mg PO BEDTIME [facility] Last Admin: 06/16/20 21:08 Dose: 20 mg Documented by: Cyclobenzaprine HCl (Flexeril) 10 mg PO TID PRN PRN Reason: Spasms Diphenhydramine HCl (Benadryl) 25 mg IVPUSH Q6H PRN PRN Reason: Allergies Doxazosin Mesylate (Cardura) 4 mg PO BEDTIME [facility] Last Admin: 06/16/20 21:05 Dose: 4 mg Documented by: Ezetimibe (Zetia) 10 mg PO DAILY [facility] Last Admin: 06/17/20 08:31 Dose: 10 mg Documented by: Fluconazole (Diflucan) 400 mg PO DAILY [facility] Last Admin: 06/17/20 08:31 Dose: 400 mg Documented by: Fluticasone Propionate (Flonase) 0 gm NASBOTH BID PRN PRN Reason: allergy relief Gabapentin (Neurontin) 300 mg PO TID [facility] Last Admin: 06/17/20 08:31 Dose: 300 mg Documented by: Hydrocortisone (Hydrocortisone 2.5% Crm) 0 gm TOP BID PRN PRN Reason: itchy Last Admin: 06/15/20 22:19 Dose: 1 applic Documented by: Melatonin (Melatonin) 3 mg PO BEDTIME PRN PRN Reason: Insomnia Metoprolol Succinate (Toprol Xl) 100 mg PO DAILY [facility] Last Admin: 06/17/20 08:28 Dose: 100 mg Documented by: Mometasone Furoate/Formoterol Fumar (Dulera 200-5 Mcg) 2 puff IH BID [facility] Last Admin: 06/17/20 08:38 Dose: 2 puff Documented by: Morphine Sulfate (Morphine) 2 mg IVPUSH Q4H PRN PRN Reason: Pain (severe 7-10) Last Admin: 06/13/20 08:54 Dose: 2 mg Documented by: Nitroglycerin (Nitrostat) 0.4 mg SL Q5M PRN PRN Reason: Chest Pain No Warfarin Today* (*) 0 each PO ONETIME ONE Stop: 06/17/20 14:01 Ondansetron HCl (Zofran Odt) 4 mg PO Q6H PRN PRN Reason: Nausea Last Admin: 06/14/20 12:16 Dose: 4 mg Documented by: Pantoprazole Sodium (Protonix Iv) 40 mg IV DAILY@0900 [facility] Last Admin: 06/17/20 08:27 Dose: 40 mg Documented by: Ropinirole HCl (Requip) 0.5 mg PO BEDTIME [facility] Last Admin: 06/16/20 21:06 Dose: 0.5 mg Documented by: Sodium Chloride (Saline Flush) 10 ml FLUSH ASDIRECTED PRN PRN Reason: Keep Vein Open Last Admin: 06/17/20 08:40 Dose: 10 ml Documented by: Sucralfate (Carafate) 1 gm PO TIDAC [facility] Last Admin: 06/17/20 06:08 Dose: 1 gm Documented by: Tamsulosin HCl (Flomax) 0.4 mg PO PCBREAKFAST [facility] Last Admin: 06/17/20 08:31 Dose: 0.4 mg Documented by: Tiotropium [place] (Spiriva Handihaler) 18 mcg INH DAILY [facility] Last Admin: 06/17/20 08:38 Dose: 18 mcg Documented by: Tramadol HCl (Ultram) 100 mg PO BID [facility] Last Admin: 06/17/20 08:30 Dose: 100 mg Documented by: Warfarin Sodium (Pharmacy To Dose - Warfarin) 0 dose PO ASDIRECTED [facility] Discontinued Medications Barium Sulfate (Readi-Cat 2) 450 ml PO ONETIME ONE Stop: 06/14/20 07:01 Last Admin: 06/14/20 07:00 Dose: 450 ml Documented by: Barium Sulfate (Readi-Cat 2) 450 ml PO ONETIME ONE Stop: 06/14/20 08:01 Last Admin: 06/14/20 08:01 Dose: 450 ml Documented by: Enoxaparin Sodium (Lovenox) 60 mg 1 mg/kg (70 mg) SUBCUT BID [facility] Stop: 06/11/20 09:01 Last Admin: 06/11/20 09:29 Dose: 60 mg Documented by: Enoxaparin Sodium (Lovenox) 60 mg SUBCUT BID [facility] Last Admin: 06/17/20 08:28 Dose: 60 mg Documented by: Glucagon (Glucagen) 1 mg IVPUSH ONETIME PRN PRN Reason: swallowing Last Admin: 06/06/20 11:51 Dose: 1 mg Documented by: Micafungin Sodium 100 mg/ (Sodium Chloride) 100 mls @ 100 mls/hr IV Q24H [facility] Stop: 06/16/20 17:59 Last Infusion: 06/12/20 17:48 Dose: Infused Documented by: Magnesium Sulfate 2 gm/ Premix 50 mls @ 25 mls/hr IV ONETIME ONE Stop: 06/06/20 11:59 Last Admin: 06/06/20 10:37 Dose: 25 mls/hr Documented by: Sodium Chloride (Normal Saline) 1,000 mls @ 75 mls/hr IV ASDIRECTED [facility] Last Infusion: 06/12/20 16:45 Dose: 75 mls/hr Documented by: Phytonadione 1 mg/ Sodium (Chloride) 50.1 mls @ 100 mls/hr IV NOW ONE Stop: 06/11/20 10:30 Last Admin: 06/11/20 09:51 Dose: 100 mls/hr Documented by: Phytonadione 5 mg/ Sodium (Chloride) 50.5 mls @ 100 mls/hr IV NOW ONE Stop: 06/11/20 18:10 Last Admin: 06/11/20 18:28 Dose: Not Given Documented by: Phytonadione 4 mg/ Sodium (Chloride) 50.4 mls @ 100 mls/hr IV NOW ONE Stop: 06/11/20 18:10 Last Admin: 06/11/20 18:54 Dose: 100 mls/hr Documented by: Iopamidol (Isovue-300 (61%)) 100 ml IVPUSH ONETIME ONE Stop: 06/14/20 08:31 Last Admin: 06/14/20 09:03 Dose: 100 ml Documented by: Metoclopramide HCl (Reglan) 10 mg IVPUSH ONETIME ONE Stop: 06/14/20 13:36 Last Admin: 06/14/20 13:39 Dose: 10 mg Documented by: Omeprazole (Omeprazole) 40 mg PO BIDAC [facility] Last Admin: 06/06/20 06:50 Dose: Not Given Documented by: Sodium Chloride (Saline Flush) 10 ml FLUSH ASDIRECTED PRN PRN Reason: Keep Vein Open Last Admin: 06/13/20 08:54 Dose: 10 ml Documented by: Warfarin Sodium (Coumadin) 1 mg PO ONETIME ONE Stop: 06/06/20 14:01 Warfarin Sodium (Coumadin) 2 mg PO ONETIME ONE Stop: 06/13/20 14:01 Last Admin: 06/13/20 14:11 Dose: 2 mg Documented by: Warfarin Sodium (Coumadin) 3 mg PO ONETIME ONE Stop: 06/14/20 14:01 Last Admin: 06/14/20 14:59 Dose: 3 mg Documented by: Warfarin Sodium (Coumadin) 3 mg PO ONETIME ONE Stop: 06/15/20 14:01 Last Admin: 06/15/20 13:37 Dose: 3 mg Documented by: Warfarin Sodium (Coumadin) 2 mg PO ONETIME ONE Stop: 06/16/20 14:01 Last Admin: 06/16/20 13:42 Dose: 2 mg Documented by: - Exam General: Alert, Oriented HEENT: Pupils Equal, Pupils Reactive, EOMI, Mucous Membr. Moist/[place] Neck: Supple Lungs: Clear to Auscultation, Normal Respiratory Effort Cardiovascular: Regular Rate, Regular Rhythm GI/Abdominal Exam: Normal Bowel Sounds, Soft, Non-Tender, No Organomegaly, No Distention, No Abnormal Bruit, No Mass, Pelvis Stable Back Exam: Normal Inspection, Full Range of Motion Extremities: Pedal Edema Skin: Warm, Dry, Intact Neurological: No New Focal Deficit Psy/Mental Status: Alert, Normal Affect, Normal Mood Sepsis Event Note - Evaluation Sepsis Screening Result: No Definite Risk - Focused Exam Vital Signs: Vital Signs Temp Pulse Pulse Resp BP BP Pulse Ox 06/17/20 08:28 61 119/64 06/17/20 08:23 97.2 F 61 18 119/64 99 - Problem List Review Problem List Initiated/Reviewed/Updated: Yes - My Orders Last 24 Hours: My Active Orders 06/17/20 14:00 Non-Formulary Medication [NF Drug] 0 each PO ONETIME ONE 06/18/20 06:00 INR,PT,PROTHROMBIN TIME [COAG] DAILY 06/19/20 06:00 INR,PT,PROTHROMBIN TIME [COAG] DAILY 06/20/20 06:00 INR,PT,PROTHROMBIN TIME [COAG] DAILY - Plan Plan:: Left knee septic arthritis Continue antifungal medication Follow-up with infectious disease outpatient as scheduled Monitor CBC Esophageal stricture - Had EGD and dilation - Now eating well Anemia of chronic disease Hb stable. COPD Continue inhalers/nebs Hypertension Continue antihypertensives Hyperlipidemia Continue home medication History of DVT - Continue Coumadin -Dc Lovenox
[2020-06-17] MEDS ORDERED: **NO WARFARIN TODAY PO ONE (14:00)
[2020-06-17] MEDS: rOPINIRole 0.25 MG Tab PO SCH (20:59)
[2020-06-17] MEDS: atorvaSTATin 20 MG Tab PO SCH (21:00)
[2020-06-17] MEDS: Melatonin 3 MG Tab PO PRN (21:00)
[2020-06-17] MEDS: Doxazosin 2 MG Tab PO SCH (21:01)
[2020-06-18] MEDS: Sucralfate Suspension 1 GM/10 ML Cup PO SCH ×3 (05:52→16:39)
[2020-06-18] MEDS: Fluconazole 100 MG Tab PO SCH (08:38)
[2020-06-18] MEDS: traMADol 50 MG Tab PO SCH ×2 (08:39→21:38)
[2020-06-18] MEDS: Pantoprazole 40 MG Vial IV SCH (08:39)
[2020-06-18] MEDS: Ezetimibe 10 MG Tab PO SCH (08:39)
[2020-06-18] MEDS: Gabapentin 300 MG Cap PO SCH ×3 (08:39→21:40)
[2020-06-18] MEDS: Tamsulosin 0.4 MG Cap.ER PO SCH (08:39)
[2020-06-18] MEDS: Formoterol/Mometasone 200-5 MCG 8.8 GM Inhaler IH SCH ×2 (08:40→21:40)
[2020-06-18] MEDS: Tiotropium Inhaler 18 MCG Inhalation Powder Cap Kit of 5 INH SCH (08:40)
[2020-06-18] MEDS: Metoprolol Succinate 50 MG Tab.ER PO SCH (08:50)
[2020-06-18] MEDS: Acetaminophen 500 MG Tab PO PRN (11:58)
[2020-06-18] MEDS: atorvaSTATin 20 MG Tab PO SCH (21:38)
[2020-06-18] MEDS: Doxazosin 2 MG Tab PO SCH (21:39)
[2020-06-18] MEDS: rOPINIRole 0.25 MG Tab PO SCH (21:40)
[2020-06-18] MEDS: Melatonin 3 MG Tab PO PRN (21:59)
[2020-06-19] MEDS: Sucralfate Suspension 1 GM/10 ML Cup PO SCH ×3 (05:53→16:43)
[2020-06-19] MEDS: traMADol 50 MG Tab PO SCH ×2 (08:04→20:37)
[2020-06-19] MEDS: Pantoprazole 40 MG Vial IV SCH (08:05)
[2020-06-19] MEDS: Gabapentin 300 MG Cap PO SCH ×3 (08:05→20:36)
[2020-06-19] MEDS: Fluconazole 100 MG Tab PO SCH (08:05)
[2020-06-19] MEDS: Ezetimibe 10 MG Tab PO SCH (08:05)
[2020-06-19] MEDS: Tamsulosin 0.4 MG Cap.ER PO SCH (08:05)
[2020-06-19] MEDS: Metoprolol Succinate 50 MG Tab.ER PO SCH (08:20)
[2020-06-19] MEDS: Formoterol/Mometasone 200-5 MCG 8.8 GM Inhaler IH SCH ×2 (09:45→20:35)
[2020-06-19] MEDS: Tiotropium Inhaler 18 MCG Inhalation Powder Cap Kit of 5 INH SCH (09:45)
[2020-06-19] MEDS ORDERED: *NO WARFARIN TODAY PO ONE (14:00)
[2020-06-19] MEDS: Doxazosin 2 MG Tab PO SCH (20:34)
[2020-06-19] MEDS: rOPINIRole 0.25 MG Tab PO SCH (20:35)
[2020-06-19] MEDS: atorvaSTATin 20 MG Tab PO SCH (20:35)
[2020-06-19] MEDS: Melatonin 3 MG Tab PO PRN (20:38)
[2020-06-20] MEDS: Sucralfate Suspension 1 GM/10 ML Cup PO SCH ×3 (05:27→16:51)
[2020-06-20] MEDS: Tamsulosin 0.4 MG Cap.ER PO SCH (10:03)
[2020-06-20] MEDS: traMADol 50 MG Tab PO SCH ×2 (10:04→21:41)
[2020-06-20] MEDS: Fluconazole 100 MG Tab PO SCH (10:04)
[2020-06-20] MEDS: Acetaminophen 500 MG Tab PO PRN (10:04)
[2020-06-20] MEDS: Gabapentin 300 MG Cap PO SCH ×3 (10:05→21:41)
[2020-06-20] MEDS: Ezetimibe 10 MG Tab PO SCH (10:05)
[2020-06-20] MEDS: Metoprolol Succinate 50 MG Tab.ER PO SCH (10:07)
[2020-06-20] MEDS: Pantoprazole 40 MG Vial IV SCH (10:07)
[2020-06-20] MEDS: Formoterol/Mometasone 200-5 MCG 8.8 GM Inhaler IH SCH ×2 (10:08→21:35)
[2020-06-20] MEDS: Sodium Chloride 0.9% 10 ML Syringe FLUSH PRN (10:08)
[2020-06-20] MEDS: Tiotropium Inhaler 18 MCG Inhalation Powder Cap Kit of 5 INH SCH (10:08)
[2020-06-20] MEDS ORDERED: *NO WARFARIN TODAY PO ONE (14:00)
[2020-06-20] MEDS: rOPINIRole 0.25 MG Tab PO SCH (21:36)
[2020-06-20] MEDS: Doxazosin 2 MG Tab PO SCH (21:39)
[2020-06-20] MEDS: Melatonin 3 MG Tab PO PRN (21:39)
[2020-06-20] MEDS: atorvaSTATin 20 MG Tab PO SCH (21:41)
[2020-06-21] MEDS: Sucralfate Suspension 1 GM/10 ML Cup PO SCH ×3 (05:54→16:49)
[2020-06-21] MEDS: Pantoprazole 40 MG Tab.CR PO SCH (05:54)
[2020-06-21] MEDS: Metoprolol Succinate 50 MG Tab.ER PO SCH (09:26)
[2020-06-21] MEDS: Tamsulosin 0.4 MG Cap.ER PO SCH (09:27)
[2020-06-21] MEDS: Gabapentin 300 MG Cap PO SCH ×3 (09:27→21:36)
[2020-06-21] MEDS: Acetaminophen 500 MG Tab PO PRN (09:27)
[2020-06-21] MEDS: Fluconazole 100 MG Tab PO SCH (09:27)
[2020-06-21] MEDS: traMADol 50 MG Tab PO SCH ×2 (09:27→21:29)
[2020-06-21] MEDS: Ezetimibe 10 MG Tab PO SCH (09:28)
[2020-06-21] MEDS: Formoterol/Mometasone 200-5 MCG 8.8 GM Inhaler IH SCH ×2 (09:28→21:38)
[2020-06-21] MEDS: Tiotropium Inhaler 18 MCG Inhalation Powder Cap Kit of 5 INH SCH (09:28)
[2020-06-21] MEDS: rOPINIRole 0.25 MG Tab PO SCH (21:29)
[2020-06-21] MEDS: Melatonin 3 MG Tab PO PRN (21:36)
[2020-06-21] MEDS: Doxazosin 2 MG Tab PO SCH (21:36)
[2020-06-21] MEDS: atorvaSTATin 20 MG Tab PO SCH (21:36)
[2020-06-22] MEDS: Pantoprazole 40 MG Tab.CR PO SCH (06:17)
[2020-06-22] MEDS: Sucralfate Suspension 1 GM/10 ML Cup PO SCH ×3 (06:17→17:12)
[2020-06-22] MEDS: Tamsulosin 0.4 MG Cap.ER PO SCH (09:40)
[2020-06-22] MEDS: Gabapentin 300 MG Cap PO SCH ×3 (09:40→22:48)
[2020-06-22] MEDS: traMADol 50 MG Tab PO SCH ×2 (09:41→22:49)
[2020-06-22] MEDS: Fluconazole 100 MG Tab PO SCH (09:41)
[2020-06-22] MEDS: Ezetimibe 10 MG Tab PO SCH (09:41)
[2020-06-22] MEDS: Metoprolol Succinate 50 MG Tab.ER PO SCH (09:42)
[2020-06-22] MEDS: Formoterol/Mometasone 200-5 MCG 8.8 GM Inhaler IH SCH ×2 (09:44→22:52)
[2020-06-22] MEDS: Tiotropium Inhaler 18 MCG Inhalation Powder Cap Kit of 5 INH SCH (09:44)
[2020-06-22] MEDS ORDERED: *NO WARFARIN TODAY PO ONE (14:00)
[2020-06-22] MEDS: Ondansetron 4 MG Tab.DIS PO PRN (18:36)
[2020-06-22] MEDS: Doxazosin 2 MG Tab PO SCH (22:47)
[2020-06-22] MEDS: atorvaSTATin 20 MG Tab PO SCH (22:48)
[2020-06-22] MEDS: Melatonin 3 MG Tab PO PRN (22:48)
[2020-06-22] MEDS: rOPINIRole 0.25 MG Tab PO SCH (22:49)
[2020-06-22] MEDS: Acetaminophen 500 MG Tab PO PRN (22:50)
[2020-06-23] MEDS: Pantoprazole 40 MG Tab.CR PO SCH (05:37)
[2020-06-23] MEDS: Sucralfate Suspension 1 GM/10 ML Cup PO SCH ×3 (05:37→17:13)
[2020-06-23] MEDS: Ondansetron 4 MG Tab.DIS PO PRN (06:08)
[2020-06-23] MEDS: Formoterol/Mometasone 200-5 MCG 8.8 GM Inhaler IH SCH ×2 (08:44→22:07)
[2020-06-23] MEDS: Tiotropium Inhaler 18 MCG Inhalation Powder Cap Kit of 5 INH SCH (08:44)
[2020-06-23] MEDS: traMADol 50 MG Tab PO SCH ×2 (08:45→22:09)
[2020-06-23] MEDS: Ezetimibe 10 MG Tab PO SCH (08:46)
[2020-06-23] MEDS: Gabapentin 300 MG Cap PO SCH ×3 (08:46→22:12)
[2020-06-23] MEDS: Tamsulosin 0.4 MG Cap.ER PO SCH (08:46)
[2020-06-23] MEDS: Metoprolol Succinate 50 MG Tab.ER PO SCH (08:47)
[2020-06-23] MEDS: Fluconazole 100 MG Tab PO SCH (08:47)
[2020-06-23] MEDS: rOPINIRole 0.25 MG Tab PO SCH (22:11)
[2020-06-23] MEDS: atorvaSTATin 20 MG Tab PO SCH (22:13)
[2020-06-23] MEDS: Doxazosin 2 MG Tab PO SCH (22:14)
[2020-06-24] MEDS: Pantoprazole 40 MG Tab.CR PO SCH (06:19)
[2020-06-24] MEDS: Sucralfate Suspension 1 GM/10 ML Cup PO SCH ×3 (06:20→17:03)
[2020-06-24 07:14] LABS: ANION GAP 7.5 mEq/L (7-13)
[2020-06-24] MEDS: Formoterol/Mometasone 200-5 MCG 8.8 GM Inhaler IH SCH ×2 (08:44→20:36)
[2020-06-24] MEDS: Ondansetron 4 MG Tab.DIS PO PRN (08:45)
[2020-06-24] MEDS: Tiotropium Inhaler 18 MCG Inhalation Powder Cap Kit of 5 INH SCH (08:45)
[2020-06-24] MEDS: Tamsulosin 0.4 MG Cap.ER PO SCH (08:46)
[2020-06-24] MEDS: Metoprolol Succinate 50 MG Tab.ER PO SCH (08:46)
[2020-06-24] MEDS: Ezetimibe 10 MG Tab PO SCH (08:46)
[2020-06-24] MEDS: Fluconazole 100 MG Tab PO SCH (08:47)
[2020-06-24] MEDS: traMADol 50 MG Tab PO SCH ×2 (08:47→20:35)
[2020-06-24] MEDS: Gabapentin 300 MG Cap PO SCH ×3 (08:47→20:35)
[2020-06-24] MEDS ORDERED: *NO WARFARIN TODAY PO ONE (14:00)
--- NOTE | 2020-06-24 16:31 | PCM.PN ---
- General Info Date of Service: 06/24/20 Admission Dx/Problem (Free Text): Admission Diagnosis/Problem Admission Diagnosis/Problem Left knee Pain Subjective Update: Patient seen and examined today. He is eating and drinking well since EGD and esophageal dilation. Left leg swelling resolved and no pain. Afebrile. has a history of chronic urinary retention with chronic Meza catheter. The Meza catheter was removed about 10 days ago. He says he is able to urinate. No abdominal pain. - Review of Systems General: Reports: Weakness. Denies: Fever Pulmonary: Denies: Shortness of Breath Cardiovascular: Denies: Chest Pain, Edema Neurological: Denies: Confusion - Patient Data Vitals - Most Recent: Last Vital Signs Temp 98.6 F 06/24/20 08:21 Pulse 58 L 06/24/20 08:46 Resp 20 06/24/20 08:21 BP 128/59 L 06/24/20 08:46 Pulse Ox 99 06/24/20 08:21 Weight - Most Recent: 135 lb 9.6 oz I&O - Last 24 Hours: Intake & Output 06/24/20 06/24/20 06/24/20 06:59 14:59 22:59 Intake Total 100 Output Total 600 200 Balance -600 -100 Lab Results Last 24 Hours: Laboratory Results - last 24 hr 06/24/20 06/24/20 06/24/20 Range/Units 05:53 05:53 05:53 WBC 17.9 H (5.0-10.0) 10^3/uL RBC 3.91 L (4.6-6.2) 10^6/uL Hgb 10.7 L (14.0-18.0) g/dL Hct 35.8 L (40.0-54.0) % MCV 91.6 (80-100) fL MCH 27.4 (27.0-34.0) pg MCHC 29.9 L (33.0-35.0) g/dL Plt Count 448 D (150-450) 10^3/uL Neut % (Auto) 53.3 (42.2-75.2) % Lymph % (Auto) 27.1 (20.5-50.1) % [place] % (Auto) 10.3 H (2-8) % Eos % (Auto) 9.1 H (1.0-3.0) % Baso % (Auto) 0.2 (0.0-1.0) % Add Manual Diff Yes Neutrophils % (Manual) 57 (42-75) % Lymphocytes % (Manual) 24 (20-50) % Monocytes % (Manual) 11 H (2-8) % Eosinophils % (Manual) 8 H (1-3) % PT 32.4 H (9.0-12.0) SEC INR 3.5 H (0.9-1.2) Sodium 139 (136-145) mmol/L Potassium 5.5 H (3.5-5.1) mmol/L Chloride 103 (98-107) mmol/L Carbon Dioxide 34 H (21-32) mmol/L Anion Gap 7.5 (7-13) mEq/L BUN 14 (7-18) mg/dL Creatinine 1.33 H (0.70-1.30) mg/dL Est Cr Clr Drug Dosing 39.82 mL/min Estimated GFR (MDRD) 52 Glucose 123 H (74-99) mg/dL Calcium 9.8 D (8.5-10.1) mg/dL Med Orders - Current: Current Medications Acetaminophen (Tylenol Extra Strength) 1,000 mg PO Q8H PRN PRN Reason: Pain (moderate 4-6) Last Admin: 06/22/20 22:50 Dose: 1,000 mg Documented by: Acetaminophen (Tylenol) 650 mg RECTAL Q6H PRN PRN Reason: Pain/Fever Albuterol (Proventil Neb Soln) 2.5 mg NEB Q6H PRN PRN Reason: Wheezing Albuterol (Proventil Hfa) 0 gm INH Q6HR PRN PRN Reason: Wheezing Artificial Tears (Liquitears 1.4% Ophth Soln) 0 ml EYEBOTH QID PRN PRN Reason: dry eyes Atorvastatin Calcium (Lipitor) 20 mg PO BEDTIME [facility] Last Admin: 06/23/20 22:13 Dose: 20 mg Documented by: Cyclobenzaprine HCl (Flexeril) 10 mg PO TID PRN PRN Reason: Spasms Diphenhydramine HCl (Benadryl) 25 mg IVPUSH Q6H PRN PRN Reason: Allergies Doxazosin Mesylate (Cardura) 4 mg PO BEDTIME [facility] Last Admin: 06/23/20 22:14 Dose: 4 mg Documented by: Ezetimibe (Zetia) 10 mg PO DAILY [facility] Last Admin: 06/24/20 08:46 Dose: 10 mg Documented by: Fluconazole (Diflucan) 400 mg PO DAILY [facility] Last Admin: 06/24/20 08:47 Dose: 400 mg Documented by: Fluticasone Propionate (Flonase) 0 gm NASBOTH BID PRN PRN Reason: allergy relief Gabapentin (Neurontin) 300 mg PO TID [facility] Last Admin: 06/24/20 13:09 Dose: 300 mg Documented by: Hydrocortisone (Hydrocortisone 2.5% Crm) 0 gm TOP BID PRN PRN Reason: itchy Last Admin: 06/15/20 22:19 Dose: 1 applic Documented by: Melatonin (Melatonin) 3 mg PO BEDTIME PRN PRN Reason: Insomnia Last Admin: 06/22/20 22:48 Dose: 3 mg Documented by: Metoprolol Succinate (Toprol Xl) 100 mg PO DAILY [facility] Last Admin: 06/24/20 08:46 Dose: 100 mg Documented by: Mometasone Furoate/Formoterol Fumar (Dulera 200-5 Mcg) 2 puff IH BID [facility] Last Admin: 06/24/20 08:44 Dose: 2 puff Documented by: Morphine Sulfate (Morphine) 2 mg IVPUSH Q4H PRN PRN Reason: Pain (severe 7-10) Last Admin: 06/13/20 08:54 Dose: 2 mg Documented by: Nitroglycerin (Nitrostat) 0.4 mg SL Q5M PRN PRN Reason: Chest Pain Ondansetron HCl (Zofran Odt) 4 mg PO Q6H PRN PRN Reason: Nausea Last Admin: 06/24/20 08:45 Dose: 4 mg Documented by: Pantoprazole Sodium (Protonix) 40 mg PO ACBREAKFAST [facility] Last Admin: 06/24/20 06:19 Dose: 40 mg Documented by: Ropinirole HCl (Requip) 0.5 mg PO BEDTIME [facility] Last Admin: 06/23/20 22:11 Dose: 0.5 mg Documented by: Sodium Chloride (Saline Flush) 10 ml FLUSH ASDIRECTED PRN PRN Reason: Keep Vein Open Last Admin: 06/20/20 10:08 Dose: 10 ml Documented by: Sodium Polystyrene Sulfonate (Kayexalate) 15 gm PO Q6H [facility] Stop: 06/24/20 22:31 Sucralfate (Carafate) 1 gm PO TIDAC [facility] Last Admin: 06/24/20 13:09 Dose: 1 gm Documented by: Tamsulosin HCl (Flomax) 0.4 mg PO PCBREAKFAST [facility] Last Admin: 06/24/20 08:46 Dose: 0.4 mg Documented by: Tiotropium [place] (Spiriva Handihaler) 18 mcg INH DAILY [facility] Last Admin: 06/24/20 08:45 Dose: 18 mcg Documented by: Tramadol HCl (Ultram) 100 mg PO BID [facility] Last Admin: 06/24/20 08:47 Dose: 100 mg Documented by: Warfarin Sodium (Pharmacy To Dose - Warfarin) 0 dose PO ASDIRECTED [facility] Discontinued Medications Barium Sulfate (Readi-Cat 2) 450 ml PO ONETIME ONE Stop: 06/14/20 07:01 Last Admin: 06/14/20 07:00 Dose: 450 ml Documented by: Barium Sulfate (Readi-Cat 2) 450 ml PO ONETIME ONE Stop: 06/14/20 08:01 Last Admin: 06/14/20 08:01 Dose: 450 ml Documented by: Enoxaparin Sodium (Lovenox) 60 mg 1 mg/kg (70 mg) SUBCUT BID [facility] Stop: 06/11/20 09:01 Last Admin: 06/11/20 09:29 Dose: 60 mg Documented by: Enoxaparin Sodium (Lovenox) 60 mg SUBCUT BID [facility] Last Admin: 06/17/20 08:28 Dose: 60 mg Documented by: Glucagon (Glucagen) 1 mg IVPUSH ONETIME PRN PRN Reason: swallowing Last Admin: 06/06/20 11:51 Dose: 1 mg Documented by: Micafungin Sodium 100 mg/ (Sodium Chloride) 100 mls @ 100 mls/hr IV Q24H [facility] Stop: 06/16/20 17:59 Last Infusion: 06/12/20 17:48 Dose: Infused Documented by: Magnesium Sulfate 2 gm/ Premix 50 mls @ 25 mls/hr IV ONETIME ONE Stop: 06/06/20 11:59 Last Admin: 06/06/20 10:37 Dose: 25 mls/hr Documented by: Sodium Chloride (Normal Saline) 1,000 mls @ 75 mls/hr IV ASDIRECTED [facility] Last Infusion: 06/12/20 16:45 Dose: 75 mls/hr Documented by: Phytonadione 1 mg/ Sodium (Chloride) 50.1 mls @ 100 mls/hr IV NOW ONE Stop: 06/11/20 10:30 Last Admin: 06/11/20 09:51 Dose: 100 mls/hr Documented by: Phytonadione 5 mg/ Sodium (Chloride) 50.5 mls @ 100 mls/hr IV NOW ONE Stop: 06/11/20 18:10 Last Admin: 06/11/20 18:28 Dose: Not Given Documented by: Phytonadione 4 mg/ Sodium (Chloride) 50.4 mls @ 100 mls/hr IV NOW ONE Stop: 06/11/20 18:10 Last Admin: 06/11/20 18:54 Dose: 100 mls/hr Documented by: Iopamidol (Isovue-300 (61%)) 100 ml IVPUSH ONETIME ONE Stop: 06/14/20 08:31 Last Admin: 06/14/20 09:03 Dose: 100 ml Documented by: Metoclopramide HCl (Reglan) 10 mg IVPUSH ONETIME ONE Stop: 06/14/20 13:36 Last Admin: 06/14/20 13:39 Dose: 10 mg Documented by: No Warfarin Today* (*) 0 each PO ONETIME ONE Stop: 06/17/20 14:01 Last Admin: 06/17/20 13:47 Dose: Not Given Documented by: *No Warfarin Today* 0 each PO ONETIME ONE Stop: 06/19/20 14:01 Last Admin: 06/19/20 14:12 Dose: Not Given Documented by: *No Warfarin Today* 0 each PO ONETIME ONE Stop: 06/20/20 14:01 Last Admin: 06/20/20 14:39 Dose: 1 each Documented by: No Warfarin (Today ) 0 each PO ONETIME ONE Stop: 06/21/20 14:01 Last Admin: 06/21/20 14:08 Dose: 1 each Documented by: *No Warfarin Today* 0 each PO ONETIME ONE Stop: 06/22/20 14:01 Last Admin: 06/22/20 15:18 Dose: Not Given Documented by: *No Warfarin Today* 0 each PO ONETIME ONE Stop: 06/24/20 14:01 Last Admin: 06/24/20 13:09 Dose: Not Given Documented by: Omeprazole (Omeprazole) 40 mg PO BIDAC [facility] Last Admin: 06/06/20 06:50 Dose: Not Given Documented by: Pantoprazole Sodium (Protonix Iv) 40 mg IV DAILY@0900 [facility] Last Admin: 06/20/20 10:07 Dose: 40 mg Documented by: Sodium Chloride (Saline Flush) 10 ml FLUSH ASDIRECTED PRN PRN Reason: Keep Vein Open Last Admin: 06/13/20 08:54 Dose: 10 ml Documented by: Warfarin Sodium (Coumadin) 1 mg PO ONETIME ONE Stop: 06/06/20 14:01 Warfarin Sodium (Coumadin) 2 mg PO ONETIME ONE Stop: 06/13/20 14:01 Last Admin: 06/13/20 14:11 Dose: 2 mg Documented by: Warfarin Sodium (Coumadin) 3 mg PO ONETIME ONE Stop: 06/14/20 14:01 Last Admin: 06/14/20 14:59 Dose: 3 mg Documented by: Warfarin Sodium (Coumadin) 3 mg PO ONETIME ONE Stop: 06/15/20 14:01 Last Admin: 06/15/20 13:37 Dose: 3 mg Documented by: Warfarin Sodium (Coumadin) 2 mg PO ONETIME ONE Stop: 06/16/20 14:01 Last Admin: 06/16/20 13:42 Dose: 2 mg Documented by: Warfarin Sodium (Coumadin) 1 mg PO ONETIME ONE Stop: 06/18/20 14:01 Last Admin: 06/18/20 13:56 Dose: 1 mg Documented by: - Exam General: Alert, Oriented Neck: Supple Lungs: Clear to Auscultation, Normal Respiratory Effort Cardiovascular: Regular Rate, Regular Rhythm GI/Abdominal Exam: Normal Bowel Sounds, Soft, Non-Tender Extremities: No Pedal Edema Psy/Mental Status: Alert, Normal Affect Sepsis Event Note - Evaluation Sepsis Screening Result: No Definite Risk - Focused Exam Vital Signs: Vital Signs Temp Pulse Pulse Resp BP BP Pulse Ox 06/24/20 08:46 58 L 128/59 L 06/24/20 08:21 98.6 F 58 L 20 128/59 L 99 - Problem List & Annotations (1) Hyperkalemia SNOMED Code(s): 70766326 Code(s): E87.5 - HYPERKALEMIA Status: Acute Current Visit: Yes (2) Acute renal failure SNOMED Code(s): 94196309 Code(s): N17.9 - ACUTE KIDNEY FAILURE, UNSPECIFIED Status: Acute Current Visit: Yes - Problem List Review Problem List Initiated/Reviewed/Updated: Yes - My Orders Last 24 Hours: My Active Orders 06/24/20 16:30 Sodium Polystyrene Sulfonate [Kayexalate] 15 gm PO Q6H 06/25/20 05:15 BASIC METABOLIC PANEL,BMP [CHEM] AM 06/25/20 06:00 INR,PT,PROTHROMBIN TIME [COAG] DAILY 06/26/20 06:00 INR,PT,PROTHROMBIN TIME [COAG] DAILY 06/27/20 06:00 INR,PT,PROTHROMBIN TIME [COAG] DAILY - Plan Plan:: Left knee septic arthritis on Diflucan Follow-up with infectious disease outpatient as scheduled Monitor CBC Esophageal stricture - Had EGD and dilation - Now eating well Anemia of chronic disease Hb stable. COPD Continue inhalers/nebs Hypertension Continue metoprolol Hyperlipidemia Continue statin acute renal failure Patient's creatinine is worse Associated with hyperkalemia Will treat the patient with Kayexalate Check postvoid residuals, consider replacing Meza catheter Recheck electrolytes and renal function in the morning History of DVT - Continue Coumadin
[2020-06-24] MEDS: Sodium Polystyrene Sulfonate 15 GM/60 ML Susp 60 ML Bot PO SCH ×2 (17:04→22:31)
[2020-06-24] MEDS: rOPINIRole 0.25 MG Tab PO SCH (20:34)
[2020-06-24] MEDS: Doxazosin 2 MG Tab PO SCH (20:34)
[2020-06-24] MEDS: atorvaSTATin 20 MG Tab PO SCH (20:34)
[2020-06-25] MEDS: Sucralfate Suspension 1 GM/10 ML Cup PO SCH ×3 (05:47→16:12)
[2020-06-25] MEDS: Pantoprazole 40 MG Tab.CR PO SCH (05:47)
[2020-06-25 07:20] LABS: ANION GAP 9.9 mEq/L (7-13)
[2020-06-25] MEDS: Ezetimibe 10 MG Tab PO SCH (08:44)
[2020-06-25] MEDS: traMADol 50 MG Tab PO SCH ×2 (08:44→20:13)
[2020-06-25] MEDS: Tamsulosin 0.4 MG Cap.ER PO SCH (08:44)
[2020-06-25] MEDS: Metoprolol Succinate 50 MG Tab.ER PO SCH (08:45)
[2020-06-25] MEDS: Fluconazole 100 MG Tab PO SCH (08:45)
[2020-06-25] MEDS: Formoterol/Mometasone 200-5 MCG 8.8 GM Inhaler IH SCH ×2 (08:45→20:18)
[2020-06-25] MEDS: Gabapentin 300 MG Cap PO SCH ×3 (08:45→20:14)
[2020-06-25] MEDS: Tiotropium Inhaler 18 MCG Inhalation Powder Cap Kit of 5 INH SCH (08:46)
--- NOTE | 2020-06-25 11:35 | PCM.PN ---
- General Info Date of Service: 06/25/20 Admission Dx/Problem (Free Text): Admission Diagnosis/Problem Admission Diagnosis/Problem Left knee Pain Subjective Update: Patient seen and examined today. He is eating and drinking well since EGD and esophageal dilation. Left leg swelling resolved and no pain. Afebrile. has a history of chronic urinary retention with chronic Meza catheter. The Meza catheter was removed about 10 days ago. He says he is able to urinate. postvoid residuals were not high No abdominal pain. - Review of Systems General: Denies: Fever, Weakness Pulmonary: Denies: Shortness of Breath Cardiovascular: Denies: Chest Pain Gastrointestinal: Denies: Abdominal Pain - Patient Data Vitals - Most Recent: Last Vital Signs Temp 96.7 F L 06/25/20 08:21 Pulse 64 06/25/20 08:45 Resp 20 06/25/20 08:21 BP 122/62 06/25/20 08:45 Pulse Ox 100 06/25/20 08:21 Weight - Most Recent: 137 lb 9.6 oz I&O - Last 24 Hours: Intake & Output 06/24/20 06/25/20 06/25/20 22:59 06:59 14:59 Intake Total 60 Output Total 150 Balance -150 60 Lab Results Last 24 Hours: Laboratory Results - last 24 hr 06/25/20 06/25/20 Range/Units 05:33 05:33 PT 30.7 H (9.0-12.0) SEC INR 3.3 H (0.9-1.2) Sodium 143 (136-145) mmol/L Potassium 4.9 (3.5-5.1) mmol/L Chloride 105 (98-107) mmol/L Carbon Dioxide 33 H (21-32) mmol/L Anion Gap 9.9 (7-13) mEq/L BUN 16 (7-18) mg/dL Creatinine 1.36 H (0.70-1.30) mg/dL Est Cr Clr Drug Dosing 39.52 mL/min Estimated GFR (MDRD) 51 Glucose 114 H (74-99) mg/dL Calcium 9.5 (8.5-10.1) mg/dL Med Orders - Current: Current Medications Acetaminophen (Tylenol Extra Strength) 1,000 mg PO Q8H PRN PRN Reason: Pain (moderate 4-6) Last Admin: 06/22/20 22:50 Dose: 1,000 mg Documented by: Acetaminophen (Tylenol) 650 mg RECTAL Q6H PRN PRN Reason: Pain/Fever Albuterol (Proventil Neb Soln) 2.5 mg NEB Q6H PRN PRN Reason: Wheezing Albuterol (Proventil Hfa) 0 gm INH Q6HR PRN PRN Reason: Wheezing Artificial Tears (Liquitears 1.4% Ophth Soln) 0 ml EYEBOTH QID PRN PRN Reason: dry eyes Atorvastatin Calcium (Lipitor) 20 mg PO BEDTIME [facility] Last Admin: 06/24/20 20:34 Dose: 20 mg Documented by: Cyclobenzaprine HCl (Flexeril) 10 mg PO TID PRN PRN Reason: Spasms Diphenhydramine HCl (Benadryl) 25 mg IVPUSH Q6H PRN PRN Reason: Allergies Doxazosin Mesylate (Cardura) 4 mg PO BEDTIME [facility] Last Admin: 06/24/20 20:34 Dose: 4 mg Documented by: Ezetimibe (Zetia) 10 mg PO DAILY [facility] Last Admin: 06/25/20 08:44 Dose: 10 mg Documented by: Fluconazole (Diflucan) 400 mg PO DAILY [facility] Last Admin: 06/25/20 08:45 Dose: 400 mg Documented by: Fluticasone Propionate (Flonase) 0 gm NASBOTH BID PRN PRN Reason: allergy relief Gabapentin (Neurontin) 300 mg PO TID [facility] Last Admin: 06/25/20 08:45 Dose: 300 mg Documented by: Hydrocortisone (Hydrocortisone 2.5% Crm) 0 gm TOP BID PRN PRN Reason: itchy Last Admin: 06/15/20 22:19 Dose: 1 applic Documented by: Melatonin (Melatonin) 3 mg PO BEDTIME PRN PRN Reason: Insomnia Last Admin: 06/22/20 22:48 Dose: 3 mg Documented by: Metoprolol Succinate (Toprol Xl) 100 mg PO DAILY [facility] Last Admin: 06/25/20 08:45 Dose: 100 mg Documented by: Mometasone Furoate/Formoterol Fumar (Dulera 200-5 Mcg) 2 puff IH BID [facility] Last Admin: 06/25/20 08:45 Dose: 2 puff Documented by: Morphine Sulfate (Morphine) 2 mg IVPUSH Q4H PRN PRN Reason: Pain (severe 7-10) Last Admin: 06/13/20 08:54 Dose: 2 mg Documented by: Nitroglycerin (Nitrostat) 0.4 mg SL Q5M PRN PRN Reason: Chest Pain *No Warfarin Today* 0 each PO ONETIME ONE Stop: 06/25/20 14:01 Ondansetron HCl (Zofran Odt) 4 mg PO Q6H PRN PRN Reason: Nausea Last Admin: 06/24/20 08:45 Dose: 4 mg Documented by: Pantoprazole Sodium (Protonix) 40 mg PO ACBREAKFAST [facility] Last Admin: 06/25/20 05:47 Dose: 40 mg Documented by: Ropinirole HCl (Requip) 0.5 mg PO BEDTIME [facility] Last Admin: 06/24/20 20:34 Dose: 0.5 mg Documented by: Sodium Chloride (Saline Flush) 10 ml FLUSH ASDIRECTED PRN PRN Reason: Keep Vein Open Last Admin: 06/20/20 10:08 Dose: 10 ml Documented by: Sucralfate (Carafate) 1 gm PO TIDAC [facility] Last Admin: 06/25/20 11:05 Dose: 1 gm Documented by: Tamsulosin HCl (Flomax) 0.4 mg PO PCBREAKFAST [facility] Last Admin: 06/25/20 08:44 Dose: 0.4 mg Documented by: Tiotropium [place] (Spiriva Handihaler) 18 mcg INH DAILY [facility] Last Admin: 06/25/20 08:46 Dose: 18 mcg Documented by: Tramadol HCl (Ultram) 100 mg PO BID [facility] Last Admin: 06/25/20 08:44 Dose: 100 mg Documented by: Warfarin Sodium (Pharmacy To Dose - Warfarin) 0 dose PO ASDIRECTED [facility] Discontinued Medications Barium Sulfate (Readi-Cat 2) 450 ml PO ONETIME ONE Stop: 06/14/20 07:01 Last Admin: 06/14/20 07:00 Dose: 450 ml Documented by: Barium Sulfate (Readi-Cat 2) 450 ml PO ONETIME ONE Stop: 06/14/20 08:01 Last Admin: 06/14/20 08:01 Dose: 450 ml Documented by: Enoxaparin Sodium (Lovenox) 60 mg 1 mg/kg (70 mg) SUBCUT BID [facility] Stop: 06/11/20 09:01 Last Admin: 06/11/20 09:29 Dose: 60 mg Documented by: Enoxaparin Sodium (Lovenox) 60 mg SUBCUT BID [facility] Last Admin: 06/17/20 08:28 Dose: 60 mg Documented by: Glucagon (Glucagen) 1 mg IVPUSH ONETIME PRN PRN Reason: swallowing Last Admin: 06/06/20 11:51 Dose: 1 mg Documented by: Micafungin Sodium 100 mg/ (Sodium Chloride) 100 mls @ 100 mls/hr IV Q24H [facility] Stop: 06/16/20 17:59 Last Infusion: 06/12/20 17:48 Dose: Infused Documented by: Magnesium Sulfate 2 gm/ Premix 50 mls @ 25 mls/hr IV ONETIME ONE Stop: 06/06/20 11:59 Last Admin: 06/06/20 10:37 Dose: 25 mls/hr Documented by: Sodium Chloride (Normal Saline) 1,000 mls @ 75 mls/hr IV ASDIRECTED [facility] Last Infusion: 06/12/20 16:45 Dose: 75 mls/hr Documented by: Phytonadione 1 mg/ Sodium (Chloride) 50.1 mls @ 100 mls/hr IV NOW ONE Stop: 06/11/20 10:30 Last Admin: 06/11/20 09:51 Dose: 100 mls/hr Documented by: Phytonadione 5 mg/ Sodium (Chloride) 50.5 mls @ 100 mls/hr IV NOW ONE Stop: 06/11/20 18:10 Last Admin: 06/11/20 18:28 Dose: Not Given Documented by: Phytonadione 4 mg/ Sodium (Chloride) 50.4 mls @ 100 mls/hr IV NOW ONE Stop: 06/11/20 18:10 Last Admin: 06/11/20 18:54 Dose: 100 mls/hr Documented by: Iopamidol (Isovue-300 (61%)) 100 ml IVPUSH ONETIME ONE Stop: 06/14/20 08:31 Last Admin: 06/14/20 09:03 Dose: 100 ml Documented by: Metoclopramide HCl (Reglan) 10 mg IVPUSH ONETIME ONE Stop: 06/14/20 13:36 Last Admin: 06/14/20 13:39 Dose: 10 mg Documented by: No Warfarin Today* (*) 0 each PO ONETIME ONE Stop: 06/17/20 14:01 Last Admin: 06/17/20 13:47 Dose: Not Given Documented by: *No Warfarin Today* 0 each PO ONETIME ONE Stop: 06/19/20 14:01 Last Admin: 06/19/20 14:12 Dose: Not Given Documented by: *No Warfarin Today* 0 each PO ONETIME ONE Stop: 06/20/20 14:01 Last Admin: 06/20/20 14:39 Dose: 1 each Documented by: No Warfarin (Today ) 0 each PO ONETIME ONE Stop: 06/21/20 14:01 Last Admin: 06/21/20 14:08 Dose: 1 each Documented by: *No Warfarin Today* 0 each PO ONETIME ONE Stop: 06/22/20 14:01 Last Admin: 06/22/20 15:18 Dose: Not Given Documented by: *No Warfarin Today* 0 each PO ONETIME ONE Stop: 06/24/20 14:01 Last Admin: 06/24/20 13:09 Dose: Not Given Documented by: Omeprazole (Omeprazole) 40 mg PO BIDAC [facility] Last Admin: 06/06/20 06:50 Dose: Not Given Documented by: Pantoprazole Sodium (Protonix Iv) 40 mg IV DAILY@0900 [facility] Last Admin: 06/20/20 10:07 Dose: 40 mg Documented by: Sodium Chloride (Saline Flush) 10 ml FLUSH ASDIRECTED PRN PRN Reason: Keep Vein Open Last Admin: 06/13/20 08:54 Dose: 10 ml Documented by: Sodium Polystyrene Sulfonate (Kayexalate) 15 gm PO Q6H [facility] Stop: 06/24/20 22:31 Last Admin: 06/24/20 22:31 Dose: 15 gm Documented by: Warfarin Sodium (Coumadin) 1 mg PO ONETIME ONE Stop: 06/06/20 14:01 Warfarin Sodium (Coumadin) 2 mg PO ONETIME ONE Stop: 06/13/20 14:01 Last Admin: 06/13/20 14:11 Dose: 2 mg Documented by: Warfarin Sodium (Coumadin) 3 mg PO ONETIME ONE Stop: 06/14/20 14:01 Last Admin: 06/14/20 14:59 Dose: 3 mg Documented by: Warfarin Sodium (Coumadin) 3 mg PO ONETIME ONE Stop: 06/15/20 14:01 Last Admin: 06/15/20 13:37 Dose: 3 mg Documented by: Warfarin Sodium (Coumadin) 2 mg PO ONETIME ONE Stop: 06/16/20 14:01 Last Admin: 06/16/20 13:42 Dose: 2 mg Documented by: Warfarin Sodium (Coumadin) 1 mg PO ONETIME ONE Stop: 06/18/20 14:01 Last Admin: 06/18/20 13:56 Dose: 1 mg Documented by: - Exam General: Alert, Oriented Lungs: Clear to Auscultation, Normal Respiratory Effort Extremities: No Pedal Edema Sepsis Event Note - Evaluation Sepsis Screening Result: No Definite Risk - Focused Exam Vital Signs: Vital Signs Temp Pulse Pulse Resp BP BP Pulse Ox 06/25/20 08:45 64 122/62 06/25/20 08:21 96.7 F L 64 20 122/62 100 - Problem List & Annotations (1) Hyperkalemia SNOMED Code(s): 94455106 Code(s): E87.5 - HYPERKALEMIA Status: Acute Current Visit: Yes (2) Acute renal failure SNOMED Code(s): 47789151 Code(s): N17.9 - ACUTE KIDNEY FAILURE, UNSPECIFIED Status: Acute Current Visit: Yes - Problem List Review Problem List Initiated/Reviewed/Updated: Yes - My Orders Last 24 Hours: My Active Orders 06/25/20 14:00 Non-Formulary Medication [NF Drug] 0 each PO ONETIME ONE 06/26/20 05:15 BASIC METABOLIC PANEL,BMP [CHEM] AM 06/26/20 06:00 INR,PT,PROTHROMBIN TIME [COAG] DAILY 06/27/20 06:00 INR,PT,PROTHROMBIN TIME [COAG] DAILY - Plan Plan:: Left knee septic arthritis on Diflucan Follow-up with infectious disease outpatient as scheduled Monitor CBC Esophageal stricture - Had EGD and dilation - Now eating well Anemia of chronic disease Hb stable. COPD Continue inhalers/nebs Hypertension Continue metoprolol Hyperlipidemia Continue statin acute renal failure Patient's creatinine is stable Associated with hyperkalemia received Kayexalate 06/25 monitor periodically low postvoid residuals, will not need Meza catheter History of DVT - Continue Coumadin
[2020-06-25] MEDS ORDERED: *NO WARFARIN TODAY PO ONE (14:00)
[2020-06-25] MEDS: rOPINIRole 0.25 MG Tab PO SCH (20:14)
[2020-06-25] MEDS: atorvaSTATin 20 MG Tab PO SCH (20:14)
[2020-06-25] MEDS: Doxazosin 2 MG Tab PO SCH (20:14)
[2020-06-25] MEDS: Melatonin 3 MG Tab PO PRN (20:17)
[2020-06-26] MEDS: Pantoprazole 40 MG Tab.CR PO SCH (05:50)
[2020-06-26] MEDS: Sucralfate Suspension 1 GM/10 ML Cup PO SCH ×2 (05:50→14:16)
[2020-06-26 06:56] LABS: ANION GAP 6.9 mEq/L (7-13)
[2020-06-26 08:28] VITALS: BP 130/66
[2020-06-26] MEDS: Ondansetron 4 MG Tab.DIS PO PRN (10:01)
[2020-06-26] MEDS: Ezetimibe 10 MG Tab PO SCH (10:10)
[2020-06-26] MEDS: Gabapentin 300 MG Cap PO SCH ×2 (10:11→14:16)
[2020-06-26] MEDS: Fluconazole 100 MG Tab PO SCH (10:11)
[2020-06-26] MEDS: traMADol 50 MG Tab PO SCH (10:12)
[2020-06-26] MEDS: Metoprolol Succinate 50 MG Tab.ER PO SCH (10:16)
[2020-06-26] MEDS: Tamsulosin 0.4 MG Cap.ER PO SCH (10:17)
[2020-06-26] MEDS: Tiotropium Inhaler 18 MCG Inhalation Powder Cap Kit of 5 INH SCH (10:19)
[2020-06-26] MEDS: Formoterol/Mometasone 200-5 MCG 8.8 GM Inhaler IH SCH (10:19)
[2020-06-26 10:21] VITALS: PULSE 66
--- NOTE | 2020-06-26 10:47 | PCM.DCSUM1 ---
Discharge Summary - Hospital Course Free Text/Narrative:: admitted to swing bed with weakness. improved with pt would benefit from continued home care group home for supervising of medication regimen and skilled evaluation of septic arthritis Home health aide for personal care and bathing Left knee septic arthritis on Diflucan Follow-up with infectious disease outpatient as scheduled Esophageal stricture - Had EGD and dilation - Now eating well Anemia of chronic disease Hb stable. COPD Continue inhalers/nebs Hypertension Continue metoprolol Hyperlipidemia Continue statin acute renal failure Patient's creatinine is stable had an episode of hyperkalemia improved with Kayexalate 06/25 monitor periodically low postvoid residuals, will not need Meza catheter History of DVT - Continue Coumadin Diagnosis: Stroke: No - Discharge Data Discharge Date: 06/26/20 Discharge Disposition: Home, Self-Care 01 Condition: Good - Referral to Home Health Primary Care Physician: Dionicio Snyder MD - Discharge Diagnosis/Problem(s) (1) Hyperkalemia SNOMED Code(s): 66107771 ICD Code: E87.5 - HYPERKALEMIA Status: Acute Current Visit: Yes (2) Acute renal failure SNOMED Code(s): 18044200 ICD Code: N17.9 - ACUTE KIDNEY FAILURE, UNSPECIFIED Status: Acute Current Visit: Yes - Patient Summary/Data Consults: Consultations 06/05/20 15:22 OT Evaluation and Treatment [CONS] Routine PT Evaluation and Treatment [CONS] Routine - Patient Instructions Diet: Heart Healthy Diet Activity: As Tolerated - Discharge Plan *PRESCRIPTION DRUG MONITORING PROGRAM REVIEWED*: Not Applicable *COPY OF PRESCRIPTION DRUG MONITORING REPORT IN PATIENT SUYAPA: Not Applicable Prescriptions/Med Rec: Sucralfate [Carafate] 1 gm PO TIDAC #21 cup Fluconazole [Diflucan] 400 mg PO DAILY #7 tablet Tamsulosin [Flomax] 0.4 mg PO PCBREAKFAST #30 cap.er Home Medications: Home Meds traMADol [Ultram] 100 mg PO BID 12/16/15 [History] Albuterol [Ventolin HFA] 2 puff INH Q6HR PRN 04/25/20 [History] Budesonide/Formoterol [Symbicort 160-4.5 MCG] 2 puff INH BID 04/25/20 [History] Cyclobenzaprine [Flexeril] 10 mg PO TID PRN 04/25/20 [History] Doxazosin [Cardura] 4 mg PO BEDTIME 04/25/20 [History] Gabapentin [Neurontin] 300 mg PO TID 04/25/20 [History] Metoprolol Succinate 100 mg PO DAILY 04/25/20 [History] Warfarin [Coumadin] 2 mg PO .[id number] 04/25/20 [History] atorvaSTATin [Lipitor] 20 mg PO BEDTIME 04/25/20 [History] rOPINIRole [Requip] 0.5 mg PO BEDTIME 04/25/20 [History] Albuterol [Proventil Neb Soln] 2.5 mg NEB Q6H PRN 04/26/20 [History] Ezetimibe [Zetia] 10 mg PO DAILY 04/26/20 [History] Acetaminophen [Tylenol Extra Strength] 1,000 mg PO Q8H PRN 05/15/20 [History] Esomeprazole Magnesium [Nexium] 40 mg PO BIDAC 05/15/20 [History] Fluticasone Propionate [Flonase] 2 sprays NASBOTH BID PRN 05/15/20 [History] Nitroglycerin [Nitrostat] 0.4 mg SL Q5M PRN 05/15/20 [History] Tiotropium [Spiriva HandiHaler] 18 mcg INH DAILY 05/15/20 [History] Polyvinyl Alcohol [LiquiTears 1.4% Ophth Soln] 2 drop EYEBOTH ASDIRECTED 06/02/20 [History] Warfarin [Coumadin] 3 mg PO .MONFRI 06/03/20 [History] Fluconazole [Diflucan] 400 mg PO DAILY #7 tablet 06/26/20 [Rx] Sucralfate [Carafate] 1 gm PO TIDAC #21 cup 06/26/20 [Rx] Tamsulosin [Flomax] 0.4 mg PO PCBREAKFAST #30 cap.er 06/26/20 [Rx] Oxygen Therapy Mode: Room Air Patient Handouts: Urinary Tract Infection, Adult, Septic Arthritis Referrals: Dionicio Snyder MD [Primary Care Provider] - - Discharge Summary/Plan Comment DC Time >30 min.: No - General Info Date of Service: 06/26/20 Admission Dx/Problem (Free Text: Admission Diagnosis/Problem Admission Diagnosis/Problem Left knee Pain Subjective Update: Patient seen and examined today. He is eating and drinking well since EGD and esophageal dilation. Left leg swelling resolved and no pain. Afebrile. He says he is able to urinate. postvoid residuals were not high No abdominal pain. Functional Status: Reports: Pain Controlled, Tolerating Diet - Review of Systems General: Denies: Fever Pulmonary: Denies: Shortness of Breath Cardiovascular: Denies: Chest Pain, Edema Genitourinary: Denies: Dysuria - Patient Data Vitals - Most Recent: Last Vital Signs Temp 97.9 F 06/26/20 08:27 Pulse 66 06/26/20 10:16 Resp 20 06/26/20 08:27 BP 130/66 06/26/20 10:16 Pulse Ox 100 06/26/20 08:27 Weight - Most Recent: 137 lb 9.6 oz Lab Results - Last 24 hrs: Laboratory Results - last 24 hr 06/26/20 06/26/20 Range/Units 05:21 05:21 PT 28.4 H (9.0-12.0) SEC INR 3.0 H (0.9-1.2) Sodium 141 (136-145) mmol/L Potassium 3.9 (3.5-5.1) mmol/L Chloride 103 (98-107) mmol/L Carbon Dioxide 35 H (21-32) mmol/L Anion Gap 6.9 L (7-13) mEq/L BUN 16 (7-18) mg/dL Creatinine 1.19 (0.70-1.30) mg/dL Est Cr Clr Drug Dosing 45.16 mL/min Estimated GFR (MDRD) 59 Glucose 100 H (74-99) mg/dL Calcium 8.8 (8.5-10.1) mg/dL Med Orders - Current: Current Medications Acetaminophen (Tylenol Extra Strength) 1,000 mg PO Q8H PRN PRN Reason: Pain (moderate 4-6) Last Admin: 06/22/20 22:50 Dose: 1,000 mg Documented by: Acetaminophen (Tylenol) 650 mg RECTAL Q6H PRN PRN Reason: Pain/Fever Albuterol (Proventil Neb Soln) 2.5 mg NEB Q6H PRN PRN Reason: Wheezing Albuterol (Proventil Hfa) 0 gm INH Q6HR PRN PRN Reason: Wheezing Artificial Tears (Liquitears 1.4% Ophth Soln) 0 ml EYEBOTH QID PRN PRN Reason: dry eyes Atorvastatin Calcium (Lipitor) 20 mg PO BEDTIME [facility] Last Admin: 06/25/20 20:14 Dose: 20 mg Documented by: Cyclobenzaprine HCl (Flexeril) 10 mg PO TID PRN PRN Reason: Spasms Diphenhydramine HCl (Benadryl) 25 mg IVPUSH Q6H PRN PRN Reason: Allergies Doxazosin Mesylate (Cardura) 4 mg PO BEDTIME [facility] Last Admin: 06/25/20 20:14 Dose: 4 mg Documented by: Ezetimibe (Zetia) 10 mg PO DAILY [facility] Last Admin: 06/26/20 10:10 Dose: 10 mg Documented by: Fluconazole (Diflucan) 400 mg PO DAILY [facility] Last Admin: 06/26/20 10:11 Dose: 400 mg Documented by: Fluticasone Propionate (Flonase) 0 gm NASBOTH BID PRN PRN Reason: allergy relief Gabapentin (Neurontin) 300 mg PO TID [facility] Last Admin: 06/26/20 10:11 Dose: 300 mg Documented by: Hydrocortisone (Hydrocortisone 2.5% Crm) 0 gm TOP BID PRN PRN Reason: itchy Last Admin: 06/15/20 22:19 Dose: 1 applic Documented by: Melatonin (Melatonin) 3 mg PO BEDTIME PRN PRN Reason: Insomnia Last Admin: 06/25/20 20:17 Dose: 3 mg Documented by: Metoprolol Succinate (Toprol Xl) 100 mg PO DAILY [facility] Last Admin: 06/26/20 10:16 Dose: 100 mg Documented by: Mometasone Furoate/Formoterol Fumar (Dulera 200-5 Mcg) 2 puff IH BID [facility] Last Admin: 06/26/20 10:19 Dose: 2 puff Documented by: Nitroglycerin (Nitrostat) 0.4 mg SL Q5M PRN PRN Reason: Chest Pain No Warfarin Today () 0 each PO ONETIME ONE Stop: 06/26/20 14:01 Ondansetron HCl (Zofran Odt) 4 mg PO Q6H PRN PRN Reason: Nausea Last Admin: 06/26/20 10:01 Dose: 4 mg Documented by: Pantoprazole Sodium (Protonix) 40 mg PO ACBREAKFAST [facility] Last Admin: 06/26/20 05:50 Dose: 40 mg Documented by: Ropinirole HCl (Requip) 0.5 mg PO BEDTIME [facility] Last Admin: 06/25/20 20:14 Dose: 0.5 mg Documented by: Sucralfate (Carafate) 1 gm PO TIDAC [facility] Last Admin: 06/26/20 05:50 Dose: 1 gm Documented by: Tamsulosin HCl (Flomax) 0.4 mg PO PCBREAKFAST [facility] Last Admin: 06/26/20 10:17 Dose: 0.4 mg Documented by: Tiotropium [place] (Spiriva Handihaler) 18 mcg INH DAILY [facility] Last Admin: 06/26/20 10:19 Dose: 18 mcg Documented by: Tramadol HCl (Ultram) 100 mg PO BID [facility] Last Admin: 06/26/20 10:12 Dose: 100 mg Documented by: Warfarin Sodium (Pharmacy To Dose - Warfarin) 0 dose PO ASDIRECTED [facility] Discontinued Medications Barium Sulfate (Readi-Cat 2) 450 ml PO ONETIME ONE Stop: 06/14/20 07:01 Last Admin: 06/14/20 07:00 Dose: 450 ml Documented by: Barium Sulfate (Readi-Cat 2) 450 ml PO ONETIME ONE Stop: 06/14/20 08:01 Last Admin: 06/14/20 08:01 Dose: 450 ml Documented by: Enoxaparin Sodium (Lovenox) 60 mg 1 mg/kg (70 mg) SUBCUT BID [facility] Stop: 06/11/20 09:01 Last Admin: 06/11/20 09:29 Dose: 60 mg Documented by: Enoxaparin Sodium (Lovenox) 60 mg SUBCUT BID [facility] Last Admin: 06/17/20 08:28 Dose: 60 mg Documented by: Glucagon (Glucagen) 1 mg IVPUSH ONETIME PRN PRN Reason: swallowing Last Admin: 06/06/20 11:51 Dose: 1 mg Documented by: Micafungin Sodium 100 mg/ (Sodium Chloride) 100 mls @ 100 mls/hr IV Q24H [facility] Stop: 06/16/20 17:59 Last Infusion: 06/12/20 17:48 Dose: Infused Documented by: Magnesium Sulfate 2 gm/ Premix 50 mls @ 25 mls/hr IV ONETIME ONE Stop: 06/06/20 11:59 Last Admin: 06/06/20 10:37 Dose: 25 mls/hr Documented by: Sodium Chloride (Normal Saline) 1,000 mls @ 75 mls/hr IV ASDIRECTED DUY Last Infusion: 06/12/20 16:45 Dose: 75 mls/hr Documented by: Phytonadione 1 mg/ Sodium (Chloride) 50.1 mls @ 100 mls/hr IV NOW ONE Stop: 06/11/20 10:30 Last Admin: 06/11/20 09:51 Dose: 100 mls/hr Documented by: Phytonadione 5 mg/ Sodium (Chloride) 50.5 mls @ 100 mls/hr IV NOW ONE Stop: 06/11/20 18:10 Last Admin: 06/11/20 18:28 Dose: Not Given Documented by: Phytonadione 4 mg/ Sodium (Chloride) 50.4 mls @ 100 mls/hr IV NOW ONE Stop: 06/11/20 18:10 Last Admin: 06/11/20 18:54 Dose: 100 mls/hr Documented by: Iopamidol (Isovue-300 (61%)) 100 ml IVPUSH ONETIME ONE Stop: 06/14/20 08:31 Last Admin: 06/14/20 09:03 Dose: 100 ml Documented by: Metoclopramide HCl (Reglan) 10 mg IVPUSH ONETIME ONE Stop: 06/14/20 13:36 Last Admin: 06/14/20 13:39 Dose: 10 mg Documented by: Morphine Sulfate (Morphine) 2 mg IVPUSH Q4H PRN PRN Reason: Pain (severe 7-10) Last Admin: 06/13/20 08:54 Dose: 2 mg Documented by: No Warfarin Today* (*) 0 each PO ONETIME ONE Stop: 06/17/20 14:01 Last Admin: 06/17/20 13:47 Dose: Not Given Documented by: *No Warfarin Today* 0 each PO ONETIME ONE Stop: 06/19/20 14:01 Last Admin: 06/19/20 14:12 Dose: Not Given Documented by: *No Warfarin Today* 0 each PO ONETIME ONE Stop: 06/20/20 14:01 Last Admin: 06/20/20 14:39 Dose: 1 each Documented by: No Warfarin (Today ) 0 each PO ONETIME ONE Stop: 06/21/20 14:01 Last Admin: 06/21/20 14:08 Dose: 1 each Documented by: *No Warfarin Today* 0 each PO ONETIME ONE Stop: 06/22/20 14:01 Last Admin: 06/22/20 15:18 Dose: Not Given Documented by: *No Warfarin Today* 0 each PO ONETIME ONE Stop: 06/24/20 14:01 Last Admin: 06/24/20 13:09 Dose: Not Given Documented by: *No Warfarin Today* 0 each PO ONETIME ONE Stop: 06/25/20 14:01 Last Admin: 06/25/20 14:06 Dose: Not Given Documented by: Omeprazole (Omeprazole) 40 mg PO BIDAC [facility] Last Admin: 06/06/20 06:50 Dose: Not Given Documented by: Pantoprazole Sodium (Protonix Iv) 40 mg IV DAILY@0900 [facility] Last Admin: 06/20/20 10:07 Dose: 40 mg Documented by: Sodium Chloride (Saline Flush) 10 ml FLUSH ASDIRECTED PRN PRN Reason: Keep Vein Open Last Admin: 06/13/20 08:54 Dose: 10 ml Documented by: Sodium Chloride (Saline Flush) 10 ml FLUSH ASDIRECTED PRN PRN Reason: Keep Vein Open Last Admin: 06/20/20 10:08 Dose: 10 ml Documented by: Sodium Polystyrene Sulfonate (Kayexalate) 15 gm PO Q6H [facility] Stop: 06/24/20 22:31 Last Admin: 06/24/20 22:31 Dose: 15 gm Documented by: Warfarin Sodium (Coumadin) 1 mg PO ONETIME ONE Stop: 06/06/20 14:01 Warfarin Sodium (Coumadin) 2 mg PO ONETIME ONE Stop: 06/13/20 14:01 Last Admin: 06/13/20 14:11 Dose: 2 mg Documented by: Warfarin Sodium (Coumadin) 3 mg PO ONETIME ONE Stop: 06/14/20 14:01 Last Admin: 06/14/20 14:59 Dose: 3 mg Documented by: Warfarin Sodium (Coumadin) 3 mg PO ONETIME ONE Stop: 06/15/20 14:01 Last Admin: 06/15/20 13:37 Dose: 3 mg Documented by: Warfarin Sodium (Coumadin) 2 mg PO ONETIME ONE Stop: 06/16/20 14:01 Last Admin: 06/16/20 13:42 Dose: 2 mg Documented by: Warfarin Sodium (Coumadin) 1 mg PO ONETIME ONE Stop: 06/18/20 14:01 Last Admin: 06/18/20 13:56 Dose: 1 mg Documented by: - Exam Quality Assessment: Reports: Supplemental Oxygen (2 l/min) General: Reports: Alert, Oriented Neck: Reports: Supple Lungs: Reports: Normal Respiratory Effort, Decreased Breath Sounds Cardiovascular: Reports: Regular Rate, Regular Rhythm GI/Abdominal Exam: Normal Bowel Sounds, Soft, Non-Tender Extremities: No Pedal Edema
== END 2020-06-26 13:55 | disposition home or self-care (01) | DRG 549 ==
LOC: DL.MS 15:25 → UNDOADMIN 15:25 → DL.MS 15:30 → UNDOADMIN 15:30 → DL.MS 06-13 14:15 → UNDOADMIN 06-13 14:16 → DL.MS 06-13 14:16
PROVIDERS: ADMIT Internal Medicine; ATTEND Internal Medicine
DX: M00.9 Pyogenic arthritis, unspecified (principal); N17.9 Acute kidney failure, unspecified; R53.1 Weakness; K22.2 Esophageal obstruction; J44.9 Chronic obstructive pulmonary disease, unspecified; D63.8 Anemia in other chronic diseases classified elsewhere; I10 Essential (primary) hypertension; E78.5 Hyperlipidemia, unspecified; E87.5 Hyperkalemia; I25.10 Atherosclerotic heart disease of native coronary artery without angina pectoris; E78.00 Pure hypercholesterolemia, unspecified; G47.30 Sleep apnea, unspecified; K59.09 Other constipation; M19.90 Unspecified osteoarthritis, unspecified site; M06.9 Rheumatoid arthritis, unspecified; Z96.653 Presence of artificial knee joint, bilateral; F41.9 Anxiety disorder, unspecified; F32.9 Major depressive disorder, single episode, unspecified; R33.9 Retention of urine, unspecified; Z88.0 Allergy status to penicillin; Z88.5 Allergy status to narcotic agent; Z88.8 Allergy status to other drugs, medicaments and biological substances; Z79.01 Long term (current) use of anticoagulants; Z79.899 Other long term (current) drug therapy; Z98.49 Cataract extraction status, unspecified eye; Z86.718 Personal history of other venous thrombosis and embolism; Z87.01 Personal history of pneumonia (recurrent); Z86.711 Personal history of pulmonary embolism; Z87.891 Personal history of nicotine dependence; Z28.82 Immunization not carried out because of caregiver refusal
CPT/HCPCS: 36415; 71260; 74177; 80048; 80053; 82962; 83735; 84100; 85025; 85027; 85610; 85651; 86140; 97110-GO; 97116-GP; 97162-GP; 97166-GO; 97530-GO; 97530-GP; A9270-GY; C9113; J1610; J1650; J2248; J2270; J2765; J3430; J3475; J7030; Q9967

== ENCOUNTER 2020-07-24 10:26 | Observation (INO) | payer OTHER, MEDICARE, MEDICAID ==
--- NOTE | 2020-07-24 10:26 | EDM.PDOC ---
ED [facility] GENERAL MEDICAL PROBLEM - General Stated Complaint: AMBULANCE Time Seen by Provider: 07/24/20 10:26 Source of Information: Reports: Patient, EMS, EMS Notes Reviewed, Old Records, RN, RN Notes Reviewed History Limitations: Reports: No Limitations - History of Present Illness INITIAL COMMENTS - FREE TEXT/NARRATIVE: Patient presents to the ED via EMS with complaints of progressing weakness. The patient states he was discharged from hospital swing bed this past fall with home health which assist with bathing and cleaning, as well as PT/OT who visit him in his home. He notes he has been progressively weaker inside his home to the point he no longer ambulates in his home and only transfers to a recliner chair "occasionally"; he is mostly bed-bound at this point. He verbalizes chronic pain to his left knee, but states is now experiencing pain in his right shoulder following a fall out of bed. The patient reports three falls in his home in the past 48 hours; he is unsure of the times/dates of these falls. The patient denies hitting his head or LOC during these falls. He does attest to Coumadin use for history of cardiac stents. Given this finding during the initial interview, trauma considerations were initiated. Trauma Notes: As above in HPI Arrival Time: 1027 C-Collar Status: Not in place upon EMS arrival; Not placed upon arrival to facility as patient denies cervical tenderness with palpation or with 180 rotation of neck Spinal Board/Immobilization Status: Not in place upon EMS arrival; Not placed during facility GCS on Arrival: 15 Primary Trauma Survey ( 1030 hrs) Airway: Patent nasal and oral airways. Breathing: Spontaneous respirations with clear bilateral breath sounds. Circulation: Heart rate and rhythm regular, intact distal pulses to all four extremities, no cyanosis. +3 pitting edema to RUE Deformity/Disability: No active bleeding. Pain to right shoulder. Patient is intermittently confused, but oriented. Abdomen benign to exam. Exposure: Skin cool and dry. Left Chest Pain Score (Numeric/FACES): 4 Bilateral Shoulder Pain Score (Numeric/FACES): 7 Bilateral Knee Pain Score (Numeric/FACES): 7 Bilateral Hip Pain Score (Numeric/FACES): 7 - Related Data Allergies Allergy/AdvReac Type Severity Reaction Status Date / Time Penicillins Allergy Unknown SWELLING Verified 07/24/20 10:32 OF LEGS/FEET fentanyl Allergy Hallucinati Verified 07/24/20 10:32 ons hydrocodone Allergy bad dreams Verified 07/24/20 10:32 isosorbide Allergy Other Verified 07/24/20 10:32 lorazepam [From Ativan] Allergy Hallucinati Verified 07/24/20 10:32 ons Home Meds: Home Meds traMADol [Ultram] 100 mg PO BID 12/16/15 [History] Albuterol [Ventolin HFA] 2 puff INH Q6HR PRN 04/25/20 [History] Budesonide/Formoterol [Symbicort 160-4.5 MCG] 2 puff INH BID 04/25/20 [History] Cyclobenzaprine [Flexeril] 10 mg PO TID PRN 04/25/20 [History] Doxazosin [Cardura] 4 mg PO BEDTIME 04/25/20 [History] Gabapentin [Neurontin] 300 mg PO TID 04/25/20 [History] Metoprolol Succinate 100 mg PO DAILY 04/25/20 [History] Warfarin [Coumadin] 1 mg PO .[id number] 04/25/20 [History] atorvaSTATin [Lipitor] 20 mg PO BEDTIME 04/25/20 [History] rOPINIRole [Requip] 0.5 mg PO BEDTIME 04/25/20 [History] Albuterol [Proventil Neb Soln] 2.5 mg NEB Q6H PRN 04/26/20 [History] Acetaminophen [Tylenol Extra Strength] 650 mg PO Q8H PRN 05/15/20 [History] Esomeprazole Magnesium [Nexium] 40 mg PO BIDAC 05/15/20 [History] Fluticasone Propionate [Flonase] 2 sprays NASBOTH BID PRN 05/15/20 [History] Nitroglycerin [Nitrostat] 0.4 mg SL Q5M PRN 05/15/20 [History] Tiotropium [Spiriva HandiHaler] 18 mcg INH DAILY 05/15/20 [History] Polyvinyl Alcohol [LiquiTears 1.4% Ophth Soln] 2 drop EYEBOTH ASDIRECTED 06/02/20 [History] Warfarin [Coumadin] 2 mg PO .MON 06/03/20 [History] Fluconazole [Diflucan] 400 mg PO DAILY #7 tablet 06/26/20 [Rx] Sucralfate [Carafate] 1 gm PO TIDAC #21 cup 06/26/20 [Rx] Tamsulosin [Flomax] 0.4 mg PO PCBREAKFAST #30 cap.er 06/26/20 [Rx] Ezetimibe 10 mg PO DAILY 07/24/20 [History] Hydrocortisone [Hydrocortisone 2.5% Crm] 1 applic TOP BID PRN 07/24/20 [History] Mometasone/Formoterol [Dulera 200 Mcg/5 Mcg Inhaler] 1 puff IH BID 07/24/20 [History] Omeprazole 40 mg PO BID 07/24/20 [History] Ondansetron [Zofran] 4 mg PO Q8HR PRN 07/24/20 [History] riTUXimab [Rituxan] 375 mg IV ASDIRECTED 07/24/20 [History] Past Medical History HEENT History: Reports: Cataract, Hard of Hearing, Impaired Vision Other HEENT History: WEARS CORRECTIVE LENSES; UPPER AND LOWER DENTURE PLATE; BILAT HEARING AIDES Cardiovascular History: Reports: Blood Clots/VTE/DVT, CAD, Heart Murmur, High Cholesterol, Hypertension, Other (See Below) Other Cardiovascular History: THROMBOPHLEBITIS Respiratory History: Reports: Bronchitis, Recurrent, COPD, PE, Pneumonia, Recurrent, Sleep Apnea, SOB Gastrointestinal History: Reports: Chronic Constipation, Diverticulosis, Hemorrhoids Genitourinary History: Reports: Prostate Disorder, Retention, Urinary, UTI, Recurrent Musculoskeletal History: Reports: Arthritis, RA, Other (See Below) Other Musculoskeletal History: SCIATICA. 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 - Infectious Disease History Infectious Disease History: Reports: Chicken Pox, Mumps - Past Surgical History Head Surgeries/Procedures: Reports: None HEENT Surgical History: Reports: Adenoidectomy, Cataract Surgery, Oral Surgery, Tonsillectomy Cardiovascular Surgical History: Reports: Coronary Artery Stent Respiratory Surgical History: Reports: Thoracotomy, Other (See Below) Other Respiratory Surgeries/Procedures: PLEURAL BIOPSY GI Surgical History: Reports: Cholecystectomy, Colonoscopy, EGD, Hernia, Inguinal Male Surgical History: Reports: None Endocrine Surgical History: Reports: None Neurological Surgical History: Reports: None Musculoskeletal Surgical History: Reports: Knee Replacement, Other (See Below) Other Musculoskeletal Surgeries/Procedures:: BILATERAL KNEE REPLACMENTS. RESECTION OF OLECRANAL BURSA Oncologic Surgical History: Reports: None Social & Family History - Family History Family Medical History: No Pertinent Family History - Caffeine Use Caffeine Use: Reports: None Caffeine Use Comment: 12-14 oz daily - Living Situation & Occupation Living situation: Reports: , with Spouse Occupation: Retired ED ROS GENERAL - Review of Systems Review Of Systems: Comprehensive ROS is negative, except as noted in HPI. ED EXAM, GENERAL - Physical Exam Exam: See Below Free Text/Narrative:: Secondary Trauma survey as follows (1030) Exam Limited By: Altered Mental Status (Intermittent confusion) General Appearance: Alert, No Apparent Distress Eye Exam: Bilateral Eye: EOMI, Normal Inspection, PERRL (3mm) Nose: Normal Inspection, Nasal Swelling, Nasal Drainage. No: Nasal Tenderness Throat/Mouth: Normal Inspection, Normal Voice, No Airway Compromise. No: Normal Oropharynx (Dry mucous membranes) Head: Atraumatic, Normocephalic Neck: Normal Inspection, Other (Cervical spine cleared by physical exam at 1030). No: Lymphadenopathy (L), Lymphadenopathy (R) Respiratory/Chest: Decreased Breath Sounds, Rhonchi, Accessory Muscle Use, Other (3L of O2 via NC at baseline). No: Crackles, Rales, Wheezing Cardiovascular: No Edema, No Gallop, No JVD, No Murmur, No Rub, Bradycardia Peripheral Pulses: 1+: Radial (L), Radial (R), Dorsalis Pedis (L), Dorsalis Pedis (R) GI/Abdominal: Normal Bowel Sounds, Soft, Non-Tender, No Distention, No Mass, Pelvis Stable (Male) Exam: Deferred Rectal (Males) Exam: Deferred Extremities: Normal Range of Motion, No Pedal Edema, Normal Capillary Refill, Arm Pain (To right shoulder), Leg Pain (Chronic to left knee) Neurological: Alert, Oriented, Normal Cognition, Normal Gait, No Motor/Sensory Deficits, Confused Psychiatric: Normal Affect, Normal Mood Skin Exam: Warm, Dry, Intact, Pallor. No: No Rash, Ecchymosis, Erythema, Mottled, Petechiae #1 Interpretation EKG Date: 07/24/20 Time: 10:26 Rhythm: Other (Sinus Bradycardia) Rate (Beats/Min): 60 Burney: Normal P-Wave: Present QRS: Normal ST-T: Normal QT: Normal Comparison: No Change EKG Interpretation Comments: SB; No evidence of acute ischemia Course - Vital Signs Last Recorded V/S: Last Vital Signs Temp 97.5 F 07/25/20 00:50 Pulse 64 07/25/20 00:50 Resp 18 07/25/20 00:50 BP 120/60 07/25/20 00:50 Pulse Ox 98 07/25/20 00:50 - Orders/Labs/Meds Orders: Medication Orders Acetaminophen (Tylenol) 650 mg PO Q4H PRN PRN Reason: Pain (Mild 1-3)/fever Albuterol (Proventil Hfa) 0 gm INH Q6HR PRN PRN Reason: Wheezing Atorvastatin Calcium (Lipitor) 20 mg PO BEDTIME [facility] Last Admin: 07/24/20 22:11 Dose: 20 mg Documented by: ISRAEL Docusate Sodium (Colace) 100 mg PO BID PRN PRN Reason: Constipation Doxazosin Mesylate (Cardura) 4 mg PO BEDTIME [facility] Last Admin: 07/24/20 22:16 Dose: 4 mg Documented by: ISRAEL Ezetimibe (Zetia) 10 mg PO DAILY [facility] Fluconazole (Diflucan) 400 mg PO DAILY [facility] Gabapentin (Neurontin) 300 mg PO TID [facility] Last Admin: 07/24/20 22:11 Dose: 300 mg Documented by: ISRAEL Sodium Chloride (Normal Saline) 1,000 mls @ 125 mls/hr IV ASDIRECTED [facility] Last Admin: 07/25/20 00:23 Dose: 125 mls/hr Documented by: Infusion: 07/25/20 00:22 Dose: 125 mls/hr Documented by: Admin: 07/24/20 16:06 Dose: 125 mls/hr Documented by: REESE Metoprolol Succinate (Toprol Xl) 100 mg PO DAILY [facility] Mometasone Furoate/Formoterol Fumar (Dulera 200-5 Mcg) 1 puff IH BID [facility] Last Admin: 07/24/20 22:24 Dose: 1 puff Documented by: ISRAEL Nitroglycerin (Nitrostat) 0.4 mg SL Q5M PRN PRN Reason: Chest Pain Omeprazole (Omeprazole) 40 mg PO BIDAC [facility] Last Admin: 07/25/20 06:40 Dose: 40 mg Documented by: Admin: 07/24/20 16:38 Dose: 40 mg Documented by: REESE Ondansetron HCl (Zofran Odt) 4 mg PO Q4H PRN PRN Reason: nausea, able to take PO Ropinirole HCl (Requip) 0.5 mg PO BEDTIME [facility] Last Admin: 07/24/20 22:12 Dose: 0.5 mg Documented by: ISRAEL Tamsulosin HCl (Flomax) 0.4 mg PO PCBREAKFAST [facility] Tiotropium Bartley (Spiriva Handihaler) 18 mcg INH DAILY [facility] Tramadol HCl (Ultram) 100 mg PO BID [facility] Last Admin: 07/24/20 22:17 Dose: 100 mg Documented by: ISRAEL Warfarin Sodium (Pharmacy To Dose - Warfarin) 1 dose .XX ASDIRECTED [facility] Labs: Laboratory Tests 07/24/20 07/24/20 07/24/20 Range/Units 10:40 10:40 10:40 WBC 17.0 H (5.0-10.0) 10^3/uL RBC 4.81 (4.6-6.2) 10^6/uL Hgb 13.3 L D (14.0-18.0) g/dL Hct 42.2 (40.0-54.0) % MCV 87.7 D (80-100) fL MCH 27.7 (27.0-34.0) pg MCHC 31.5 L (33.0-35.0) g/dL Plt Count 251 D (150-450) 10^3/uL Neut % (Auto) 41.4 L (42.2-75.2) % Lymph % (Auto) 36.9 (20.5-50.1) % [place] % (Auto) 10.3 H (2-8) % Eos % (Auto) 11.2 H (1.0-3.0) % Baso % (Auto) 0.2 (0.0-1.0) % D-Dimer, Quantitative 1070 H (0-400) ng/mL Sodium 142 (136-145) mmol/L Potassium 4.6 (3.5-5.1) mmol/L Chloride 106 (98-107) mmol/L Carbon Dioxide 26 (21-32) mmol/L Anion Gap 14.6 H (7-13) mEq/L BUN 14 (7-18) mg/dL Creatinine 1.34 H (0.70-1.30) mg/dL Est Cr Clr Drug Dosing 37.69 mL/min Estimated GFR (MDRD) 52 BUN/Creatinine Ratio 10.4 (No establ ref range) Glucose 104 H (74-99) mg/dL Lactic Acid (0.4-2.0) mmol/L Calcium 8.6 (8.5-10.1) mg/dL Total Bilirubin 0.5 (0.2-1.0) mg/dL AST 37 (15-37) U/L ALT 17 (16-63) U/L Alkaline Phosphatase 173 H (46-116) U/L Troponin I < 0.017 (0.000-0.056) ng/mL C-Reactive Protein 4.4 H (0.0-0.9) mg/dL B-Natriuretic Peptide 123 H (0-100) pg/ml Total Protein 5.0 L (6.4-8.2) g/dL Albumin 2.5 L (3.4-5.0) g/dL Globulin 2.5 Albumin/Globulin Ratio 1.00 07/24/20 Range/Units 10:40 WBC (5.0-10.0) 10^3/uL RBC (4.6-6.2) 10^6/uL Hgb (14.0-18.0) g/dL Hct (40.0-54.0) % MCV (80-100) fL MCH (27.0-34.0) pg MCHC (33.0-35.0) g/dL Plt Count (150-450) 10^3/uL Neut % (Auto) (42.2-75.2) % Lymph % (Auto) (20.5-50.1) % [place] % (Auto) (2-8) % Eos % (Auto) (1.0-3.0) % Baso % (Auto) (0.0-1.0) % D-Dimer, Quantitative (0-400) ng/mL Sodium (136-145) mmol/L Potassium (3.5-5.1) mmol/L Chloride (98-107) mmol/L Carbon Dioxide (21-32) mmol/L Anion Gap (7-13) mEq/L BUN (7-18) mg/dL Creatinine (0.70-1.30) mg/dL Est Cr Clr Drug Dosing mL/min Estimated GFR (MDRD) BUN/Creatinine Ratio (No establ ref range) Glucose (74-99) mg/dL Lactic Acid 1.7 (0.4-2.0) mmol/L Calcium (8.5-10.1) mg/dL Total Bilirubin (0.2-1.0) mg/dL AST (15-37) U/L ALT (16-63) U/L Alkaline Phosphatase (46-116) U/L Troponin I (0.000-0.056) ng/mL C-Reactive Protein (0.0-0.9) mg/dL B-Natriuretic Peptide (0-100) pg/ml Total Protein (6.4-8.2) g/dL Albumin (3.4-5.0) g/dL Globulin Albumin/Globulin Ratio Meds: Medications Generic Name Dose Route Start Last Admin Trade Name Freq PRN Reason Stop Dose Admin Acetaminophen 650 mg 07/24/20 14:03 Tylenol PO Q4H PRN Pain (Mild 1-3)/fever Albuterol 0 gm 07/24/20 14:07 Proventil Hfa INH Q6HR PRN Wheezing Atorvastatin Calcium 20 mg 07/24/20 21:00 07/24/20 22:11 Lipitor PO 20 mg BEDTIME DUY Administration Docusate Sodium 100 mg 07/24/20 14:03 Colace PO BID PRN Constipation Doxazosin Mesylate 4 mg 07/24/20 21:00 07/24/20 22:16 Cardura PO 4 mg BEDTIME DUY Administration Ezetimibe 10 mg 07/25/20 09:00 Zetia PO DAILY DUY Fluconazole 400 mg 07/25/20 09:00 Diflucan PO DAILY DUY Gabapentin 300 mg 07/24/20 21:00 07/24/20 22:11 Neurontin PO 300 mg TID DUY Administration Sodium Chloride 1,000 mls @ 125 mls/hr 07/24/20 14:15 07/25/20 00:23 Normal Saline IV 125 mls/hr ASDIRECTED DUY Administration Metoprolol Succinate 100 mg 07/25/20 09:00 Toprol Xl PO DAILY DUY Mometasone Furoate/Formoterol Fumar 1 puff 07/24/20 21:00 07/24/20 22:24 Dulera 200-5 Mcg IH 1 puff BID DUY Administration Nitroglycerin 0.4 mg 07/24/20 14:07 Nitrostat SL Q5M PRN Chest Pain Omeprazole 40 mg 07/24/20 16:15 07/25/20 06:40 Omeprazole PO 40 mg BIDAC DUY Administration Ondansetron HCl 4 mg 07/24/20 14:03 Zofran Odt PO Q4H PRN nausea, able to take PO Ropinirole HCl 0.5 mg 07/24/20 21:00 07/24/20 22:12 Requip PO 0.5 mg BEDTIME [facility] Administration Tamsulosin HCl 0.4 mg 07/25/20 08:30 Flomax PO PCBREAKFAST [facility] Tiotropium Bartley 18 mcg 07/25/20 09:00 Spiriva Handihaler INH DAILY [facility] Tramadol HCl 100 mg 07/24/20 21:00 07/24/20 22:17 Ultram PO 100 mg BID DUY Administration Warfarin Sodium 1 dose 07/25/20 06:00 Pharmacy To Dose - Warfarin .XX ASDIRECTED [facility] Discontinued Medications Generic Name Dose Route Start Last Admin Trade Name Freq PRN Reason Stop Dose Admin Non-Formulary Medication 2 puff 07/24/20 21:00 Budesonide/Formoterol INH BID [facility] Non-Formulary Medication 2 mg 07/24/20 14:15 Warfarin PO .MON [facility] Warfarin Sodium 1 mg 07/24/20 14:15 Coumadin PO .[id number] [facility] - Re-Assessments/Exams Free Text/Narrative Re-Assessment/Exam: 07/24/20 D-dimer elevated at 1103; US to UE negative for thrombus. Workup otherwise unremarkable for acute processes. Case discussed with Dr. Alvares who is familiar with the patient. Dr. Alvares kindly agrees to admit the patient to observation for progressive weakness and possible placement. GCS at one hour 15 GCS upon transfer to floor remains 15. Departure - Departure Time of Disposition: 12:56 Disposition: Refer to Observation Condition: Fair Clinical Impression: Frequent falls, Generalized weakness COPD (chronic obstructive pulmonary disease) Qualifiers: COPD type: unspecified COPD Qualified Code(s): J44.9 - Chronic obstructive pulmonary disease, unspecified - Discharge Information
[2020-07-24 11:23] LABS: ANION GAP 14.6 mEq/L (7-13); CHLORIDE,CL 106 mmol/L (98-107); SODIUM,NA 142 mmol/L (136-145)
--- NOTE | 2020-07-24 11:33 | CR ---
EXAMINATION: Shoulder Comp Rt 2 view SEX: Male AGE: 79 years CLINICAL HISTORY: 79-year-old male injured (fall from bed onto right shoulder). INTERPRETATION: (Two-view) abnormal. 1. Elevation of the humeral head against the acromion process ipsilateral scapular right shoulder (associated reactive sclerosis suggesting chronic rotator cuff tear). 2. Homogeneous normal bone density for age. 3. No sign of acute right shoulder fracture or dislocation. No acromioclavicular separation. 4. Underlying ribs upper right hemithorax unremarkable. Right lung apex clear. No pneumothorax. 5. CONCLUSION: Chronic abnormalities right shoulder. No acute fracture or dislocation. CONCLUSION:
--- NOTE | 2020-07-24 12:45 | US ---
EXAMINATION: Venous Doppler Upr Ext Rt SEX: Male AGE: 79 years CLINICAL HISTORY: 79-year-old male with elevated serum D dimer and right upper extremity swelling/erythema. Rule out DVT. Fall from bed. X-ray: "chronic abnormalities right shoulder but no fracture". Interpretation: Negative Doppler ultrasound right upper extremity. Basilic/brachial veins patent. Axillary vein and and subclavian vein proximally, right upper extremity, patent without sign of thrombus. (Cephalic vein "not visualized" possibly secondary to trauma and edema. Doubt DVT).
--- NOTE | 2020-07-24 13:11 | CR ---
EXAMINATION: Chest 1V Frontal SEX: Male AGE: 79 years CLINICAL HISTORY: 79-year-old male with chest pain, pulmonary emphysema and bibasilar pleural scarring. Interpretation: No acute new cardiopulmonary abnormality since comparison film 20 May 2020. Normal cardiac silhouette (size and configuration). No pulmonary vascular congestion, cephalization of flow or alveolar edema. Chronic blunting the costophrenic sulci unchanged since 20 May 2020 i.e. no new pleural fluid. No new lung mass or hilar lymphadenopathy. No focal lobar consolidation (infiltrate/atelectasis) or peripheral "groundglass" lung densities. No pneumothorax or pneumomediastinum.
[2020-07-24] MEDS ORDERED: Ondansetron 4 MG Tab.DIS PO PRN (14:03)
[2020-07-24] MEDS ORDERED: Docusate Sodium 100 MG Cap PO PRN (14:03)
[2020-07-24] MEDS ORDERED: Acetaminophen 325 MG Tab PO PRN (14:03)
[2020-07-24] MEDS ORDERED: Albuterol 6.7 GM Inhaler INH PRN (14:07)
[2020-07-24] MEDS ORDERED: Nitroglycerin 0.4 MG Tab.SL SL PRN (14:07)
[2020-07-24] MEDS ORDERED: Non-Formulary Medication 1 Each (Warfarin 2 MG) PO SCH (14:15)
[2020-07-24] MEDS ORDERED: Warfarin 2 MG Tab PO SCH (14:15)
[2020-07-24] MEDS: Sodium Chloride 0.9% 1,000 ML IV SCH (16:06)
[2020-07-24] MEDS: Omeprazole 20 MG Cap.CR PO SCH (16:38)
--- NOTE | 2020-07-24 18:10 | HP ---
CHIEF COMPLAINT: Generalized weakness. HISTORY OF PRESENT ILLNESS: The patient is a 79 -year-old male with past medical history of urinary retention, on chronic Meza catheter, rheumatoid arthritis, COPD, dyslipidemia, coronary artery disease, history of DVT, on Coumadin therapy, and recent septic arthritis of the left knee secondary to fungal infection and recent hospitalization here in [facility] because of general debility and the patient was admitted through the emergency room because the patient has been progressively weaker inside his home to the point that he no longer ambulates in his own home and only transfers to a recliner chair. The patient still complains of some pain on his left knee, but this has been baseline for him. The patient also had 3 falls in his home for the last 48 hours. The patient denies though hitting his head. Denies any injury. Despite the patient being followed by PT and OT at home, he continues to decline and has this generalized weakness. The patient denies though any chest pain, fever, chills, abdominal pain, nausea, or vomiting. PAST MEDICAL HISTORY: As in HPI. HOME MEDICATIONS: Tramadol, albuterol, Symbicort, Flexeril, doxazosin, gabapentin, metoprolol, Coumadin, Lipitor, Requip, Tylenol, Nexium, Flonase, sublingual nitro, Spiriva, sucralfate, Flomax, Zetia, and Zofran. FAMILY HISTORY: Noncontributory. ALLERGIES: Penicillin, fentanyl, hydrocodone, isosorbide, and lorazepam. PHYSICAL EXAMINATION: General: The patient looks weak, but not in any acute distress. Vital Signs: Blood pressure is 107/70, pulse 61, respirations of 18, and temperature of 97. SHEENT: Normocephalic. There are no signs of trauma. No C-spine tenderness. There are pink palpebral conjunctivae. Sclerae anicteric. No JVD. No lymphadenopathy. Heart: Regular. No gallops. No rubs. Lungs: Diminished breath sounds on both bases, but no significant crackles, no wheezing. Abdomen: Soft, nontender, bowel sounds positive. Extremities: Negative for any pedal edema. No calf tenderness. Neurologic: Negative for any lateralizing signs. LABORATORY DATA: Lab workup, CBC; WBC 17, hemoglobin is 13.3, hematocrit is 42.2, platelet is 251. Comp panel remarkable for BUN of 1.34, anion gap of 14.6, glucose is 104, and alkaline phosphatase is 173, and the rest of the panel unremarkable. Troponin is less than 0.017. C-reactive protein is 4.4. BNP is 123. Lactic acid is 1.7. Venous Doppler of the upper extremities, negative for any DVT. Chest x-ray, my reading is showing COPD, but no infiltrates noted. ADMITTING DIAGNOSES: 1. Generalized weakness. 2. Recent osteomyelitis of the left knee. 3. Atrial fibrillation, on anticoagulation with Coumadin. 4. Rheumatoid arthritis. 5. Chronic obstructive pulmonary disease. 6. Coronary artery disease. 7. Dyslipidemia. 8. Urinary retention. TREATMENT PLAN: The patient is going to be admitted to observation. We will have PT and OT see the patient for evaluation and I have also discussed with the patient about fdc placement as he is unable to manage at home, and the patient mentioned that if he has to, then he is going to the fdc. The patient's code level status is DNR/DNI as per his wishes. [facility] /[id number] MTDD
[2020-07-24] MEDS ORDERED: Non-Formulary Medication 1 Each (Budesonide/Formoterol 2 PUFF) INH SCH (21:00)
[2020-07-24] MEDS: atorvaSTATin 20 MG Tab PO SCH (22:11)
[2020-07-24] MEDS: Gabapentin 300 MG Cap PO SCH (22:11)
[2020-07-24] MEDS: rOPINIRole 0.25 MG Tab PO SCH (22:12)
[2020-07-24] MEDS: Doxazosin 2 MG Tab PO SCH (22:16)
[2020-07-24] MEDS: traMADol 50 MG Tab PO SCH (22:17)
[2020-07-24] MEDS: Formoterol/Mometasone 200-5 MCG 8.8 GM Inhaler IH SCH (22:24)
[2020-07-25] MEDS: Sodium Chloride 0.9% 1,000 ML IV SCH (00:23)
[2020-07-25] MEDS: Omeprazole 20 MG Cap.CR PO SCH ×2 (06:40→17:38)
[2020-07-25 07:03] LABS: ANION GAP 11.3 mEq/L (7-13); CHLORIDE,CL 107 mmol/L (98-107); SODIUM,NA 141 mmol/L (136-145)
[2020-07-25] MEDS ORDERED: Potassium Chloride 10 MEQ Tab.ER PO ONE (07:42)
[2020-07-25] MEDS: Tamsulosin 0.4 MG Cap.ER PO SCH (09:31)
[2020-07-25] MEDS: Fluconazole 100 MG Tab PO SCH (09:32)
[2020-07-25] MEDS: Tiotropium Inhaler 18 MCG Inhalation Powder Cap Kit of 5 INH SCH (09:33)
[2020-07-25] MEDS: Gabapentin 300 MG Cap PO SCH ×3 (09:33→21:24)
[2020-07-25] MEDS: Metoprolol Succinate 50 MG Tab.ER PO SCH (09:33)
[2020-07-25] MEDS: traMADol 50 MG Tab PO SCH ×2 (09:34→21:29)
[2020-07-25] MEDS: Ezetimibe 10 MG Tab PO SCH (09:35)
[2020-07-25] MEDS: Formoterol/Mometasone 200-5 MCG 8.8 GM Inhaler IH SCH ×2 (09:42→21:36)
--- NOTE | 2020-07-25 10:01 | PN ---
DATE: 07/25/2020 SUBJECTIVE: The patient is feeling slightly better this morning. Appetite is slowly improving. The patient denies any chest pain, shortness of breath, abdominal pain, or any other complaints. LABORATORY DATA: Lab workup this morning; WBC is 10, hemoglobin is 10.4, hematocrit is 33.2, platelets 215. Chem-6 remarkable for potassium of 3.3 and calcium of 7.9. The rest of the panel unremarkable. The patient's urinalysis is unremarkable. OBJECTIVE: Vital Signs: Blood pressure is 114/54, pulse of 63, respirations 20, temperature of 98.8, and saturation is 96% on 2 L per nasal cannula. Heart: Regular rate and rhythm. Normal S1 and S2. No gallops. No rubs. Lungs: Diminished breath sounds on both bases, but no crackles, no wheezing. Abdomen: Soft, nontender. Bowel sounds positive. Extremities: Negative for any pedal edema. No calf tenderness. MEDICATIONS: Reviewed. PLAN: We will continue with his present management and we are also awaiting the half-way screen for the patient. I am going to give him potassium 40 mEq p.o. x1 today because of the low potassium. MOD /[id number]
[2020-07-25] MEDS ORDERED: Sodium Chloride 0.9% 10 ML Syringe FLUSH PRN (11:19)
[2020-07-25] MEDS: rOPINIRole 0.25 MG Tab PO SCH (21:23)
[2020-07-25] MEDS: atorvaSTATin 20 MG Tab PO SCH (21:23)
[2020-07-25] MEDS: Doxazosin 2 MG Tab PO SCH (21:25)
[2020-07-26] MEDS: Omeprazole 20 MG Cap.CR PO SCH (05:14)
[2020-07-26 07:08] LABS: ANION GAP 10.2 mEq/L (7-13); CHLORIDE,CL 108 mmol/L (98-107); SODIUM,NA 140 mmol/L (136-145)
[2020-07-26] MEDS: Fluconazole 100 MG Tab PO SCH (08:57)
[2020-07-26] MEDS: Ezetimibe 10 MG Tab PO SCH (08:57)
[2020-07-26] MEDS: Formoterol/Mometasone 200-5 MCG 8.8 GM Inhaler IH SCH (08:57)
[2020-07-26] MEDS: Tamsulosin 0.4 MG Cap.ER PO SCH (08:57)
[2020-07-26] MEDS: Gabapentin 300 MG Cap PO SCH (08:57)
[2020-07-26] MEDS: Metoprolol Succinate 50 MG Tab.ER PO SCH (08:58)
[2020-07-26] MEDS: traMADol 50 MG Tab PO SCH (08:58)
[2020-07-26] MEDS: Tiotropium Inhaler 18 MCG Inhalation Powder Cap Kit of 5 INH SCH (09:02)
[2020-07-26 09:06] VITALS: BP 118/95; PULSE 66
--- NOTE | 2020-07-26 10:02 | PN ---
DATE: 07/26/2020 SUBJECTIVE: The patient is doing fairly well. Still a little bit weak, but he denies any chest pain, shortness of breath, abdominal pain, fever, chills, nor any other complaints. The patient will be going to [facility] today. LABORATORY WORKUP: This morning, INR is 3.5. Chem-6: Chloride is 108, calcium 8.4. The rest of the panel unremarkable. OBJECTIVE: Vital Signs: Blood pressure is 111/60, pulse of 59, respirations 20, temperature of 98.5, saturation is 97% on 1.5 L per nasal cannula. Heart: Regular rate and rhythm. Lungs: Diminished breath sounds in both bases, but no crackles, no wheezing. Abdomen: Soft, nontender. Bowel sounds positive. Extremities: Negative for any pedal edema. No calf tenderness. MEDICATIONS: Reviewed. PLAN: We will discharge the patient home today to [facility]. We will continue with his home medication and continue with PT and OT. [facility] /[id number]
--- NOTE | 2020-07-26 11:48 | DISCH ---
FINAL DIAGNOSES: 1. History of recurrent fall. 2. Generalized weakness. 3. Recent osteomyelitis of the left knee. 4. Atrial fibrillation, on anticoagulation with Coumadin. 5. Rheumatoid arthritis. 6. Chronic obstructive pulmonary disease. 7. Coronary artery disease. 8. Dyslipidemia. BRIEF HISTORY OF PRESENT ILLNESS: The patient is a 79-year-old male with past medical history of rheumatoid arthritis, COPD, dyslipidemia, coronary artery disease, history of DVT, atrial fibrillation, on Coumadin therapy, and recent septic arthritis of the left knee secondary to fungal infection, was admitted because of generalized weakness and fall at home. PERTINENT LAB, X-RAY, AND OTHER TESTS: CBC: WBC 17, hemoglobin is 13.3, hematocrit is 42, platelets 251. Comp panel: BUN is 1.34, anion gap of 14.6, glucose is 104, alkaline phosphatase is 173. The rest of the panel unremarkable. Troponin is within normal limits. C-reactive protein is 4.4. BNP is 123. Lactic acid is 1.7. Ultrasound of the upper extremities negative for any DVT and chest x-ray showed COPD. HOSPITAL COURSE: The patient was admitted to observation. PT and OT were consulted and the patient was resumed on his medication. Because of the patient's general debility and he is not able to manage at home, he was then discharged to [facility]. CONDITION ON DISCHARGE: Improved. DISCHARGE INSTRUCTIONS: Follow up with me in 7 to 10 days with a CBC, basic metabolic panel, and BNP. DISCHARGE MEDICATIONS: The patient is going to be resumed on his home medications, which are albuterol inhaler, Lipitor 20 mg daily, doxazosin 4 mg daily, Zetia 10 mg daily, fluconazole 400 mg daily, gabapentin 300 mg t.i.d., metoprolol 100 mg daily, and Dulera 1 puff b.i.d., sublingual nitro p.r.n., omeprazole 40 mg b.i.d., Requip 0.5 mg at bedtime, Flomax 0.4 mg at bedtime, Spiriva 1 inhalation daily, tramadol 50 mg b.i.d., Tylenol p.r.n., albuterol neb, Symbicort inhaler 2 puffs b.i.d., Flonase, Zofran p.r.n., sucralfate, and Coumadin 2 mg Wednesday, Wednesday, , Wednesday and Wednesday and 2 mg on Wednesday. [facility] /[id number]
== END 2020-07-26 10:10 ==
LOC: DL.ED 10:26 → DL.MS 12:48
PROVIDERS: ADMIT Internal Medicine; ATTEND Internal Medicine
DX: R53.1 Weakness (principal); M06.9 Rheumatoid arthritis, unspecified; J44.9 Chronic obstructive pulmonary disease, unspecified; I25.10 Atherosclerotic heart disease of native coronary artery without angina pectoris; M86.8X6 Other osteomyelitis, lower leg; I48.91 Unspecified atrial fibrillation; R33.9 Retention of urine, unspecified; E78.00 Pure hypercholesterolemia, unspecified; F32.9 Major depressive disorder, single episode, unspecified; F41.9 Anxiety disorder, unspecified; E03.9 Hypothyroidism, unspecified; Z20.828 Contact with and (suspected) exposure to other viral communicable diseases; Z79.02 Long term (current) use of antithrombotics/antiplatelets; Z98.890 Other specified postprocedural states; Z79.899 Other long term (current) drug therapy; Z88.8 Allergy status to other drugs, medicaments and biological substances; Z88.5 Allergy status to narcotic agent; Z88.0 Allergy status to penicillin
CPT/HCPCS: 36415; 71045; 73030-RT; 80048; 80053; 81003; 83605; 83880; 84484; 85025; 85379; 85610; 86140; 93005; 93010; 93971; 97162-GP; 97166-GO; 99217; 99218; 99225; 99284; 99285-25; A9270-GY; G0378; J7030; U0002